=== PATIENT | male | born 1950 | race Caucasian/White ===

== ENCOUNTER 2018-11-12 14:55 | Inpatient (IN) | payer OTHER, MEDICARE ==
[~2018-11-12] VITALS: Ht 177.8 cm; Wt 135.2 kg
[~2018-11-12 14:55] MED LIST: APIX5TAB PO; ATOR40TA PO; CIPR500T94 PO
--- NOTE | 2018-11-12 16:47 | PHYS DOC ---
Past Medical History Past Medical History: CVA, Other Additional Past Medical Histor: Kidney stones Past Surgical History: Other Additional Past Surgical Histo: L)Carotidendarectomy,R)rotator cuff,Bilateral knee surgery,Hiatel hernia. Alcohol Use: Rarely Drug Use: Marijuana Social History Narrative: last use 2 weeks ago Adult General Chief Complaint Chief Complaint: TOE PROBLEM HPI HPI Patient is a 68 year old male who presents with right second toe wound with drainage that has gotten worse in the last 2 weeks. The second toe is now red and swollen and patient states isn't draining purulent fluid. Patient states that his girlfriend has been trying to fix his toes and has been taking at that toe to drain pus and remove ingrown toenails for quite a few weeks. Patient states does have venous stasis in that right leg. Patient states that he does not think the foot is any more swollen than it usually is. Patient states that toe is very painful to touch at a 10 out of 10. Patient states if he just sitting without the toe being touched it the pain is only a 2 out of 10. Patient has a history of 5 strokes, high cholesterol, venous stasis, coronary disease. Review of Systems Review of Systems Constitutional: Denies fever or chills [] Eyes: Denies change in visual acuity, redness, or eye pain [] HENT: Denies nasal congestion or sore throat [] Respiratory: Denies cough or shortness of breath [] Cardiovascular: No additional information not addressed in HPI [] GI: Denies abdominal pain, nausea, vomiting, bloody stools or diarrhea [] : Denies dysuria or hematuria [] Musculoskeletal: Denies back pain or joint pain [] Integument: wound to right 2nd toe. Denies rash or skin lesions [] Neurologic: Denies headache, focal weakness or sensory changes [] All other systems were reviewed and found to be within normal limits, except as documented in this note. Current Medications Current Medications Current Medications Medications (Trade) Dose Ordered Sig/Taylor Start Time Stop Time Status Last Admin Dose Admin Sodium Chloride 1,000 ml @ 1,000 mls/hr 1X ONCE 11/12/18 17:15 11/12/18 18:14 Allergies Allergies Allergies Coded Allergies Type Severity Reaction Last Updated Verified hydroxyzine Allergy Intermediate Blisters on fingers and feet. 04/24/18 Yes Physical Exam Physical Exam Constitutional: Well developed, well nourished, no acute distress, non-toxic appearance. [] HENT: Normocephalic, atraumatic, bilateral external ears normal, oropharynx moist, no oral exudates, nose normal. [] Eyes: PERRLA, EOMI, conjunctiva normal, no discharge. [] Neck: Normal range of motion, no tenderness, supple, no stridor. [] Cardiovascular:Heart rate regular rhythm, no murmur [] Lungs & Thorax: Bilateral breath sounds clear to auscultation [] Abdomen: Bowel sounds normal, soft, no tenderness, no masses, no pulsatile masses. [] Skin: Warm, dry, Right 2nd toe erythema, redness, Right foot and 2-3+ swelling, tenderness, tip of toe wound, no rash. [] Back: No tenderness, no CVA tenderness. [] Extremities: No tenderness, no cyanosis, no clubbing, ROM intact, no edema. [] Neurologic: Alert and oriented X 3, normal motor function, normal sensory function, no focal deficits noted. [] Psychologic: Affect normal, judgement normal, mood normal. [] Current Patient Data Vital Signs Vital Signs Date Time Temp Pulse Resp B/P (MAP) Pulse Ox O2 Delivery O2 Flow Rate FiO2 11/12/18 15:51 97.8 138 18 135/71 (92) 97 Room Air 97.8 Lab Values Laboratory Tests Test 11/12/18 17:04 White Blood Count 8.0 x10^3/uL (4.0-11.0) Red Blood Count 4.34 x10^6/uL (4.30-5.70) Hemoglobin 13.1 g/dL (13.0-17.5) Hematocrit 39.4 % (39.0-53.0) Mean Corpuscular Volume 91 fL (79-100) Mean Corpuscular Hemoglobin 30 pg (25-35) Mean Corpuscular Hemoglobin Concent 33 g/dL (31-37) Red Cell Distribution Width 14.7 % (11.5-14.5) H Platelet Count 266 x10^3/uL (140-400) Neutrophils (%) (Auto) 69 % (31-73) Lymphocytes (%) (Auto) 19 % (24-48) L Monocytes (%) (Auto) 9 % (0-9) Eosinophils (%) (Auto) 3 % (0-3) Basophils (%) (Auto) 1 % (0-3) Neutrophils # (Auto) 5.5 x10^3uL (1.8-7.7) Lymphocytes # (Auto) 1.5 x10^3/uL (1.0-4.8) Monocytes # (Auto) 0.7 x10^3/uL (0.0-1.1) Eosinophils # (Auto) 0.3 x10^3/uL (0.0-0.7) Basophils # (Auto) 0.1 x10^3/uL (0.0-0.2) Laboratory Tests 11/12/18 17:04 EKG EKG [] Radiology/Procedures Radiology/Procedures [] Impressions: [facility] [address] [place] [address] IMAGING REPORT Signed PATIENT: ELE MCCRACKEN ACCOUNT: [id number] : 1950 LOCATION: ER AGE: 68 SEX: M EXAM STATUS: REG ER ORD. PHYSICIAN: MONI PULIDO APRN REASON: right 2nd toe wound PROCEDURE: FOOT RIGHT 3V Three-view right foot study Clinical indications: Second toe wound. FINDINGS: No acute fracture or dislocation is evident. Alignment is normal. No periosteal reaction is evident. There is erosion of the distal tuft of the second distal phalanx consistent with osteomyelitis. No soft tissue air is seen. Plantar and posterior spurs of the calcaneus are seen IMPRESSION: Osteomyelitis of the second distal phalanx. Electronically signed by: Brandie Awan MD (11/12/2018 4:49 PM) [facility] DICTATED and SIGNED BY: BRANDIE AWAN MD DATE: 11/12/18 5224 Course & Med Decision Making Course & Med Decision Making Patient is a 68 year old male who presents with right second toe wound with drainage that has gotten worse in the last 2 weeks. The second toe is now red and swollen and patient states isn't draining purulent fluid. Patient states that his girlfriend has been trying to fix his toes and has been taking at that toe to drain pus and remove ingrown toenails for quite a few weeks. Patient states does have venous stasis in that right leg. Patient states that he does not think the foot is any more swollen than it usually is. Patient states that toe is very painful to touch at a 10 out of 10. Patient states if he just sitting without the toe being touched it the pain is only a 2 out of 10. Patient has a history of 5 strokes, high cholesterol, venous stasis, coronary disease. Upon examination patient's right second toe is 2+ swollen and red and hot to touch. Very painful for me to touch the toe. Patient has a positive pedal pulse in the affected right foot when using a Doppler. The foot itself is 3+ edema compared to the left foot which has 1+ edema. Patient states that he does not think it any more swollen than usual. Patient states he does have neuropathy in the foot on the sole foot. Patient's vital signs are normal and states he has not been running a fever, although his heart rate is 138 of which she states that he's been drinking energy drinks today. When looking back at previous visits the patient has been here his heart rates of been in the 80s and 90s. Bilateral feet and lower legs are reddened the patient again states that that is normal and has been like that for years. She denies any chest pain, dizziness, shortness of air, fevers, chills, nausea, vomiting. Alert and oriented. Ambulatory with a steady gait. Speaks in full clear sentences. Patient can wiggle toes on both feet. Toe nails on bilateral feet are thick and yellow and therefore it is difficult to check Refill. He shouldn't has no calf tenderness or foot tenderness bilaterally. Patient only has tenderness in the affected right second toe. There is a wound to the tip of the right second toe that looks to have a scab on it and is not currently draining at this time. Patient states he did get a lot of purulent fluid out of it yesterday. Patient states that the toe has been like this off and on for the last 8 years. Differential diagnosis are venous stasis ulcer, osteomyelitis, cellulitis. I have ordered an x-ray of the foot and blood work. Xray shows osteomyelitis in right second toe. I have spoken with Dr Schulz and patient is being admitted for osteomyelitis. I have started the patient on vancomycin and blood cultures have been ordered. Dragon Disclaimer Dragon Disclaimer This electronic medical record was generated, in whole or in part, using a voice recognition dictation system. Departure Departure Impression: Primary Impression: Osteomyelitis Disposition: 09 ADMITTED INPATIENT Admitting Physician: HENRY Condition: STABLE Referrals: MARY ROGERS (PCP) Problem Qualifiers Primary Impression: Osteomyelitis Osteomyelitis type: unspecified type Osteomyelitis location: foot Laterality: right Qualified Codes: M86.9 - Osteomyelitis, unspecified MONI PULIDO PRACTICAL NURSE Nov 12, 2018 16:47
--- NOTE | 2018-11-12 16:52 | RAD ---
Three-view right foot study Clinical indications: Second toe wound. FINDINGS: No acute fracture or dislocation is evident. Alignment is normal. No periosteal reaction is evident. There is erosion of the distal tuft of the second distal phalanx consistent with osteomyelitis. No soft tissue air is seen. Plantar and posterior spurs of the calcaneus are seen IMPRESSION: Osteomyelitis of the second distal phalanx. Electronically signed by: Serge Awan MD (11/12/2018 4:49 PM) [place] [id number]
[2018-11-12 17:13] LABS: BASO # 0.1 x10^3/uL (0.0-0.2); BASO % 1 % (0-3); EOS # 0.3 x10^3/uL (0.0-0.7); EOS % 3 % (0-3); HEMATOCRIT 39.4 % (39.0-53.0); HEMOGLOBIN 13.1 g/dL (13.0-17.5); LYMPH # 1.5 x10^3/uL (1.0-4.8); LYMPH % 19 % (24-48); MEAN CORPUSCULAR HEMOGLOBIN 30 pg (25-35); MEAN CORPUSCULAR HGB CONC 33 g/dL (31-37); MEAN CORPUSCULAR VOLUME 91 fL (79-100); MONO # 0.7 x10^3/uL (0.0-1.1); MONO % 9 % (0-9); NEUT # 5.5 x10^3uL (1.8-7.7); NEUT % 69 % (31-73); PLATELET COUNT 266 x10^3/uL (140-400); RED BLOOD COUNT 4.34 x10^6/uL (4.30-5.70); RED CELL DISTRIBUTION WIDTH 14.7 % (11.5-14.5)
[2018-11-12] MEDS ORDERED: IV NORMAL SALINE 1000ML BAG 1,000 ML IV ONE (17:15)
[2018-11-12 17:26] LABS: BILIRUBIN,URINE NEGATIVE (NEG); CLARITY,URINE CLEAR; COLOR,URINE YELLOW; NITRITE,URINE NEGATIVE (NEG); PH,URINE 5.5; PROTEIN,URINE NEGATIVE (NEG-TRACE)
[2018-11-12] MEDS ORDERED: ONDANSETRON PF 4 MG/2 ML VIAL. IV PRN (17:30)
[2018-11-12] MEDS ORDERED: VANCOMYCIN 2 GM in IV NORMAL SALINE 500ML BAG 500 ML IV ONE (17:30)
[2018-11-12] MEDS ORDERED: ACETAMINOPHEN 325 MG TABLET. PO PRN (17:30)
[2018-11-12] MEDS ORDERED: VANCOMYCIN PER PHARMACY MC PRN (17:30)
[2018-11-12 17:33] LABS: CALCIUM 8.8 mg/dL (8.5-10.1); CREATININE 1.6 mg/dL (0.7-1.3); GFR 43.1; POTASSIUM 4.2 mmol/L (3.5-5.1)
[2018-11-12 17:46] LABS: ALBUMIN 3.1 g/dL (3.4-5.0); ALBUMIN/GLOBULIN RATIO 0.9 (1.0-1.7); C-REACTIVE PROTEIN 12.6 mg/L (0-3.3); TOTAL BILIRUBIN 1.4 mg/dL (0.2-1.0); TOTAL PROTEIN 6.6 g/dL (6.4-8.2)
[2018-11-12] MEDS: fentaNYL PF VIAL 100 MCG/2 ML VIAL IV PRN ×2 (17:51→18:52)
[2018-11-12 18:13] LABS: BACTERIA,URINE FEW /HPF (0-FEW); RBC,URINE OCC /HPF (0-2); SQUAMOUS EPITHELIAL CELL,UR FEW /LPF
[2018-11-12 18:14] LABS: GRANULAR CASTS,URINE FEW /HPF; HYALINE CASTS, URINE OCCASIONAL /HPF
--- NOTE | 2018-11-12 19:17 | NUR ---
Pharmacy Vancomycin Dosing Note S:Consulted to monitor and dose vancomycin started 11/12/18. O:ELE MCCRACKEN is a 68 year old M with osteomyelitis. Height: 5 feet, 10 inches Weight: 127 Other Antibiotics: N/A LABS: Last BUN: 27 Last Creatinine: 1.6 Creatinine Clearance: 58 mL/min Last WBC: 8 Tmax (past 24 hours): 97.8 Microbiology: BLOOD AND URINE CX PENDING A: Patient requires vancomycin for osteomyelitis, goal trough 15-20 mcg/ml. Patient's SCr is 1.6 with an eCrCl of 58 ml/min. Will dose carefully due to SCr elevation, as this likely has inflated his eCrCl. Repeat labs ordered for tomorrow. Initiate the following: P: 1. Initiate Vancomycin 2000 mg IV q24hrs 2. Follow up Trough level on 11/14/18 at 1730 3. Pharmacy will continue to monitor, follow and adjust therapy as needed. TERA RAZO [facility], 11/12/18 [id number]
[2018-11-12 19:30] VITALS: BP 177/86
--- NOTE | 2018-11-12 19:30 | NUR ---
The patient, ELE MCCRACKEN, 68 y/o, M admitted by BALA BAIG MD, was given written information regarding hospital policies, unit procedures and contact persons. Pt. arrived on unit at 1930 by wheelchair. Pain level 3/10. BP elevated but otherwise VSS. Nora at bedside. Admission assessment and questions were done at this time. Valuables were left with pt. Bed low and locked. Call light within reach. Will continue to monitor.
[2018-11-12] MEDS ORDERED: cloNIDine HCL 0.2 MG TABLET PO ONE (21:00)
--- NOTE | 2018-11-12 21:01 | PDOC1 ---
History and Physical Date of Admission Date of Admission DATE: 11/12/18 TIME: 21:01 Identification/Chief Complaint Chief Complaint SEEN IN ER , Presents with right second toe wound with drainage that has gotten worse in the last 2 weeks. The second toe is now red and swollen and patient states isn't draining purulent fluid. Patient states that his girlfriend has been trying to fix his toes and has been taking at that toe to drain pus and remove ingrown toenails for quite a few weeks. Patient states does have venous stasis in that right leg. Patient states that he does not think the foot is any more swollen than it usually is. Patient states that toe is very painful to touch at a 10 out of 10. Patient states if he just sitting without the toe being touched it the pain is only a 2 out of 10. XRAY C/W OSTEO MYELITIS, ACUTE Past Medical History Past Medical History Past Medical History Past Medical History Past Medical History: CVA, Other Additional Past Medical Histor: Kidney stones Past Surgical History: Other Additional Past Surgical Histo: L)Carotidendarectomy,R)rotator cuff,Bilateral knee surgery,Hiatel hernia. Alcohol Use: Rarely Drug Use: Marijuana Social History Narrative: last use 2 weeks ago FAMILY HX OBESITY Cardiovascular: No pertinent hx, Hyperlipidemia Pulmonary: No pertinent hx GI: No pertinent hx Heme/Onc: Other Hepatobiliary: No pertinent hx Psych: No pertinent hx Rheumatologic: No pertinent hx Infectious disease: No pertinent hx Renal/: Other Endocrine: No pertinent hx Past Surgical History Past Surgical History: No pertinent history Family History Family History: High Cholestrol Social History Smoke: <1 pack per day ALCOHOL: social Drugs: None, Marijuana Current Problem List Problem List Problems Medical Problems: (1) Osteomyelitis Status: Acute Current Medications Current Medications Current Medications Sodium Chloride 1,000 ml @ 1,000 mls/hr 1X ONCE IV Last administered on 11/12/18at 17:50; Start 11/12/18 at 17:15; Stop 11/12/18 at 18:14; Status DC Vancomycin HCl (Vanco Per Pharmacy) 1 each PRN DAILY PRN MC SEE COMMENTS Last administered on 11/12/18at 19:16; Start 11/12/18 at 17:30 Vancomycin HCl 2 gm/Sodium Chloride 500 ml @ 250 mls/hr 1X ONCE IV Last administered on 11/12/18at 18:22; Start 11/12/18 at 17:30; Stop 11/12/18 at 19:29; Status DC Ondansetron HCl (Zofran) 4 mg PRN Q8HRS PRN IV NAUSEA/VOMITING; Start 11/12/18 at 17:30; Stop 11/13/18 at 17:29 Fentanyl Citrate (Fentanyl 2ml Vial) 50 mcg PRN Q1HR PRN IV PAIN Last administered on 11/12/18at 18:52; Start 11/12/18 at 17:30; Stop 11/13/18 at 17:29 Acetaminophen (Tylenol) 650 mg PRN Q4HRS PRN PO FEVER; Start 11/12/18 at 17:30; Stop 11/13/18 at 17:29 Vancomycin HCl 2 gm/Sodium Chloride 500 ml @ 250 mls/hr Q24H IV ; Start 11/13/18 at 18:00 Vancomycin HCl (Vancomycin Trough Level) 1 each 1X ONCE MC ; Start 11/14/18 at 17:30; Stop 11/14/18 at 17:31 Clonidine HCl (Catapres) 0.2 mg 1X ONCE PO ; Start 11/12/18 at 21:00; Stop 11/12/18 at 21:01 Active Scripts Active Cipro (Ciprofloxacin Hcl) 500 Mg Tablet 1 Tab PO BID Reported Lipitor (Atorvastatin Calcium) 40 Mg Tablet 1 Tab PO QHS Eliquis (Apixaban) 5 Mg Tablet 5 Mg PO BID Allergies Allergies: Coded Allergies: hydroxyzine (Verified Allergy, Intermediate, Blisters on fingers and feet. , 04/24/18) ROS Review of System Review of Systems Review of Systems Constitutional: Denies fever or chills [] Eyes: Denies change in visual acuity, redness, or eye pain [] HENT: Denies nasal congestion or sore throat [] Respiratory: Denies cough or shortness of breath [] Cardiovascular: No additional information not addressed in HPI [] GI: Denies abdominal pain, nausea, vomiting, bloody stools or diarrhea [] : Denies dysuria or hematuria [] Musculoskeletal: Denies back pain or joint pain [] Integument: wound to right 2nd toe. Denies rash or skin lesions [] Neurologic: Denies headache, focal weakness or sensory changes [] 14 PT systems were reviewed and found to be within normal limits, except as documenteD ALLERGY AND IMMUNOLOGY: No: Hives, Insect Bite Sensitivity, Itchy/Watery Eyes, Nasal Congestion, Post Nasal Drip, Seasonal Allergies, Other Physical Exam Physical Exam Physical Exam Physical Exam Constitutional: Well developed, well nourished, MILD acute distress, non-toxic appearance. [] HENT: Normocephalic, atraumatic, bilateral external ears normal, oropharynx moist, no oral exudates, nose normal. [] Eyes: PERRLA, EOMI, conjunctiva normal, no discharge. [] Neck: Normal range of motion, no tenderness, supple, no stridor. [] Cardiovascular:Heart rate regular rhythm, no murmur [] Lungs & Thorax: Bilateral breath sounds clear to auscultation [] Abdomen: Bowel sounds normal, soft, no tenderness, no masses, no pulsatile masses. [] Skin: Warm, dry, Right 2nd toe erythema, redness, Right foot and 2-3+ swelling, tenderness, tip of toe wound, no rash. [] Back: No tenderness, no CVA tenderness. [] Extremities: No tenderness, no cyanosis, no clubbing, ROM intact, no edema. [] Neurologic: Alert and oriented X 3, normal motor function, normal sensory function, no focal deficits noted. [] Psychologic: Affect normal, judgement normal, mood normal. [] General: Oriented X3, Cooperative, mild distress HEENT: Atraumatic, PERRLA, EOMI, Mucous membr. moist/pink Lungs: Clear to auscultation Abdomen: Normal bowel sounds, Soft Rectal Exam: not examined PELVIC: Examination not indicated Extremities: No cyanosis Neuro: Normal speech, Strength at 5/5 X4 ext, Cranial nerves 3-12 NL Psych/Mental Status: Mental status NL, Mood NL Vitals Vitals Vital Signs Date Time Temp Pulse Resp B/P (MAP) Pulse Ox O2 Delivery O2 Flow Rate FiO2 11/12/18 19:30 97.6 76 20 177/86 (116) 97 Room Air 97.6 Labs Labs Laboratory Tests Test 11/12/18 17:04 11/12/18 17:10 White Blood Count 8.0 x10^3/uL (4.0-11.0) Red Blood Count 4.34 x10^6/uL (4.30-5.70) Hemoglobin 13.1 g/dL (13.0-17.5) Hematocrit 39.4 % (39.0-53.0) Mean Corpuscular Volume 91 fL (79-100) Mean Corpuscular Hemoglobin 30 pg (25-35) Mean Corpuscular Hemoglobin Concent 33 g/dL (31-37) Red Cell Distribution Width 14.7 % (11.5-14.5) Platelet Count 266 x10^3/uL (140-400) Neutrophils (%) (Auto) 69 % (31-73) Lymphocytes (%) (Auto) 19 % (24-48) Monocytes (%) (Auto) 9 % (0-9) Eosinophils (%) (Auto) 3 % (0-3) Basophils (%) (Auto) 1 % (0-3) Neutrophils # (Auto) 5.5 x10^3uL (1.8-7.7) Lymphocytes # (Auto) 1.5 x10^3/uL (1.0-4.8) Monocytes # (Auto) 0.7 x10^3/uL (0.0-1.1) Eosinophils # (Auto) 0.3 x10^3/uL (0.0-0.7) Basophils # (Auto) 0.1 x10^3/uL (0.0-0.2) Sodium Level 143 mmol/L (136-145) Potassium Level 4.2 mmol/L (3.5-5.1) Chloride Level 107 mmol/L (98-107) Carbon Dioxide Level 27 mmol/L (21-32) Anion Gap 9 (6-14) Blood Urea Nitrogen 27 mg/dL (8-26) Creatinine 1.6 mg/dL (0.7-1.3) Estimated GFR (Cockcroft-Gault) 43.1 BUN/Creatinine Ratio 17 (6-20) Glucose Level 165 mg/dL (70-99) Lactic Acid Level 1.6 mmol/L (0.4-2.0) Calcium Level 8.8 mg/dL (8.5-10.1) Total Bilirubin 1.4 mg/dL (0.2-1.0) Aspartate Amino Transf (AST/SGOT) 19 U/L (15-37) Alanine Aminotransferase (ALT/SGPT) 23 U/L (16-63) Alkaline Phosphatase 72 U/L (46-116) C-Reactive Protein, Quantitative 12.6 mg/L (0-3.3) Total Protein 6.6 g/dL (6.4-8.2) Albumin 3.1 g/dL (3.4-5.0) Albumin/Globulin Ratio 0.9 (1.0-1.7) Urine Collection Type Unknown Urine Color Yellow Urine Clarity Clear Urine pH 5.5 Urine Specific [place] 1.020 Urine Protein Negative mg/dL (NEG-TRACE) Urine Glucose (UA) Negative mg/dL (NEG) Urine Ketones (Stick) Negative mg/dL (NEG) Urine Blood Negative (NEG) Urine Nitrite Negative (NEG) Urine Bilirubin Negative (NEG) Urine Urobilinogen Dipstick 1.0 mg/dL (0.2 mg/dL) Urine Leukocyte Esterase Trace (NEG) Urine RBC Occ /HPF (0-2) Urine WBC 5-10 /HPF (0-4) Urine Squamous Epithelial Cells Few /LPF Urine Bacteria Few /HPF (0-FEW) Urine Hyaline Casts Occasional /HPF Urine Granular Casts Few /HPF Urine Mucus Slight /LPF Laboratory Tests Test 11/12/18 17:04 11/12/18 17:10 White Blood Count 8.0 x10^3/uL (4.0-11.0) Red Blood Count 4.34 x10^6/uL (4.30-5.70) Hemoglobin 13.1 g/dL (13.0-17.5) Hematocrit 39.4 % (39.0-53.0) Mean Corpuscular Volume 91 fL (79-100) Mean Corpuscular Hemoglobin 30 pg (25-35) Mean Corpuscular Hemoglobin Concent 33 g/dL (31-37) Red Cell Distribution Width 14.7 % (11.5-14.5) Platelet Count 266 x10^3/uL (140-400) Neutrophils (%) (Auto) 69 % (31-73) Lymphocytes (%) (Auto) 19 % (24-48) Monocytes (%) (Auto) 9 % (0-9) Eosinophils (%) (Auto) 3 % (0-3) Basophils (%) (Auto) 1 % (0-3) Neutrophils # (Auto) 5.5 x10^3uL (1.8-7.7) Lymphocytes # (Auto) 1.5 x10^3/uL (1.0-4.8) Monocytes # (Auto) 0.7 x10^3/uL (0.0-1.1) Eosinophils # (Auto) 0.3 x10^3/uL (0.0-0.7) Basophils # (Auto) 0.1 x10^3/uL (0.0-0.2) Sodium Level 143 mmol/L (136-145) Potassium Level 4.2 mmol/L (3.5-5.1) Chloride Level 107 mmol/L (98-107) Carbon Dioxide Level 27 mmol/L (21-32) Anion Gap 9 (6-14) Blood Urea Nitrogen 27 mg/dL (8-26) Creatinine 1.6 mg/dL (0.7-1.3) Estimated GFR (Cockcroft-Gault) 43.1 BUN/Creatinine Ratio 17 (6-20) Glucose Level 165 mg/dL (70-99) Lactic Acid Level 1.6 mmol/L (0.4-2.0) Calcium Level 8.8 mg/dL (8.5-10.1) Total Bilirubin 1.4 mg/dL (0.2-1.0) Aspartate Amino Transf (AST/SGOT) 19 U/L (15-37) Alanine Aminotransferase (ALT/SGPT) 23 U/L (16-63) Alkaline Phosphatase 72 U/L (46-116) C-Reactive Protein, Quantitative 12.6 mg/L (0-3.3) Total Protein 6.6 g/dL (6.4-8.2) Albumin 3.1 g/dL (3.4-5.0) Albumin/Globulin Ratio 0.9 (1.0-1.7) Urine Collection Type Unknown Urine Color Yellow Urine Clarity Clear Urine pH 5.5 Urine Specific [place] 1.020 Urine Protein Negative mg/dL (NEG-TRACE) Urine Glucose (UA) Negative mg/dL (NEG) Urine Ketones (Stick) Negative mg/dL (NEG) Urine Blood Negative (NEG) Urine Nitrite Negative (NEG) Urine Bilirubin Negative (NEG) Urine Urobilinogen Dipstick 1.0 mg/dL (0.2 mg/dL) Urine Leukocyte Esterase Trace (NEG) Urine RBC Occ /HPF (0-2) Urine WBC 5-10 /HPF (0-4) Urine Squamous Epithelial Cells Few /LPF Urine Bacteria Few /HPF (0-FEW) Urine Hyaline Casts Occasional /HPF Urine Granular Casts Few /HPF Urine Mucus Slight /LPF Images Images Three-view right foot study Clinical indications: Second toe wound. FINDINGS: No acute fracture or dislocation is evident. Alignment is normal. No periosteal reaction is evident. There is erosion of the distal tuft of the second distal phalanx consistent with osteomyelitis. No soft tissue air is seen. Plantar and posterior spurs of the calcaneus are seen IMPRESSION: Osteomyelitis of the second distal phalanx. Electronically signed by: Serge Awan MD (11/12/2018 4:49 PM) [facility] Prophylaxis Ordered VTE Prophylaxis Devices: No VTE Pharmacological Prophylaxi: Yes Assessment/Plan Assessment/Plan Impression: Osteomyelitis IE , Osteomyelitis of the second distal phalanx. ACUTE MORBID OBESITY ONYCHOMYCOSIS OF FOOT NAILS cysto, R: URS/LL/Stent 2018 KIDNEY STONES REMOTE CVA HX HYPERLIPIDEMIA ADMITTED ID CONSULT VASCULAR SURGERY CONSULT HOME MEDS ARTERIAL DOPPLER BOTH LEGS IV VANC EMPERIC BALA BAIG MD Nov 12, 2018 21:01
[2018-11-12] MEDS: ATORVASTATIN CALCIUM 40 MG TABLET. PO SCH (22:25)
[2018-11-12] MEDS: APIXABAN 5 MG TABLET. PO SCH (22:25)
[2018-11-12 23:41] VITALS: BP 99/66
--- NOTE | 2018-11-13 00:11 | NUR ---
Pt.'s Nora called this evening. She wanted to let this nurse know that pt. is not compliant with his medical care. He has not been to the doctor in over 10 years. Before then, he needed a CPAP but never followed up with his doctor. She also stated he has been using a blade for 3 years to open the wound up on his toe and drain it. Pt.'s will be here around [id number] tomorrow morning.
[2018-11-13 03:43] VITALS: BP 131/78
[2018-11-13 07:00] VITALS: BP 128/84
--- NOTE | 2018-11-13 08:16 | RAD ---
Bilateral lower extremity arterial ultrasound, 11/12/2018: HISTORY: Peripheral vascular disease Duplex evaluation of the major arteries in both lower extremities was performed including grayscale, color-flow and spectral Doppler analysis. There are mild scattered atherosclerotic plaques. The right common femoral and superficial femoral arteries demonstrate biphasic Doppler waveforms. No significant focal velocity acceleration is seen in those vessels to suggest high-grade stenosis. In the right lower leg the anterior tibial artery is patent with a biphasic Doppler waveform. The posterior tibial and peroneal arteries are patent with predominantly monophasic Doppler waveforms. The right dorsalis pedis artery demonstrates a dampened monophasic Doppler waveform. On the left, the common femoral and superficial femoral Doppler waveforms are triphasic and biphasic. No significant focal velocity elevation is seen to suggest high-grade femoral-popliteal stenosis. The left posterior tibial, peroneal and anterior tibial arteries in the left lower leg demonstrate predominantly biphasic Doppler waveforms. The left dorsalis pedis artery demonstrates a biphasic Doppler waveform. IMPRESSION: 1. Mild scattered atherosclerotic plaquing without evidence of high-grade femoral-popliteal stenosis. 2. Three-vessel arterial runoff in both lower legs with mild degradation of the distal Doppler waveforms. Electronically signed by: Malachi Armenta MD (11/13/2018 8:14 AM) [facility] [place]
[2018-11-13 08:19] LABS: CREATININE 1.4 mg/dL (0.7-1.3); GFR 50.2
[2018-11-13 08:24] LABS: BASO % 1 % (0-3); EOS # 0.2 x10^3/uL (0.0-0.7); EOS % 3 % (0-3); HEMATOCRIT 42.2 % (39.0-53.0); HEMOGLOBIN 13.4 g/dL (13.0-17.5); LYMPH # 1.4 x10^3/uL (1.0-4.8); LYMPH % 23 % (24-48); MEAN CORPUSCULAR HEMOGLOBIN 29 pg (25-35); MEAN CORPUSCULAR HGB CONC 32 g/dL (31-37); MEAN CORPUSCULAR VOLUME 92 fL (79-100); MONO # 0.6 x10^3/uL (0.0-1.1); MONO % 10 % (0-9); NEUT % 63 % (31-73); PLATELET COUNT 288 x10^3/uL (140-400); RED BLOOD COUNT 4.58 x10^6/uL (4.30-5.70); RED CELL DISTRIBUTION WIDTH 14.8 % (11.5-14.5); WHITE BLOOD COUNT 6.2 x10^3/uL (4.0-11.0)
--- NOTE | 2018-11-13 09:11 | PDOC ---
Provider Note Provider Note ID consult dictated Pt seen and examined [id number] JENARO XIONG MD Nov 13, 2018 09:11
[2018-11-13] MEDS: APIXABAN 5 MG TABLET. PO SCH ×2 (09:19→21:00)
--- NOTE | 2018-11-13 09:37 | NUR ---
SW following for discharge planning. Discussed with RN, pt is from home with clarissa. Currently on IV zosyn and dapto. SW will continue to follow.
[2018-11-13] MEDS: NORMAL SALINE IV SCH (10:44)
[2018-11-13] MEDS: DAPTOMYCIN IV SCH (10:44)
[2018-11-13 11:00] VITALS: BP 102/74
[2018-11-13] MEDS: PIPERACILLIN/TAZOBACTAM 3.375 GM in IV NORMAL SALINE 50ML 50 ML IV SCH ×3 (11:40→23:34)
--- NOTE | 2018-11-13 12:01 | CONS ---
DATE OF CONSULTATION: 11/13/2018 REFERRING PHYSICIAN: Benton Schulz MD. REASON FOR CONSULTATION: Right second toe osteomyelitis. HISTORY OF PRESENT ILLNESS: A 68-year-old male who presents with right second toe wound, which has been present off and on for a couple of months with worsening drainage, which started more than 2 weeks ago. Second toe is red and swollen. Drainage has stopped. The patient's girlfriend had tried to work on the toe multiple times and has been able to drain pus off and on for quite some time now. The patient has a history of recurrent cellulitis of both lower extremities. He also has underlying venous stasis. He has onychomycosis. The patient has an insect bites on both the upper extremities and on the back. No fevers, chills, nausea, vomiting, diarrhea or abdominal pain. The patient underwent x-ray of the right foot, which shows osteomyelitis of the second distal phalanx. The patient also had been on Cipro prior to admission without improvement in his symptoms. PAST MEDICAL HISTORY: CVA, venous stasis, recurrent cellulitis of both lower extremities, right greater than the left; hyperlipidemia, coronary artery disease, obesity. Denies any history of diabetes. Kidney stones, carotid endarterectomy, rotator cuff surgery, knee surgery, and hiatal hernia surgery. REVIEW OF SYSTEMS: Negative except for above in HPI. CURRENT MEDICATIONS: Include IV vancomycin 2 grams q. 24. SOCIAL HISTORY: Denies smoking, alcohol rarely; drug use, marijuana. Lives with his girlfriend. ALLERGIES: CODEINE. PHYSICAL EXAMINATION: VITAL SIGNS: Temperature 97.8, pulse 128, respiratory rate 18, blood pressure 128/84, oxygen saturation 95% on room air. GENERAL: Alert, oriented x 3 male, obese, lying in bed comfortably, in no acute distress, cooperative, nontoxic appearing. HEENT: Normocephalic, atraumatic. Anicteric. No thrush. NECK: Supple. No JVD. LUNGS: Clear bilaterally. HEART: S1, S2. ABDOMEN: Soft, obese, bowel sounds present, nontender. EXTREMITIES: Right toe swelling, erythema, wound over the plantar aspect, mild right foot swelling, varicose veins, venous stasis and onychomycosis. BACK: Reveals normal curvature. No CVA tenderness. NEUROLOGIC: Alert and oriented x 3, grossly nonfocal. PSYCHIATRIC: Cooperative, appropriate mood and affect. LABORATORY DATA: WBC 6.2, hemoglobin 13.4, hematocrit 42.2, platelets 288. Sodium 143, potassium 4.0, chloride 107, bicarbonate 27, BUN 27, creatinine 1.6 and now is 1.4. Total bilirubin 1.4. C-reactive protein 12.6, lactate 1.6. UA negative except for 5-10 wbc's, leukocyte esterase, mild. MICROBIOLOGY: Blood culture and urine culture pending. IMAGING: Right foot x-ray as above. Duplex lower extremity arterial study as above. IMPRESSION: 1. Chronic nonhealing right second toe wound with purulent drainage with osteomyelitis of the second distal phalanx. 2. Chronic venous stasis. 3. Onychomycosis. 4. History of kidney stone. 5. Acute kidney injury. 6. History of remote cerebrovascular accident. 7. Hyperlipidemia. 8. History of recurrent cellulitis. RECOMMENDATIONS: 1. Discontinue IV vancomycin due to HYUN. 2. Start daptomycin, may need renal dosing. 3. Start Zosyn. 4. Start micafungin. 5. Consult Vascular Surgery. 6. Follow up labs and cultures. 7. Continue supportive care. 8. Continue with local wound care. Thank you, Dr. Schulz for consulting Infectious Disease to participate in this patient's care. We will follow along with you. JENARO XIONG MD DR: DL/jn JOB#: [id number] / [id number] BARNEY
--- NOTE | 2018-11-13 12:25 | PDOC2 ---
CONSULT Date of Consult Date of Consult DATE: 11/13/18 TIME: 12:17 Reason for Consult Reason for Consult: Right second toe wound with osteomyelitis Referring Physician Referring Physician: Dr Garcia Identification/Chief Complaint Chief Complaint Right second toe wound, purulent drainage, pain Source Source: Chart review, Patient History of Present Illness Reason for Visit: A 68-year-old male who presents with right second toe wound, which has been present off and on for a couple of months with worsening drainage, which started more than 2 weeks ago. Second toe is red and swollen. Drainage has stopped. The patient's girlfriend had tried to work on the toe multiple times and has been able to drain pus off and on for quite some time now. The patient has a history of recurrent cellulitis of both lower extremities. He also has underlying venous stasis. He has onychomycosis. The patient has an insect bites on both the upper extremities and on the back. No fevers, chills, nausea, vomiting, diarrhea or abdominal pain. The patient underwent x-ray of the right foot, which shows osteomyelitis of the second distal phalanx. The patient also had been on Cipro prior to admission without improvement in his symptoms. He was admitted due to above for intravenous antibiotics. He had arterial duplex performed and we've been asked to see him for relation. He describes a history of venous stasis issues in the right leg, denies any history of claudication or rest pain. He is not diabetic. He is not a smoker and has not smoked in the past. Past Medical History Past Medical History Denies history of diabetes mellitus, denies any history of tobacco abuse, has [place] 5 strokes in the past had a left carotid endarterectomy. This was done at [facility] in the past Cardiovascular: No pertinent hx, Hyperlipidemia Pulmonary: No pertinent hx GI: No pertinent hx Heme/Onc: Other Hepatobiliary: No pertinent hx Psych: No pertinent hx Rheumatologic: No pertinent hx Infectious disease: No pertinent hx Renal/: Other Endocrine: No pertinent hx Past Surgical History Past Surgical History Left carotid endarterectomy Unspecified varicose vein treatment right leg Past Surgical History: No pertinent history Family History Family History: High Cholestrol Social History <1 pack per day ALCOHOL: social Drugs: None, Marijuana Current Problem List Problem List Problems Medical Problems: (1) Osteomyelitis Status: Acute Current Medications Current Medications Current Medications Sodium Chloride 1,000 ml @ 1,000 mls/hr 1X ONCE IV Last administered on 11/12/18at 17:50; Start 11/12/18 at 17:15; Stop 11/12/18 at 18:14; Status DC Vancomycin HCl (Vanco Per Pharmacy) 1 each PRN DAILY PRN MC SEE COMMENTS Last administered on 11/12/18at 19:16; Start 11/12/18 at 17:30; Stop 11/13/18 at 09:04; Status DC Vancomycin HCl 2 gm/Sodium Chloride 500 ml @ 250 mls/hr 1X ONCE IV Last administered on 11/12/18at 18:22; Start 11/12/18 at 17:30; Stop 11/12/18 at 19:29; Status DC Ondansetron HCl (Zofran) 4 mg PRN Q8HRS PRN IV NAUSEA/VOMITING; Start 11/12/18 at 17:30; Stop 11/13/18 at 17:29 Fentanyl Citrate (Fentanyl 2ml Vial) 50 mcg PRN Q1HR PRN IV PAIN Last administered on 11/12/18at 18:52; Start 11/12/18 at 17:30; Stop 11/13/18 at 17:29 Acetaminophen (Tylenol) 650 mg PRN Q4HRS PRN PO FEVER; Start 11/12/18 at 17:30; Stop 11/13/18 at 17:29 Vancomycin HCl 2 gm/Sodium Chloride 500 ml @ 250 mls/hr Q24H IV ; Start 11/13/18 at 18:00; Stop 11/13/18 at 18:00; Status DC Vancomycin HCl (Vancomycin Trough Level) 1 each 1X ONCE MC ; Start 11/14/18 at 17:30; Stop 11/14/18 at 17:31; Status Cancel Clonidine HCl (Catapres) 0.2 mg 1X ONCE PO Last administered on 11/12/18at 22:23; Start 11/12/18 at 21:00; Stop 11/12/18 at 21:01; Status DC Apixaban (Eliquis) 5 mg BID PO Last administered on 11/13/18at 09:19; Start 11/12/18 at 21:30 Atorvastatin Calcium (Lipitor) 40 mg QHS PO Last administered on 11/12/18at 22:25; Start 11/12/18 at 21:30 Daptomycin 810 mg/ Sodium Chloride 50 ml @ 100 mls/hr Q24H IV Last administered on 11/13/18at 10:44; Start 11/13/18 at 10:00 Piperacillin Sod/ Tazobactam Sod 3.375 gm/Sodium Chloride 50 ml @ 100 mls/hr Q6HRS IV Last administered on 11/13/18at 11:40; Start 11/13/18 at 12:00 Lactobacillus Rhamnosus (Culturelle) 1 cap BID PO ; Start 11/13/18 at 21:00 Active Scripts Active Cipro (Ciprofloxacin Hcl) 500 Mg Tablet 1 Tab PO BID Reported Lipitor (Atorvastatin Calcium) 40 Mg Tablet 1 Tab PO QHS Eliquis (Apixaban) 5 Mg Tablet 5 Mg PO BID Allergies Allergies: Coded Allergies: hydroxyzine (Verified Allergy, Intermediate, Blisters on fingers and feet. , 04/24/18) Physical Exam Physical Exam Abdomen is obese. Difficult exam Social remedies have evidence of varicose veins and spider veins with some changes in the skin of the lower extremities consistent with hemosiderin staining chronic ischemic stasis changes. Right lower extremity distal tip of the second toe has an open wound with some small amount of purulent drainage. He has a palpable posterior tibial pulse at the right ankle. The dorsalis pedis pulses absent but a signal was present Has normal motor and sensation both lower extremities General: Alert, Oriented X3, Cooperative, No acute distress HEENT: Atraumatic, PERRLA Lungs: Clear to auscultation Heart: Regular rate, No murmurs Abdomen: Normal bowel sounds, Soft Extremities: No clubbing, Other Vitals VITALS Vital Signs Date Time Temp Pulse Resp B/P (MAP) Pulse Ox O2 Delivery O2 Flow Rate FiO2 11/13/18 11:00 97.9 77 18 102/74 (83) 98 Nasal Cannula 2.0 97.9 Labs Labs Laboratory Tests Test 11/12/18 17:04 11/12/18 17:10 11/13/18 07:24 White Blood Count 8.0 x10^3/uL (4.0-11.0) 6.2 x10^3/uL (4.0-11.0) Red Blood Count 4.34 x10^6/uL (4.30-5.70) 4.58 x10^6/uL (4.30-5.70) Hemoglobin 13.1 g/dL (13.0-17.5) 13.4 g/dL (13.0-17.5) Hematocrit 39.4 % (39.0-53.0) 42.2 % (39.0-53.0) Mean Corpuscular Volume 91 fL (79-100) 92 fL (79-100) Mean Corpuscular Hemoglobin 30 pg (25-35) 29 pg (25-35) Mean Corpuscular Hemoglobin Concent 33 g/dL (31-37) 32 g/dL (31-37) Red Cell Distribution Width 14.7 % (11.5-14.5) 14.8 % (11.5-14.5) Platelet Count 266 x10^3/uL (140-400) 288 x10^3/uL (140-400) Neutrophils (%) (Auto) 69 % (31-73) 63 % (31-73) Lymphocytes (%) (Auto) 19 % (24-48) 23 % (24-48) Monocytes (%) (Auto) 9 % (0-9) 10 % (0-9) Eosinophils (%) (Auto) 3 % (0-3) 3 % (0-3) Basophils (%) (Auto) 1 % (0-3) 1 % (0-3) Neutrophils # (Auto) 5.5 x10^3uL (1.8-7.7) 4.0 x10^3uL (1.8-7.7) Lymphocytes # (Auto) 1.5 x10^3/uL (1.0-4.8) 1.4 x10^3/uL (1.0-4.8) Monocytes # (Auto) 0.7 x10^3/uL (0.0-1.1) 0.6 x10^3/uL (0.0-1.1) Eosinophils # (Auto) 0.3 x10^3/uL (0.0-0.7) 0.2 x10^3/uL (0.0-0.7) Basophils # (Auto) 0.1 x10^3/uL (0.0-0.2) 0.0 x10^3/uL (0.0-0.2) Sodium Level 143 mmol/L (136-145) Potassium Level 4.2 mmol/L (3.5-5.1) Chloride Level 107 mmol/L (98-107) Carbon Dioxide Level 27 mmol/L (21-32) Anion Gap 9 (6-14) Blood Urea Nitrogen 27 mg/dL (8-26) Creatinine 1.6 mg/dL (0.7-1.3) 1.4 mg/dL (0.7-1.3) Estimated GFR (Cockcroft-Gault) 43.1 50.2 BUN/Creatinine Ratio 17 (6-20) Glucose Level 165 mg/dL (70-99) Lactic Acid Level 1.6 mmol/L (0.4-2.0) Calcium Level 8.8 mg/dL (8.5-10.1) Total Bilirubin 1.4 mg/dL (0.2-1.0) Aspartate Amino Transf (AST/SGOT) 19 U/L (15-37) Alanine Aminotransferase (ALT/SGPT) 23 U/L (16-63) Alkaline Phosphatase 72 U/L (46-116) C-Reactive Protein, Quantitative 12.6 mg/L (0-3.3) Total Protein 6.6 g/dL (6.4-8.2) Albumin 3.1 g/dL (3.4-5.0) Albumin/Globulin Ratio 0.9 (1.0-1.7) Urine Collection Type Unknown Urine Color Yellow Urine Clarity Clear Urine pH 5.5 Urine Specific [place] 1.020 Urine Protein Negative mg/dL (NEG-TRACE) Urine Glucose (UA) Negative mg/dL (NEG) Urine Ketones (Stick) Negative mg/dL (NEG) Urine Blood Negative (NEG) Urine Nitrite Negative (NEG) Urine Bilirubin Negative (NEG) Urine Urobilinogen Dipstick 1.0 mg/dL (0.2 mg/dL) Urine Leukocyte Esterase Trace (NEG) Urine RBC Occ /HPF (0-2) Urine WBC 5-10 /HPF (0-4) Urine Squamous Epithelial Cells Few /LPF Urine Bacteria Few /HPF (0-FEW) Urine Hyaline Casts Occasional /HPF Urine Granular Casts Few /HPF Urine Mucus Slight /LPF Laboratory Tests Test 11/12/18 17:04 11/12/18 17:10 11/13/18 07:24 White Blood Count 8.0 x10^3/uL (4.0-11.0) 6.2 x10^3/uL (4.0-11.0) Red Blood Count 4.34 x10^6/uL (4.30-5.70) 4.58 x10^6/uL (4.30-5.70) Hemoglobin 13.1 g/dL (13.0-17.5) 13.4 g/dL (13.0-17.5) Hematocrit 39.4 % (39.0-53.0) 42.2 % (39.0-53.0) Mean Corpuscular Volume 91 fL (79-100) 92 fL (79-100) Mean Corpuscular Hemoglobin 30 pg (25-35) 29 pg (25-35) Mean Corpuscular Hemoglobin Concent 33 g/dL (31-37) 32 g/dL (31-37) Red Cell Distribution Width 14.7 % (11.5-14.5) 14.8 % (11.5-14.5) Platelet Count 266 x10^3/uL (140-400) 288 x10^3/uL (140-400) Neutrophils (%) (Auto) 69 % (31-73) 63 % (31-73) Lymphocytes (%) (Auto) 19 % (24-48) 23 % (24-48) Monocytes (%) (Auto) 9 % (0-9) 10 % (0-9) Eosinophils (%) (Auto) 3 % (0-3) 3 % (0-3) Basophils (%) (Auto) 1 % (0-3) 1 % (0-3) Neutrophils # (Auto) 5.5 x10^3uL (1.8-7.7) 4.0 x10^3uL (1.8-7.7) Lymphocytes # (Auto) 1.5 x10^3/uL (1.0-4.8) 1.4 x10^3/uL (1.0-4.8) Monocytes # (Auto) 0.7 x10^3/uL (0.0-1.1) 0.6 x10^3/uL (0.0-1.1) Eosinophils # (Auto) 0.3 x10^3/uL (0.0-0.7) 0.2 x10^3/uL (0.0-0.7) Basophils # (Auto) 0.1 x10^3/uL (0.0-0.2) 0.0 x10^3/uL (0.0-0.2) Sodium Level 143 mmol/L (136-145) Potassium Level 4.2 mmol/L (3.5-5.1) Chloride Level 107 mmol/L (98-107) Carbon Dioxide Level 27 mmol/L (21-32) Anion Gap 9 (6-14) Blood Urea Nitrogen 27 mg/dL (8-26) Creatinine 1.6 mg/dL (0.7-1.3) 1.4 mg/dL (0.7-1.3) Estimated GFR (Cockcroft-Gault) 43.1 50.2 BUN/Creatinine Ratio 17 (6-20) Glucose Level 165 mg/dL (70-99) Lactic Acid Level 1.6 mmol/L (0.4-2.0) Calcium Level 8.8 mg/dL (8.5-10.1) Total Bilirubin 1.4 mg/dL (0.2-1.0) Aspartate Amino Transf (AST/SGOT) 19 U/L (15-37) Alanine Aminotransferase (ALT/SGPT) 23 U/L (16-63) Alkaline Phosphatase 72 U/L (46-116) C-Reactive Protein, Quantitative 12.6 mg/L (0-3.3) Total Protein 6.6 g/dL (6.4-8.2) Albumin 3.1 g/dL (3.4-5.0) Albumin/Globulin Ratio 0.9 (1.0-1.7) Urine Collection Type Unknown Urine Color Yellow Urine Clarity Clear Urine pH 5.5 Urine Specific [place] 1.020 Urine Protein Negative mg/dL (NEG-TRACE) Urine Glucose (UA) Negative mg/dL (NEG) Urine Ketones (Stick) Negative mg/dL (NEG) Urine Blood Negative (NEG) Urine Nitrite Negative (NEG) Urine Bilirubin Negative (NEG) Urine Urobilinogen Dipstick 1.0 mg/dL (0.2 mg/dL) Urine Leukocyte Esterase Trace (NEG) Urine RBC Occ /HPF (0-2) Urine WBC 5-10 /HPF (0-4) Urine Squamous Epithelial Cells Few /LPF Urine Bacteria Few /HPF (0-FEW) Urine Hyaline Casts Occasional /HPF Urine Granular Casts Few /HPF Urine Mucus Slight /LPF Images Images I independently reviewed today his lower extremity arterial duplex as well as his plain films of his foot Assessment/Plan Assessment/Plan 68-year-old man with history of left carotid endarterectomy��known vascular disease status�female presents with osteomyelitis of the right second toe. On physical exam he has a palpable posterior tibial pulse at the ipsilateral ankle (right ankle) and this would imply in-line flow to the foot via at least a single vessel. His foot has good color and there are no other wounds. She had a injury to the distal tip of the right second toe and has developed recurrent infection with osteomyelitis here. I don't think given his palpable pulse that he needs an angiogram. We discussed at length long-term antibiotics versus amputation of the toe to eradicate the infection in the bone. After discussing options he was to proceed with amputation of the right second toe. Plan this in the near future. I spent over 55 minutes today and review of images and the chart, examining history, counseling, coordination of care exclusive of any procedures TINO RIVERS MD Nov 13, 2018 12:25
--- NOTE | 2018-11-13 12:49 | PDOC ---
[employer] PROGRESS NOTE Chief Complaint Chief Complaint Osteomyelitis IE , Osteomyelitis of the second distal phalanx. ACUTE MORBID OBESITY ONYCHOMYCOSIS OF FOOT NAILS cysto, R: URS/LL/Stent 2018 KIDNEY STONES REMOTE CVA HX HYPERLIPIDEMIA History of Present Illness History of Present Illness Patient seen and examined Chart reviewed Discussed with RN Vitals Vitals Vital Signs Date Time Temp Pulse Resp B/P (MAP) Pulse Ox O2 Delivery O2 Flow Rate FiO2 11/13/18 11:00 97.9 77 18 102/74 (83) 98 Nasal Cannula 2.0 97.9 Physical Exam General: No acute distress, Other (resting with no apparent distress) Heart: Regular rate, Normal S1, No murmurs Lungs: Clear Abdomen: Normal bowel sounds, Soft Extremities: No clubbing, Other Skin: No rashes, No breakdown Labs Labs: Laboratory Tests Test 11/12/18 17:04 11/12/18 17:10 11/13/18 07:24 White Blood Count 8.0 x10^3/uL (4.0-11.0) 6.2 x10^3/uL (4.0-11.0) Red Blood Count 4.34 x10^6/uL (4.30-5.70) 4.58 x10^6/uL (4.30-5.70) Hemoglobin 13.1 g/dL (13.0-17.5) 13.4 g/dL (13.0-17.5) Hematocrit 39.4 % (39.0-53.0) 42.2 % (39.0-53.0) Mean Corpuscular Volume 91 fL (79-100) 92 fL (79-100) Mean Corpuscular Hemoglobin 30 pg (25-35) 29 pg (25-35) Mean Corpuscular Hemoglobin Concent 33 g/dL (31-37) 32 g/dL (31-37) Red Cell Distribution Width 14.7 % (11.5-14.5) 14.8 % (11.5-14.5) Platelet Count 266 x10^3/uL (140-400) 288 x10^3/uL (140-400) Neutrophils (%) (Auto) 69 % (31-73) 63 % (31-73) Lymphocytes (%) (Auto) 19 % (24-48) 23 % (24-48) Monocytes (%) (Auto) 9 % (0-9) 10 % (0-9) Eosinophils (%) (Auto) 3 % (0-3) 3 % (0-3) Basophils (%) (Auto) 1 % (0-3) 1 % (0-3) Neutrophils # (Auto) 5.5 x10^3uL (1.8-7.7) 4.0 x10^3uL (1.8-7.7) Lymphocytes # (Auto) 1.5 x10^3/uL (1.0-4.8) 1.4 x10^3/uL (1.0-4.8) Monocytes # (Auto) 0.7 x10^3/uL (0.0-1.1) 0.6 x10^3/uL (0.0-1.1) Eosinophils # (Auto) 0.3 x10^3/uL (0.0-0.7) 0.2 x10^3/uL (0.0-0.7) Basophils # (Auto) 0.1 x10^3/uL (0.0-0.2) 0.0 x10^3/uL (0.0-0.2) Sodium Level 143 mmol/L (136-145) Potassium Level 4.2 mmol/L (3.5-5.1) Chloride Level 107 mmol/L (98-107) Carbon Dioxide Level 27 mmol/L (21-32) Anion Gap 9 (6-14) Blood Urea Nitrogen 27 mg/dL (8-26) Creatinine 1.6 mg/dL (0.7-1.3) 1.4 mg/dL (0.7-1.3) Estimated GFR (Cockcroft-Gault) 43.1 50.2 BUN/Creatinine Ratio 17 (6-20) Glucose Level 165 mg/dL (70-99) Lactic Acid Level 1.6 mmol/L (0.4-2.0) Calcium Level 8.8 mg/dL (8.5-10.1) Total Bilirubin 1.4 mg/dL (0.2-1.0) Aspartate Amino Transf (AST/SGOT) 19 U/L (15-37) Alanine Aminotransferase (ALT/SGPT) 23 U/L (16-63) Alkaline Phosphatase 72 U/L (46-116) C-Reactive Protein, Quantitative 12.6 mg/L (0-3.3) Total Protein 6.6 g/dL (6.4-8.2) Albumin 3.1 g/dL (3.4-5.0) Albumin/Globulin Ratio 0.9 (1.0-1.7) Urine Collection Type Unknown Urine Color Yellow Urine Clarity Clear Urine pH 5.5 Urine Specific Pierson 1.020 Urine Protein Negative mg/dL (NEG-TRACE) Urine Glucose (UA) Negative mg/dL (NEG) Urine Ketones (Stick) Negative mg/dL (NEG) Urine Blood Negative (NEG) Urine Nitrite Negative (NEG) Urine Bilirubin Negative (NEG) Urine Urobilinogen Dipstick 1.0 mg/dL (0.2 mg/dL) Urine Leukocyte Esterase Trace (NEG) Urine RBC Occ /HPF (0-2) Urine WBC 5-10 /HPF (0-4) Urine Squamous Epithelial Cells Few /LPF Urine Bacteria Few /HPF (0-FEW) Urine Hyaline Casts Occasional /HPF Urine Granular Casts Few /HPF Urine Mucus Slight /LPF Assessment and Plan Assessmemt and Plan Problems Medical Problems: (1) Osteomyelitis Status: Acute Osteomyelitis IE , Osteomyelitis of the second distal phalanx. ACUTE MORBID OBESITY ONYCHOMYCOSIS OF FOOT NAILS cysto, R: URS/LL/Stent 2018 KIDNEY STONES REMOTE CVA HX HYPERLIPIDEMIA Plan ID CONSULT VASCULAR SURGERY CONSULT HOME MEDS ARTERIAL DOPPLER BOTH LEGS IV VANC EMPERIC DVT prophylaxis Full code Comment Review of Relevant I have reviewed the following items ashlyn (where applicable) has been applied. Labs Laboratory Tests Test 11/12/18 17:04 11/12/18 17:10 11/13/18 07:24 White Blood Count 8.0 x10^3/uL (4.0-11.0) 6.2 x10^3/uL (4.0-11.0) Red Blood Count 4.34 x10^6/uL (4.30-5.70) 4.58 x10^6/uL (4.30-5.70) Hemoglobin 13.1 g/dL (13.0-17.5) 13.4 g/dL (13.0-17.5) Hematocrit 39.4 % (39.0-53.0) 42.2 % (39.0-53.0) Mean Corpuscular Volume 91 fL (79-100) 92 fL (79-100) Mean Corpuscular Hemoglobin 30 pg (25-35) 29 pg (25-35) Mean Corpuscular Hemoglobin Concent 33 g/dL (31-37) 32 g/dL (31-37) Red Cell Distribution Width 14.7 % (11.5-14.5) 14.8 % (11.5-14.5) Platelet Count 266 x10^3/uL (140-400) 288 x10^3/uL (140-400) Neutrophils (%) (Auto) 69 % (31-73) 63 % (31-73) Lymphocytes (%) (Auto) 19 % (24-48) 23 % (24-48) Monocytes (%) (Auto) 9 % (0-9) 10 % (0-9) Eosinophils (%) (Auto) 3 % (0-3) 3 % (0-3) Basophils (%) (Auto) 1 % (0-3) 1 % (0-3) Neutrophils # (Auto) 5.5 x10^3uL (1.8-7.7) 4.0 x10^3uL (1.8-7.7) Lymphocytes # (Auto) 1.5 x10^3/uL (1.0-4.8) 1.4 x10^3/uL (1.0-4.8) Monocytes # (Auto) 0.7 x10^3/uL (0.0-1.1) 0.6 x10^3/uL (0.0-1.1) Eosinophils # (Auto) 0.3 x10^3/uL (0.0-0.7) 0.2 x10^3/uL (0.0-0.7) Basophils # (Auto) 0.1 x10^3/uL (0.0-0.2) 0.0 x10^3/uL (0.0-0.2) Sodium Level 143 mmol/L (136-145) Potassium Level 4.2 mmol/L (3.5-5.1) Chloride Level 107 mmol/L (98-107) Carbon Dioxide Level 27 mmol/L (21-32) Anion Gap 9 (6-14) Blood Urea Nitrogen 27 mg/dL (8-26) Creatinine 1.6 mg/dL (0.7-1.3) 1.4 mg/dL (0.7-1.3) Estimated GFR (Cockcroft-Gault) 43.1 50.2 BUN/Creatinine Ratio 17 (6-20) Glucose Level 165 mg/dL (70-99) Lactic Acid Level 1.6 mmol/L (0.4-2.0) Calcium Level 8.8 mg/dL (8.5-10.1) Total Bilirubin 1.4 mg/dL (0.2-1.0) Aspartate Amino Transf (AST/SGOT) 19 U/L (15-37) Alanine Aminotransferase (ALT/SGPT) 23 U/L (16-63) Alkaline Phosphatase 72 U/L (46-116) C-Reactive Protein, Quantitative 12.6 mg/L (0-3.3) Total Protein 6.6 g/dL (6.4-8.2) Albumin 3.1 g/dL (3.4-5.0) Albumin/Globulin Ratio 0.9 (1.0-1.7) Urine Collection Type Unknown Urine Color Yellow Urine Clarity Clear Urine pH 5.5 Urine Specific Pierson 1.020 Urine Protein Negative mg/dL (NEG-TRACE) Urine Glucose (UA) Negative mg/dL (NEG) Urine Ketones (Stick) Negative mg/dL (NEG) Urine Blood Negative (NEG) Urine Nitrite Negative (NEG) Urine Bilirubin Negative (NEG) Urine Urobilinogen Dipstick 1.0 mg/dL (0.2 mg/dL) Urine Leukocyte Esterase Trace (NEG) Urine RBC Occ /HPF (0-2) Urine WBC 5-10 /HPF (0-4) Urine Squamous Epithelial Cells Few /LPF Urine Bacteria Few /HPF (0-FEW) Urine Hyaline Casts Occasional /HPF Urine Granular Casts Few /HPF Urine Mucus Slight /LPF Laboratory Tests Test 11/12/18 17:04 11/12/18 17:10 11/13/18 07:24 White Blood Count 8.0 x10^3/uL (4.0-11.0) 6.2 x10^3/uL (4.0-11.0) Red Blood Count 4.34 x10^6/uL (4.30-5.70) 4.58 x10^6/uL (4.30-5.70) Hemoglobin 13.1 g/dL (13.0-17.5) 13.4 g/dL (13.0-17.5) Hematocrit 39.4 % (39.0-53.0) 42.2 % (39.0-53.0) Mean Corpuscular Volume 91 fL (79-100) 92 fL (79-100) Mean Corpuscular Hemoglobin 30 pg (25-35) 29 pg (25-35) Mean Corpuscular Hemoglobin Concent 33 g/dL (31-37) 32 g/dL (31-37) Red Cell Distribution Width 14.7 % (11.5-14.5) 14.8 % (11.5-14.5) Platelet Count 266 x10^3/uL (140-400) 288 x10^3/uL (140-400) Neutrophils (%) (Auto) 69 % (31-73) 63 % (31-73) Lymphocytes (%) (Auto) 19 % (24-48) 23 % (24-48) Monocytes (%) (Auto) 9 % (0-9) 10 % (0-9) Eosinophils (%) (Auto) 3 % (0-3) 3 % (0-3) Basophils (%) (Auto) 1 % (0-3) 1 % (0-3) Neutrophils # (Auto) 5.5 x10^3uL (1.8-7.7) 4.0 x10^3uL (1.8-7.7) Lymphocytes # (Auto) 1.5 x10^3/uL (1.0-4.8) 1.4 x10^3/uL (1.0-4.8) Monocytes # (Auto) 0.7 x10^3/uL (0.0-1.1) 0.6 x10^3/uL (0.0-1.1) Eosinophils # (Auto) 0.3 x10^3/uL (0.0-0.7) 0.2 x10^3/uL (0.0-0.7) Basophils # (Auto) 0.1 x10^3/uL (0.0-0.2) 0.0 x10^3/uL (0.0-0.2) Sodium Level 143 mmol/L (136-145) Potassium Level 4.2 mmol/L (3.5-5.1) Chloride Level 107 mmol/L (98-107) Carbon Dioxide Level 27 mmol/L (21-32) Anion Gap 9 (6-14) Blood Urea Nitrogen 27 mg/dL (8-26) Creatinine 1.6 mg/dL (0.7-1.3) 1.4 mg/dL (0.7-1.3) Estimated GFR (Cockcroft-Gault) 43.1 50.2 BUN/Creatinine Ratio 17 (6-20) Glucose Level 165 mg/dL (70-99) Lactic Acid Level 1.6 mmol/L (0.4-2.0) Calcium Level 8.8 mg/dL (8.5-10.1) Total Bilirubin 1.4 mg/dL (0.2-1.0) Aspartate Amino Transf (AST/SGOT) 19 U/L (15-37) Alanine Aminotransferase (ALT/SGPT) 23 U/L (16-63) Alkaline Phosphatase 72 U/L (46-116) C-Reactive Protein, Quantitative 12.6 mg/L (0-3.3) Total Protein 6.6 g/dL (6.4-8.2) Albumin 3.1 g/dL (3.4-5.0) Albumin/Globulin Ratio 0.9 (1.0-1.7) Urine Collection Type Unknown Urine Color Yellow Urine Clarity Clear Urine pH 5.5 Urine Specific Pierson 1.020 Urine Protein Negative mg/dL (NEG-TRACE) Urine Glucose (UA) Negative mg/dL (NEG) Urine Ketones (Stick) Negative mg/dL (NEG) Urine Blood Negative (NEG) Urine Nitrite Negative (NEG) Urine Bilirubin Negative (NEG) Urine Urobilinogen Dipstick 1.0 mg/dL (0.2 mg/dL) Urine Leukocyte Esterase Trace (NEG) Urine RBC Occ /HPF (0-2) Urine WBC 5-10 /HPF (0-4) Urine Squamous Epithelial Cells Few /LPF Urine Bacteria Few /HPF (0-FEW) Urine Hyaline Casts Occasional /HPF Urine Granular Casts Few /HPF Urine Mucus Slight /LPF Medications Current Medications Sodium Chloride 1,000 ml @ 1,000 mls/hr 1X ONCE IV Last administered on 11/12/18at 17:50; Start 11/12/18 at 17:15; Stop 11/12/18 at 18:14; Status DC Vancomycin HCl (Vanco Per Pharmacy) 1 each PRN DAILY PRN MC SEE COMMENTS Last administered on 11/12/18at 19:16; Start 11/12/18 at 17:30; Stop 11/13/18 at 09:04; Status DC Vancomycin HCl 2 gm/Sodium Chloride 500 ml @ 250 mls/hr 1X ONCE IV Last administered on 11/12/18at 18:22; Start 11/12/18 at 17:30; Stop 11/12/18 at 19:29; Status DC Ondansetron HCl (Zofran) 4 mg PRN Q8HRS PRN IV NAUSEA/VOMITING; Start 11/12/18 at 17:30; Stop 11/13/18 at 17:29 Fentanyl Citrate (Fentanyl 2ml Vial) 50 mcg PRN Q1HR PRN IV PAIN Last administered on 11/12/18at 18:52; Start 11/12/18 at 17:30; Stop 11/13/18 at 17:29 Acetaminophen (Tylenol) 650 mg PRN Q4HRS PRN PO FEVER; Start 11/12/18 at 17:30; Stop 11/13/18 at 17:29 Vancomycin HCl 2 gm/Sodium Chloride 500 ml @ 250 mls/hr Q24H IV ; Start 11/13/18 at 18:00; Stop 11/13/18 at 18:00; Status DC Vancomycin HCl (Vancomycin Trough Level) 1 each 1X ONCE MC ; Start 11/14/18 at 17:30; Stop 11/14/18 at 17:31; Status Cancel Clonidine HCl (Catapres) 0.2 mg 1X ONCE PO Last administered on 11/12/18at 22:23; Start 11/12/18 at 21:00; Stop 11/12/18 at 21:01; Status DC Apixaban (Eliquis) 5 mg BID PO Last administered on 11/13/18at 09:19; Start 11/12/18 at 21:30 Atorvastatin Calcium (Lipitor) 40 mg QHS PO Last administered on 11/12/18at 22:25; Start 11/12/18 at 21:30 Daptomycin 810 mg/ Sodium Chloride 50 ml @ 100 mls/hr Q24H IV Last administered on 11/13/18at 10:44; Start 11/13/18 at 10:00 Piperacillin Sod/ Tazobactam Sod 3.375 gm/Sodium Chloride 50 ml @ 100 mls/hr Q6HRS IV Last administered on 11/13/18at 11:40; Start 11/13/18 at 12:00 Lactobacillus Rhamnosus (Culturelle) 1 cap BID PO ; Start 11/13/18 at 21:00 Active Scripts Active Cipro (Ciprofloxacin Hcl) 500 Mg Tablet 1 Tab PO BID Reported Lipitor (Atorvastatin Calcium) 40 Mg Tablet 1 Tab PO QHS Eliquis (Apixaban) 5 Mg Tablet 5 Mg PO BID Vitals/I & O Vital Sign - Last 24 Hours 11/12/18 11/12/18 11/12/18 11/12/18 15:51 19:30 20:00 22:23 Temp 97.8 97.6 97.8 97.6 Pulse 138 76 Resp 18 20 B/P (MAP) 135/71 (92) 177/86 (116) 177/86 Pulse Ox 97 97 O2 Delivery Room Air Room Air Room Air 11/12/18 11/13/18 11/13/18 11/13/18 23:41 03:43 07:00 08:00 Temp 97.3 97.7 97.8 97.3 97.7 97.8 Pulse 65 129 128 Resp 18 18 18 B/P (MAP) 99/66 (77) 131/78 (95) 128/84 (99) Pulse Ox 98 97 95 O2 Delivery Nasal Cannula Nasal Cannula Room Air Room Air O2 Flow Rate 2.0 2.0 11/13/18 11:00 Temp 97.9 97.9 Pulse 77 Resp 18 B/P (MAP) 102/74 (83) Pulse Ox 98 O2 Delivery Nasal Cannula O2 Flow Rate 2.0 Intake and Output 11/12/18 11/12/18 11/13/18 15:00 23:00 07:00 Intake Total 480 ml Output Total 400 ml Balance 80 ml ALMA MISTRY III DO Nov 13, 2018 12:49
--- NOTE | 2018-11-13 14:01 | NUR ---
Wound Care Pt seen for wound care consult re: R 2nd toe ulcer. Ulcer is dusky red with a necrotic distal plantar tip, no drainage or open area noted, toe left LAYOUT MAN. Pt is scheduled for amputation of toe with Vascular soon, will s/o at this time.
[2018-11-13 15:00] VITALS: BP 115/73
[2018-11-13] MEDS ORDERED: VANCOMYCIN 2 GM in IV NORMAL SALINE 500ML BAG 500 ML IV SCH (18:00)
[2018-11-13 19:00] VITALS: BP 119/62
--- NOTE | 2018-11-13 21:00 | NUR ---
2100 Dose of eliquis held for possible surgery 11/14
[2018-11-13] MEDS: LACTOBACILLUS RHAMNOSUS GG 1 CAPSULE. PO SCH (21:53)
[2018-11-13] MEDS: ATORVASTATIN CALCIUM 40 MG TABLET. PO SCH (21:53)
[2018-11-13 23:00] VITALS: BP 153/86
[2018-11-14 03:00] VITALS: BP 128/74
[2018-11-14] MEDS: PIPERACILLIN/TAZOBACTAM 3.375 GM in IV NORMAL SALINE 50ML 50 ML IV SCH ×3 (05:42→18:07)
[2018-11-14 07:00] VITALS: BP 107/70
--- NOTE | 2018-11-14 07:10 | PDOC ---
Infectious Disease Note Subjective: Subjective pt without complaints,going for surgery today ROS: ROS Negative except for above. Vital Signs: Vital Signs Vital Signs Date Time Temp Pulse Resp B/P (MAP) Pulse Ox O2 Delivery O2 Flow Rate FiO2 11/14/18 03:00 97.9 112 16 128/74 (92) 99 Room Air 97.9 11/13/18 11:00 2.0 Physical Exam: PHYSICAL EXAM GENERAL: Alert, oriented x 3 male, obese, lying in bed comfortably, in no acute distress, cooperative, nontoxic appearing. HEENT: Normocephalic, atraumatic. Anicteric. No thrush.candace keratosis NECK: Supple. No JVD. LUNGS: Clear bilaterally. HEART: S1, S2. ABDOMEN: Soft, obese, bowel sounds present, nontender. EXTREMITIES: Right toe swelling, erythema, wound over the plantar aspect, mild right foot swelling, varicose veins, venous stasis and onychomycosis. BACK: Reveals normal curvature. No CVA tenderness. NEUROLOGIC: Alert and oriented x 3, grossly nonfocal. PSYCHIATRIC: Cooperative, appropriate mood and affect. Medications: Inpatient Meds: Current Medications Medications (Trade) Dose Ordered Sig/Taylor Start Time Stop Time Status Last Admin Dose Admin Acetaminophen (Tylenol) 650 mg PRN Q4HRS PRN 11/12/18 17:30 11/13/18 17:29 DC Apixaban (Eliquis) 5 mg BID 11/12/18 21:30 11/13/18 09:19 5 MG Atorvastatin Calcium (Lipitor) 40 mg QHS 11/12/18 21:30 11/13/18 21:53 40 MG Clonidine HCl (Catapres) 0.2 mg 1X ONCE 11/12/18 21:00 11/12/18 21:01 DC 11/12/18 22:23 0.2 MG Daptomycin 810 mg/ Sodium Chloride 50 ml @ 100 mls/hr Q24H 11/13/18 10:00 11/13/18 10:44 100 MLS/HR Fentanyl Citrate (Fentanyl 2ml Vial) 50 mcg PRN Q1HR PRN 11/12/18 17:30 11/13/18 17:29 DC 11/12/18 18:52 50 MCG Lactobacillus Rhamnosus (Culturelle) 1 cap BID 11/13/18 21:00 11/13/18 21:53 1 CAP Ondansetron HCl (Zofran) 4 mg PRN Q8HRS PRN 11/12/18 17:30 11/13/18 17:29 DC Piperacillin Sod/ Tazobactam Sod 3.375 gm/Sodium Chloride 50 ml @ 100 mls/hr Q6HRS 11/13/18 12:00 11/14/18 05:42 100 MLS/HR Sodium Chloride 1,000 ml @ 1,000 mls/hr 1X ONCE 11/12/18 17:15 11/12/18 18:14 DC 11/12/18 17:50 1,000 MLS/HR Vancomycin HCl (Vanco Per Pharmacy) 1 each PRN DAILY PRN 11/12/18 17:30 11/13/18 09:04 DC 11/12/18 19:16 1 EACH Vancomycin HCl (Vancomycin Trough Level) 1 each 1X ONCE 11/14/18 17:30 11/14/18 17:31 Cancel Vancomycin HCl 2 gm/Sodium Chloride 500 ml @ 250 mls/hr Q24H 11/13/18 18:00 11/13/18 18:00 DC Labs: Lab Laboratory Tests Test 11/13/18 07:24 White Blood Count 6.2 x10^3/uL (4.0-11.0) Red Blood Count 4.58 x10^6/uL (4.30-5.70) Hemoglobin 13.4 g/dL (13.0-17.5) Hematocrit 42.2 % (39.0-53.0) Mean Corpuscular Volume 92 fL (79-100) Mean Corpuscular Hemoglobin 29 pg (25-35) Mean Corpuscular Hemoglobin Concent 32 g/dL (31-37) Red Cell Distribution Width 14.8 % (11.5-14.5) Platelet Count 288 x10^3/uL (140-400) Neutrophils (%) (Auto) 63 % (31-73) Lymphocytes (%) (Auto) 23 % (24-48) Monocytes (%) (Auto) 10 % (0-9) Eosinophils (%) (Auto) 3 % (0-3) Basophils (%) (Auto) 1 % (0-3) Neutrophils # (Auto) 4.0 x10^3uL (1.8-7.7) Lymphocytes # (Auto) 1.4 x10^3/uL (1.0-4.8) Monocytes # (Auto) 0.6 x10^3/uL (0.0-1.1) Eosinophils # (Auto) 0.2 x10^3/uL (0.0-0.7) Basophils # (Auto) 0.0 x10^3/uL (0.0-0.2) Creatinine 1.4 mg/dL (0.7-1.3) Estimated GFR (Cockcroft-Gault) 50.2 Objective: Assessment: 1. Chronic nonhealing right second toe wound with purulent drainage with osteomyelitis of the second distal phalanx. 2. Chronic venous stasis. 3. Onychomycosis. 4. History of kidney stone. 5. Acute kidney injury. 6. History of remote cerebrovascular accident. 7. Hyperlipidemia. 8. History of recurrent cellulitis. Plan: Plan of Care cont daptomycin, may need renal dosing. Zosyn and micafungin. Vascular Surgery planning for amputation of rt 2nd toe. Follow up labs and cultures. Continue supportive care. Continue with local wound care. JENARO XIONG MD Nov 14, 2018 07:10
[2018-11-14 07:34] LABS: CREATININE 1.4 mg/dL (0.7-1.3); GFR 50.2
[2018-11-14 11:00] VITALS: BP 128/89
--- NOTE | 2018-11-14 11:24 | NUR ---
SW following. Discussed with RN, pt is from home with clarissa. Surgery today, IV abx. SW will continue to follow for any discharge planning needs.
--- NOTE | 2018-11-14 11:33 | PDOC ---
[employer] [facility] PROGRESS NOTE Chief Complaint Chief Complaint Osteomyelitis IE , Osteomyelitis of the second distal phalanx. ACUTE MORBID OBESITY ONYCHOMYCOSIS OF FOOT NAILS cysto, R: URS/LL/Stent 2018 KIDNEY STONES REMOTE CVA HX HYPERLIPIDEMIA History of Present Illness History of Present Illness 6�20�9 Patient seen and examined Discussed with case management He is apparently going for surgery today for toe amputation Reviewed vascular surgery's notes Patient seen and examined Chart reviewed Discussed with RN Vitals Vitals Vital Signs Date Time Temp Pulse Resp B/P (MAP) Pulse Ox O2 Delivery O2 Flow Rate FiO2 11/14/18 07:00 97.8 104 18 107/70 (82) 97 Nasal Cannula 2.0 97.8 Physical Exam Physical Exam GENERAL: Alert, oriented x 3 male, obese, lying in bed comfortably, in no acute distress, cooperative, nontoxic appearing. HEENT: Normocephalic, atraumatic. Anicteric. No thrush.candace keratosis NECK: Supple. No JVD. LUNGS: Clear bilaterally. HEART: S1, S2. ABDOMEN: Soft, obese, bowel sounds present, nontender. EXTREMITIES: Right toe swelling, erythema, wound over the plantar aspect, mild right foot swelling, varicose veins, venous stasis and onychomycosis. BACK: Reveals normal curvature. No CVA tenderness. NEUROLOGIC: Alert and oriented x 3, grossly nonfocal. PSYCHIATRIC: Cooperative, appropriate mood and affect. General: Other (resting with no apparent distress) Heart: Regular rate, Normal S1, No murmurs Lungs: Clear Abdomen: Normal bowel sounds, Soft Extremities: No clubbing, Other Skin: No rashes, No breakdown Labs Labs: Laboratory Tests Test 11/14/18 06:50 Creatinine 1.4 mg/dL (0.7-1.3) Estimated GFR (Cockcroft-Gault) 50.2 Assessment and Plan Assessmemt and Plan Problems Medical Problems: (1) Osteomyelitis Status: Acute Osteomyelitis IE , Osteomyelitis of the second distal phalanx. ACUTE MORBID OBESITY ONYCHOMYCOSIS OF FOOT NAILS cysto, R: URS/LL/Stent 2018 KIDNEY STONES REMOTE CVA HX HYPERLIPIDEMIA Plan ID following VASCULAR SURGERY following and he is going to surgery today HOME MEDS DVT prophylaxis Home meds He is full code After surgery he will need wound care and possibly more antibiotics Might need [facility] after a day or 2 Comment Review of Relevant I have reviewed the following items ashlyn (where applicable) has been applied. Labs Laboratory Tests Test 11/12/18 17:04 11/12/18 17:10 11/13/18 07:24 11/14/18 06:50 White Blood Count 8.0 x10^3/uL (4.0-11.0) 6.2 x10^3/uL (4.0-11.0) Red Blood Count 4.34 x10^6/uL (4.30-5.70) 4.58 x10^6/uL (4.30-5.70) Hemoglobin 13.1 g/dL (13.0-17.5) 13.4 g/dL (13.0-17.5) Hematocrit 39.4 % (39.0-53.0) 42.2 % (39.0-53.0) Mean Corpuscular Volume 91 fL (79-100) 92 fL (79-100) Mean Corpuscular Hemoglobin 30 pg (25-35) 29 pg (25-35) Mean Corpuscular Hemoglobin Concent 33 g/dL (31-37) 32 g/dL (31-37) Red Cell Distribution Width 14.7 % (11.5-14.5) 14.8 % (11.5-14.5) Platelet Count 266 x10^3/uL (140-400) 288 x10^3/uL (140-400) Neutrophils (%) (Auto) 69 % (31-73) 63 % (31-73) Lymphocytes (%) (Auto) 19 % (24-48) 23 % (24-48) Monocytes (%) (Auto) 9 % (0-9) 10 % (0-9) Eosinophils (%) (Auto) 3 % (0-3) 3 % (0-3) Basophils (%) (Auto) 1 % (0-3) 1 % (0-3) Neutrophils # (Auto) 5.5 x10^3uL (1.8-7.7) 4.0 x10^3uL (1.8-7.7) Lymphocytes # (Auto) 1.5 x10^3/uL (1.0-4.8) 1.4 x10^3/uL (1.0-4.8) Monocytes # (Auto) 0.7 x10^3/uL (0.0-1.1) 0.6 x10^3/uL (0.0-1.1) Eosinophils # (Auto) 0.3 x10^3/uL (0.0-0.7) 0.2 x10^3/uL (0.0-0.7) Basophils # (Auto) 0.1 x10^3/uL (0.0-0.2) 0.0 x10^3/uL (0.0-0.2) Sodium Level 143 mmol/L (136-145) Potassium Level 4.2 mmol/L (3.5-5.1) Chloride Level 107 mmol/L (98-107) Carbon Dioxide Level 27 mmol/L (21-32) Anion Gap 9 (6-14) Blood Urea Nitrogen 27 mg/dL (8-26) Creatinine 1.6 mg/dL (0.7-1.3) 1.4 mg/dL (0.7-1.3) 1.4 mg/dL (0.7-1.3) Estimated GFR (Cockcroft-Gault) 43.1 50.2 50.2 BUN/Creatinine Ratio 17 (6-20) Glucose Level 165 mg/dL (70-99) Lactic Acid Level 1.6 mmol/L (0.4-2.0) Calcium Level 8.8 mg/dL (8.5-10.1) Total Bilirubin 1.4 mg/dL (0.2-1.0) Aspartate Amino Transf (AST/SGOT) 19 U/L (15-37) Alanine Aminotransferase (ALT/SGPT) 23 U/L (16-63) Alkaline Phosphatase 72 U/L (46-116) C-Reactive Protein, Quantitative 12.6 mg/L (0-3.3) Total Protein 6.6 g/dL (6.4-8.2) Albumin 3.1 g/dL (3.4-5.0) Albumin/Globulin Ratio 0.9 (1.0-1.7) Urine Collection Type Unknown Urine Color Yellow Urine Clarity Clear Urine pH 5.5 Urine Specific [place] 1.020 Urine Protein Negative mg/dL (NEG-TRACE) Urine Glucose (UA) Negative mg/dL (NEG) Urine Ketones (Stick) Negative mg/dL (NEG) Urine Blood Negative (NEG) Urine Nitrite Negative (NEG) Urine Bilirubin Negative (NEG) Urine Urobilinogen Dipstick 1.0 mg/dL (0.2 mg/dL) Urine Leukocyte Esterase Trace (NEG) Urine RBC Occ /HPF (0-2) Urine WBC 5-10 /HPF (0-4) Urine Squamous Epithelial Cells Few /LPF Urine Bacteria Few /HPF (0-FEW) Urine Hyaline Casts Occasional /HPF Urine Granular Casts Few /HPF Urine Mucus Slight /LPF Laboratory Tests Test 11/14/18 06:50 Creatinine 1.4 mg/dL (0.7-1.3) Estimated GFR (Cockcroft-Gault) 50.2 Microbiology 11/12/18 Blood Culture - Preliminary, Resulted NO GROWTH AFTER 1 DAY Medications Current Medications Sodium Chloride 1,000 ml @ 1,000 mls/hr 1X ONCE IV Last administered on 11/12/18at 17:50; Start 11/12/18 at 17:15; Stop 11/12/18 at 18:14; Status DC Vancomycin HCl (Vanco Per Pharmacy) 1 each PRN DAILY PRN MC SEE COMMENTS Last administered on 11/12/18at 19:16; Start 11/12/18 at 17:30; Stop 11/13/18 at 09:04; Status DC Vancomycin HCl 2 gm/Sodium Chloride 500 ml @ 250 mls/hr 1X ONCE IV Last administered on 11/12/18at 18:22; Start 11/12/18 at 17:30; Stop 11/12/18 at 19:29; Status DC Ondansetron HCl (Zofran) 4 mg PRN Q8HRS PRN IV NAUSEA/VOMITING; Start 11/12/18 at 17:30; Stop 11/13/18 at 17:29; Status DC Fentanyl Citrate (Fentanyl 2ml Vial) 50 mcg PRN Q1HR PRN IV PAIN Last administered on 11/12/18at 18:52; Start 11/12/18 at 17:30; Stop 11/13/18 at 17:29; Status DC Acetaminophen (Tylenol) 650 mg PRN Q4HRS PRN PO FEVER; Start 11/12/18 at 17:30; Stop 11/13/18 at 17:29; Status DC Vancomycin HCl 2 gm/Sodium Chloride 500 ml @ 250 mls/hr Q24H IV ; Start 11/13/18 at 18:00; Stop 11/13/18 at 18:00; Status DC Vancomycin HCl (Vancomycin Trough Level) 1 each 1X ONCE MC ; Start 11/14/18 at 17:30; Stop 11/14/18 at 17:31; Status Cancel Clonidine HCl (Catapres) 0.2 mg 1X ONCE PO Last administered on 11/12/18at 22:23; Start 11/12/18 at 21:00; Stop 11/12/18 at 21:01; Status DC Apixaban (Eliquis) 5 mg BID PO Last administered on 11/13/18at 09:19; Start 11/12/18 at 21:30 Atorvastatin Calcium (Lipitor) 40 mg QHS PO Last administered on 11/13/18at 21:53; Start 11/12/18 at 21:30 Daptomycin 810 mg/ Sodium Chloride 50 ml @ 100 mls/hr Q24H IV Last administered on 11/13/18at 10:44; Start 11/13/18 at 10:00 Piperacillin Sod/ Tazobactam Sod 3.375 gm/Sodium Chloride 50 ml @ 100 mls/hr Q6HRS IV Last administered on 11/14/18at 05:42; Start 11/13/18 at 12:00 Lactobacillus Rhamnosus (Culturelle) 1 cap BID PO Last administered on 11/13/18at 21:53; Start 11/13/18 at 21:00 Active Scripts Active Cipro (Ciprofloxacin Hcl) 500 Mg Tablet 1 Tab PO BID Reported Lipitor (Atorvastatin Calcium) 40 Mg Tablet 1 Tab PO QHS Eliquis (Apixaban) 5 Mg Tablet 5 Mg PO BID Vitals/I & O Vital Sign - Last 24 Hours 11/13/18 11/13/18 11/13/18 11/13/18 15:00 19:00 20:00 23:00 Temp 98.0 98.0 98.1 98.0 98.0 98.1 Pulse 128 126 125 Resp 18 16 18 B/P (MAP) 115/73 (87) 119/62 (81) 153/86 (108) Pulse Ox 94 94 98 O2 Delivery Room Air Room Air Room Air Room Air 11/14/18 11/14/18 03:00 07:00 Temp 97.9 97.8 97.9 97.8 Pulse 112 104 Resp 16 18 B/P (MAP) 128/74 (92) 107/70 (82) Pulse Ox 99 97 O2 Delivery Room Air Nasal Cannula O2 Flow Rate 2.0 Intake and Output 11/13/18 11/13/18 11/14/18 15:00 23:00 07:00 Intake Total 520 ml 400 ml 0 ml Output Total 325 ml Balance 520 ml 75 ml 0 ml ALMA MISTRY III DO Nov 14, 2018 11:32
[2018-11-14] MEDS: ANTI-COAG MONITOR BY PHARMACY. MC PRN (11:35)
[2018-11-14] MEDS: APIXABAN 5 MG TABLET. PO SCH ×2 (12:08→21:48)
[2018-11-14] MEDS: LACTOBACILLUS RHAMNOSUS GG 1 CAPSULE. PO SCH ×2 (12:08→21:47)
[2018-11-14] MEDS: DAPTOMYCIN IV SCH (12:08)
[2018-11-14] MEDS: NORMAL SALINE IV SCH (12:08)
--- NOTE | 2018-11-14 14:05 | PDOC ---
Provider Note Provider Note S: Pt evaluted by Dr. Zhang yesterday regarding right second toe osteomyelitis. and pt report this wound has been present for 12-14 years. routinely cleans and debrides at home for past year. Showed me pictures of 3 days ago when large amount of pus was extracted. Pt only has pain when it's touched. He denies hx of diabetes or peripheral neuropathy. He has onychomycosis. The patient underwent x-ray of the right foot, which shows osteomyelitis of the second distal phalanx. He's been started on IV abx by ID. Denies smoking history. O: afebrile, tachycardic alert, oriented, no apparent distress Ambulating in room without difficulty Left foot with palpable PT pulse, DP faint but palpable. Foot without erythema except for 2nd toe with wound at distal phalanx. Wound with dried drainage, no active drainage or pus, tender. Labs: reviewed, no leukocytosis Diagnostics: Arterial duplex- IMPRESSION: 1. Mild scattered atherosclerotic plaquing without evidence of high-grade femoral-popliteal stenosis. 2. Three-vessel arterial runoff in both lower legs with mild degradation of the distal Doppler waveforms. A/P: Osteomyelitis of right 2nd toe - palpable pulses, circulation should be sufficient for healing, will plan for amputation on Sunday (11/18/18). Pt will need to hold Eliquis for 48 hours prior to surgery. I discussed plan with him and , including, procedure risks/benefits and post op care, they exhibited understanding and agreed to proceed. All their questions were answered to satisfaction. Cont abx per ID. SHERLEY DILL Nov 14, 2018 14:05
[2018-11-14 15:00] VITALS: BP 131/67
[2018-11-14 19:00] VITALS: BP 135/66
[2018-11-14] MEDS: ATORVASTATIN CALCIUM 40 MG TABLET. PO SCH (21:48)
[2018-11-14 23:00] VITALS: BP 131/86
[2018-11-15] MEDS: PIPERACILLIN/TAZOBACTAM 3.375 GM in IV NORMAL SALINE 50ML 50 ML IV SCH ×4 (00:12→18:25)
[2018-11-15 03:00] VITALS: BP 161/99
[2018-11-15 04:44] LABS: CREATININE 1.5 mg/dL (0.7-1.3); GFR 46.4
[2018-11-15 07:00] VITALS: BP 155/84
--- NOTE | 2018-11-15 08:21 | PDOC ---
Infectious Disease Note Subjective: Subjective pt without complaints, awaiting surgery on mon ROS: ROS Negative except for above. Vital Signs: Vital Signs Vital Signs Date Time Temp Pulse Resp B/P (MAP) Pulse Ox O2 Delivery O2 Flow Rate FiO2 11/15/18 07:00 98.4 61 19 155/84 (107) 96 Room Air 98.4 11/14/18 07:00 2.0 Physical Exam: PHYSICAL EXAM GENERAL: Alert, oriented x 3 male, obese, lying in bed comfortably, in no acute distress, cooperative, nontoxic appearing. HEENT: Normocephalic, atraumatic. Anicteric. No thrush.candace keratosis NECK: Supple. No JVD. LUNGS: Clear bilaterally. HEART: S1, S2. ABDOMEN: Soft, obese, bowel sounds present, nontender. EXTREMITIES: Right toe swelling, erythema, wound over the plantar aspect, mild right foot swelling, varicose veins, venous stasis and onychomycosis. BACK: Reveals normal curvature. No CVA tenderness. NEUROLOGIC: Alert and oriented x 3, grossly nonfocal. PSYCHIATRIC: Cooperative, appropriate mood and affect. Medications: Inpatient Meds: Current Medications Medications (Trade) Dose Ordered Sig/Taylor Start Time Stop Time Status Last Admin Dose Admin Acetaminophen (Tylenol) 650 mg PRN Q4HRS PRN 11/12/18 17:30 11/13/18 17:29 DC Apixaban (Eliquis) 5 mg BID 11/12/18 21:30 11/14/18 21:48 Atorvastatin Calcium (Lipitor) 40 mg QHS 11/12/18 21:30 11/14/18 21:48 Clonidine HCl (Catapres) 0.2 mg 1X ONCE 11/12/18 21:00 11/12/18 21:01 DC 11/12/18 22:23 Daptomycin 810 mg/ Sodium Chloride 50 ml @ 100 mls/hr Q24H 11/13/18 10:00 11/14/18 12:08 Fentanyl Citrate (Fentanyl 2ml Vial) 50 mcg PRN Q1HR PRN 11/12/18 17:30 11/13/18 17:29 DC 11/12/18 18:52 Info (Anti-Coagulation Monitoring By Pharmacy) 1 each PRN DAILY PRN 11/14/18 11:45 11/14/18 11:35 Lactobacillus Rhamnosus (Culturelle) 1 cap BID 11/13/18 21:00 11/14/18 21:47 Ondansetron HCl (Zofran) 4 mg PRN Q8HRS PRN 11/12/18 17:30 11/13/18 17:29 DC Piperacillin Sod/ Tazobactam Sod 3.375 gm/Sodium Chloride 50 ml @ 100 mls/hr Q6HRS 11/13/18 12:00 11/15/18 06:10 Sodium Chloride 1,000 ml @ 1,000 mls/hr 1X ONCE 11/12/18 17:15 11/12/18 18:14 DC 11/12/18 17:50 Vancomycin HCl (Vanco Per Pharmacy) 1 each PRN DAILY PRN 11/12/18 17:30 11/13/18 09:04 DC 11/12/18 19:16 Vancomycin HCl (Vancomycin Trough Level) 1 each 1X ONCE 11/14/18 17:30 11/14/18 17:31 Cancel Vancomycin HCl 2 gm/Sodium Chloride 500 ml @ 250 mls/hr Q24H 11/13/18 18:00 11/13/18 18:00 DC Labs: Lab Laboratory Tests Test 11/15/18 04:00 Creatinine 1.5 mg/dL (0.7-1.3) Estimated GFR (Cockcroft-Gault) 46.4 Objective: Assessment: 1. Chronic nonhealing right second toe wound with purulent drainage with osteomyelitis of the second distal phalanx. 2. Chronic venous stasis. 3. Onychomycosis. 4. History of kidney stone. 5. Acute kidney injury. 6. History of remote cerebrovascular accident. 7. Hyperlipidemia. 8. History of recurrent cellulitis. Plan: Plan of Care cont daptomycin, may need renal dosing. Zosyn and micafungin. Vascular Surgery planning for amputation of rt 2nd toe. Follow up labs and cultures. Continue supportive care. Continue with local wound care. D/W GF at bedside JENARO XIONG MD Nov 15, 2018 08:21
[2018-11-15] MEDS: NORMAL SALINE IV SCH (09:28)
[2018-11-15] MEDS: DAPTOMYCIN IV SCH (09:28)
[2018-11-15] MEDS: LACTOBACILLUS RHAMNOSUS GG 1 CAPSULE. PO SCH ×2 (09:28→20:48)
[2018-11-15] MEDS: APIXABAN 5 MG TABLET. PO SCH ×2 (09:28→20:49)
[2018-11-15] MEDS: ANTI-COAG MONITOR BY PHARMACY. MC PRN (10:41)
[2018-11-15 11:00] VITALS: BP 134/77
--- NOTE | 2018-11-15 12:24 | NUR ---
SW following for discharge planning. Discussed with RN, pt scheduled for amputation on 11/18/18. SW will continue to follow.
--- NOTE | 2018-11-15 12:58 | PDOC ---
[employer] [facility] PROGRESS NOTE Chief Complaint Chief Complaint Osteomyelitis IE , Osteomyelitis of the second distal phalanx. ACUT MORBID OBESITY ONYCHOMYCOSIS OF FOOT NAILS cysto, R: URS/LL/Stent 2018 KIDNEY STONES REMOTE CVA HX HYPERLIPIDEMIA History of Present Illness History of Present Illness 6�21�2019 Patient seen and examined him today His is present Surgery is on hold for this morning Discussed with case management and RN 6�20�2019 Patient seen and examined Discussed with case management He is apparently going for surgery today for toe amputation Reviewed vascular surgery's notes Patient seen and examined Chart reviewed Discussed with RN Vitals Vitals Vital Signs Date Time Temp Pulse Resp B/P (MAP) Pulse Ox O2 Delivery O2 Flow Rate FiO2 11/15/18 11:00 98.2 67 18 134/77 (96) 98 Room Air 98.2 11/14/18 07:00 2.0 Physical Exam Physical Exam GENERAL: Alert, oriented x 3 male, obese, lying in bed comfortably, in no acute distress, cooperative, nontoxic appearing. HEENT: Normocephalic, atraumatic. Anicteric. No thrush.candace keratosis NECK: Supple. No JVD. LUNGS: Clear bilaterally. HEART: S1, S2. ABDOMEN: Soft, obese, bowel sounds present, nontender. EXTREMITIES: Right toe swelling, erythema, wound over the plantar aspect, mild right foot swelling, varicose veins, venous stasis and onychomycosis. BACK: Reveals normal curvature. No CVA tenderness. NEUROLOGIC: Alert and oriented x 3, grossly nonfocal. PSYCHIATRIC: Cooperative, appropriate mood and affect. General: Other (resting with no apparent distress) Heart: Regular rate, Normal S1, No murmurs Lungs: Clear Abdomen: Normal bowel sounds, Soft Extremities: No clubbing, Other Skin: No rashes, No breakdown Labs Labs: Laboratory Tests Test 11/15/18 04:00 Creatinine 1.5 mg/dL (0.7-1.3) Estimated GFR (Cockcroft-Gault) 46.4 Assessment and Plan Assessmemt and Plan Problems Medical Problems: (1) Osteomyelitis Status: Acute Osteomyelitis IE , Osteomyelitis of the second distal phalanx. ACUTE MORBID OBESITY ONYCHOMYCOSIS OF FOOT NAILS cysto, R: URS/LL/Stent 2018 KIDNEY STONES REMOTE CVA HX HYPERLIPIDEMIA Plan ID following VASCULAR SURGERY following and he is going to surgery eventually HOME MEDS DVT prophylaxis Home meds He is full code After surgery he will need wound care and possibly more antibiotics Might need halfway after a day or 2 Comment Review of Relevant I have reviewed the following items ashlyn (where applicable) has been applied. Labs Laboratory Tests Test 11/14/18 06:50 11/15/18 04:00 Creatinine 1.4 mg/dL (0.7-1.3) 1.5 mg/dL (0.7-1.3) Estimated GFR (Cockcroft-Gault) 50.2 46.4 Laboratory Tests Test 11/15/18 04:00 Creatinine 1.5 mg/dL (0.7-1.3) Estimated GFR (Cockcroft-Gault) 46.4 Microbiology 11/12/18 Blood Culture - Preliminary, Resulted NO GROWTH AFTER 2 DAYS 11/12/18 Urine Culture - Final, Complete 11/12/18 Urine Culture Result 1 (SEUN) - Final, Complete Medications Current Medications Sodium Chloride 1,000 ml @ 1,000 mls/hr 1X ONCE IV Last administered on 11/12/18at 17:50; Start 11/12/18 at 17:15; Stop 11/12/18 at 18:14; Status DC Vancomycin HCl (Vanco Per Pharmacy) 1 each PRN DAILY PRN MC SEE COMMENTS Last administered on 11/12/18at 19:16; Start 11/12/18 at 17:30; Stop 11/13/18 at 09:04; Status DC Vancomycin HCl 2 gm/Sodium Chloride 500 ml @ 250 mls/hr 1X ONCE IV Last administered on 11/12/18at 18:22; Start 11/12/18 at 17:30; Stop 11/12/18 at 19:29; Status DC Ondansetron HCl (Zofran) 4 mg PRN Q8HRS PRN IV NAUSEA/VOMITING; Start 11/12/18 at 17:30; Stop 11/13/18 at 17:29; Status DC Fentanyl Citrate (Fentanyl 2ml Vial) 50 mcg PRN Q1HR PRN IV PAIN Last administered on 11/12/18at 18:52; Start 11/12/18 at 17:30; Stop 11/13/18 at 17:29; Status DC Acetaminophen (Tylenol) 650 mg PRN Q4HRS PRN PO FEVER; Start 11/12/18 at 17:30; Stop 11/13/18 at 17:29; Status DC Vancomycin HCl 2 gm/Sodium Chloride 500 ml @ 250 mls/hr Q24H IV ; Start 11/13/18 at 18:00; Stop 11/13/18 at 18:00; Status DC Vancomycin HCl (Vancomycin Trough Level) 1 each 1X ONCE MC ; Start 11/14/18 at 17:30; Stop 11/14/18 at 17:31; Status Cancel Clonidine HCl (Catapres) 0.2 mg 1X ONCE PO Last administered on 11/12/18at 22:23; Start 11/12/18 at 21:00; Stop 11/12/18 at 21:01; Status DC Apixaban (Eliquis) 5 mg BID PO Last administered on 11/15/18at 09:28; Start 11/12/18 at 21:30 Atorvastatin Calcium (Lipitor) 40 mg QHS PO Last administered on 11/14/18at 21:48; Start 11/12/18 at 21:30 Daptomycin 810 mg/ Sodium Chloride 50 ml @ 100 mls/hr Q24H IV Last administered on 11/15/18at 09:28; Start 11/13/18 at 10:00 Piperacillin Sod/ Tazobactam Sod 3.375 gm/Sodium Chloride 50 ml @ 100 mls/hr Q6HRS IV Last administered on 11/15/18at 12:05; Start 11/13/18 at 12:00 Lactobacillus Rhamnosus (Culturelle) 1 cap BID PO Last administered on 11/15/18 09:28; Start 11/13/18 at 21:00 Info (Anti-Coagulation Monitoring By Pharmacy) 1 each PRN DAILY PRN MC SEE COMMENTS Last administered on 11/15/18at 10:41; Start 11/14/18 at 11:45 Active Scripts Active Cipro (Ciprofloxacin Hcl) 500 Mg Tablet 1 Tab PO BID Reported Lipitor (Atorvastatin Calcium) 40 Mg Tablet 1 Tab PO QHS Eliquis (Apixaban) 5 Mg Tablet 5 Mg PO BID Vitals/I & O Vital Sign - Last 24 Hours 11/14/18 11/14/18 11/14/18 11/14/18 15:00 19:00 20:05 23:00 Temp 97.6 98.1 97.4 97.6 98.1 97.4 Pulse 104 70 62 Resp 18 18 18 B/P (MAP) 131/67 (88) 135/66 (89) 131/86 (101) Pulse Ox 100 94 93 O2 Delivery Room Air Room Air Room Air Room Air 11/15/18 11/15/18 11/15/18 11/15/18 03:00 07:00 08:00 11:00 Temp 98.0 98.4 98.2 98.0 98.4 98.2 Pulse 63 61 67 Resp 18 18 B/P (MAP) 161/99 (119) 155/84 (107) 134/77 (96) Pulse Ox 97 96 98 O2 Delivery Room Air Room Air Room Air Room Air Intake and Output 11/14/18 11/14/18 11/15/18 15:00 23:00 07:00 Intake Total 320 ml 250 ml Output Total 1 ml 1350 ml Balance 320 ml 249 ml -1350 ml ALMA MISTRY III DO Nov 15, 2018 12:58
[2018-11-15 15:00] VITALS: BP 128/52
[2018-11-15] MEDS: HYDROcodone/APAP 5/325MG 1 TAB TABLET PO PRN (16:11)
[2018-11-15 19:00] VITALS: BP 111/68
[2018-11-15] MEDS: ATORVASTATIN CALCIUM 40 MG TABLET. PO SCH (20:48)
[2018-11-15 23:00] VITALS: BP 133/82
[2018-11-16] MEDS: PIPERACILLIN/TAZOBACTAM 3.375 GM in IV NORMAL SALINE 50ML 50 ML IV SCH ×5 (01:10→23:07)
[2018-11-16 03:00] VITALS: BP 128/89
[2018-11-16] MEDS: HYDROcodone/APAP 5/325MG 1 TAB TABLET PO PRN ×2 (04:38→09:30)
[2018-11-16 07:00] VITALS: BP 99/55
[2018-11-16] MEDS: APIXABAN 5 MG TABLET. PO SCH ×2 (07:21→20:30)
[2018-11-16] MEDS: LACTOBACILLUS RHAMNOSUS GG 1 CAPSULE. PO SCH ×2 (08:22→20:30)
[2018-11-16] MEDS: NORMAL SALINE IV SCH (09:26)
[2018-11-16] MEDS: DAPTOMYCIN IV SCH (09:26)
--- NOTE | 2018-11-16 10:40 | PDOC ---
PROGRESS NOTES Chief Complaint Chief Complaint impression Osteomyelitis IE , Osteomyelitis of the second distal phalanx. ACUTE MORBID OBESITY ONYCHOMYCOSIS OF FOOT NAILS cysto, R: URS/LL/Stent 2018 KIDNEY STONES REMOTE CVA HX HYPERLIPIDEMIA cont daptomycin, Zosyn add micafungin. Vascular Surgery for amputation of right 2nd toe, Saturday 11/18 37 min pt exam, chart review, > 50% of time spent with exam, chart review, pt care coordination. disease process education History of Present Illness History of Present Illness 6�21�2019 Patient seen and examined him today His is present Surgery is on hold for this morning Discussed with case management and RN 6�20�2019 Patient seen and examined Discussed with case management He is apparently going for surgery today for toe amputation Reviewed vascular surgery's notes Patient seen and examined Chart reviewed Discussed with RN Vitals Vitals Vital Signs Date Time Temp Pulse Resp B/P (MAP) Pulse Ox O2 Delivery O2 Flow Rate FiO2 11/16/18 10:35 16 Room Air 11/16/18 07:00 97.9 114 99/55 (70) 96 2.0 97.9 Physical Exam Physical Exam GENERAL: Alert, oriented x 3 male, obese, lying in bed comfortably, in no acute distress, cooperative, nontoxic appearing. HEENT: Normocephalic, atraumatic. Anicteric. No thrush.candace keratosis NECK: Supple. No JVD. LUNGS: Clear bilaterally. HEART: S1, S2. ABDOMEN: Soft, obese, bowel sounds present, nontender. EXTREMITIES: Right toe swelling, erythema, wound over the plantar aspect, mild right foot swelling, varicose veins, venous stasis and onychomycosis. BACK: Reveals normal curvature. No CVA tenderness. NEUROLOGIC: Alert and oriented x 3, grossly nonfocal. PSYCHIATRIC: Cooperative, appropriate mood and affect. General: Other (resting with no apparent distress) Heart: Regular rate, Normal S1, No murmurs Lungs: Clear Abdomen: Normal bowel sounds, Soft Extremities: No clubbing, Other Skin: No rashes, No breakdown Labs LABS Three-view right foot study Clinical indications: Second toe wound. FINDINGS: No acute fracture or dislocation is evident. Alignment is normal. No periosteal reaction is evident. There is erosion of the distal tuft of the second distal phalanx consistent with osteomyelitis. No soft tissue air is seen. Plantar and posterior spurs of the calcaneus are seen IMPRESSION: Osteomyelitis of the second distal phalanx. Electronically signed by: Serge Awan MD (11/12/2018 4:49 PM) [place] [id number] Bilateral lower extremity arterial ultrasound, 11/12/2018: HISTORY: Peripheral vascular disease Duplex evaluation of the major arteries in both lower extremities was performed including grayscale, color-flow and spectral Doppler analysis. There are mild scattered atherosclerotic plaques. The right common femoral and superficial femoral arteries demonstrate biphasic Doppler waveforms. No significant focal velocity acceleration is seen in those vessels to suggest high-grade stenosis. In the right lower leg the anterior tibial artery is patent with a biphasic Doppler waveform. The posterior tibial and peroneal arteries are patent with predominantly monophasic Doppler waveforms. The right dorsalis pedis artery demonstrates a dampened monophasic Doppler waveform. On the left, the common femoral and superficial femoral Doppler waveforms are triphasic and biphasic. No significant focal velocity elevation is seen to suggest high-grade femoral-popliteal stenosis. The left posterior tibial, peroneal and anterior tibial arteries in the left lower leg demonstrate predominantly biphasic Doppler waveforms. The left dorsalis pedis artery demonstrates a biphasic Doppler waveform. IMPRESSION: 1. Mild scattered atherosclerotic plaquing without evidence of high-grade femoral-popliteal stenosis. 2. Three-vessel arterial runoff in both lower legs with mild degradation of the distal Doppler waveforms. Electronically signed by: Malachi Armenta MD (11/13/2018 8:14 AM) [facility] Assessment and Plan Assessmemt and Plan Problems Medical Problems: (1) Osteomyelitis Status: Acute Comment Review of Relevant I have reviewed the following items ashlyn (where applicable) has been applied. Labs Laboratory Tests Test 11/15/18 04:00 Creatinine 1.5 mg/dL (0.7-1.3) Estimated GFR (Cockcroft-Gault) 46.4 Microbiology 11/12/18 Blood Culture - Preliminary, Resulted NO GROWTH AFTER 3 DAYS 11/12/18 Urine Culture - Final, Complete 11/12/18 Urine Culture Result 1 (SEUN) - Final, Complete Medications Current Medications Sodium Chloride 1,000 ml @ 1,000 mls/hr 1X ONCE IV Last administered on 11/12/18at 17:50; Start 11/12/18 at 17:15; Stop 11/12/18 at 18:14; Status DC Vancomycin HCl (Vanco Per Pharmacy) 1 each PRN DAILY PRN MC SEE COMMENTS Last administered on 11/12/18at 19:16; Start 11/12/18 at 17:30; Stop 11/13/18 at 09:04; Status DC Vancomycin HCl 2 gm/Sodium Chloride 500 ml @ 250 mls/hr 1X ONCE IV Last administered on 11/12/18at 18:22; Start 11/12/18 at 17:30; Stop 11/12/18 at 19:29; Status DC Ondansetron HCl (Zofran) 4 mg PRN Q8HRS PRN IV NAUSEA/VOMITING; Start 11/12/18 at 17:30; Stop 11/13/18 at 17:29; Status DC Fentanyl Citrate (Fentanyl 2ml Vial) 50 mcg PRN Q1HR PRN IV PAIN Last administered on 11/12/18at 18:52; Start 11/12/18 at 17:30; Stop 11/13/18 at 17:29; Status DC Acetaminophen (Tylenol) 650 mg PRN Q4HRS PRN PO FEVER; Start 11/12/18 at 17:30; Stop 11/13/18 at 17:29; Status DC Vancomycin HCl 2 gm/Sodium Chloride 500 ml @ 250 mls/hr Q24H IV ; Start 11/13/18 at 18:00; Stop 11/13/18 at 18:00; Status DC Vancomycin HCl (Vancomycin Trough Level) 1 each 1X ONCE MC ; Start 11/14/18 at 17:30; Stop 11/14/18 at 17:31; Status Cancel Clonidine HCl (Catapres) 0.2 mg 1X ONCE PO Last administered on 11/12/18at 22:23; Start 11/12/18 at 21:00; Stop 11/12/18 at 21:01; Status DC Apixaban (Eliquis) 5 mg BID PO Last administered on 11/15/18at 20:49; Start 11/12/18 at 21:30 Atorvastatin Calcium (Lipitor) 40 mg QHS PO Last administered on 11/15/18at 20:48; Start 11/12/18 at 21:30 Daptomycin 810 mg/ Sodium Chloride 50 ml @ 100 mls/hr Q24H IV Last administered on 11/16/18at 09:26; Start 11/13/18 at 10:00 Piperacillin Sod/ Tazobactam Sod 3.375 gm/Sodium Chloride 50 ml @ 100 mls/hr Q6HRS IV Last administered on 11/16/18at 06:30; Start 11/13/18 at 12:00 Lactobacillus Rhamnosus (Culturelle) 1 cap BID PO Last administered on 11/16/18at 08:22; Start 11/13/18 at 21:00 Info (Anti-Coagulation Monitoring By Pharmacy) 1 each PRN DAILY PRN MC SEE COMMENTS Last administered on 11/15/18at 10:41; Start 11/14/18 at 11:45 Fentanyl Citrate (Fentanyl 2ml Vial) 25 mcg PRN Q5MIN PRN IV MILD PAIN 1-3; Start 11/18/18 at 07:00; Stop 11/19/18 at 06:59 Fentanyl Citrate (Fentanyl 2ml Vial) 50 mcg PRN Q5MIN PRN IV MODERATE TO SEVERE PAIN; Start 11/18/18 at 07:00; Stop 11/19/18 at 06:59 Morphine Sulfate (Morphine Sulfate) 1 mg PRN Q10MIN PRN IV SEVERE PAIN 7-10; Start 11/18/18 at 07:00; Stop 11/19/18 at 06:59 Ringer's Solution 1,000 ml @ 30 mls/hr Q24H IV ; Start 11/18/18 at 07:00; Stop 11/18/18 at 18:59 Lidocaine HCl (Xylocaine-Mpf 1% 2ml Vial) 2 ml PRN 1X PRN ID PRIOR TO IV START; Start 11/18/18 at 07:00; Stop 11/19/18 at 06:59 Hydromorphone HCl (Dilaudid) 0.5 mg PRN Q10MIN PRN IV SEV PAIN, Second choice; Start 11/18/18 at 07:00; Stop 11/19/18 at 06:59 Prochlorperazine Edisylate (Compazine) 5 mg PACU PRN PRN IV NAUSEA, MRX1; Start 11/18/18 at 07:00; Stop 11/19/18 at 06:59 Acetaminophen/ Hydrocodone Bitart (Lortab 5/325) 1 tab PRN Q4HRS PRN PO PAIN Last administered on 11/16/18at 09:30; Start 11/15/18 at 16:15 Active Scripts Active Cipro (Ciprofloxacin Hcl) 500 Mg Tablet 1 Tab PO BID Reported Lipitor (Atorvastatin Calcium) 40 Mg Tablet 1 Tab PO QHS Eliquis (Apixaban) 5 Mg Tablet 5 Mg PO BID Vitals/I & O Vital Sign - Last 24 Hours 11/15/18 11/15/18 11/15/18 11/15/18 11:00 15:00 16:11 19:00 Temp 98.2 98.2 97.7 98.2 98.2 97.7 Pulse 67 56 74 Resp 18 18 16 18 B/P (MAP) 134/77 (96) 128/52 (77) 111/68 (82) Pulse Ox 98 94 90 O2 Delivery Room Air Room Air Room Air Room Air 11/15/18 11/15/18 11/16/18 11/16/18 20:30 23:00 03:00 04:38 Temp 98.9 98.8 98.9 98.8 Pulse 125 121 Resp 18 18 18 B/P (MAP) 133/82 (99) 128/89 (102) Pulse Ox 95 95 95 O2 Delivery Room Air Room Air Room Air Room Air O2 Flow Rate 2.0 11/16/18 11/16/18 11/16/18 11/16/18 07:00 08:00 09:30 10:35 Temp 97.9 97.9 Pulse 114 Resp 18 16 16 B/P (MAP) 99/55 (70) Pulse Ox 96 O2 Delivery Nasal Cannula Room Air Room Air Room Air O2 Flow Rate 2.0 Intake and Output 11/15/18 11/15/18 11/16/18 14:59 22:59 06:59 Output Total 400 ml Balance -400 ml BALA BAIG MD Nov 16, 2018 10:40
[2018-11-16 11:00] VITALS: BP 118/72
[2018-11-16] MEDS: ANTI-COAG MONITOR BY PHARMACY. MC PRN (11:00)
--- NOTE | 2018-11-16 11:53 | PDOC ---
Infectious Disease Note Subjective Subjective Some right foot pain Denies F/C/S/N/V/D/SOA ROS ROS per HPI Vital Sign Vital Signs Vital Signs Date Time Temp Pulse Resp B/P (MAP) Pulse Ox O2 Delivery O2 Flow Rate FiO2 11/16/18 10:35 16 Room Air 11/16/18 07:00 97.9 114 99/55 (70) 96 2.0 97.9 Physical Exam PHYSICAL EXAM GENERAL: Sitting in the chair, alert, smiling HEENT: Pupils equal, oral cavity clear s NECK: Supple. LUNGS: Clear bilaterally. HEART: S1, S2. ABDOMEN: Soft, obese, bowel sounds present, nontender. EXTREMITIES: Right toe swelling, tender, erythematous; small wound over the plantar aspect, mild right foot swelling, varicose veins, venous stasis and onychomycosis. NEUROLOGIC: Alert and oriented x 3, grossly nonfocal. SKIN: No rash PIV ok Labs Micro Microbiology 11/12/18 Blood Culture - Preliminary, Resulted NO GROWTH AFTER 3 DAYS Objective Assessment Chronic nonhealing right second toe wound with purulent drainage and osteomyelitis of the second distal phalanx. Chronic venous stasis. Onychomycosis. History of kidney stone. Acute kidney injury. History of remote cerebrovascular accident. Hyperlipidemia. History of recurrent cellulitis. Plan Plan of Care cont daptomycin, Zosyn add micafungin. Vascular Surgery planning for amputation of right 2nd toe, Saturday 11/18 Monitor labs BC neg so far Local wound care. Patient seen and examined. Chart reviewed in detail. Case discussed with SALES ANALYTICS MANAGER. Agree with above Plan. MARISOL ALLISON APRN Nov 16, 2018 11:53 MARTINE MAC MD Nov 16, 2018 19:57
[2018-11-16] MEDS: MICAFUNGIN 100 MG in IV DEXTROSE 5% 100ML 100 ML IV SCH (12:34)
[2018-11-16 15:30] VITALS: BP 138/68
[2018-11-16] MEDS ORDERED: HYDROcodone/APAP 7.5/325MG 1 TAB TABLET PO PRN (18:15)
[2018-11-16] MEDS: HYDROcodone/APAP 7.5/325MG 1 TAB TABLET PO PRN (18:26)
[2018-11-16 19:00] VITALS: BP 112/52
[2018-11-16] MEDS: ATORVASTATIN CALCIUM 40 MG TABLET. PO SCH (20:30)
[2018-11-16 23:00] VITALS: BP 86/45
--- NOTE | 2018-11-16 23:54 | EKG ---
[facility] [address] [place] [address] Test Date: 2018-11-16 Test Time: 23:46:13 Pat Name: ELE MCCRACKEN Department: Room: 418 Gender: M [employer] Observer: CHELSEA : 1950 Requested By: BALA BAIG Order Number: [id number] Reading MD: Measurements Intervals [place] Rate: 130 P: [place]: QRS: -138 QRSD: 134 T: 31 QT: 318 QTc: 475 Interpretive Statements ACCELERATED JUNCTIONAL RHYTHM ABNORMAL RIGHT SUPERIOR AXIS DEVIATION RIGHT BUNDLE BRANCH BLOCK RVH WITH REPOLARIZATION ABNORMALITY ABNORMAL ECG RI6.01 No previous ECG available for comparison
[2018-11-17] VITALS (29 sets, daily range): BP systolic 91–165; BP diastolic 42–80
[2018-11-17] MEDS ORDERED: IV NORMAL SALINE 1000ML BAG 1,000 ML IV ONE ×2
--- NOTE | 2018-11-17 01:13 | EKG ---
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
[2018-11-17] MEDS ORDERED: DIGOXIN IV 500 MCG/2 ML AMPUL. IV ONE ×2 (02:15→08:00)
[2018-11-17] MEDS: HYDROcodone/APAP 7.5/325MG 1 TAB TABLET PO PRN ×3 (02:31→21:28)
--- NOTE | 2018-11-17 02:34 | NUR ---
At approximate 2300 pt HR still high 130 via apical, bp was low 82/48, notified Dr. Schulz and received order to give NS bolus to run for 2 hours and EKG stat and cardizem drip per protocol if Hr is not going down and transferred pt to , called potato chip processing supervisor regarding Dr. Schulz's order. EkG came back with abnormal results, paged multiple times Dr. Schulz for the EKG result and to clarify orders regarding cardizem drip per protocol but he was not able to answer the call, potato chip processing supervisor came up and check the pt, independent driver consult order placed and called and spoke to Dr. Arzate, told him regarding pt's EKG and V/S and trop, Dr. Arzate ordered 0.5 mg digoxin iv x1 now and said he will check pt in the morning. Pt transferred to [address] [place] [address] unit for more heart monitoring.
--- NOTE | 2018-11-17 03:00 | NUR ---
Pt transferred from [address] [place] [address] to room 669 at approx 0215 for tachycardia and hypotension. BP when arrived to floor was 120/54 after receiving a fluid bolus on the 4th floor. HR continuing in the 130's. Digoxin given per orders received from Dr. Calvin from nurse on [address] [place] [address]. At 0300 patient heart rate continues to remain in the 130's with PVC's. At this time the charge nurse decided to call a rapid response to have the patient reevaluated. No interventions were completed at this time. Patient is asymptomatic and at bedside. Will continue to monitor patient.
[2018-11-17 03:26] LABS: ALBUMIN 2.7 g/dL (3.4-5.0); ALBUMIN/GLOBULIN RATIO 0.6 (1.0-1.7); CALCIUM 8.7 mg/dL (8.5-10.1); CREATININE 1.5 mg/dL (0.7-1.3); GFR 46.4; POTASSIUM 4.3 mmol/L (3.5-5.1); TOTAL BILIRUBIN 1.2 mg/dL (0.2-1.0); TOTAL PROTEIN 6.9 g/dL (6.4-8.2)
[2018-11-17] MEDS: PIPERACILLIN/TAZOBACTAM 3.375 GM in IV NORMAL SALINE 50ML 50 ML IV SCH ×3 (06:05→17:39)
--- NOTE | 2018-11-17 08:11 | PDOC ---
Infectious Disease Note Subjective Subjective Comfortable, pain controlled Slept alright Denies F/C/S/N/V/D/SOA ROS ROS per HPI Vital Sign Vital Signs Vital Signs Date Time Temp Pulse Resp B/P (MAP) Pulse Ox O2 Delivery O2 Flow Rate FiO2 11/17/18 07:30 98.0 19 138/62 (87) 98 Room Air 98.0 11/17/18 02:29 130 11/16/18 07:00 2.0 Physical Exam PHYSICAL EXAM GENERAL: Propped up in bed, alert, NAD HEENT: Pupils equal, oral cavity clear NECK: Supple. LUNGS: Clear bilaterally. HEART: S1, S2. ABDOMEN: Soft, obese, bowel sounds present, nontender. EXTREMITIES: Right toe swelling, tender, erythematous; small wound over the plantar aspect, mild right foot swelling, varicose veins, venous stasis and onychomycosis. NEUROLOGIC: Alert and oriented x 3, grossly nonfocal. SKIN: No rash PIV ok Labs Lab Laboratory Tests Test 11/17/18 00:03 White Blood Count 9.2 x10^3/uL (4.0-11.0) Red Blood Count 4.27 x10^6/uL (4.30-5.70) Hemoglobin 13.0 g/dL (13.0-17.5) Hematocrit 39.4 % (39.0-53.0) Mean Corpuscular Volume 92 fL (79-100) Mean Corpuscular Hemoglobin 30 pg (25-35) Mean Corpuscular Hemoglobin Concent 33 g/dL (31-37) Red Cell Distribution Width 15.0 % (11.5-14.5) Platelet Count 261 x10^3/uL (140-400) Neutrophils (%) (Auto) 65 % (31-73) Lymphocytes (%) (Auto) 17 % (24-48) Monocytes (%) (Auto) 14 % (0-9) Eosinophils (%) (Auto) 3 % (0-3) Basophils (%) (Auto) 1 % (0-3) Neutrophils # (Auto) 6.0 x10^3uL (1.8-7.7) Lymphocytes # (Auto) 1.6 x10^3/uL (1.0-4.8) Monocytes # (Auto) 1.3 x10^3/uL (0.0-1.1) Eosinophils # (Auto) 0.3 x10^3/uL (0.0-0.7) Basophils # (Auto) 0.1 x10^3/uL (0.0-0.2) Sodium Level 140 mmol/L (136-145) Potassium Level 4.3 mmol/L (3.5-5.1) Chloride Level 105 mmol/L (98-107) Carbon Dioxide Level 30 mmol/L (21-32) Anion Gap 5 (6-14) Blood Urea Nitrogen 19 mg/dL (8-26) Creatinine 1.5 mg/dL (0.7-1.3) Estimated GFR (Cockcroft-Gault) 46.4 BUN/Creatinine Ratio 13 (6-20) Glucose Level 122 mg/dL (70-99) Lactic Acid Level 0.9 mmol/L (0.4-2.0) Calcium Level 8.7 mg/dL (8.5-10.1) Total Bilirubin 1.2 mg/dL (0.2-1.0) Aspartate Amino Transf (AST/SGOT) 14 U/L (15-37) Alanine Aminotransferase (ALT/SGPT) 18 U/L (16-63) Alkaline Phosphatase 58 U/L (46-116) Troponin I Quantitative 0.054 ng/mL (0.000-0.055) Total Protein 6.9 g/dL (6.4-8.2) Albumin 2.7 g/dL (3.4-5.0) Albumin/Globulin Ratio 0.6 (1.0-1.7) Micro Microbiology 11/12/18 Blood Culture - Preliminary, Resulted NO GROWTH AFTER 3 DAYS Objective Assessment Chronic nonhealing right second toe wound with purulent drainage and osteomyelit is of the second distal phalanx. Chronic venous stasis. Onychomycosis. History of kidney stone. Acute kidney injury. History of remote cerebrovascular accident. Hyperlipidemia. History of recurrent cellulitis. Plan Plan of Care cont daptomycin, Zosyn, micafungin Vascular Surgery planning for amputation of right 2nd toe, Saturday 11/18 Monitor labs BC neg so far Local wound care. CK in am D/w nursing Patient seen and examine. Chart reviewed in detail. Case discussed with MEDICAL PLANNER. Agree with above plan. MARISOL ALLISON APRN Nov 17, 2018 08:11 MARTINE MAC MD Nov 17, 2018 21:00
[2018-11-17] MEDS: LACTOBACILLUS RHAMNOSUS GG 1 CAPSULE. PO SCH ×2 (08:27→21:27)
[2018-11-17] MEDS: APIXABAN 5 MG TABLET. PO SCH ×3 (08:29→21:27)
[2018-11-17 09:15] LABS: BASO % 0 % (0-3); EOS # 0.2 x10^3/uL (0.0-0.7); EOS % 3 % (0-3); HEMATOCRIT 38.7 % (39.0-53.0); HEMOGLOBIN 12.4 g/dL (13.0-17.5); LYMPH # 1.2 x10^3/uL (1.0-4.8); LYMPH % 17 % (24-48); MEAN CORPUSCULAR HEMOGLOBIN 30 pg (25-35); MEAN CORPUSCULAR HGB CONC 32 g/dL (31-37); MEAN CORPUSCULAR VOLUME 92 fL (79-100); MONO # 0.5 x10^3/uL (0.0-1.1); MONO % 7 % (0-9); NEUT # 5.3 x10^3uL (1.8-7.7); NEUT % 73 % (31-73); PLATELET COUNT 256 x10^3/uL (140-400); RED BLOOD COUNT 4.21 x10^6/uL (4.30-5.70); RED CELL DISTRIBUTION WIDTH 14.8 % (11.5-14.5); WHITE BLOOD COUNT 7.3 x10^3/uL (4.0-11.0)
[2018-11-17] MEDS: NORMAL SALINE IV SCH (10:22)
[2018-11-17] MEDS: DAPTOMYCIN IV SCH (10:22)
[2018-11-17] MEDS: ANTI-COAG MONITOR BY PHARMACY. MC PRN (11:01)
[2018-11-17] MEDS: dilTIAZem INJ 125 MG in IV DEXTROSE 5% 100ML 100 ML IV PRN (11:44)
[2018-11-17] MEDS: MICAFUNGIN 100 MG in IV DEXTROSE 5% 100ML 100 ML IV SCH (12:23)
--- NOTE | 2018-11-17 13:20 | PDOC2 ---
CONSULT Date of Consult Date of Consult DATE: 11/17/18 TIME: 13:20 Reason for Consult Reason for Consult: Atrial fibrillation Referring Physician Referring Physician: Dr. Leal Identification/Chief Complaint Chief Complaint Right second toe wound Source Source: Chart review, Patient History of Present Illness Reason for Visit: 68-year-old male with history of atrial fibrillation s/p cardioversion 2 years ago at [facility] presented with right second toe wound and has been diagnosed with osteomyelitis. He is scheduled for 2 amp patient by vascular surgery tomorrow. He was found to be in atrial fibrillation with rapid ventricular response yesterday and transferred to [facility] for further management. Patient denied any palpitations as such. He also denied any chest pain, orthopnea/PND or syncope. Past Medical History Cardiovascular: No pertinent hx, Hyperlipidemia Pulmonary: No pertinent hx GI: No pertinent hx Heme/Onc: Other Hepatobiliary: No pertinent hx Psych: No pertinent hx Rheumatologic: No pertinent hx Infectious disease: No pertinent hx Renal/: Other Endocrine: No pertinent hx Past Surgical History Past Surgical History: No pertinent history Family History Family History: High Cholestrol Social History <1 pack per day ALCOHOL: social Drugs: None, Marijuana Current Problem List Problem List Problems Medical Problems: (1) Osteomyelitis Status: Acute Current Medications Current Medications Current Medications Sodium Chloride 1,000 ml @ 1,000 mls/hr 1X ONCE IV Last administered on 11/12/18at 17:50; Start 11/12/18 at 17:15; Stop 11/12/18 at 18:14; Status DC Vancomycin HCl (Vanco Per Pharmacy) 1 each PRN DAILY PRN MC SEE COMMENTS Last administered on 11/12/18at 19:16; Start 11/12/18 at 17:30; Stop 11/13/18 at 09:04; Status DC Vancomycin HCl 2 gm/Sodium Chloride 500 ml @ 250 mls/hr 1X ONCE IV Last a dministered on 11/12/18at 18:22; Start 11/12/18 at 17:30; Stop 11/12/18 at 19:29; Status DC Ondansetron HCl (Zofran) 4 mg PRN Q8HRS PRN IV NAUSEA/VOMITING; Start 11/12/18 at 17:30; Stop 11/13/18 at 17:29; Status DC Fentanyl Citrate (Fentanyl 2ml Vial) 50 mcg PRN Q1HR PRN IV PAIN Last administered on 11/12/18at 18:52; Start 11/12/18 at 17:30; Stop 11/13/18 at 17:29; Status DC Acetaminophen (Tylenol) 650 mg PRN Q4HRS PRN PO FEVER; Start 11/12/18 at 17:30; Stop 11/13/18 at 17:29; Status DC Vancomycin HCl 2 gm/Sodium Chloride 500 ml @ 250 mls/hr Q24H IV ; Start 11/13/18 at 18:00; Stop 11/13/18 at 18:00; Status DC Vancomycin HCl (Vancomycin Trough Level) 1 each 1X ONCE MC ; Start 11/14/18 at 17:30; Stop 11/14/18 at 17:31; Status Cancel Clonidine HCl (Catapres) 0.2 mg 1X ONCE PO Last administered on 11/12/18 22:23; Start 11/12/18 at 21:00; Stop 11/12/18 at 21:01; Status DC Apixaban (Eliquis) 5 mg BID PO Last administered on 11/15/18at 20:49; Start 11/12/18 at 21:30 Atorvastatin Calcium (Lipitor) 40 mg QHS PO Last administered on 11/16/18at 20:30; Start 11/12/18 at 21:30 Daptomycin 810 mg/ Sodium Chloride 50 ml @ 100 mls/hr Q24H IV Last administered on 11/17/18at 10:22; Start 11/13/18 at 10:00 Piperacillin Sod/ Tazobactam Sod 3.375 gm/Sodium Chloride 50 ml @ 100 mls/hr Q6HRS IV Last administered on 11/17/18at 11:37; Start 11/13/18 at 12:00 Lactobacillus Rhamnosus (Culturelle) 1 cap BID PO Last administered on 11/17/18 08:27; Start 11/13/18 at 21:00 Info (Anti-Coagulation Monitoring By Pharmacy) 1 each PRN DAILY PRN MC SEE COMMENTS Last administered on 11/17/18at 11:01; Start 11/14/18 at 11:45 Fentanyl Citrate (Fentanyl 2ml Vial) 25 mcg PRN Q5MIN PRN IV MILD PAIN 1-3; Start 11/18/18 at 07:00; Stop 11/19/18 at 06:59 Fentanyl Citrate (Fentanyl 2ml Vial) 50 mcg PRN Q5MIN PRN IV MODERATE TO SEVERE PAIN; Start 11/18/18 at 07:00; Stop 11/19/18 at 06:59 Morphine Sulfate (Morphine Sulfate) 1 mg PRN Q10MIN PRN IV SEVERE PAIN 7-10; Start 11/18/18 at 07:00; Stop 11/19/18 at 06:59 Ringer's Solution 1,000 ml @ 30 mls/hr Q24H IV ; Start 11/18/18 at 07:00; Stop 11/18/18 at 18:59 Lidocaine HCl (Xylocaine-Mpf 1% 2ml Vial) 2 ml PRN 1X PRN ID PRIOR TO IV START; Start 11/18/18 at 07:00; Stop 11/19/18 at 06:59 Hydromorphone HCl (Dilaudid) 0.5 mg PRN Q10MIN PRN IV SEV PAIN, Second choice; Start 11/18/18 at 07:00; Stop 11/19/18 at 06:59 Prochlorperazine Edisylate (Compazine) 5 mg PACU PRN PRN IV NAUSEA, MRX1; Start 11/18/18 at 07:00; Stop 11/19/18 at 06:59 Acetaminophen/ Hydrocodone Bitart (Lortab 5/325) 1 tab PRN Q4HRS PRN PO PAIN Last administered on 11/16/18at 09:30; Start 11/15/18 at 16:15; Stop 11/16/18 at 18:22; Status DC Micafungin Sodium 100 mg/Dextrose 100 ml @ 100 mls/hr Q24H IV Last administered on 11/17/18at 12:23; Start 11/16/18 at 12:00 Acetaminophen/ Hydrocodone Bitart (Lortab 7.5/325) 1 tab PRN Q6HRS PRN PO MODERATE PAIN; Start 11/16/18 at 18:15 Acetaminophen/ Hydrocodone Bitart (Lortab 7.5/325) 2 tab PRN Q6HRS PRN PO SEVERE PAIN Last administered on 11/17/18at 08:45; Start 11/16/18 at 18:30 Sodium Chloride 1,000 ml @ 1,000 mls/hr 1X ONCE IV Last administered on 11/17/18at 00:00; Start 11/17/18 at 00:00; Stop 11/17/18 at 00:59; Status DC Sodium Chloride 1,000 ml @ 1,000 mls/hr 1X ONCE IV Last administered on 11/17/18at 00:00; Start 11/17/18 at 00:00; Stop 11/17/18 at 00:59; Status DC Digoxin (Lanoxin) 500 mcg 1X ONCE IV Last administered on 11/17/18at 02:29; Start 11/17/18 at 02:15; Stop 11/17/18 at 02:16; Status DC Bacitracin 60857 unit/Sodium Chloride 500 ml @ 500 mls/hr 1X ONCE IRR ; Start 11/18/18 at 06:00; Stop 11/18/18 at 06:59 Digoxin (Lanoxin) 250 mcg 1X ONCE IV Last administered on 11/17/18at 08:28; Start 11/17/18 at 08:00; Stop 11/17/18 at 08:06; Status DC Diltiazem HCl 125 mg/Dextrose 125 ml @ 5 mls/hr CONT PRN IV SEE I/O RECORD Last administered on 11/17/18at 11:44; Start 11/17/18 at 11:30 Active Scripts Active Cipro (Ciprofloxacin Hcl) 500 Mg Tablet 1 Tab PO BID Reported Lipitor (Atorvastatin Calcium) 40 Mg Tablet 1 Tab PO QHS Eliquis (Apixaban) 5 Mg Tablet 5 Mg PO BID Allergies Allergies: Coded Allergies: hydroxyzine (Verified Allergy, Intermediate, Blisters on fingers and feet. , 04/24/18) ROS PSYCHOLOGICAL ROS: No: Hallucinations Eyes: No Loss of vision HEENT: No: Epistaxis Respiratory: No: Hemoptysis, Shortness of breath Cardiovascular: No Chest Pain, No Palpitations Gastrointestinal: No Vomiting, No Diarrhea Genitourinary: No Hematuria Neurological: No Seizures Skin: Yes Other (nonhealing wound right second toe); No Rash Physical Exam General: Alert, Oriented X3 HEENT: Atraumatic Lungs: Clear to auscultation Heart: Other (heart rate is irregular) Abdomen: Soft, No tenderness Extremities: No edema Psych/Mental Status: Mood NL Vitals VITALS Vital Signs Date Time Temp Pulse Resp B/P (MAP) Pulse Ox O2 Delivery O2 Flow Rate FiO2 11/17/18 11:00 98.5 127 18 131/76 (94) 94 Room Air 98.5 11/16/18 07:00 2.0 Labs Labs Laboratory Tests Test 11/17/18 00:03 11/17/18 08:55 Sodium Level 140 mmol/L (136-145) Potassium Level 4.3 mmol/L (3.5-5.1) Chloride Level 105 mmol/L (98-107) Carbon Dioxide Level 30 mmol/L (21-32) Anion Gap 5 (6-14) Blood Urea Nitrogen 19 mg/dL (8-26) Creatinine 1.5 mg/dL (0.7-1.3) Estimated GFR (Cockcroft-Gault) 46.4 BUN/Creatinine Ratio 13 (6-20) Glucose Level 122 mg/dL (70-99) Lactic Acid Level 0.9 mmol/L (0.4-2.0) Calcium Level 8.7 mg/dL (8.5-10.1) Total Bilirubin 1.2 mg/dL (0.2-1.0) Aspartate Amino Transf (AST/SGOT) 14 U/L (15-37) Alanine Aminotransferase (ALT/SGPT) 18 U/L (16-63) Alkaline Phosphatase 58 U/L (46-116) Troponin I Quantitative 0.054 ng/mL (0.000-0.055) Total Protein 6.9 g/dL (6.4-8.2) Albumin 2.7 g/dL (3.4-5.0) Albumin/Globulin Ratio 0.6 (1.0-1.7) White Blood Count 7.3 x10^3/uL (4.0-11.0) Red Blood Count 4.21 x10^6/uL (4.30-5.70) Hemoglobin 12.4 g/dL (13.0-17.5) Hematocrit 38.7 % (39.0-53.0) Mean Corpuscular Volume 92 fL (79-100) Mean Corpuscular Hemoglobin 30 pg (25-35) Mean Corpuscular Hemoglobin Concent 32 g/dL (31-37) Red Cell Distribution Width 14.8 % (11.5-14.5) Platelet Count 256 x10^3/uL (140-400) Neutrophils (%) (Auto) 73 % (31-73) Lymphocytes (%) (Auto) 17 % (24-48) Monocytes (%) (Auto) 7 % (0-9) Eosinophils (%) (Auto) 3 % (0-3) Basophils (%) (Auto) 0 % (0-3) Neutrophils # (Auto) 5.3 x10^3uL (1.8-7.7) Lymphocytes # (Auto) 1.2 x10^3/uL (1.0-4.8) Monocytes # (Auto) 0.5 x10^3/uL (0.0-1.1) Eosinophils # (Auto) 0.2 x10^3/uL (0.0-0.7) Basophils # (Auto) 0.0 x10^3/uL (0.0-0.2) Laboratory Tests Test 11/17/18 00:03 11/17/18 08:55 Sodium Level 140 mmol/L (136-145) Potassium Level 4.3 mmol/L (3.5-5.1) Chloride Level 105 mmol/L (98-107) Carbon Dioxide Level 30 mmol/L (21-32) Anion Gap 5 (6-14) Blood Urea Nitrogen 19 mg/dL (8-26) Creatinine 1.5 mg/dL (0.7-1.3) Estimated GFR (Cockcroft-Gault) 46.4 BUN/Creatinine Ratio 13 (6-20) Glucose Level 122 mg/dL (70-99) Lactic Acid Level 0.9 mmol/L (0.4-2.0) Calcium Level 8.7 mg/dL (8.5-10.1) Total Bilirubin 1.2 mg/dL (0.2-1.0) Aspartate Amino Transf (AST/SGOT) 14 U/L (15-37) Alanine Aminotransferase (ALT/SGPT) 18 U/L (16-63) Alkaline Phosphatase 58 U/L (46-116) Troponin I Quantitative 0.054 ng/mL (0.000-0.055) Total Protein 6.9 g/dL (6.4-8.2) Albumin 2.7 g/dL (3.4-5.0) Albumin/Globulin Ratio 0.6 (1.0-1.7) White Blood Count 7.3 x10^3/uL (4.0-11.0) Red Blood Count 4.21 x10^6/uL (4.30-5.70) Hemoglobin 12.4 g/dL (13.0-17.5) Hematocrit 38.7 % (39.0-53.0) Mean Corpuscular Volume 92 fL (79-100) Mean Corpuscular Hemoglobin 30 pg (25-35) Mean Corpuscular Hemoglobin Concent 32 g/dL (31-37) Red Cell Distribution Width 14.8 % (11.5-14.5) Platelet Count 256 x10^3/uL (140-400) Neutrophils (%) (Auto) 73 % (31-73) Lymphocytes (%) (Auto) 17 % (24-48) Monocytes (%) (Auto) 7 % (0-9) Eosinophils (%) (Auto) 3 % (0-3) Basophils (%) (Auto) 0 % (0-3) Neutrophils # (Auto) 5.3 x10^3uL (1.8-7.7) Lymphocytes # (Auto) 1.2 x10^3/uL (1.0-4.8) Monocytes # (Auto) 0.5 x10^3/uL (0.0-1.1) Eosinophils # (Auto) 0.2 x10^3/uL (0.0-0.7) Basophils # (Auto) 0.0 x10^3/uL (0.0-0.2) Assessment/Plan Assessment/Plan 1. Atrial fibrillation with rapid ventricular response, recurrent. Patient apparently had cardioversion 2 years ago. Continue to titrate Cardizem drip for rate control. Continue eliquis for stroke prophylaxis. Since atrial fibrillation is recurrent, we will start amiodarone for rhythm maintenance and plan for outpatient cardioversion in 4 weeks. Check 2-D echo to assess LV systolic function. We will consider ischemic evaluation with stress test and sleep study as an outpatient. 2. Hyperlipidemia: Continue statin therapy 3. Osteomyelitis of right second toe, planned plantation tomorrow by vascular surgery team. Arterial duplex scan did not show any significant PAD. Thank you for your consultation. ALLI ROMERO MD Nov 17, 2018 13:20
--- NOTE | 2018-11-17 16:29 | PDOC ---
PROGRESS NOTES Chief Complaint Chief Complaint acute diastolic CHF from Afib with RVR, new today Osteomyelitis IE , Osteomyelitis of the second distal phalanx. ACUTE morbid obesity, BMI 43 cysto, R: URS/LL/Stent 2018 renal stones REMOTE CVA HX HYPERLIPIDEMIA History of Present Illness History of Present Illness transfer to CV unit for afib RVR, cont daptomycin, Zosyn add micafungin. Vascular Surgery for amputation of right 2nd toe, Saturday 11/18 Patient seen and examined him today His is present Surgery is on hold for this morning Discussed with case management and RN Vitals Vitals Vital Signs Date Time Temp Pulse Resp B/P (MAP) Pulse Ox O2 Delivery O2 Flow Rate FiO2 11/17/18 15:00 99.1 80 18 112/52 (72) 96 Room Air 99.1 11/16/18 07:00 2.0 Physical Exam Physical Exam GENERAL: Propped up in bed, alert, NAD HEENT: Pupils equal, oral cavity clear NECK: Supple. LUNGS: Clear bilaterally. HEART: S1, S2. ABDOMEN: Soft, obese, bowel sounds present, nontender. EXTREMITIES: Right toe swelling, tender, erythematous; small wound over the plantar aspect, mild right foot swelling, varicose veins, venous stasis and onychomycosis. NEUROLOGIC: Alert and oriented x 3, grossly nonfocal. SKIN: No rash PIV ok General: Alert, Cooperative, Other (resting with no apparent distress) Heart: Regular rate, Normal S1, No murmurs Lungs: Clear Abdomen: Normal bowel sounds, Soft Extremities: No clubbing, Other Skin: No rashes, No breakdown Labs LABS Laboratory Tests Test 11/17/18 00:03 11/17/18 08:55 Sodium Level 140 mmol/L (136-145) Potassium Level 4.3 mmol/L (3.5-5.1) Chloride Level 105 mmol/L (98-107) Carbon Dioxide Level 30 mmol/L (21-32) Anion Gap 5 (6-14) Blood Urea Nitrogen 19 mg/dL (8-26) Creatinine 1.5 mg/dL (0.7-1.3) Estimated GFR (Cockcroft-Gault) 46.4 BUN/Creatinine Ratio 13 (6-20) Glucose Level 122 mg/dL (70-99) Lactic Acid Level 0.9 mmol/L (0.4-2.0) Calcium Level 8.7 mg/dL (8.5-10.1) Total Bilirubin 1.2 mg/dL (0.2-1.0) Aspartate Amino Transf (AST/SGOT) 14 U/L (15-37) Alanine Aminotransferase (ALT/SGPT) 18 U/L (16-63) Alkaline Phosphatase 58 U/L (46-116) Troponin I Quantitative 0.054 ng/mL (0.000-0.055) Total Protein 6.9 g/dL (6.4-8.2) Albumin 2.7 g/dL (3.4-5.0) Albumin/Globulin Ratio 0.6 (1.0-1.7) White Blood Count 7.3 x10^3/uL (4.0-11.0) Red Blood Count 4.21 x10^6/uL (4.30-5.70) Hemoglobin 12.4 g/dL (13.0-17.5) Hematocrit 38.7 % (39.0-53.0) Mean Corpuscular Volume 92 fL (79-100) Mean Corpuscular Hemoglobin 30 pg (25-35) Mean Corpuscular Hemoglobin Concent 32 g/dL (31-37) Red Cell Distribution Width 14.8 % (11.5-14.5) Platelet Count 256 x10^3/uL (140-400) Neutrophils (%) (Auto) 73 % (31-73) Lymphocytes (%) (Auto) 17 % (24-48) Monocytes (%) (Auto) 7 % (0-9) Eosinophils (%) (Auto) 3 % (0-3) Basophils (%) (Auto) 0 % (0-3) Neutrophils # (Auto) 5.3 x10^3uL (1.8-7.7) Lymphocytes # (Auto) 1.2 x10^3/uL (1.0-4.8) Monocytes # (Auto) 0.5 x10^3/uL (0.0-1.1) Eosinophils # (Auto) 0.2 x10^3/uL (0.0-0.7) Basophils # (Auto) 0.0 x10^3/uL (0.0-0.2) Review of Systems Review of Systems no n.v.d Assessment and Plan Assessmemt and Plan Problems Medical Problems: (1) Osteomyelitis Status: Acute Comment Review of Relevant I have reviewed the following items ashlyn (where applicable) has been applied. Labs Laboratory Tests Test 11/17/18 00:03 11/17/18 08:55 Sodium Level 140 mmol/L (136-145) Potassium Level 4.3 mmol/L (3.5-5.1) Chloride Level 105 mmol/L (98-107) Carbon Dioxide Level 30 mmol/L (21-32) Anion Gap 5 (6-14) Blood Urea Nitrogen 19 mg/dL (8-26) Creatinine 1.5 mg/dL (0.7-1.3) Estimated GFR (Cockcroft-Gault) 46.4 BUN/Creatinine Ratio 13 (6-20) Glucose Level 122 mg/dL (70-99) Lactic Acid Level 0.9 mmol/L (0.4-2.0) Calcium Level 8.7 mg/dL (8.5-10.1) Total Bilirubin 1.2 mg/dL (0.2-1.0) Aspartate Amino Transf (AST/SGOT) 14 U/L (15-37) Alanine Aminotransferase (ALT/SGPT) 18 U/L (16-63) Alkaline Phosphatase 58 U/L (46-116) Troponin I Quantitative 0.054 ng/mL (0.000-0.055) Total Protein 6.9 g/dL (6.4-8.2) Albumin 2.7 g/dL (3.4-5.0) Albumin/Globulin Ratio 0.6 (1.0-1.7) White Blood Count 7.3 x10^3/uL (4.0-11.0) Red Blood Count 4.21 x10^6/uL (4.30-5.70) Hemoglobin 12.4 g/dL (13.0-17.5) Hematocrit 38.7 % (39.0-53.0) Mean Corpuscular Volume 92 fL (79-100) Mean Corpuscular Hemoglobin 30 pg (25-35) Mean Corpuscular Hemoglobin Concent 32 g/dL (31-37) Red Cell Distribution Width 14.8 % (11.5-14.5) Platelet Count 256 x10^3/uL (140-400) Neutrophils (%) (Auto) 73 % (31-73) Lymphocytes (%) (Auto) 17 % (24-48) Monocytes (%) (Auto) 7 % (0-9) Eosinophils (%) (Auto) 3 % (0-3) Basophils (%) (Auto) 0 % (0-3) Neutrophils # (Auto) 5.3 x10^3uL (1.8-7.7) Lymphocytes # (Auto) 1.2 x10^3/uL (1.0-4.8) Monocytes # (Auto) 0.5 x10^3/uL (0.0-1.1) Eosinophils # (Auto) 0.2 x10^3/uL (0.0-0.7) Basophils # (Auto) 0.0 x10^3/uL (0.0-0.2) Laboratory Tests Test 11/17/18 00:03 11/17/18 08:55 Sodium Level 140 mmol/L (136-145) Potassium Level 4.3 mmol/L (3.5-5.1) Chloride Level 105 mmol/L (98-107) Carbon Dioxide Level 30 mmol/L (21-32) Anion Gap 5 (6-14) Blood Urea Nitrogen 19 mg/dL (8-26) Creatinine 1.5 mg/dL (0.7-1.3) Estimated GFR (Cockcroft-Gault) 46.4 BUN/Creatinine Ratio 13 (6-20) Glucose Level 122 mg/dL (70-99) Lactic Acid Level 0.9 mmol/L (0.4-2.0) Calcium Level 8.7 mg/dL (8.5-10.1) Total Bilirubin 1.2 mg/dL (0.2-1.0) Aspartate Amino Transf (AST/SGOT) 14 U/L (15-37) Alanine Aminotransferase (ALT/SGPT) 18 U/L (16-63) Alkaline Phosphatase 58 U/L (46-116) Troponin I Quantitative 0.054 ng/mL (0.000-0.055) Total Protein 6.9 g/dL (6.4-8.2) Albumin 2.7 g/dL (3.4-5.0) Albumin/Globulin Ratio 0.6 (1.0-1.7) White Blood Count 7.3 x10^3/uL (4.0-11.0) Red Blood Count 4.21 x10^6/uL (4.30-5.70) Hemoglobin 12.4 g/dL (13.0-17.5) Hematocrit 38.7 % (39.0-53.0) Mean Corpuscular Volume 92 fL (79-100) Mean Corpuscular Hemoglobin 30 pg (25-35) Mean Corpuscular Hemoglobin Concent 32 g/dL (31-37) Red Cell Distribution Width 14.8 % (11.5-14.5) Platelet Count 256 x10^3/uL (140-400) Neutrophils (%) (Auto) 73 % (31-73) Lymphocytes (%) (Auto) 17 % (24-48) Monocytes (%) (Auto) 7 % (0-9) Eosinophils (%) (Auto) 3 % (0-3) Basophils (%) (Auto) 0 % (0-3) Neutrophils # (Auto) 5.3 x10^3uL (1.8-7.7) Lymphocytes # (Auto) 1.2 x10^3/uL (1.0-4.8) Monocytes # (Auto) 0.5 x10^3/uL (0.0-1.1) Eosinophils # (Auto) 0.2 x10^3/uL (0.0-0.7) Basophils # (Auto) 0.0 x10^3/uL (0.0-0.2) Microbiology 11/12/18 Blood Culture - Preliminary, Resulted NO GROWTH AFTER 4 DAYS 11/12/18 Urine Culture - Final, Complete 11/12/18 Urine Culture Result 1 (SEUN) - Final, Complete Medications Current Medications Sodium Chloride 1,000 ml @ 1,000 mls/hr 1X ONCE IV Last administered on 11/12/18at 17:50; Start 11/12/18 at 17:15; Stop 11/12/18 at 18:14; Status DC Vancomycin HCl (Vanco Per Pharmacy) 1 each PRN DAILY PRN MC SEE COMMENTS Last administered on 11/12/18at 19:16; Start 11/12/18 at 17:30; Stop 11/13/18 at 09:04; Status DC Vancomycin HCl 2 gm/Sodium Chloride 500 ml @ 250 mls/hr 1X ONCE IV Last administered on 11/12/18at 18:22; Start 11/12/18 at 17:30; Stop 11/12/18 at 19:29; Status DC Ondansetron HCl (Zofran) 4 mg PRN Q8HRS PRN IV NAUSEA/VOMITING; Start 11/12/18 at 17:30; Stop 11/13/18 at 17:29; Status DC Fentanyl Citrate (Fentanyl 2ml Vial) 50 mcg PRN Q1HR PRN IV PAIN Last administered on 11/12/18at 18:52; Start 11/12/18 at 17:30; Stop 11/13/18 at 17:29; Status DC Acetaminophen (Tylenol) 650 mg PRN Q4HRS PRN PO FEVER; Start 11/12/18 at 17:30; Stop 11/13/18 at 17:29; Status DC Vancomycin HCl 2 gm/Sodium Chloride 500 ml @ 250 mls/hr Q24H IV ; Start 11/13/18 at 18:00; Stop 11/13/18 at 18:00; Status DC Vancomycin HCl (Vancomycin Trough Level) 1 each 1X ONCE MC ; Start 11/14/18 at 17:30; Stop 11/14/18 at 17:31; Status Cancel Clonidine HCl (Catapres) 0.2 mg 1X ONCE PO Last administered on 11/12/18 22:23; Start 11/12/18 at 21:00; Stop 11/12/18 at 21:01; Status DC Apixaban (Eliquis) 5 mg BID PO Last administered on 11/15/18at 20:49; Start 11/12/18 at 21:30 Atorvastatin Calcium (Lipitor) 40 mg QHS PO Last administered on 11/16/18at 20:30; Start 11/12/18 at 21:30 Daptomycin 810 mg/ Sodium Chloride 50 ml @ 100 mls/hr Q24H IV Last administered on 11/17/18at 10:22; Start 11/13/18 at 10:00 Piperacillin Sod/ Tazobactam Sod 3.375 gm/Sodium Chloride 50 ml @ 100 mls/hr Q6HRS IV Last administered on 11/17/18at 11:37; Start 11/13/18 at 12:00 Lactobacillus Rhamnosus (Culturelle) 1 cap BID PO Last administered on 11/17/18at 08:27; Start 11/13/18 at 21:00 Info (Anti-Coagulation Monitoring By Pharmacy) 1 each PRN DAILY PRN MC SEE COMMENTS Last administered on 11/17/18at 11:01; Start 11/14/18 at 11:45 Fentanyl Citrate (Fentanyl 2ml Vial) 25 mcg PRN Q5MIN PRN IV MILD PAIN 1-3; Start 11/18/18 at 07:00; Stop 11/19/18 at 06:59 Fentanyl Citrate (Fentanyl 2ml Vial) 50 mcg PRN Q5MIN PRN IV MODERATE TO SEVERE PAIN; Start 11/18/18 at 07:00; Stop 11/19/18 at 06:59 Morphine Sulfate (Morphine Sulfate) 1 mg PRN Q10MIN PRN IV SEVERE PAIN 7-10; Start 11/18/18 at 07:00; Stop 11/19/18 at 06:59 Ringer's Solution 1,000 ml @ 30 mls/hr Q24H IV ; Start 11/18/18 at 07:00; Stop 11/18/18 at 18:59 Lidocaine HCl (Xylocaine-Mpf 1% 2ml Vial) 2 ml PRN 1X PRN ID PRIOR TO IV START; Start 11/18/18 at 07:00; Stop 11/19/18 at 06:59 Hydromorphone HCl (Dilaudid) 0.5 mg PRN Q10MIN PRN IV SEV PAIN, Second choice; Start 11/18/18 at 07:00; Stop 11/19/18 at 06:59 Prochlorperazine Edisylate (Compazine) 5 mg PACU PRN PRN IV NAUSEA, MRX1; Start 11/18/18 at 07:00; Stop 11/19/18 at 06:59 Acetaminophen/ Hydrocodone Bitart (Lortab 5/325) 1 tab PRN Q4HRS PRN PO PAIN Last administered on 11/16/18at 09:30; Start 11/15/18 at 16:15; Stop 11/16/18 at 18:22; Status DC Micafungin Sodium 100 mg/Dextrose 100 ml @ 100 mls/hr Q24H IV Last administered on 11/17/18at 12:23; Start 11/16/18 at 12:00 Acetaminophen/ Hydrocodone Bitart (Lortab 7.5/325) 1 tab PRN Q6HRS PRN PO MODERATE PAIN; Start 11/16/18 at 18:15 Acetaminophen/ Hydrocodone Bitart (Lortab 7.5/325) 2 tab PRN Q6HRS PRN PO SEVERE PAIN Last administered on 11/17/18at 08:45; Start 11/16/18 at 18:30 Sodium Chloride 1,000 ml @ 1,000 mls/hr 1X ONCE IV Last administered on 11/17/18at 00:00; Start 11/17/18 at 00:00; Stop 11/17/18 at 00:59; Status DC Sodium Chloride 1,000 ml @ 1,000 mls/hr 1X ONCE IV Last administered on 11/17/18at 00:00; Start 11/17/18 at 00:00; Stop 11/17/18 at 00:59; Status DC Digoxin (Lanoxin) 500 mcg 1X ONCE IV Last administered on 11/17/18at 02:29; Start 11/17/18 at 02:15; Stop 11/17/18 at 02:16; Status DC Bacitracin 86792 unit/Sodium Chloride 500 ml @ 500 mls/hr 1X ONCE IRR ; Start 11/18/18 at 06:00; Stop 11/18/18 at 06:59 Digoxin (Lanoxin) 250 mcg 1X ONCE IV Last administered on 11/17/18at 08:28; Start 11/17/18 at 08:00; Stop 11/17/18 at 08:06; Status DC Diltiazem HCl 125 mg/Dextrose 125 ml @ 5 mls/hr CONT PRN IV SEE I/O RECORD Last administered on 11/17/18at 11:44; Start 11/17/18 at 11:30 Active Scripts Active Cipro (Ciprofloxacin Hcl) 500 Mg Tablet 1 Tab PO BID Reported Lipitor (Atorvastatin Calcium) 40 Mg Tablet 1 Tab PO QHS Eliquis (Apixaban) 5 Mg Tablet 5 Mg PO BID Vitals/I & O Vital Sign - Last 24 Hours 11/16/18 11/16/18 11/16/18 11/16/18 18:26 19:00 19:30 20:00 Temp 98.7 98.7 Pulse 135 Resp 18 B/P (MAP) 112/52 (72) Pulse Ox 92 91 92 O2 Delivery Room Air Room Air Room Air 11/16/18 11/17/18 11/17/18 11/17/18 23:00 02:15 02:29 03:31 Temp 98.2 98.2 98.2 98.2 Pulse 129 125 130 Resp 16 20 16 B/P (MAP) 86/45 (59) 120/54 (76) 120/54 135/70 (91) Pulse Ox 90 95 O2 Delivery Room Air Room Air 11/17/18 11/17/18 11/17/18 11/17/18 07:30 08:00 08:28 08:45 Temp 98.0 98.0 Pulse 130 Resp 19 B/P (MAP) 138/62 (87) 138/62 Pulse Ox 98 O2 Delivery Room Air Room Air Room Air 11/17/18 11/17/18 11/17/18 11/17/18 09:47 10:45 11:00 11:45 Temp 98.4 98.5 98.4 98.5 Pulse 76 127 128 Resp 18 18 B/P (MAP) 114/67 (83) 131/76 (94) 114/67 (83) Pulse Ox 100 94 96 O2 Delivery Room Air Room Air Room Air Room Air 11/17/18 11/17/18 11/17/18 11/17/18 12:00 12:15 12:30 12:45 Pulse 126 100 126 126 B/P (MAP) 114/69 (84) 91/58 (69) 133/80 (97) Pulse Ox 92 94 94 95 O2 Delivery Room Air Room Air Room Air Room Air 11/17/18 11/17/18 11/17/18 11/17/18 13:00 13:15 13:30 13:45 Pulse 128 118 108 112 B/P (MAP) 92/64 (73) 135/63 (87) 102/56 (71) 115/58 (77) Pulse Ox 96 95 96 95 O2 Delivery Room Air Room Air Room Air Room Air 11/17/18 15:00 Temp 99.1 99.1 Pulse 80 Resp 18 B/P (MAP) 112/52 (72) Pulse Ox 96 O2 Delivery Room Air Intake and Output 11/16/18 11/16/18 11/17/18 15:00 23:00 07:00 Intake Total 300 ml Output Total 400 ml Balance -100 ml GIGI RAMIREZ MD Nov 17, 2018 16:29
[2018-11-17] MEDS ORDERED: AMIODARONE 900 MG in IV DEXTROSE 5% 500 ML IV PRN (19:45)
[2018-11-17] MEDS ORDERED: AMIODARONE 150 MG in IV DEXTROSE 5% 100ML 100 ML IV ONE (19:45)
[2018-11-17] MEDS: ATORVASTATIN CALCIUM 40 MG TABLET. PO SCH (21:27)
--- NOTE | 2018-11-17 23:33 | NUR ---
notified that eliquis was administered at hs as it was on the JUL and he is on several cardiac gtts for afib. Later when reading orders and notes this RN noticed that it was ordered to be on hold for procedure tomorrow and this was missed in report somehow. Physician states ok, make sure am dose is held, no further orders at this time.
[2018-11-18] VITALS (16 sets, daily range): BP systolic 99–140; BP diastolic 40–77
[2018-11-18] MEDS: PIPERACILLIN/TAZOBACTAM 3.375 GM in IV NORMAL SALINE 50ML 50 ML IV SCH ×5 (00:06→23:35)
[2018-11-18] MEDS: dilTIAZem INJ 125 MG in IV DEXTROSE 5% 100ML 100 ML IV PRN ×2 (05:50→10:22)
[2018-11-18] MEDS ORDERED: BACITRACIN 50,000 UNIT in IV NORMAL SALINE 500ML BAG 500 ML IRR ONE (06:00)
[2018-11-18] MEDS ORDERED: HYDROmorphone 2 MG/ML VIAL IV PRN (07:00)
[2018-11-18] MEDS ORDERED: MORPHINE SULFATE 2 MG/ML VIAL. IV PRN (07:00)
[2018-11-18] MEDS ORDERED: IV RINGERS,LACTATED 1000ML 1,000 ML IV SCH (07:00)
[2018-11-18] MEDS ORDERED: LIDOCAINE 1% PF 2 ML VIAL. ID PRN (07:00)
[2018-11-18] MEDS ORDERED: fentaNYL PF VIAL 100 MCG/2 ML VIAL IV PRN ×2 (07:00)
[2018-11-18] MEDS ORDERED: PROCHLORPERAZINE 10 MG/2 ML VIAL. IV PRN (07:00)
[2018-11-18] MEDS: HYDROcodone/APAP 7.5/325MG 1 TAB TABLET PO PRN ×2 (08:44→22:06)
[2018-11-18] MEDS: NORMAL SALINE IV SCH (09:15)
[2018-11-18] MEDS: DAPTOMYCIN IV SCH (09:15)
--- NOTE | 2018-11-18 09:33 | PDOC ---
Infectious Disease Note Subjective Subjective Comfortable, pain controlled Has bilateral ankle pain Awaiting surgery Slept alright Denies F/C/S/N/V/D/SOA ROS ROS o/w neg Vital Sign Vital Signs Vital Signs Date Time Temp Pulse Resp B/P (MAP) Pulse Ox O2 Delivery O2 Flow Rate FiO2 11/18/18 08:44 18 93 Room Air 2.0 11/18/18 06:59 98.9 53 127/56 (79) 98.9 Physical Exam PHYSICAL EXAM GENERAL: Propped up in bed, alert, NAD HEENT: Pupils equal, oral cavity clear NECK: Supple. LUNGS: Clear bilaterally. HEART: S1, S2. ABDOMEN: Soft, obese, bowel sounds present, nontender. EXTREMITIES: Right toe swelling, tender, erythematous; small wound over the plantar aspect, mild right foot swelling, varicose veins, venous stasis and onychomycosis. B ankles with some warmth tender. No muscle aches NEUROLOGIC: Alert and oriented x 3, grossly nonfocal. SKIN: No rash PIV ok Labs Lab Laboratory Tests Test 11/18/18 07:10 Creatine Kinase 80 U/L (39-308) Micro Microbiology 11/12/18 Blood Culture - Final, Complete NO GROWTH AFTER 5 DAYS 11/12/18 Urine Culture - Final, Complete 11/12/18 Urine Culture Result 1 (SEUN) - Final, Complete Objective Assessment Chronic nonhealing right second toe wound with purulent drainage and osteom yelitis of the second distal phalanx. Ankle pain Chronic venous stasis. Onychomycosis. History of kidney stone. Acute kidney injury. History of remote cerebrovascular accident. Hyperlipidemia. History of recurrent cellulitis. Plan Plan of Care Add Uric acid given ankle pain - Possible gout cont daptomycin, Zosyn, micafungin Vascular Surgery planning for amputation of right 2nd toe, Saturday 11/18 Monitor labs in am BC neg so far Local wound care. AVELINA GR MD Nov 18, 2018 09:33
[2018-11-18] MEDS: ANTI-COAG MONITOR BY PHARMACY. MC PRN (11:24)
[2018-11-18] MEDS: LACTOBACILLUS RHAMNOSUS GG 1 CAPSULE. PO SCH ×2 (11:28→20:46)
[2018-11-18] MEDS: AMIODARONE HCL 200 MG TABLET. PO SCH (11:29)
--- NOTE | 2018-11-18 11:37 | NUR ---
RECEIVE REPORT FROM [facility]. CONTACT OR AND SURGERY SCHEDULED FOR October JAYLAN GAVE OK TO GIVE PO AMIODARONE. WILL CONTINUE TO ASSESS.
--- NOTE | 2018-11-18 13:00 | PDOC ---
PROGRESS NOTES Chief Complaint Chief Complaint acute diastolic CHF from Afib with RVR, new today Osteomyelitis IE , Osteomyelitis of the second distal phalanx. ACUTE morbid obesity, BMI 43 cysto, R: URS/LL/Stent 2018 renal stones REMOTE CVA HX HYPERLIPIDEMIA History of Present Illness History of Present Illness transferred to CV unit for afib RVR, cont daptomycin, Zosyn added micafungin. Vascular Surgery for amputation of right 2nd toe, Today 11/18 C/o right ankle pain today Patient seen and examined him today His is present Comfortable, pain controlled Awaiting surgery Slept alright Denies F/C/S/N/V/D/SOA Vitals Vitals Vital Signs Date Time Temp Pulse Resp B/P (MAP) Pulse Ox O2 Delivery O2 Flow Rate FiO2 11/18/18 11:33 Room Air 11/18/18 11:29 69 149/62 11/18/18 10:44 18 93 2.0 11/18/18 10:43 98.8 98.8 Physical Exam Physical Exam GENERAL: Propped up in bed, alert, NAD HEENT: Pupils equal, oral cavity clear NECK: Supple. LUNGS: Clear bilaterally. HEART: S1, S2. ABDOMEN: Soft, obese, bowel sounds present, nontender. EXTREMITIES: Right toe swelling, tender, erythematous; small wound over the plantar aspect, mild right foot swelling, varicose veins, venous stasis and onychomycosis. B ankles with some warmth tender. No muscle aches NEUROLOGIC: Alert and oriented x 3, grossly nonfocal. SKIN: No rash PIV ok General: Alert, Oriented X3 Heart: Other (heart rate is irregular) Lungs: Clear Abdomen: Soft, No tenderness Extremities: No edema Skin: No rashes, No breakdown Labs LABS Laboratory Tests Test 11/18/18 07:10 Uric Acid 4.5 mg/dL (3.5-7.2) Creatine Kinase 80 U/L (39-308) Assessment and Plan Assessmemt and Plan Problems Medical Problems: (1) Osteomyelitis Status: Acute Comment Review of Relevant I have reviewed the following items ashlyn (where applicable) has been applied. Labs Laboratory Tests Test 11/17/18 00:03 11/17/18 08:55 11/18/18 07:10 Sodium Level 140 mmol/L (136-145) Potassium Level 4.3 mmol/L (3.5-5.1) Chloride Level 105 mmol/L (98-107) Carbon Dioxide Level 30 mmol/L (21-32) Anion Gap 5 (6-14) Blood Urea Nitrogen 19 mg/dL (8-26) Creatinine 1.5 mg/dL (0.7-1.3) Estimated GFR (Cockcroft-Gault) 46.4 BUN/Creatinine Ratio 13 (6-20) Glucose Level 122 mg/dL (70-99) Lactic Acid Level 0.9 mmol/L (0.4-2.0) Calcium Level 8.7 mg/dL (8.5-10.1) Total Bilirubin 1.2 mg/dL (0.2-1.0) Aspartate Amino Transf (AST/SGOT) 14 U/L (15-37) Alanine Aminotransferase (ALT/SGPT) 18 U/L (16-63) Alkaline Phosphatase 58 U/L (46-116) Troponin I Quantitative 0.054 ng/mL (0.000-0.055) Total Protein 6.9 g/dL (6.4-8.2) Albumin 2.7 g/dL (3.4-5.0) Albumin/Globulin Ratio 0.6 (1.0-1.7) White Blood Count 7.3 x10^3/uL (4.0-11.0) Red Blood Count 4.21 x10^6/uL (4.30-5.70) Hemoglobin 12.4 g/dL (13.0-17.5) Hematocrit 38.7 % (39.0-53.0) Mean Corpuscular Volume 92 fL (79-100) Mean Corpuscular Hemoglobin 30 pg (25-35) Mean Corpuscular Hemoglobin Concent 32 g/dL (31-37) Red Cell Distribution Width 14.8 % (11.5-14.5) Platelet Count 256 x10^3/uL (140-400) Neutrophils (%) (Auto) 73 % (31-73) Lymphocytes (%) (Auto) 17 % (24-48) Monocytes (%) (Auto) 7 % (0-9) Eosinophils (%) (Auto) 3 % (0-3) Basophils (%) (Auto) 0 % (0-3) Neutrophils # (Auto) 5.3 x10^3uL (1.8-7.7) Lymphocytes # (Auto) 1.2 x10^3/uL (1.0-4.8) Monocytes # (Auto) 0.5 x10^3/uL (0.0-1.1) Eosinophils # (Auto) 0.2 x10^3/uL (0.0-0.7) Basophils # (Auto) 0.0 x10^3/uL (0.0-0.2) Uric Acid 4.5 mg/dL (3.5-7.2) Creatine Kinase 80 U/L (39-308) Laboratory Tests Test 11/18/18 07:10 Uric Acid 4.5 mg/dL (3.5-7.2) Creatine Kinase 80 U/L (39-308) Microbiology 11/12/18 Blood Culture - Final, Complete NO GROWTH AFTER 5 DAYS 11/12/18 Urine Culture - Final, Complete 11/12/18 Urine Culture Result 1 (SEUN) - Final, Complete Medications Current Medications Sodium Chloride 1,000 ml @ 1,000 mls/hr 1X ONCE IV Last administered on 11/12/18at 17:50; Start 11/12/18 at 17:15; Stop 11/12/18 at 18:14; Status DC Vancomycin HCl (Vanco Per Pharmacy) 1 each PRN DAILY PRN MC SEE COMMENTS Last administered on 11/12/18at 19:16; Start 11/12/18 at 17:30; Stop 11/13/18 at 09:04; Status DC Vancomycin HCl 2 gm/Sodium Chloride 500 ml @ 250 mls/hr 1X ONCE IV Last administered on 11/12/18at 18:22; Start 11/12/18 at 17:30; Stop 11/12/18 at 19:29; Status DC Ondansetron HCl (Zofran) 4 mg PRN Q8HRS PRN IV NAUSEA/VOMITING; Start 11/12/18 at 17:30; Stop 11/13/18 at 17:29; Status DC Fentanyl Citrate (Fentanyl 2ml Vial) 50 mcg PRN Q1HR PRN IV PAIN Last administered on 11/12/18at 18:52; Start 11/12/18 at 17:30; Stop 11/13/18 at 17:29; Status DC Acetaminophen (Tylenol) 650 mg PRN Q4HRS PRN PO FEVER; Start 11/12/18 at 17:30; Stop 11/13/18 at 17:29; Status DC Vancomycin HCl 2 gm/Sodium Chloride 500 ml @ 250 mls/hr Q24H IV ; Start 11/13/18 at 18:00; Stop 11/13/18 at 18:00; Status DC Vancomycin HCl (Vancomycin Trough Level) 1 each 1X ONCE MC ; Start 11/14/18 at 17:30; Stop 11/14/18 at 17:31; Status Cancel Clonidine HCl (Catapres) 0.2 mg 1X ONCE PO Last administered on 11/12/18at 22:23; Start 11/12/18 at 21:00; Stop 11/12/18 at 21:01; Status DC Apixaban (Eliquis) 5 mg BID PO Last administered on 11/17/18at 21:27; Start 11/12/18 at 21:30 Atorvastatin Calcium (Lipitor) 40 mg QHS PO Last administered on 11/17/18at 21:27; Start 11/12/18 at 21:30 Daptomycin 810 mg/ Sodium Chloride 50 ml @ 100 mls/hr Q24H IV Last administered on 11/18/18at 09:15; Start 11/13/18 at 10:00 Piperacillin Sod/ Tazobactam Sod 3.375 gm/Sodium Chloride 50 ml @ 100 mls/hr Q6HRS IV Last administered on 11/18/18at 05:50; Start 11/13/18 at 12:00 Lactobacillus Rhamnosus (Culturelle) 1 cap BID PO Last administered on 11/18/18 11:28; Start 11/13/18 at 21:00 Info (Anti-Coagulation Monitoring By Pharmacy) 1 each PRN DAILY PRN MC SEE COMMENTS Last administered on 11/18/18at 11:24; Start 11/14/18 at 11:45 Fentanyl Citrate (Fentanyl 2ml Vial) 25 mcg PRN Q5MIN PRN IV MILD PAIN 1-3; Start 11/18/18 at 07:00; Stop 11/19/18 at 06:59 Fentanyl Citrate (Fentanyl 2ml Vial) 50 mcg PRN Q5MIN PRN IV MODERATE TO SEVERE PAIN; Start 11/18/18 at 07:00; Stop 11/19/18 at 06:59 Morphine Sulfate (Morphine Sulfate) 1 mg PRN Q10MIN PRN IV SEVERE PAIN 7-10; Start 11/18/18 at 07:00; Stop 11/19/18 at 06:59 Ringer's Solution 1,000 ml @ 30 mls/hr Q24H IV ; Start 11/18/18 at 07:00; Stop 11/18/18 at 18:59 Lidocaine HCl (Xylocaine-Mpf 1% 2ml Vial) 2 ml PRN 1X PRN ID PRIOR TO IV START; Start 11/18/18 at 07:00; Stop 11/19/18 at 06:59 Hydromorphone HCl (Dilaudid) 0.5 mg PRN Q10MIN PRN IV SEV PAIN, Second choice; Start 11/18/18 at 07:00; Stop 11/19/18 at 06:59 Prochlorperazine Edisylate (Compazine) 5 mg PACU PRN PRN IV NAUSEA, MRX1; Start 11/18/18 at 07:00; Stop 11/19/18 at 06:59 Acetaminophen/ Hydrocodone Bitart (Lortab 5/325) 1 tab PRN Q4HRS PRN PO PAIN Last administered on 11/16/18at 09:30; Start 11/15/18 at 16:15; Stop 11/16/18 at 18:22; Status DC Micafungin Sodium 100 mg/Dextrose 100 ml @ 100 mls/hr Q24H IV Last administered on 11/17/18at 12:23; Start 11/16/18 at 12:00 Acetaminophen/ Hydrocodone Bitart (Lortab 7.5/325) 1 tab PRN Q6HRS PRN PO MODERATE PAIN; Start 11/16/18 at 18:15 Acetaminophen/ Hydrocodone Bitart (Lortab 7.5/325) 2 tab PRN Q6HRS PRN PO SEVERE PAIN Last administered on 11/18/18at 08:44; Start 11/16/18 at 18:30 Sodium Chloride 1,000 ml @ 1,000 mls/hr 1X ONCE IV Last administered on 11/17/18at 00:00; Start 11/17/18 at 00:00; Stop 11/17/18 at 00:59; Status DC Sodium Chloride 1,000 ml @ 1,000 mls/hr 1X ONCE IV Last administered on 11/17/18at 00:00; Start 11/17/18 at 00:00; Stop 11/17/18 at 00:59; Status DC Digoxin (Lanoxin) 500 mcg 1X ONCE IV Last administered on 11/17/18at 02:29; Start 11/17/18 at 02:15; Stop 11/17/18 at 02:16; Status DC Bacitracin 77750 unit/Sodium Chloride 500 ml @ 500 mls/hr 1X ONCE IRR ; Start 11/18/18 at 06:00; Stop 11/18/18 at 06:59; Status DC Digoxin (Lanoxin) 250 mcg 1X ONCE IV Last administered on 11/17/18at 08:28; Start 11/17/18 at 08:00; Stop 11/17/18 at 08:06; Status DC Diltiazem HCl 125 mg/Dextrose 125 ml @ 5 mls/hr CONT PRN IV SEE I/O RECORD Last administered on 11/18/18at 10:22; Start 11/17/18 at 11:30 Amiodarone HCl 150 mg/Dextrose 103 ml @ 618 mls/hr 1X ONCE IV Last administered on 11/17/18at 21:04; Start 11/17/18 at 19:45; Stop 11/17/18 at 19:54; Status DC Amiodarone HCl 900 mg/Dextrose 518 ml @ 0 mls/hr CONT PRN IV SEE I/O RECORD Last administered on 11/17/18at 21:05; Start 11/17/18 at 19:45; Stop 11/17/18 at 21:05; Status DC Amiodarone HCl (Cordarone) 200 mg DAILY PO Last administered on 11/18/18at 11:29; Start 11/18/18 at 09:00 Active Scripts Active Cipro (Ciprofloxacin Hcl) 500 Mg Tablet 1 Tab PO BID Reported Lipitor (Atorvastatin Calcium) 40 Mg Tablet 1 Tab PO QHS Eliquis (Apixaban) 5 Mg Tablet 5 Mg PO BID Vitals/I & O Vital Sign - Last 24 Hours 11/17/18 11/17/18 11/17/18 11/17/18 13:00 13:15 13:30 13:45 Pulse 128 118 108 112 B/P (MAP) 92/64 (73) 135/63 (87) 102/56 (71) 115/58 (77) Pulse Ox 96 95 96 95 O2 Delivery Room Air Room Air Room Air Room Air 11/17/18 11/17/18 11/17/18 11/17/18 14:00 14:15 14:30 14:45 Pulse 126 128 118 116 B/P (MAP) 138/65 (89) 137/55 (82) 123/71 (88) 133/75 (94) O2 Delivery Room Air Room Air Room Air Room Air 11/17/18 11/17/18 11/17/18 11/17/18 15:00 15:15 15:30 15:45 Temp 99.1 99.1 Pulse 80 84 84 84 Resp 18 B/P (MAP) 112/52 (72) 134/48 (76) 140/53 (82) 150/48 (82) Pulse Ox 96 O2 Delivery Room Air Room Air Room Air Room Air 11/17/18 11/17/18 11/17/18 11/17/18 16:00 16:30 17:00 17:30 Pulse 80 86 60 80 B/P (MAP) 165/53 (90) 163/63 (96) 147/60 (89) 156/57 (90) O2 Delivery Room Air Room Air Room Air Room Air 11/17/18 11/17/18 11/17/18 11/17/18 18:00 19:00 19:50 20:00 Temp 99.1 99.1 Pulse 82 89 66 Resp 18 B/P (MAP) 132/44 (73) 159/71 (100) 135/57 (83) Pulse Ox 93 O2 Delivery Room Air Room Air Room Air 11/17/18 11/17/18 11/17/18 11/17/18 21:00 21:04 21:28 22:00 Pulse 74 74 70 Resp 20 B/P (MAP) 157/55 (89) 157/55 128/47 (74) O2 Delivery Room Air 11/17/18 11/18/18 11/18/18 11/18/18 23:00 00:01 01:00 02:00 Temp 99.2 99.2 Pulse 70 70 58 64 Resp 18 B/P (MAP) 103/42 (62) 115/40 (65) 114/55 (74) 140/52 (81) Pulse Ox 93 O2 Delivery Room Air 11/18/18 11/18/18 11/18/18 11/18/18 02:46 04:00 05:00 06:00 Temp 99.5 99.5 Pulse 61 64 64 70 Resp 18 B/P (MAP) 124/43 (70) 111/45 (67) 131/46 (74) 102/51 (68) Pulse Ox 93 O2 Delivery Room Air 11/18/18 11/18/18 11/18/18 11/18/18 06:59 08:44 10:43 10:44 Temp 98.9 98.8 98.9 98.8 Pulse 53 69 Resp 18 18 18 18 B/P (MAP) 127/56 (79) 134/67 (89) Pulse Ox 93 93 93 93 O2 Delivery Room Air Room Air Room Air Room Air O2 Flow Rate 2.0 2.0 11/18/18 11/18/18 11:29 11:33 Pulse 69 B/P (MAP) 149/62 O2 Delivery Room Air Intake and Output 11/17/18 11/17/18 11/18/18 15:00 23:00 07:00 Intake Total 500 ml 311.86 ml 240 ml Output Total 400 ml 500 ml Balance 500 ml -88.14 ml -260 ml JONY BERGER MD Nov 18, 2018 13:00
--- NOTE | 2018-11-18 13:06 | NUR ---
SS following for discharge planning. SS reviewed pt chart. Pt is from home and is currently on room air. No discharge needs noted at this time. SS will continue to follow for discharge planning.
[2018-11-18] MEDS ORDERED: FAMOTIDINE 20 MG/2 ML VIAL ONE (13:51)
[2018-11-18] MEDS ORDERED: LIDOCAINE 2% PF 5 ML VIAL. ONE (13:51)
[2018-11-18] MEDS ORDERED: DEXAMETHASONE SOD PHOS 4 MG/ML VIAL ONE (13:51)
[2018-11-18] MEDS ORDERED: ONDANSETRON PF 4 MG/2 ML VIAL. ONE (13:51)
[2018-11-18] MEDS ORDERED: PROPOFOL 20 ML IV ONE (13:51)
[2018-11-18] MEDS ORDERED: fentaNYL PF VIAL 100 MCG/2 ML VIAL ONE (13:52)
--- NOTE | 2018-11-18 14:22 | NUR ---
PT OFF UNIT TO OR AT 1330.
[2018-11-18] MEDS ORDERED: SEVOFLURANE 31 TO 60 MINUTES. IH ONE (16:08)
--- NOTE | 2018-11-18 16:25 | OP ---
DATE OF SURGERY: 11/18/2018 ATTENDING SURGEON: Xochitl Graves DO PREOPERATIVE DIAGNOSIS: Right second toe distal tip osteomyelitis. POSTOPERATIVE DIAGNOSIS: Right second toe distal tip osteomyelitis. PROCEDURE: Right second toe partial amputation through the middle interphalangeal joint. ANESTHESIA: General. SPECIMENS: Right distal second toe. ESTIMATED BLOOD LOSS: 2 mL. COMPLICATIONS: None. PREOPERATIVE INDICATIONS: The patient is a pleasant 68-year-old male who I was asked to perform a right second toe amputation. I met the patient on the day of the procedure and he was consented for the procedure and understood all risks, benefits, and alternatives of the procedure prior to proceeding. DESCRIPTION OF PROCEDURE: The patient was brought to the operating suite, placed in supine position. After establishing adequate anesthesia, the patient's right lower extremity was prepped and draped in a sterile fashion. Next, a timeout procedure was performed. It was confirmed that the patient did receive appropriate perioperative antibiotics and the correct operative site was marked and draped. Following this, a right distal toe amputation incision was made and carried through skin and subcutaneous tissue. The toe was disarticulated from the distal interphalangeal joint and then the tissue was raised around the distal interphalangeal joint and then the distal phalanx was removed using a rongeur forceps up to the middle interphalangeal joint. The middle interphalangeal joint looked healthy and was not involved in any infection. The tissue bled nicely with no concern for ischemia. Surrounding tendinous tissue was appropriately trimmed and debrided. Next, the wound was copiously irrigated with antibiotic-impregnated solution and then the skin was closed using interrupted 3-0 nylon suture. Sterile dressing was subsequently placed. The patient tolerated the procedure well and was transferred to the postanesthesia care unit in stable condition. XOCHITL GRAVES DO DR: Damir JOB#: [id number] / [id number]
--- NOTE | 2018-11-18 16:56 | PDOC ---
BRIEF OPERATIVE NOTE Date: Nov 18, 2018 Pre-Op Diagnosis Osteomyelitis of the right second toe Post-Op Diagnosis Same Procedure Performed Right partial second toe amputation Surgeon Xochitl Graves DO, FACS, RPVI Anesthesia Type: General Blood Loss 2ml Specimens Obtained Right partial second toe Complications None XOCHITL GRAVES DO Nov 18, 2018 16:56
--- NOTE | 2018-11-18 17:14 | NUR ---
PT RETURN FROM PACU WITH DRESSING TO RIGHT FOOT. PT DENIES PAIN OR SOA AT THIS TIME. WILL CONTINUE TO ASSESS.
[2018-11-18] MEDS: MICAFUNGIN 100 MG in IV DEXTROSE 5% 100ML 100 ML IV SCH ×2 (17:22→17:37)
[2018-11-18] MEDS: ATORVASTATIN CALCIUM 40 MG TABLET. PO SCH (20:46)
[2018-11-18] MEDS: APIXABAN 5 MG TABLET. PO SCH (20:46)
[2018-11-19] VITALS (10 sets, daily range): BP systolic 110–148; BP diastolic 49–62
[2018-11-19] MEDS: dilTIAZem INJ 125 MG in IV DEXTROSE 5% 100ML 100 ML IV PRN (00:43)
[2018-11-19] MEDS: PIPERACILLIN/TAZOBACTAM 3.375 GM in IV NORMAL SALINE 50ML 50 ML IV SCH ×3 (05:00→17:24)
[2018-11-19 06:17] LABS: BASO % 0 % (0-3); EOS % 0 % (0-3); HEMATOCRIT 39.2 % (39.0-53.0); HEMOGLOBIN 12.7 g/dL (13.0-17.5); LYMPH # 0.5 x10^3/uL (1.0-4.8); LYMPH % 5 % (24-48); MEAN CORPUSCULAR HEMOGLOBIN 30 pg (25-35); MEAN CORPUSCULAR HGB CONC 32 g/dL (31-37); MEAN CORPUSCULAR VOLUME 93 fL (79-100); MONO # 0.6 x10^3/uL (0.0-1.1); MONO % 6 % (0-9); NEUT # 8.7 x10^3uL (1.8-7.7); NEUT % 89 % (31-73); PLATELET COUNT 249 x10^3/uL (140-400); RED BLOOD COUNT 4.24 x10^6/uL (4.30-5.70); RED CELL DISTRIBUTION WIDTH 14.9 % (11.5-14.5); WHITE BLOOD COUNT 9.9 x10^3/uL (4.0-11.0)
[2018-11-19 06:30] LABS: CALCIUM 8.9 mg/dL (8.5-10.1); CREATININE 1.6 mg/dL (0.7-1.3); GFR 43.1
[2018-11-19 06:35] LABS: POTASSIUM 5.4 mmol/L (3.5-5.1)
--- NOTE | 2018-11-19 08:26 | PDOC ---
PROGRESS NOTES Chief Complaint Chief Complaint acute diastolic CHF from Afib with RVR, new today Osteomyelitis IE , Osteomyelitis of the second distal phalanx. ACUTE morbid obesity, BMI 43 cysto, R: URS/LL/Stent 2018 renal stones REMOTE CVA HX HYPERLIPIDEMIA History of Present Illness History of Present Illness Transferred to CV unit for afib RVR, cont daptomycin, Zosyn with micafungin. per ID, can transition to oral 11/20 Vascular Surgery s/p amputation of right 2nd toe 11/18/18 His is present Comfortable, pain controlled Has bilateral ankle pain -better + Flatus Denies F/C/S/N/V/D/SOA Asking about an outpatient sleep study. Vitals Vitals Vital Signs Date Time Temp Pulse Resp B/P (MAP) Pulse Ox O2 Delivery O2 Flow Rate FiO2 11/19/18 05:21 49 136/58 (84) 11/19/18 03:08 98.1 98 Nasal Cannula 4.0 98.1 11/18/18 23:06 18 Physical Exam Physical Exam GENERAL: Propped up in bed, alert, NAD HEENT: Pupils equal, oral cavity clear NECK: Supple. LUNGS: Clear bilaterally. HEART: S1, S2. ABDOMEN: Soft, obese, bowel sounds present, nontender. EXTREMITIES: Right toe swelling, tender, erythematous; small wound over the plantar aspect, mild right foot swelling, varicose veins, venous stasis and onychomycosis. B ankles with some warmth tender. No muscle aches NEUROLOGIC: Alert and oriented x 3, grossly nonfocal. SKIN: No rash PIV ok General: Alert, Oriented X3 Heart: Other (heart rate is irregular) Lungs: Clear Abdomen: Soft, No tenderness Extremities: No edema Skin: No rashes, No breakdown Labs LABS Laboratory Tests Test 11/19/18 06:00 White Blood Count 9.9 x10^3/uL (4.0-11.0) Red Blood Count 4.24 x10^6/uL (4.30-5.70) Hemoglobin 12.7 g/dL (13.0-17.5) Hematocrit 39.2 % (39.0-53.0) Mean Corpuscular Volume 93 fL (79-100) Mean Corpuscular Hemoglobin 30 pg (25-35) Mean Corpuscular Hemoglobin Concent 32 g/dL (31-37) Red Cell Distribution Width 14.9 % (11.5-14.5) Platelet Count 249 x10^3/uL (140-400) Neutrophils (%) (Auto) 89 % (31-73) Lymphocytes (%) (Auto) 5 % (24-48) Monocytes (%) (Auto) 6 % (0-9) Eosinophils (%) (Auto) 0 % (0-3) Basophils (%) (Auto) 0 % (0-3) Neutrophils # (Auto) 8.7 x10^3uL (1.8-7.7) Lymphocytes # (Auto) 0.5 x10^3/uL (1.0-4.8) Monocytes # (Auto) 0.6 x10^3/uL (0.0-1.1) Eosinophils # (Auto) 0.0 x10^3/uL (0.0-0.7) Basophils # (Auto) 0.0 x10^3/uL (0.0-0.2) Sodium Level 139 mmol/L (136-145) Potassium Level 5.4 mmol/L (3.5-5.1) Chloride Level 105 mmol/L (98-107) Carbon Dioxide Level 29 mmol/L (21-32) Anion Gap 5 (6-14) Blood Urea Nitrogen 27 mg/dL (8-26) Creatinine 1.6 mg/dL (0.7-1.3) Estimated GFR (Cockcroft-Gault) 43.1 Glucose Level 208 mg/dL (70-99) Calcium Level 8.9 mg/dL (8.5-10.1) Assessment and Plan Assessmemt and Plan Problems Medical Problems: (1) Osteomyelitis Status: Acute Comment Review of Relevant I have reviewed the following items ashlyn (where applicable) has been applied. Labs Laboratory Tests Test 11/17/18 08:55 11/18/18 07:10 11/19/18 06:00 White Blood Count 7.3 x10^3/uL (4.0-11.0) 9.9 x10^3/uL (4.0-11.0) Red Blood Count 4.21 x10^6/uL (4.30-5.70) 4.24 x10^6/uL (4.30-5.70) Hemoglobin 12.4 g/dL (13.0-17.5) 12.7 g/dL (13.0-17.5) Hematocrit 38.7 % (39.0-53.0) 39.2 % (39.0-53.0) Mean Corpuscular Volume 92 fL (79-100) 93 fL (79-100) Mean Corpuscular Hemoglobin 30 pg (25-35) 30 pg (25-35) Mean Corpuscular Hemoglobin Concent 32 g/dL (31-37) 32 g/dL (31-37) Red Cell Distribution Width 14.8 % (11.5-14.5) 14.9 % (11.5-14.5) Platelet Count 256 x10^3/uL (140-400) 249 x10^3/uL (140-400) Neutrophils (%) (Auto) 73 % (31-73) 89 % (31-73) Lymphocytes (%) (Auto) 17 % (24-48) 5 % (24-48) Monocytes (%) (Auto) 7 % (0-9) 6 % (0-9) Eosinophils (%) (Auto) 3 % (0-3) 0 % (0-3) Basophils (%) (Auto) 0 % (0-3) 0 % (0-3) Neutrophils # (Auto) 5.3 x10^3uL (1.8-7.7) 8.7 x10^3uL (1.8-7.7) Lymphocytes # (Auto) 1.2 x10^3/uL (1.0-4.8) 0.5 x10^3/uL (1.0-4.8) Monocytes # (Auto) 0.5 x10^3/uL (0.0-1.1) 0.6 x10^3/uL (0.0-1.1) Eosinophils # (Auto) 0.2 x10^3/uL (0.0-0.7) 0.0 x10^3/uL (0.0-0.7) Basophils # (Auto) 0.0 x10^3/uL (0.0-0.2) 0.0 x10^3/uL (0.0-0.2) Uric Acid 4.5 mg/dL (3.5-7.2) Creatine Kinase 80 U/L (39-308) Sodium Level 139 mmol/L (136-145) Potassium Level 5.4 mmol/L (3.5-5.1) Chloride Level 105 mmol/L (98-107) Carbon Dioxide Level 29 mmol/L (21-32) Anion Gap 5 (6-14) Blood Urea Nitrogen 27 mg/dL (8-26) Creatinine 1.6 mg/dL (0.7-1.3) Estimated GFR (Cockcroft-Gault) 43.1 Glucose Level 208 mg/dL (70-99) Calcium Level 8.9 mg/dL (8.5-10.1) Laboratory Tests Test 11/19/18 06:00 White Blood Count 9.9 x10^3/uL (4.0-11.0) Red Blood Count 4.24 x10^6/uL (4.30-5.70) Hemoglobin 12.7 g/dL (13.0-17.5) Hematocrit 39.2 % (39.0-53.0) Mean Corpuscular Volume 93 fL (79-100) Mean Corpuscular Hemoglobin 30 pg (25-35) Mean Corpuscular Hemoglobin Concent 32 g/dL (31-37) Red Cell Distribution Width 14.9 % (11.5-14.5) Platelet Count 249 x10^3/uL (140-400) Neutrophils (%) (Auto) 89 % (31-73) Lymphocytes (%) (Auto) 5 % (24-48) Monocytes (%) (Auto) 6 % (0-9) Eosinophils (%) (Auto) 0 % (0-3) Basophils (%) (Auto) 0 % (0-3) Neutrophils # (Auto) 8.7 x10^3uL (1.8-7.7) Lymphocytes # (Auto) 0.5 x10^3/uL (1.0-4.8) Monocytes # (Auto) 0.6 x10^3/uL (0.0-1.1) Eosinophils # (Auto) 0.0 x10^3/uL (0.0-0.7) Basophils # (Auto) 0.0 x10^3/uL (0.0-0.2) Sodium Level 139 mmol/L (136-145) Potassium Level 5.4 mmol/L (3.5-5.1) Chloride Level 105 mmol/L (98-107) Carbon Dioxide Level 29 mmol/L (21-32) Anion Gap 5 (6-14) Blood Urea Nitrogen 27 mg/dL (8-26) Creatinine 1.6 mg/dL (0.7-1.3) Estimated GFR (Cockcroft-Gault) 43.1 Glucose Level 208 mg/dL (70-99) Calcium Level 8.9 mg/dL (8.5-10.1) Microbiology 11/12/18 Blood Culture - Final, Complete NO GROWTH AFTER 5 DAYS 11/12/18 Urine Culture - Final, Complete 11/12/18 Urine Culture Result 1 (SEUN) - Final, Complete Medications Current Medications Sodium Chloride 1,000 ml @ 1,000 mls/hr 1X ONCE IV Last administered on 11/12/18at 17:50; Start 11/12/18 at 17:15; Stop 11/12/18 at 18:14; Status DC Vancomycin HCl (Vanco Per Pharmacy) 1 each PRN DAILY PRN MC SEE COMMENTS Last administered on 11/12/18at 19:16; Start 11/12/18 at 17:30; Stop 11/13/18 at 09:04; Status DC Vancomycin HCl 2 gm/Sodium Chloride 500 ml @ 250 mls/hr 1X ONCE IV Last administered on 11/12/18at 18:22; Start 11/12/18 at 17:30; Stop 11/12/18 at 19:29; Status DC Ondansetron HCl (Zofran) 4 mg PRN Q8HRS PRN IV NAUSEA/VOMITING; Start 11/12/18 at 17:30; Stop 11/13/18 at 17:29; Status DC Fentanyl Citrate (Fentanyl 2ml Vial) 50 mcg PRN Q1HR PRN IV PAIN Last administered on 11/12/18at 18:52; Start 11/12/18 at 17:30; Stop 11/13/18 at 17:29; Status DC Acetaminophen (Tylenol) 650 mg PRN Q4HRS PRN PO FEVER; Start 11/12/18 at 17:30; Stop 11/13/18 at 17:29; Status DC Vancomycin HCl 2 gm/Sodium Chloride 500 ml @ 250 mls/hr Q24H IV ; Start 11/13/18 at 18:00; Stop 11/13/18 at 18:00; Status DC Vancomycin HCl (Vancomycin Trough Level) 1 each 1X ONCE MC ; Start 11/14/18 at 17:30; Stop 11/14/18 at 17:31; Status Cancel Clonidine HCl (Catapres) 0.2 mg 1X ONCE PO Last administered on 11/12/18at 22:23; Start 11/12/18 at 21:00; Stop 11/12/18 at 21:01; Status DC Apixaban (Eliquis) 5 mg BID PO Last administered on 11/18/18 20:46; Start 11/12/18 at 21:30 Atorvastatin Calcium (Lipitor) 40 mg QHS PO Last administered on 11/18/18 20:46; Start 11/12/18 at 21:30 Daptomycin 810 mg/ Sodium Chloride 50 ml @ 100 mls/hr Q24H IV Last administered on 11/18/18 09:15; Start 11/13/18 at 10:00 Piperacillin Sod/ Tazobactam Sod 3.375 gm/Sodium Chloride 50 ml @ 100 mls/hr Q6HRS IV Last administered on 11/19/18at 05:00; Start 11/13/18 at 12:00 Lactobacillus Rhamnosus (Culturelle) 1 cap BID PO Last administered on 11/18/18 20:46; Start 11/13/18 at 21:00 Info (Anti-Coagulation Monitoring By Pharmacy) 1 each PRN DAILY PRN MC SEE COMMENTS Last administered on 11/18/18at 11:24; Start 11/14/18 at 11:45 Fentanyl Citrate (Fentanyl 2ml Vial) 25 mcg PRN Q5MIN PRN IV MILD PAIN 1-3; Start 11/18/18 at 07:00; Stop 11/19/18 at 06:59; Status DC Fentanyl Citrate (Fentanyl 2ml Vial) 50 mcg PRN Q5MIN PRN IV MODERATE TO SEVERE PAIN; Start 11/18/18 at 07:00; Stop 11/19/18 at 06:59; Status DC Morphine Sulfate (Morphine Sulfate) 1 mg PRN Q10MIN PRN IV SEVERE PAIN 7-10; Start 11/18/18 at 07:00; Stop 11/19/18 at 06:59; Status DC Ringer's Solution 1,000 ml @ 30 mls/hr Q24H IV Last administered on 11/18/18at 15:35; Start 11/18/18 at 07:00; Stop 11/18/18 at 18:59; Status DC Lidocaine HCl (Xylocaine-Mpf 1% 2ml Vial) 2 ml PRN 1X PRN ID PRIOR TO IV START; Start 11/18/18 at 07:00; Stop 11/19/18 at 06:59; Status DC Hydromorphone HCl (Dilaudid) 0.5 mg PRN Q10MIN PRN IV SEV PAIN, Second choice; Start 11/18/18 at 07:00; Stop 11/19/18 at 06:59; Status DC Prochlorperazine Edisylate (Compazine) 5 mg PACU PRN PRN IV NAUSEA, MRX1; Start 11/18/18 at 07:00; Stop 11/19/18 at 06:59; Status DC Acetaminophen/ Hydrocodone Bitart (Lortab 5/325) 1 tab PRN Q4HRS PRN PO PAIN Last administered on 11/16/18at 09:30; Start 11/15/18 at 16:15; Stop 11/16/18 at 18:22; Status DC Micafungin Sodium 100 mg/Dextrose 100 ml @ 100 mls/hr Q24H IV Last administer ed on 11/18/18at 17:37; Start 11/16/18 at 12:00 Acetaminophen/ Hydrocodone Bitart (Lortab 7.5/325) 1 tab PRN Q6HRS PRN PO MODERATE PAIN; Start 11/16/18 at 18:15 Acetaminophen/ Hydrocodone Bitart (Lortab 7.5/325) 2 tab PRN Q6HRS PRN PO SEVERE PAIN Last administered on 11/18/18at 22:06; Start 11/16/18 at 18:30 Sodium Chloride 1,000 ml @ 1,000 mls/hr 1X ONCE IV Last administered on 11/17/18at 00:00; Start 11/17/18 at 00:00; Stop 11/17/18 at 00:59; Status DC Sodium Chloride 1,000 ml @ 1,000 mls/hr 1X ONCE IV Last administered on 11/17/18at 00:00; Start 11/17/18 at 00:00; Stop 11/17/18 at 00:59; Status DC Digoxin (Lanoxin) 500 mcg 1X ONCE IV Last administered on 11/17/18at 02:29; Start 11/17/18 at 02:15; Stop 11/17/18 at 02:16; Status DC Bacitracin 21143 unit/Sodium Chloride 500 ml @ 500 mls/hr 1X ONCE IRR Last administered on 11/18/18at 16:01; Start 11/18/18 at 06:00; Stop 11/18/18 at 06:59; Status DC Digoxin (Lanoxin) 250 mcg 1X ONCE IV Last administered on 11/17/18at 08:28; Start 11/17/18 at 08:00; Stop 11/17/18 at 08:06; Status DC Diltiazem HCl 125 mg/Dextrose 125 ml @ 5 mls/hr CONT PRN IV SEE I/O RECORD Last administered on 11/19/18at 00:43; Start 11/17/18 at 11:30 Amiodarone HCl 150 mg/Dextrose 103 ml @ 618 mls/hr 1X ONCE IV Last administered on 11/17/18at 21:04; Start 11/17/18 at 19:45; Stop 11/17/18 at 19:54; Status DC Amiodarone HCl 900 mg/Dextrose 518 ml @ 0 mls/hr CONT PRN IV SEE I/O RECORD Last administered on 11/17/18at 21:05; Start 11/17/18 at 19:45; Stop 11/17/18 at 21:05; Status DC Amiodarone HCl (Cordarone) 200 mg DAILY PO Last administered on 11/18/18at 11:29; Start 11/18/18 at 09:00 Propofol 20 ml @ As Directed STK-MED ONCE IV ; Start 11/18/18 at 13:51; Stop 11/18/18 at 13:52; Status DC Famotidine (Pepcid Vial) 20 mg STK-MED ONCE .ROUTE ; Start 11/18/18 at 13:51; Stop 11/18/18 at 13:52; Status DC Lidocaine HCl (Lidocaine Pf 2% Vial) 5 ml STK-MED ONCE .ROUTE ; Start 11/18/18 at 13:51; Stop 11/18/18 at 13:52; Status DC Ondansetron HCl (Zofran) 4 mg STK-MED ONCE .ROUTE ; Start 11/18/18 at 13:51; Stop 11/18/18 at 13:52; Status DC Dexamethasone Sodium Phosphate (Decadron) 4 mg STK-MED ONCE .ROUTE ; Start 10/27 09/13 at 13:51; Stop 11/18/18 at 13:52; Status DC Fentanyl Citrate (Fentanyl 2ml Vial) 100 mcg STK-MED ONCE .ROUTE ; Start 11/18 at 13:52; Stop 11/18/18 at 13:53; Status DC Sevoflurane (Ultane) 30 ml STK-MED ONCE IH ; Start 11/18/18 at 16:08; Stop 10/27 09/13 at 16:09; Status DC Active Scripts Active Cipro (Ciprofloxacin Hcl) 500 Mg Tablet 1 Tab PO BID Reported Lipitor (Atorvastatin Calcium) 40 Mg Tablet 1 Tab PO QHS Eliquis (Apixaban) 5 Mg Tablet 5 Mg PO BID Vitals/I & O Vital Sign - Last 24 Hours 11/18/18 11/18/18 11/18/18 11/18/18 08:44 10:43 11:29 11:33 Temp 98.8 98.8 Pulse 69 69 Resp 18 18 B/P (MAP) 134/67 (89) 149/62 Pulse Ox 93 93 O2 Delivery Room Air Room Air Room Air O2 Flow Rate 2.0 11/18/18 11/18/18 11/18/18 11/18/18 13:42 16:15 16:15 16:30 Temp 98.8 96.8 98.8 96.8 Pulse 70 56 81 Resp 15 20 20 B/P (MAP) 149/62 106/44 97/49 Pulse Ox 94 93 O2 Delivery Room Air Mask Simple Mask Simple Mask O2 Flow Rate 2.0 10 10 10 11/18/18 11/18/18 11/18/18 11/18/18 16:45 17:00 17:15 17:15 Temp 97.1 97.1 Pulse 82 81 81 96 Resp 20 20 18 B/P (MAP) 101/43 152/82 124/70 (88) 124/70 (88) Pulse Ox 98 93 93 O2 Delivery Nasal Cannula Nasal Cannula Simple Mask O2 Flow Rate 2 2 2.0 11/18/18 11/18/18 11/18/18 11/18/18 17:30 17:45 18:00 18:01 Temp 97.1 97.1 97.1 97.1 Pulse 81 93 94 81 Resp 18 B/P (MAP) 124/50 (74) 99/77 (84) 118/64 (82) 118/64 (82) Pulse Ox 95 95 O2 Delivery Simple Mask Nasal Cannula O2 Flow Rate 2.0 2.0 11/18/18 11/18/18 11/18/18 11/18/18 20:00 22:06 22:29 23:06 Pulse 66 Resp 18 18 B/P (MAP) 127/54 (78) Pulse Ox 95 95 O2 Delivery Nasal Cannula Nasal Cannula Nasal Cannula O2 Flow Rate 2.0 2.0 2.0 11/18/18 11/19/18 11/19/18 11/19/18 23:34 00:12 01:25 03:08 Temp 98.1 98.1 Pulse 65 66 65 65 B/P (MAP) 135/61 (85) 148/51 (83) 119/59 (79) 139/58 (85) Pulse Ox 94 98 98 98 O2 Delivery Nasal Cannula Nasal Cannula Nasal Cannula Nasal Cannula O2 Flow Rate 4.0 4.0 4.0 4.0 11/19/18 11/19/18 04:19 05:21 Pulse 60 49 B/P (MAP) 119/51 (73) 136/58 (84) Intake and Output 11/18/18 11/18/18 11/19/18 15:00 23:00 07:00 Intake Total 50 ml 770 ml 295 ml Output Total 500 ml 302 ml 200 ml Balance -450 ml 468 ml 95 ml JONY BERGER MD Nov 19, 2018 08:26
--- NOTE | 2018-11-19 08:43 | PDOC ---
Infectious Disease Note Subjective Subjective Comfortable, pain controlled Has bilateral ankle pain -better + Flatus Slept alright Denies F/C/S/N/V/D/SOA ROS ROS o/w neg Vital Sign Vital Signs Vital Signs Date Time Temp Pulse Resp B/P (MAP) Pulse Ox O2 Delivery O2 Flow Rate FiO2 11/19/18 05:21 49 136/58 (84) 11/19/18 03:08 98.1 98 Nasal Cannula 4.0 98.1 11/18/18 23:06 18 Physical Exam PHYSICAL EXAM GENERAL: Propped up in bed, alert, NAD HEENT: Pupils equal, oral cavity clear NECK: Supple. LUNGS: Clear bilaterally. HEART: S1, S2. ABDOMEN: Soft, obese, bowel sounds present, nontender. EXTREMITIES: Right foot dressed. varicose veins, venous stasis and onychomycosis. B ankles with some no warmth or tender. No muscle aches NEUROLOGIC: Alert and oriented x 3, grossly nonfocal. SKIN: No rash PIV ok Labs Lab Laboratory Tests Test 11/19/18 06:00 White Blood Count 9.9 x10^3/uL (4.0-11.0) Red Blood Count 4.24 x10^6/uL (4.30-5.70) Hemoglobin 12.7 g/dL (13.0-17.5) Hematocrit 39.2 % (39.0-53.0) Mean Corpuscular Volume 93 fL (79-100) Mean Corpuscular Hemoglobin 30 pg (25-35) Mean Corpuscular Hemoglobin Concent 32 g/dL (31-37) Red Cell Distribution Width 14.9 % (11.5-14.5) Platelet Count 249 x10^3/uL (140-400) Neutrophils (%) (Auto) 89 % (31-73) Lymphocytes (%) (Auto) 5 % (24-48) Monocytes (%) (Auto) 6 % (0-9) Eosinophils (%) (Auto) 0 % (0-3) Basophils (%) (Auto) 0 % (0-3) Neutrophils # (Auto) 8.7 x10^3uL (1.8-7.7) Lymphocytes # (Auto) 0.5 x10^3/uL (1.0-4.8) Monocytes # (Auto) 0.6 x10^3/uL (0.0-1.1) Eosinophils # (Auto) 0.0 x10^3/uL (0.0-0.7) Basophils # (Auto) 0.0 x10^3/uL (0.0-0.2) Sodium Level 139 mmol/L (136-145) Potassium Level 5.4 mmol/L (3.5-5.1) Chloride Level 105 mmol/L (98-107) Carbon Dioxide Level 29 mmol/L (21-32) Anion Gap 5 (6-14) Blood Urea Nitrogen 27 mg/dL (8-26) Creatinine 1.6 mg/dL (0.7-1.3) Estimated GFR (Cockcroft-Gault) 43.1 Glucose Level 208 mg/dL (70-99) Calcium Level 8.9 mg/dL (8.5-10.1) Micro Microbiology 11/12/18 Blood Culture - Final, Complete NO GROWTH AFTER 5 DAYS 11/12/18 Urine Culture - Final, Complete 11/12/18 Urine Culture Result 1 (SEUN) - Final, Complete Objective Assessment Chronic nonhealing right second toe wound with purulent drainage and osteomyelitis of the second distal phalanx. S/p Right 2 nd toe closed toe amp Ankle pain Chronic venous stasis. Onychomycosis. History of kidney stone. Acute kidney injury. History of remote cerebrovascular accident. Hyperlipidemia. History of recurrent cellulitis. Plan Plan of Care cont daptomycin, Zosyn, micafungin for today Anticipate po abx 11/20 - d/w Dr. Chino Monitor labs in [facility] neg so far Local wound care. AVELINA GR MD Nov 19, 2018 08:43
--- NOTE | 2018-11-19 08:49 | PDOC ---
Provider Note Provider Note AF VSS awake and alert right 2nd toe partial amputation closed with sutures, incision intact with small amount of bloody drainage, no erythema, no swelling A/P POD#1 right 2nd toe closed amputation - recommend minimal ambulation today with heel touch because of small amount of bleeding from incision, full ambulation with surgical shoe tomorrow - should be ok for discharge on oral antibiotics tomorrow from a vascular standpoint - ok to resume eliquis anticoagulation FIDELIA ROMERO MD Nov 19, 2018 08:49
[2018-11-19] MEDS: HYDROcodone/APAP 7.5/325MG 1 TAB TABLET PO PRN ×2 (09:27→21:47)
[2018-11-19] MEDS: AMIODARONE HCL 200 MG TABLET. PO SCH (09:27)
[2018-11-19] MEDS: APIXABAN 5 MG TABLET. PO SCH ×2 (09:28→20:47)
[2018-11-19] MEDS: LACTOBACILLUS RHAMNOSUS GG 1 CAPSULE. PO SCH ×2 (09:28→20:47)
[2018-11-19] MEDS: NORMAL SALINE IV SCH (09:29)
[2018-11-19] MEDS: DAPTOMYCIN IV SCH (09:29)
--- NOTE | 2018-11-19 10:34 | CARD ---
MR#: [id number] Date of Study: 11/19/2018 Ordering Physician: ALLI ROMERO, Referring Physician: BALA BAIG Tech: Landy Reynoso RDCS APPROVED REPORT EXAM: Two-dimensional and M-mode echocardiogram with Doppler and color Doppler. Other Information Quality : Fair INDICATION Chest Pain RISK FACTORS Obesity 2D DIMENSIONS RVDd4.3 (2.9-3.5cm)Left Atrium(2D)4.7 (1.6-4.0cm) IVSd2.0 (0.7-1.1cm)Aortic Root(2D)3.1 (2.0-3.7cm) LVDd4.8 (3.9-5.9cm)LVOT Diameter2.2 (1.8-2.4cm) PWd1.7 (0.7-1.1cm)LVDs3.4 (2.5-4.0cm) FS (%) 29.7 %SV61.7 ml LVEF(%)56.7 (>50%) Aortic Valve AoV Peak Israel.175.9cm/sAoV VTI31.0cm AO Peak GR.12.4mmHgLVOT VTI 12.79cm AO Mean GR.8mmHg Mitral Valve MV E Ygfmbaru627.3cm/sMV DECEL [id number] MV A Jzyhvuel88.1cm/sE/A Ratio2.0 TDI Lateral E' P. V11.71cm/sMedial E' P. V10.17cm/s E/Lateral E'11.0E/Medial E'12.7 Tricuspid Valve TR P. [id number]/sRAP [id number] TR Peak Gr.[id number] LEFT VENTRICLE The left ventricle is normal size. There is moderate to severe concentric left ventricular hypertroph y. The left ventricular systolic function is normal. The Ejection Fraction is 55-60%. Septal motion c onsistent with conduction abnormality. RIGHT VENTRICLE The right ventricle is mildly dilated. The right ventricular systolic function is normal. ATRIA The left atrium is mildly dilated. The right atrium is moderately dilated. The interatrial septum is intact with no evidence for an atrial septal defect or patent foramen ovale as noted on 2-D or Dopple r imaging. AORTIC VALVE The aortic valve is not well visualized but appears to be calcified. Doppler and Color Flow revealed no significant aortic regurgitation. There is no significant aortic valvular stenosis. MITRAL VALVE The mitral valve is calcified but opens well. Mitral annular calcification is mild. There is no evide nce of mitral valve prolapse. There is no mitral valve stenosis. Doppler and Color Flow revealed no m itral valve regurgitation noted. TRICUSPID VALVE The tricuspid valve is normal in structure and function. Doppler and Color Flow revealed trace tricus pid regurgitation. There is moderate pulmonary hypertension. The PA pressure was estimated at 48 mmHg . There is no tricuspid valve stenosis. PULMONIC VALVE The pulmonic valve is not well visualized. Doppler and Color Flow revealed no pulmonic valvular regur gitation. There is no pulmonic valvular stenosis. GREAT VESSELS The aortic root is normal in size. The ascending aorta is not well seen. The IVC is dilated and colla pses >50% with inspiration. PERICARDIAL EFFUSION There is no evidence of significant pericardial effusion. Critical Notification Critical Value: No <Conclusion> The left ventricular systolic function is normal. The Ejection Fraction is 55-60%. Trace tricuspid regurgitation. The PA pressure was estimated at 48 mmHg. There is no evidence of significant pericardial effusion. Signed by : Alli Romero, Electronically Approved : 11/19/2018 10:34:02
[2018-11-19 11:57] LABS: % LYMPHS 4 % (24-48); % MONOS 3 % (0-10); % SEGS 93 % (35-66)
[2018-11-19 11:58] LABS: PLT ESTIMATE ADEQUATE (ADEQUATE)
[2018-11-19 11:59] LABS: PLATELET CLUMP PRESENT
[2018-11-19] MEDS: ANTI-COAG MONITOR BY PHARMACY. MC PRN (13:13)
[2018-11-19] MEDS: MICAFUNGIN 100 MG in IV DEXTROSE 5% 100ML 100 ML IV SCH (13:29)
--- NOTE | 2018-11-19 14:03 | NUR ---
Pt transferred to room 428. Report called to YAJAIRA Sawyer.
--- NOTE | 2018-11-19 15:28 | PDOC ---
PROGRESS NOTES Subjective Subjective s/p toe amputation yesterday. Denied any chest pain or palpitations Objective Objective Vital Signs Date Time Temp Pulse Resp B/P (MAP) Pulse Ox O2 Delivery O2 Flow Rate FiO2 11/19/18 11:15 97.7 80 20 110/56 (74) 94 Room Air 97.7 11/19/18 07:30 4.0 Intake and Output 11/19/18 07:00 Intake Total 1115 ml Output Total 1002 ml Balance 113 ml Intake Oral 240 ml IV Total 875 ml Output Urine Total 1000 ml Estimated Blood Loss 2 ml Physical Exam Abdomen: Soft, No tenderness Heart: Other (heart rate is irregular) Extremities: No edema General: Alert, Oriented X3 HEENT: Atraumatic Lungs: Clear to auscultation Neuro: Normal speech Psych/Mental Status: Mood NL Assessment Assessment 1. Atrial fibrillation with rapid ventricular response, recurrent. Patient apparently had cardioversion 2 years ago. Heart rate much better controlled. Change Cardizem to by mouth. Continue eliquis for stroke prophylaxis. 2-D echo showed normal LV systolic function. Continue amiodarone and plan for outpatient cardioversion in 4 weeks. We will consider ischemic evaluation with stress test and sleep study as an outpatient. 2. Hyperlipidemia: Continue statin therapy 3. Osteomyelitis of right second toe, s/p toe amputation. Continue postop care per vascular surgery team. Arterial duplex scan did not show any significant PAD. Plan Plan of Care Problems Medical Problems: (1) Osteomyelitis Status: Acute Comment Review of Relevant I have reviewed the following items ashlyn (where applicable) has been applied. Labs Laboratory Tests Test 11/19/18 06:00 White Blood Count 9.9 x10^3/uL (4.0-11.0) Red Blood Count 4.24 x10^6/uL (4.30-5.70) Hemoglobin 12.7 g/dL (13.0-17.5) Hematocrit 39.2 % (39.0-53.0) Mean Corpuscular Volume 93 fL (79-100) Mean Corpuscular Hemoglobin 30 pg (25-35) Mean Corpuscular Hemoglobin Concent 32 g/dL (31-37) Red Cell Distribution Width 14.9 % (11.5-14.5) Platelet Count 249 x10^3/uL (140-400) Neutrophils (%) (Auto) 89 % (31-73) Lymphocytes (%) (Auto) 5 % (24-48) Monocytes (%) (Auto) 6 % (0-9) Eosinophils (%) (Auto) 0 % (0-3) Basophils (%) (Auto) 0 % (0-3) Neutrophils # (Auto) 8.7 x10^3uL (1.8-7.7) Lymphocytes # (Auto) 0.5 x10^3/uL (1.0-4.8) Monocytes # (Auto) 0.6 x10^3/uL (0.0-1.1) Eosinophils # (Auto) 0.0 x10^3/uL (0.0-0.7) Basophils # (Auto) 0.0 x10^3/uL (0.0-0.2) Segmented Neutrophils % 93 % (35-66) Lymphocytes % 4 % (24-48) Monocytes % 3 % (0-10) Platelet Estimate Adequate (ADEQUATE) Platelet Clumps, EDTA Present Sodium Level 139 mmol/L (136-145) Potassium Level 5.4 mmol/L (3.5-5.1) Chloride Level 105 mmol/L (98-107) Carbon Dioxide Level 29 mmol/L (21-32) Anion Gap 5 (6-14) Blood Urea Nitrogen 27 mg/dL (8-26) Creatinine 1.6 mg/dL (0.7-1.3) Estimated GFR (Cockcroft-Gault) 43.1 Glucose Level 208 mg/dL (70-99) Calcium Level 8.9 mg/dL (8.5-10.1) Troponin I Quantitative 0.020 ng/mL (0.000-0.055) Microbiology 11/12/18 Blood Culture - Final, Complete NO GROWTH AFTER 5 DAYS 11/12/18 Urine Culture - Final, Complete 11/12/18 Urine Culture Result 1 (SEUN) - Final, Complete Medications Current Medications Sevoflurane (Ultane) 30 ml STK-MED ONCE IH ; Start 11/18/18 at 16:08; Stop 11/18/18 at 16:09; Status DC Vitals/I & O Vital Sign - Last 24 Hours 11/18/18 11/18/18 11/18/18 11/18/18 16:15 16:15 16:30 16:45 Temp 96.8 96.8 Pulse 56 81 82 Resp 20 20 20 B/P (MAP) 106/44 97/49 101/43 Pulse Ox 93 98 O2 Delivery Mask Simple Mask Simple Mask Nasal Cannula O2 Flow Rate 10 10 10 2 11/18/18 11/18/18 11/18/18 11/18/18 17:00 17:15 17:15 17:30 Temp 97.1 97.1 97.1 97.1 Pulse 81 81 96 81 Resp 20 18 18 B/P (MAP) 152/82 124/70 (88) 124/70 (88) 124/50 (74) Pulse Ox 93 93 95 O2 Delivery Nasal Cannula Simple Mask Simple Mask O2 Flow Rate 2 2.0 2.0 11/18/18 11/18/18 11/18/18 11/18/18 17:45 18:00 18:01 20:00 Temp 97.1 97.1 Pulse 93 94 81 B/P (MAP) 99/77 (84) 118/64 (82) 118/64 (82) Pulse Ox 95 O2 Delivery Nasal Cannula Nasal Cannula O2 Flow Rate 2.0 2.0 11/18/18 11/18/18 11/18/18 11/18/18 22:06 22:29 23:06 23:34 Pulse 66 65 Resp 18 B/P (MAP) 127/54 (78) 135/61 (85) Pulse Ox 95 95 94 O2 Delivery Nasal Cannula Nasal Cannula Nasal Cannula O2 Flow Rate 2.0 2.0 4.0 11/19/18 11/19/18 11/19/18 11/19/18 00:12 01:25 03:08 04:19 Temp 98.1 98.1 Pulse 66 65 65 60 B/P (MAP) 148/51 (83) 119/59 (79) 139/58 (85) 119/51 (73) Pulse Ox 98 98 98 O2 Delivery Nasal Cannula Nasal Cannula Nasal Cannula O2 Flow Rate 4.0 4.0 4.0 11/19/18 11/19/18 11/19/18 11/19/18 05:21 07:30 09:27 09:27 Temp 97.9 97.9 Pulse 49 66 66 Resp 18 20 B/P (MAP) 136/58 (84) 119/54 (75) 119/54 Pulse Ox 96 O2 Delivery Nasal Cannula Room Air O2 Flow Rate 4.0 11/19/18 11/19/18 10:27 11:15 Temp 97.7 97.7 Pulse 80 Resp 18 20 B/P (MAP) 110/56 (74) Pulse Ox 94 O2 Delivery Room Air Intake and Output 11/18/18 11/18/18 11/19/18 15:00 23:00 07:00 Intake Total 50 ml 770 ml 295 ml Output Total 500 ml 302 ml 200 ml Balance -450 ml 468 ml 95 ml ALLI ROMERO MD Nov 19, 2018 15:27
[2018-11-19] MEDS: ATORVASTATIN CALCIUM 40 MG TABLET. PO SCH (20:47)
[2018-11-20] MEDS: PIPERACILLIN/TAZOBACTAM 3.375 GM in IV NORMAL SALINE 50ML 50 ML IV SCH ×2 (00:12→05:58)
[2018-11-20 03:05] VITALS: BP 114/56
[2018-11-20 07:00] VITALS: BP 132/57
--- NOTE | 2018-11-20 07:30 | NUR ---
Old saline locks discontinued due to drainage to left hand cath and non-patency of RFA. New 22g started RFA on 2nd attempt. "Thick" skin w/ some generalized edema in arms. Surgical dressing D/I.
[2018-11-20] MEDS: APIXABAN 5 MG TABLET. PO SCH ×2 (08:38→20:39)
[2018-11-20] MEDS: LACTOBACILLUS RHAMNOSUS GG 1 CAPSULE. PO SCH ×2 (08:38→20:39)
[2018-11-20] MEDS: AMIODARONE HCL 200 MG TABLET. PO SCH (08:40)
[2018-11-20] MEDS: DAPTOMYCIN IV SCH (10:24)
[2018-11-20] MEDS: NORMAL SALINE IV SCH (10:24)
--- NOTE | 2018-11-20 10:46 | PDOC ---
Provider Note Provider Note AF VSS awake and alert right 2nd toe partial amputation closed with sutures, incision intact with no bleeding, no erythema, no swelling A/P POD#2 right 2nd toe closed amputation which looks good - may ambulate with full weight bearing to the right foot - should be ok for discharge today from a vascular standpoint - on eliquis anticoagulation FIDELIA ROMERO MD Nov 20, 2018 10:46
--- NOTE | 2018-11-20 10:47 | PDOC ---
PROGRESS NOTES Chief Complaint Chief Complaint acute diastolic CHF from Afib with RVR, new today Osteomyelitis IE , Osteomyelitis of the second distal phalanx. ACUTE morbid obesity, BMI 43 cysto, R: URS/LL/Stent 2018 renal stones REMOTE CVA HX HYPERLIPIDEMIA D/c daptomycin, cont augmentin d/c with home health 11/21 needs to do stairs with PT History of Present Illness History of Present Illness Transferred to CV unit for afib RVR, , Zosyn with micafungin. per ID, can transition to oral 11/20 ight 2nd toe partial amputation closed with sutures, incision intact with no bleeding, no erythema, no swelling A/P POD#2 right 2nd toe closed amputation which looks good - may ambulate with full weight bearing to the right foot Vascular Surgery s/p amputation of right 2nd toe 11/18/18 His is present Comfortable, pain controlled Has bilateral ankle pain -better + Flatus Denies F/C/S/N/V/D/SOA Asking about an outpatient sleep study. Vitals Vitals Vital Signs Date Time Temp Pulse Resp B/P (MAP) Pulse Ox O2 Delivery O2 Flow Rate FiO2 11/20/18 08:40 52 132/57 11/20/18 07:50 Room Air 11/20/18 07:00 97.8 18 98 97.8 11/19/18 07:30 4.0 Physical Exam Physical Exam GENERAL: Propped up in bed, alert, NAD HEENT: Pupils equal, oral cavity clear NECK: Supple. LUNGS: Clear bilaterally. HEART: S1, S2. ABDOMEN: Soft, obese, bowel sounds present, nontender. EXTREMITIES: Right foot dressed. varicose veins, venous stasis and onychomycosis. B ankles with some no warmth or tender. No muscle aches NEUROLOGIC: Alert and oriented x 3, grossly nonfocal. SKIN: No rash PIV ok General: Alert, Oriented X3, Cooperative, No acute distress Heart: Other (heart rate is irregular) Lungs: Clear Abdomen: Normal bowel sounds, Soft, No tenderness Extremities: No cyanosis, No edema Assessment and Plan Assessmemt and Plan Problems Medical Problems: (1) HYUN (acute kidney injury) Status: Acute (2) Atrial fibrillation with RVR Status: Acute (3) Bilateral ankle pain Status: Acute (4) Kidney stone Status: Acute (5) Morbid obesity Status: Chronic (6) Onychomycosis of toenail Status: Acute (7) Osteomyelitis of second toe of right foot Status: Acute Comment Review of Relevant I have reviewed the following items ashlyn (where applicable) has been applied. Labs Laboratory Tests Test 11/19/18 06:00 White Blood Count 9.9 x10^3/uL (4.0-11.0) Red Blood Count 4.24 x10^6/uL (4.30-5.70) Hemoglobin 12.7 g/dL (13.0-17.5) Hematocrit 39.2 % (39.0-53.0) Mean Corpuscular Volume 93 fL (79-100) Mean Corpuscular Hemoglobin 30 pg (25-35) Mean Corpuscular Hemoglobin Concent 32 g/dL (31-37) Red Cell Distribution Width 14.9 % (11.5-14.5) Platelet Count 249 x10^3/uL (140-400) Neutrophils (%) (Auto) 89 % (31-73) Lymphocytes (%) (Auto) 5 % (24-48) Monocytes (%) (Auto) 6 % (0-9) Eosinophils (%) (Auto) 0 % (0-3) Basophils (%) (Auto) 0 % (0-3) Neutrophils # (Auto) 8.7 x10^3uL (1.8-7.7) Lymphocytes # (Auto) 0.5 x10^3/uL (1.0-4.8) Monocytes # (Auto) 0.6 x10^3/uL (0.0-1.1) Eosinophils # (Auto) 0.0 x10^3/uL (0.0-0.7) Basophils # (Auto) 0.0 x10^3/uL (0.0-0.2) Segmented Neutrophils % 93 % (35-66) Lymphocytes % 4 % (24-48) Monocytes % 3 % (0-10) Platelet Estimate Adequate (ADEQUATE) Platelet Clumps, EDTA Present Sodium Level 139 mmol/L (136-145) Potassium Level 5.4 mmol/L (3.5-5.1) Chloride Level 105 mmol/L (98-107) Carbon Dioxide Level 29 mmol/L (21-32) Anion Gap 5 (6-14) Blood Urea Nitrogen 27 mg/dL (8-26) Creatinine 1.6 mg/dL (0.7-1.3) Estimated GFR (Cockcroft-Gault) 43.1 Glucose Level 208 mg/dL (70-99) Calcium Level 8.9 mg/dL (8.5-10.1) Troponin I Quantitative 0.020 ng/mL (0.000-0.055) Microbiology 11/12/18 Blood Culture - Final, Complete NO GROWTH AFTER 5 DAYS 11/12/18 Urine Culture - Final, Complete 11/12/18 Urine Culture Result 1 (SEUN) - Final, Complete Medications Current Medications Sodium Chloride 1,000 ml @ 1,000 mls/hr 1X ONCE IV Last administered on 11/12/18at 17:50; Start 11/12/18 at 17:15; Stop 11/12/18 at 18:14; Status DC Vancomycin HCl (Vanco Per Pharmacy) 1 each PRN DAILY PRN MC SEE COMMENTS Last administered on 11/12/18at 19:16; Start 11/12/18 at 17:30; Stop 11/13/18 at 09:04; Status DC Vancomycin HCl 2 gm/Sodium Chloride 500 ml @ 250 mls/hr 1X ONCE IV Last administered on 11/12/18at 18:22; Start 11/12/18 at 17:30; Stop 11/12/18 at 19:29; Status DC Ondansetron HCl (Zofran) 4 mg PRN Q8HRS PRN IV NAUSEA/VOMITING; Start 11/12/18 at 17:30; Stop 11/13/18 at 17:29; Status DC Fentanyl Citrate (Fentanyl 2ml Vial) 50 mcg PRN Q1HR PRN IV PAIN Last administered on 11/12/18at 18:52; Start 11/12/18 at 17:30; Stop 11/13/18 at 17:29; Status DC Acetaminophen (Tylenol) 650 mg PRN Q4HRS PRN PO FEVER; Start 11/12/18 at 17:30; Stop 11/13/18 at 17:29; Status DC Vancomycin HCl 2 gm/Sodium Chloride 500 ml @ 250 mls/hr Q24H IV ; Start 11/13/18 at 18:00; Stop 11/13/18 at 18:00; Status DC Vancomycin HCl (Vancomycin Trough Level) 1 each 1X ONCE MC ; Start 11/14/18 at 17:30; Stop 11/14/18 at 17:31; Status Cancel Clonidine HCl (Catapres) 0.2 mg 1X ONCE PO Last administered on 11/12/18 22:23; Start 11/12/18 at 21:00; Stop 11/12/18 at 21:01; Status DC Apixaban (Eliquis) 5 mg BID PO Last administered on 11/20/18 08:38; Start 11/12/18 at 21:30 Atorvastatin Calcium (Lipitor) 40 mg QHS PO Last administered on 11/19/18 20:47; Start 11/12/18 at 21:30 Daptomycin 810 mg/ Sodium Chloride 50 ml @ 100 mls/hr Q24H IV Last administered on 11/20/18 10:24; Start 11/13/18 at 10:00 Piperacillin Sod/ Tazobactam Sod 3.375 gm/Sodium Chloride 50 ml @ 100 mls/hr Q6HRS IV Last administered on 11/20/18 05:58; Start 11/13/18 at 12:00 Lactobacillus Rhamnosus (Culturelle) 1 cap BID PO Last administered on 11/20/18 08:38; Start 11/13/18 at 21:00 Info (Anti-Coagulation Monitoring By Pharmacy) 1 each PRN DAILY PRN MC SEE COMMENTS Last administered on 11/19/18at 13:13; Start 11/14/18 at 11:45 Fentanyl Citrate (Fentanyl 2ml Vial) 25 mcg PRN Q5MIN PRN IV MILD PAIN 1-3; Start 11/18/18 at 07:00; Stop 11/19/18 at 06:59; Status DC Fentanyl Citrate (Fentanyl 2ml Vial) 50 mcg PRN Q5MIN PRN IV MODERATE TO SEVERE PAIN; Start 11/18/18 at 07:00; Stop 11/19/18 at 06:59; Status DC Morphine Sulfate (Morphine Sulfate) 1 mg PRN Q10MIN PRN IV SEVERE PAIN 7-10; Start 11/18/18 at 07:00; Stop 11/19/18 at 06:59; Status DC Ringer's Solution 1,000 ml @ 30 mls/hr Q24H IV Last administered on 11/18/18 15:35; Start 11/18/18 at 07:00; Stop 11/18/18 at 18:59; Status DC Lidocaine HCl (Xylocaine-Mpf 1% 2ml Vial) 2 ml PRN 1X PRN ID PRIOR TO IV START; Start 11/18/18 at 07:00; Stop 11/19/18 at 06:59; Status DC Hydromorphone HCl (Dilaudid) 0.5 mg PRN Q10MIN PRN IV SEV PAIN, Second choice; Start 11/18/18 at 07:00; Stop 11/19/18 at 06:59; Status DC Prochlorperazine Edisylate (Compazine) 5 mg PACU PRN PRN IV NAUSEA, MRX1; Start 11/18/18 at 07:00; Stop 11/19/18 at 06:59; Status DC Acetaminophen/ Hydrocodone Bitart (Lortab 5/325) 1 tab PRN Q4HRS PRN PO PAIN Last administered on 11/16/18at 09:30; Start 11/15/18 at 16:15; Stop 11/16/18 at 18:22; Status DC Micafungin Sodium 100 mg/Dextrose 100 ml @ 100 mls/hr Q24H IV Last administered on 11/19/18at 13:29; Start 11/16/18 at 12:00 Acetaminophen/ Hydrocodone Bitart (Lortab 7.5/325) 1 tab PRN Q6HRS PRN PO MODERATE PAIN; Start 11/16/18 at 18:15 Acetaminophen/ Hydrocodone Bitart (Lortab 7.5/325) 2 tab PRN Q6HRS PRN PO SEVERE PAIN Last administered on 11/19/18at 21:47; Start 11/16/18 at 18:30 Sodium Chloride 1,000 ml @ 1,000 mls/hr 1X ONCE IV Last administered on 11/17/18at 00:00; Start 11/17/18 at 00:00; Stop 11/17/18 at 00:59; Status DC Sodium Chloride 1,000 ml @ 1,000 mls/hr 1X ONCE IV Last administered on 11/17/18at 00:00; Start 11/17/18 at 00:00; Stop 11/17/18 at 00:59; Status DC Digoxin (Lanoxin) 500 mcg 1X ONCE IV Last administered on 11/17/18at 02:29; Start 11/17/18 at 02:15; Stop 11/17/18 at 02:16; Status DC Bacitracin 80193 unit/Sodium Chloride 500 ml @ 500 mls/hr 1X ONCE IRR Last administered on 11/18/18at 16:01; Start 11/18/18 at 06:00; Stop 11/18/18 at 06:59; Status DC Digoxin (Lanoxin) 250 mcg 1X ONCE IV Last administered on 11/17/18at 08:28; Start 11/17/18 at 08:00; Stop 11/17/18 at 08:06; Status DC Diltiazem HCl 125 mg/Dextrose 125 ml @ 5 mls/hr CONT PRN IV SEE I/O RECORD Last administered on 11/19/18at 00:43; Start 11/17/18 at 11:30; Stop 11/19/18 at 15:29; Status DC Amiodarone HCl 150 mg/Dextrose 103 ml @ 618 mls/hr 1X ONCE IV Last administered on 11/17/18at 21:04; Start 11/17/18 at 19:45; Stop 11/17/18 at 19:54; Status DC Amiodarone HCl 900 mg/Dextrose 518 ml @ 0 mls/hr CONT PRN IV SEE I/O RECORD Last administered on 11/17/18at 21:05; Start 11/17/18 at 19:45; Stop 11/17/18 at 21:05; Status DC Amiodarone HCl (Cordarone) 200 mg DAILY PO Last administered on 11/20/18at 08:40; Start 11/18/18 at 09:00 Propofol 20 ml @ As Directed STK-MED ONCE IV ; Start 11/18/18 at 13:51; Stop 11/18/18 at 13:52; Status DC Famotidine (Pepcid Vial) 20 mg STK-MED ONCE .ROUTE ; Start 11/18/18 at 13:51; Stop 11/18/18 at 13:52; Status DC Lidocaine HCl (Lidocaine Pf 2% Vial) 5 ml STK-MED ONCE .ROUTE ; Start 11/18/18 at 13:51; Stop 11/18/18 at 13:52; Status DC Ondansetron HCl (Zofran) 4 mg STK-MED ONCE .ROUTE ; Start 11/18/18 at 13:51; Stop 11/18/18 at 13:52; Status DC Dexamethasone Sodium Phosphate (Decadron) 4 mg STK-MED ONCE .ROUTE ; Start 11/18/18 at 13:51; Stop 11/18/18 at 13:52; Status DC Fentanyl Citrate (Fentanyl 2ml Vial) 100 mcg STK-MED ONCE .ROUTE ; Start 11/18/18 at 13:52; Stop 11/18/18 at 13:53; Status DC Sevoflurane (Ultane) 30 ml STK-MED ONCE IH ; Start 11/18/18 at 16:08; Stop 11/18/18 at 16:09; Status DC Diltiazem HCl (Cardizem 24hr Cd) 120 mg DAILY PO Last administered on 11/20/18at 08:39; Start 11/19/18 at 16:00 Active Scripts Active Cipro (Ciprofloxacin Hcl) 500 Mg Tablet 1 Tab PO BID Reported Lipitor (Atorvastatin Calcium) 40 Mg Tablet 1 Tab PO QHS Eliquis (Apixaban) 5 Mg Tablet 5 Mg PO BID Vitals/I & O Vital Sign - Last 24 Hours 11/19/18 11/19/18 11/19/18 11/19/18 11:15 15:00 17:25 19:15 Temp 97.7 98.0 97.8 97.7 98.0 97.8 Pulse 80 100 100 75 Resp 20 18 20 B/P (MAP) 110/56 (74) 121/62 (81) 121/62 114/49 (70) Pulse Ox 94 95 92 O2 Delivery Room Air Room Air Room Air 11/19/18 11/19/18 11/19/18 11/20/18 21:47 22:50 23:06 03:05 Temp 97.5 97.5 97.5 97.5 Pulse 104 44 Resp 20 20 20 18 B/P (MAP) 119/53 (75) 114/56 (75) Pulse Ox 92 93 O2 Delivery Room Air Room Air Room Air 11/20/18 11/20/18 11/20/18 11/20/18 07:00 07:50 08:39 08:40 Temp 97.8 97.8 Pulse 52 52 52 Resp 18 B/P (MAP) 132/57 (82) 132/57 132/57 Pulse Ox 98 O2 Delivery Room Air Room Air Intake and Output 11/19/18 11/19/18 11/20/18 14:59 22:59 06:59 Intake Total 780 ml 180 ml 840 ml Output Total 475 ml 600 ml Balance 305 ml 180 ml 240 ml BALA BAIG MD Nov 20, 2018 10:47
[2018-11-20 11:00] VITALS: BP 125/51
--- NOTE | 2018-11-20 11:05 | PDOC ---
Infectious Disease Note Subjective Subjective Comfortable, pain controlled Has bilateral ankle pain -better + Flatus Slept alright Denies F/C/S/N/V/D/SOA ROS ROS o/w neg Vital Sign Vital Signs Vital Signs Date Time Temp Pulse Resp B/P (MAP) Pulse Ox O2 Delivery O2 Flow Rate FiO2 11/20/18 08:40 52 132/57 11/20/18 07:50 Room Air 11/20/18 07:00 97.8 18 98 97.8 11/19/18 07:30 4.0 Physical Exam PHYSICAL EXAM GENERAL: Propped up in bed, alert, NAD HEENT: Pupils equal, oral cavity clear NECK: Supple. LUNGS: Clear bilaterally. HEART: S1, S2. ABDOMEN: Soft, obese, bowel sounds present, nontender. EXTREMITIES: Right foot dressed. varicose veins, venous stasis and onychomycosis. B ankles with some no warmth or tender. No muscle aches NEUROLOGIC: Alert and oriented x 3, grossly nonfocal. SKIN: No rash. PIV ok Labs Micro Microbiology 11/12/18 Blood Culture - Final, Complete NO GROWTH AFTER 5 DAYS 11/12/18 Urine Culture - Final, Complete 11/12/18 Urine Culture Result 1 (SEUN) - Final, Complete Objective Assessment Chronic nonhealing right second toe wound with purulent drainage and osteomyelitis of the second distal phalanx. S/p Right 2 nd toe closed toe amp Ankle pain Chronic venous stasis. Onychomycosis. History of kidney stone. Acute kidney injury. History of remote cerebrovascular accident. Hyperlipidemia. History of recurrent cellulitis. Plan Plan of Care S/p Dexamethasone 11/18 Disccont daptomycin, Zosyn, micafungin for today Home on Augmentin ok from ID standpoint for a couple days d/w AVELINA Munoz MD Nov 20, 2018 11:05
[2018-11-20] MEDS: AMOXICILLIN/K CLAV 875/125MG TABLET. PO SCH ×2 (11:24→20:39)
--- NOTE | 2018-11-20 12:11 | NUR ---
SW following for discharge planning. Discussed with RN, IV abx have been dc'd, pt is clear from ID standpoint to leave. PT/OT ordered, SW awaiting recommendations. SW will continue to follow.
[2018-11-20] MEDS: MULTIVITAMIN with MINERAL TABLET. PO SCH (13:15)
[2018-11-20 15:16] VITALS: BP 113/54
[2018-11-20 19:00] VITALS: BP 131/60
[2018-11-20] MEDS: ATORVASTATIN CALCIUM 40 MG TABLET. PO SCH (20:39)
[2018-11-20 23:00] VITALS: BP 152/84
[2018-11-21 03:00] VITALS: BP 118/54
[2018-11-21 07:00] VITALS: BP 96/54
[2018-11-21] MEDS: AMOXICILLIN/K CLAV 875/125MG TABLET. PO SCH (07:47)
[2018-11-21] MEDS: APIXABAN 5 MG TABLET. PO SCH (07:47)
[2018-11-21] MEDS: LACTOBACILLUS RHAMNOSUS GG 1 CAPSULE. PO SCH (07:47)
[2018-11-21] MEDS: MULTIVITAMIN with MINERAL TABLET. PO SCH (07:47)
[2018-11-21] MEDS: AMIODARONE HCL 200 MG TABLET. PO SCH (07:48)
--- NOTE | 2018-11-21 08:54 | NUR ---
SW following. Discussed with RN, pt needing a walker for discharge. SW faxed script to [facility] ([phone], fax: [phone]), they take pt's insurance. [facility] advised they can deliver the walker to [facility] this afternoon. No further SW needs.
--- NOTE | 2018-11-21 09:42 | PDOC ---
PROGRESS NOTES Chief Complaint Chief Complaint acute diastolic CHF from Afib with RVR, new Osteomyelitis IE , Osteomyelitis of the second distal phalanx. ACUTE morbid obesity, BMI 43 cysto, R: URS/LL/Stent 2018 renal stones REMOTE CVA HX HYPERLIPIDEMIA D/c daptomycin, cont augmentin d/c with home health 11/21 needs to do stairs w ith PT Home on Augmentin ok from ID standpoint D/C PLANNING TIME 35 MIN History of Present Illness History of Present Illness Transferred to CV unit for afib RVR, , Zosyn with micafungin. per ID, can transition to oral 11/20 ight 2nd toe partial amputation closed with sutures, incision intact with no bleeding, no erythema, no swelling A/P POD#2 right 2nd toe closed amputation which looks good - may ambulate with full weight bearing to the right foot Vascular Surgery s/p amputation of right 2nd toe 11/18/18 His is present Comfortable, pain controlled Has bilateral ankle pain -better + Flatus Denies F/C/S/N/V/D/SOA Asking about an outpatient sleep study. Vitals Vitals Vital Signs Date Time Temp Pulse Resp B/P (MAP) Pulse Ox O2 Delivery O2 Flow Rate FiO2 11/21/18 07:48 87 96/54 11/21/18 07:29 Room Air 11/21/18 07:00 98.1 18 91 98.1 Physical Exam Physical Exam GENERAL: Propped up in bed, alert, NAD HEENT: Pupils equal, oral cavity clear NECK: Supple. LUNGS: Clear bilaterally. HEART: S1, S2. ABDOMEN: Soft, obese, bowel sounds present, nontender. EXTREMITIES: Right foot dressed. varicose veins, venous stasis and onychomycosis. B ankles with some no warmth or tender. No muscle aches NEUROLOGIC: Alert and oriented x 3, grossly nonfocal. SKIN: No rash. PIV ok General: Alert, Oriented X3, Cooperative, No acute distress Heart: Regular rate, Normal S1, No murmurs, Other (heart rate is irregular) Lungs: Clear Abdomen: Normal bowel sounds, Soft, No tenderness Extremities: No cyanosis, No edema Assessment and Plan Assessmemt and Plan Problems Medical Problems: (1) HYUN (acute kidney injury) Status: Acute (2) Atrial fibrillation with RVR Status: Acute (3) Bilateral ankle pain Status: Acute (4) Kidney stone Status: Acute (5) Morbid obesity Status: Chronic (6) Onychomycosis of toenail Status: Acute (7) Osteomyelitis of second toe of right foot Status: Acute Comment Review of Relevant I have reviewed the following items ashlyn (where applicable) has been applied. Labs Microbiology 11/12/18 Blood Culture - Final, Complete NO GROWTH AFTER 5 DAYS 11/12/18 Urine Culture - Final, Complete 11/12/18 Urine Culture Result 1 (SEUN) - Final, Complete Medications Current Medications Sodium Chloride 1,000 ml @ 1,000 mls/hr 1X ONCE IV Last administered on 10/26 01/13at 17:50; Start 11/12/18 at 17:15; Stop 11/12/18 at 18:14; Status DC Vancomycin HCl (Vanco Per Pharmacy) 1 each PRN DAILY PRN MC SEE COMMENTS Last administered on 11/12/18at 19:16; Start 11/12/18 at 17:30; Stop 11/13/18 at 09:04; Status DC Vancomycin HCl 2 gm/Sodium Chloride 500 ml @ 250 mls/hr 1X ONCE IV Last administered on 11/12/18at 18:22; Start 11/12/18 at 17:30; Stop 11/12/18 at 19:29; Status DC Ondansetron HCl (Zofran) 4 mg PRN Q8HRS PRN IV NAUSEA/VOMITING; Start 11/12/18 at 17:30; Stop 11/13/18 at 17:29; Status DC Fentanyl Citrate (Fentanyl 2ml Vial) 50 mcg PRN Q1HR PRN IV PAIN Last administered on 11/12/18at 18:52; Start 11/12/18 at 17:30; Stop 11/13/18 at 17:29; Status DC Acetaminophen (Tylenol) 650 mg PRN Q4HRS PRN PO FEVER; Start 11/12/18 at 17:30; Stop 11/13/18 at 17:29; Status DC Vancomycin HCl 2 gm/Sodium Chloride 500 ml @ 250 mls/hr Q24H IV ; Start 10/26 02/13 at 18:00; Stop 11/13/18 at 18:00; Status DC Vancomycin HCl (Vancomycin Trough Level) 1 each 1X ONCE MC ; Start 11/14/18 at 17:30; Stop 11/14/18 at 17:31; Status Cancel Clonidine HCl (Catapres) 0.2 mg 1X ONCE PO Last administered on 11/12/18at 22:2 3; Start 11/12/18 at 21:00; Stop 11/12/18 at 21:01; Status DC Apixaban (Eliquis) 5 mg BID PO Last administered on 11/21/18 07:47; Start 11/12/18 at 21:30 Atorvastatin Calcium (Lipitor) 40 mg QHS PO Last administered on 11/20/18at 20:39; Start 11/12/18 at 21:30 Daptomycin 810 mg/ Sodium Chloride 50 ml @ 100 mls/hr Q24H IV Last administered on 11/20/18 10:24; Start 11/13/18 at 10:00; Stop 11/20/18 at 11:16; Status DC Piperacillin Sod/ Tazobactam Sod 3.375 gm/Sodium Chloride 50 ml @ 100 mls/hr Q6HRS IV Last administered on 11/20/18at 05:58; Start 11/13/18 at 12:00; Stop 11/20/18 at 11:16; Status DC Lactobacillus Rhamnosus (Culturelle) 1 cap BID PO Last administered on 11/21/18at 07:47; Start 11/13/18 at 21:00 Info (Anti-Coagulation Monitoring By Pharmacy) 1 each PRN DAILY PRN MC SEE COMMENTS Last administered on 11/19/18at 13:13; Start 11/14/18 at 11:45 Fentanyl Citrate (Fentanyl 2ml Vial) 25 mcg PRN Q5MIN PRN IV MILD PAIN 1-3; Start 11/18/18 at 07:00; Stop 11/19/18 at 06:59; Status DC Fentanyl Citrate (Fentanyl 2ml Vial) 50 mcg PRN Q5MIN PRN IV MODERATE TO SEVERE PAIN; Start 11/18/18 at 07:00; Stop 11/19/18 at 06:59; Status DC Morphine Sulfate (Morphine Sulfate) 1 mg PRN Q10MIN PRN IV SEVERE PAIN 7-10; Start 11/18/18 at 07:00; Stop 11/19/18 at 06:59; Status DC Ringer's Solution 1,000 ml @ 30 mls/hr Q24H IV Last administered on 11/18/18at 15:35; Start 11/18/18 at 07:00; Stop 11/18/18 at 18:59; Status DC Lidocaine HCl (Xylocaine-Mpf 1% 2ml Vial) 2 ml PRN 1X PRN ID PRIOR TO IV START; Start 11/18/18 at 07:00; Stop 11/19/18 at 06:59; Status DC Hydromorphone HCl (Dilaudid) 0.5 mg PRN Q10MIN PRN IV SEV PAIN, Second choice; Start 11/18/18 at 07:00; Stop 11/19/18 at 06:59; Status DC Prochlorperazine Edisylate (Compazine) 5 mg PACU PRN PRN IV NAUSEA, MRX1; Start 11/18/18 at 07:00; Stop 11/19/18 at 06:59; Status DC Acetaminophen/ Hydrocodone Bitart (Lortab 5/325) 1 tab PRN Q4HRS PRN PO PAIN Last administered on 11/16/18at 09:30; Start 11/15/18 at 16:15; Stop 11/16/18 at 18:22; Status DC Micafungin Sodium 100 mg/Dextrose 100 ml @ 100 mls/hr Q24H IV Last administered on 11/19/18at 13:29; Start 11/16/18 at 12:00; Stop 11/20/18 at 11:16; Status DC Acetaminophen/ Hydrocodone Bitart (Lortab 7.5/325) 1 tab PRN Q6HRS PRN PO MODERATE PAIN Last administered on 11/20/18at 20:39; Start 11/16/18 at 18:15 Acetaminophen/ Hydrocodone Bitart (Lortab 7.5/325) 2 tab PRN Q6HRS PRN PO SEVERE PAIN Last administered on 11/19/18at 21:47; Start 11/16/18 at 18:30 Sodium Chloride 1,000 ml @ 1,000 mls/hr 1X ONCE IV Last administered on 11/17/18at 00:00; Start 11/17/18 at 00:00; Stop 11/17/18 at 00:59; Status DC Sodium Chloride 1,000 ml @ 1,000 mls/hr 1X ONCE IV Last administered on 11/17/18at 00:00; Start 11/17/18 at 00:00; Stop 11/17/18 at 00:59; Status DC Digoxin (Lanoxin) 500 mcg 1X ONCE IV Last administered on 11/17/18at 02:29; Start 11/17/18 at 02:15; Stop 11/17/18 at 02:16; Status DC Bacitracin 60150 unit/Sodium Chloride 500 ml @ 500 mls/hr 1X ONCE IRR Last administered on 11/18/18at 16:01; Start 11/18/18 at 06:00; Stop 11/18/18 at 06:59; Status DC Digoxin (Lanoxin) 250 mcg 1X ONCE IV Last administered on 11/17/18at 08:28; Start 11/17/18 at 08:00; Stop 11/17/18 at 08:06; Status DC Diltiazem HCl 125 mg/Dextrose 125 ml @ 5 mls/hr CONT PRN IV SEE I/O RECORD Last administered on 11/19/18at 00:43; Start 11/17/18 at 11:30; Stop 11/19/18 at 15:29; Status DC Amiodarone HCl 150 mg/Dextrose 103 ml @ 618 mls/hr 1X ONCE IV Last administered on 11/17/18at 21:04; Start 11/17/18 at 19:45; Stop 11/17/18 at 19:54; Status DC Amiodarone HCl 900 mg/Dextrose 518 ml @ 0 mls/hr CONT PRN IV SEE I/O RECORD Last administered on 11/17/18at 21:05; Start 11/17/18 at 19:45; Stop 11/17/18 at 21:05; Status DC Amiodarone HCl (Cordarone) 200 mg DAILY PO Last administered on 11/20/18at 08:40; Start 11/18/18 at 09:00 Propofol 20 ml @ As Directed STK-MED ONCE IV ; Start 11/18/18 at 13:51; Stop 11/18/18 at 13:52; Status DC Famotidine (Pepcid Vial) 20 mg STK-MED ONCE .ROUTE ; Start 11/18/18 at 13:51; Stop 11/18/18 at 13:52; Status DC Lidocaine HCl (Lidocaine Pf 2% Vial) 5 ml STK-MED ONCE .ROUTE ; Start 11/18/18 at 13:51; Stop 11/18/18 at 13:52; Status DC Ondansetron HCl (Zofran) 4 mg STK-MED ONCE .ROUTE ; Start 11/18/18 at 13:51; Stop 11/18/18 at 13:52; Status DC Dexamethasone Sodium Phosphate (Decadron) 4 mg STK-MED ONCE .ROUTE ; Start 11/18/18 at 13:51; Stop 11/18/18 at 13:52; Status DC Fentanyl Citrate (Fentanyl 2ml Vial) 100 mcg STK-MED ONCE .ROUTE ; Start 11/18/18 at 13:52; Stop 11/18/18 at 13:53; Status DC Sevoflurane (Ultane) 30 ml STK-MED ONCE IH ; Start 11/18/18 at 16:08; Stop 11/18/18 at 16:09; Status DC Diltiazem HCl (Cardizem 24hr Cd) 120 mg DAILY PO Last administered on 11/20/18at 08:39; Start 11/19/18 at 16:00 Amoxicillin/ Clavulanate Potassium (Augmentin 875/ 125mg) 1 tab BID PO Last administered on 11/21/18at 07:47; Start 11/20/18 at 11:15; Stop 11/23/18 at 21:00 Multivitamins (Thera M Plus) 1 tab DAILY PO Last administered on 11/21/18at 07:47; Start 11/20/18 at 14:00 Active Scripts Active Cipro (Ciprofloxacin Hcl) 500 Mg Tablet 1 Tab PO BID Reported Lipitor (Atorvastatin Calcium) 40 Mg Tablet 1 Tab PO QHS Eliquis (Apixaban) 5 Mg Tablet 5 Mg PO BID Vitals/I & O Vital Sign - Last 24 Hours 11/20/18 11/20/18 11/20/18 11/20/18 11:00 15:16 19:00 20:00 Temp 97.4 97.8 98.6 97.4 97.8 98.6 Pulse 105 57 72 Resp 18 18 18 B/P (MAP) 125/51 (75) 113/54 (73) 131/60 (83) Pulse Ox 93 98 94 O2 Delivery Room Air Room Air Room Air Room Air 11/20/18 11/20/18 11/20/18 11/21/18 20:39 21:40 23:00 03:00 Temp 98.3 98.2 98.3 98.2 Pulse 115 114 Resp 18 18 B/P (MAP) 152/84 (106) 118/54 (75) Pulse Ox 90 90 O2 Delivery Room Air Room Air Room Air Room Air 11/21/18 11/21/18 11/21/18 11/21/18 07:00 07:29 07:47 07:48 Temp 98.1 98.1 Pulse 87 87 87 Resp 18 B/P (MAP) 96/54 (68) 96/54 96/54 Pulse Ox 91 O2 Delivery Room Air Room Air Intake and Output 11/20/18 11/20/18 11/21/18 15:00 23:00 07:00 Intake Total 830 ml Output Total 350 ml 50 ml 950 ml Balance 480 ml -50 ml -950 ml BALA BAIG MD Nov 21, 2018 09:42
[2018-11-21 11:00] VITALS: BP 136/70
--- NOTE | 2018-11-21 13:14 | PDOC3 ---
Discharge Summary Date of Admission: Nov 12, 2018 Date of Discharge: Nov 21, 2018 Follow-Up: 3-5 days Admitting Diagnosis comment: Chief Complaint Chief Complaint acute diastolic CHF from Afib with RVR, new DISCHARGE DIAGNOSIS Osteomyelitis IE , Osteomyelitis of the second distal phalanx. ACUTE morbid obesity, BMI 43 cysto, R: URS/LL/Stent 2017 renal stones REMOTE CVA HX HYPERLIPIDEMIA D/c daptomycin, cont augmentin d/c with home health 11/21 needs to do stairs with PT Home on Augmentin ok from ID standpoint D/C PLANNING TIME 35 MIN History of Present Illness History of Present Illness Transferred to CV unit for afib RVR, , Zosyn with micafungin. per ID, can transition to oral 11/20 ight 2nd toe partial amputation closed with sutures, incision intact with no bleeding, no erythema, no swelling A/P POD#2 right 2nd toe closed amputation which looks good - may ambulate with full weight bearing to the right foot Vascular Surgery s/p amputation of right 2nd toe 11/18/18 His is present Comfortable, pain controlled Has bilateral ankle pain -better + Flatus Denies F/C/S/N/V/D/SOA Asking about an outpatient sleep study. Vitals Vitals Vital Signs Date Time Temp Pulse Resp B/P (MAP) Pulse Ox O2 Delivery O2 Flow Rate FiO2 11/21/18 07:48 87 96/54 11/21/18 07:29 Room Air 11/21/18 07:00 98.1 18 91 98.1 Physical Exam Physical Exam GENERAL: Propped up in bed, alert, NAD HEENT: Pupils equal, oral cavity clear NECK: Supple. LUNGS: Clear bilaterally. HEART: S1, S2. ABDOMEN: Soft, obese, bowel sounds present, nontender. EXTREMITIES: Right foot dressed. varicose veins, venous stasis and onychomycosis. B ankles with some no warmth or tender. No muscle aches NEUROLOGIC: Alert and oriented x 3, grossly nonfocal. SKIN: No rash. PIV ok General: Alert, Oriented X3, Cooperative, No acute distress Heart: Regular rate, Normal S1, No murmurs, Other (heart rate is irregular) Lungs: Clear Abdomen: Normal bowel sounds, Soft, No tenderness Extremities: No cyanosis, No edema Assessment and Plan Assessmemt and Plan Problems Medical Problems: (1) HYUN (acute kidney injury) Status: Acute (2) Atrial fibrillation with RVR Status: Acute (3) Bilateral ankle pain Status: Acute FINAL DIAGNOSIS Problems Medical Problems: (1) HYUN (acute kidney injury) Status: Acute (2) Atrial fibrillation with RVR Status: Acute (3) Bilateral ankle pain Status: Acute (4) Kidney stone Status: Acute (5) Morbid obesity Status: Chronic (6) Onychomycosis of toenail Status: Acute (7) Osteomyelitis of second toe of right foot Status: Acute Brief Hospital Course Mr. Manuel is a 68 old [sex] who presented with [OSTEOMYELITIS OF TOE ] CONDITION AT DISCHARGE: Improved Discharge Medications Current Medications Sodium Chloride 1,000 ml @ 1,000 mls/hr 1X ONCE IV Last administered on 11/12/18at 17:50; Start 11/12/18 at 17:15; Stop 11/12/18 at 18:14; Status DC Vancomycin HCl (Vanco Per Pharmacy) 1 each PRN DAILY PRN MC SEE COMMENTS Last administered on 11/12/18at 19:16; Start 11/12/18 at 17:30; Stop 11/13/18 at 09:04; Status DC Vancomycin HCl 2 gm/Sodium Chloride 500 ml @ 250 mls/hr 1X ONCE IV Last administered on 11/12/18at 18:22; Start 11/12/18 at 17:30; Stop 11/12/18 at 19:29; Status DC Ondansetron HCl (Zofran) 4 mg PRN Q8HRS PRN IV NAUSEA/VOMITING; Start 11/12/18 at 17:30; Stop 11/13/18 at 17:29; Status DC Fentanyl Citrate (Fentanyl 2ml Vial) 50 mcg PRN Q1HR PRN IV PAIN Last administered on 11/12/18at 18:52; Start 11/12/18 at 17:30; Stop 11/13/18 at 17:29; Status DC Acetaminophen (Tylenol) 650 mg PRN Q4HRS PRN PO FEVER; Start 11/12/18 at 17:30; Stop 11/13/18 at 17:29; Status DC Vancomycin HCl 2 gm/Sodium Chloride 500 ml @ 250 mls/hr Q24H IV ; Start 11/13/18 at 18:00; Stop 11/13/18 at 18:00; Status DC Vancomycin HCl (Vancomycin Trough Level) 1 each 1X ONCE MC ; Start 11/14/18 at 17:30; Stop 11/14/18 at 17:31; Status Cancel Clonidine HCl (Catapres) 0.2 mg 1X ONCE PO Last administered on 11/12/18at 22:23; Start 11/12/18 at 21:00; Stop 11/12/18 at 21:01; Status DC Apixaban (Eliquis) 5 mg BID PO Last administered on 11/21/18at 07:47; Start 11/12/18 at 21:30 Atorvastatin Calcium (Lipitor) 40 mg QHS PO Last administered on 11/20/18at 20:39; Start 11/12/18 at 21:30 Daptomycin 810 mg/ Sodium Chloride 50 ml @ 100 mls/hr Q24H IV Last administered on 11/20/18at 10:24; Start 11/13/18 at 10:00; Stop 11/20/18 at 11:16; Status DC Piperacillin Sod/ Tazobactam Sod 3.375 gm/Sodium Chloride 50 ml @ 100 mls/hr Q6HRS IV Last administered on 11/20/18at 05:58; Start 11/13/18 at 12:00; Stop 11/20/18 at 11:16; Status DC Lactobacillus Rhamnosus (Culturelle) 1 cap BID PO Last administered on 11/21/18at 07:47; Start 11/13/18 at 21:00 Info (Anti-Coagulation Monitoring By Pharmacy) 1 each PRN DAILY PRN MC SEE COMMENTS Last administered on 11/19/18at 13:13; Start 11/14/18 at 11:45 Fentanyl Citrate (Fentanyl 2ml Vial) 25 mcg PRN Q5MIN PRN IV MILD PAIN 1-3; Start 11/18/18 at 07:00; Stop 11/19/18 at 06:59; Status DC Fentanyl Citrate (Fentanyl 2ml Vial) 50 mcg PRN Q5MIN PRN IV MODERATE TO SEVERE PAIN; Start 11/18/18 at 07:00; Stop 11/19/18 at 06:59; Status DC Morphine Sulfate (Morphine Sulfate) 1 mg PRN Q10MIN PRN IV SEVERE PAIN 7-10; Start 11/18/18 at 07:00; Stop 11/19/18 at 06:59; Status DC Ringer's Solution 1,000 ml @ 30 mls/hr Q24H IV Last administered on 11/18/18at 15:35; Start 11/18/18 at 07:00; Stop 11/18/18 at 18:59; Status DC Lidocaine HCl (Xylocaine-Mpf 1% 2ml Vial) 2 ml PRN 1X PRN ID PRIOR TO IV START; Start 11/18/18 at 07:00; Stop 11/19/18 at 06:59; Status DC Hydromorphone HCl (Dilaudid) 0.5 mg PRN Q10MIN PRN IV SEV PAIN, Second choice; Start 11/18/18 at 07:00; Stop 11/19/18 at 06:59; Status DC Prochlorperazine Edisylate (Compazine) 5 mg PACU PRN PRN IV NAUSEA, MRX1; Start 11/18/18 at 07:00; Stop 11/19/18 at 06:59; Status DC Acetaminophen/ Hydrocodone Bitart (Lortab 5/325) 1 tab PRN Q4HRS PRN PO PAIN Last administered on 11/16/18at 09:30; Start 11/15/18 at 16:15; Stop 11/16/18 at 18:22; Status DC Micafungin Sodium 100 mg/Dextrose 100 ml @ 100 mls/hr Q24H IV Last administered on 11/19/18at 13:29; Start 11/16/18 at 12:00; Stop 11/20/18 at 11:16; Status DC Acetaminophen/ Hydrocodone Bitart (Lortab 7.5/325) 1 tab PRN Q6HRS PRN PO MOD ERATE PAIN Last administered on 11/20/18at 20:39; Start 11/16/18 at 18:15 Acetaminophen/ Hydrocodone Bitart (Lortab 7.5/325) 2 tab PRN Q6HRS PRN PO SEVERE PAIN Last administered on 11/19/18at 21:47; Start 11/16/18 at 18:30 Sodium Chloride 1,000 ml @ 1,000 mls/hr 1X ONCE IV Last administered on 11/17/18at 00:00; Start 11/17/18 at 00:00; Stop 11/17/18 at 00:59; Status DC Sodium Chloride 1,000 ml @ 1,000 mls/hr 1X ONCE IV Last administered on 11/17/18at 00:00; Start 11/17/18 at 00:00; Stop 11/17/18 at 00:59; Status DC Digoxin (Lanoxin) 500 mcg 1X ONCE IV Last administered on 11/17/18at 02:29; Start 11/17/18 at 02:15; Stop 11/17/18 at 02:16; Status DC Bacitracin 64130 unit/Sodium Chloride 500 ml @ 500 mls/hr 1X ONCE IRR Last administered on 11/18/18at 16:01; Start 11/18/18 at 06:00; Stop 11/18/18 at 06:59; Status DC Digoxin (Lanoxin) 250 mcg 1X ONCE IV Last administered on 11/17/18at 08:28; Start 11/17/18 at 08:00; Stop 11/17/18 at 08:06; Status DC Diltiazem HCl 125 mg/Dextrose 125 ml @ 5 mls/hr CONT PRN IV SEE I/O RECORD Last administered on 11/19/18at 00:43; Start 11/17/18 at 11:30; Stop 11/19/18 at 15:29; Status DC Amiodarone HCl 150 mg/Dextrose 103 ml @ 618 mls/hr 1X ONCE IV Last administered on 11/17/18at 21:04; Start 11/17/18 at 19:45; Stop 11/17/18 at 19:54; Status DC Amiodarone HCl 900 mg/Dextrose 518 ml @ 0 mls/hr CONT PRN IV SEE I/O RECORD Last administered on 11/17/18at 21:05; Start 11/17/18 at 19:45; Stop 11/17/18 at 21:05; Status DC Amiodarone HCl (Cordarone) 200 mg DAILY PO Last administered on 11/20/18at 08:40; Start 11/18/18 at 09:00 Propofol 20 ml @ As Directed STK-MED ONCE IV ; Start 11/18/18 at 13:51; Stop 11/18/18 at 13:52; Status DC Famotidine (Pepcid Vial) 20 mg STK-MED ONCE .ROUTE ; Start 11/18/18 at 13:51; Stop 11/18/18 at 13:52; Status DC Lidocaine HCl (Lidocaine Pf 2% Vial) 5 ml STK-MED ONCE .ROUTE ; Start 11/18/18 at 13:51; Stop 11/18/18 at 13:52; Status DC Ondansetron HCl (Zofran) 4 mg STK-MED ONCE .ROUTE ; Start 11/18/18 at 13:51; Stop 11/18/18 at 13:52; Status DC Dexamethasone Sodium Phosphate (Decadron) 4 mg STK-MED ONCE .ROUTE ; Start 11/18/18 at 13:51; Stop 11/18/18 at 13:52; Status DC Fentanyl Citrate (Fentanyl 2ml Vial) 100 mcg STK-MED ONCE .ROUTE ; Start 11/18/18 at 13:52; Stop 11/18/18 at 13:53; Status DC Sevoflurane (Ultane) 30 ml STK-MED ONCE IH ; Start 11/18/18 at 16:08; Stop 11/18/18 at 16:09; Status DC Diltiazem HCl (Cardizem 24hr Cd) 120 mg DAILY PO Last administered on 11/20/18at 08:39; Start 11/19/18 at 16:00 Amoxicillin/ Clavulanate Potassium (Augmentin 875/ 125mg) 1 tab BID PO Last administered on 11/21/18at 07:47; Start 11/20/18 at 11:15; Stop 11/23/18 at 21:00 Multivitamins (Thera M Plus) 1 tab DAILY PO Last administered on 11/21/18at 07:47; Start 11/20/18 at 14:00 Active Scripts Active Cipro (Ciprofloxacin Hcl) 500 Mg Tablet 1 Tab PO BID Reported Lipitor (Atorvastatin Calcium) 40 Mg Tablet 1 Tab PO QHS Eliquis (Apixaban) 5 Mg Tablet 5 Mg PO BID Vital Signs Vital Signs Date Time Temp Pulse Resp B/P (MAP) Pulse Ox O2 Delivery O2 Flow Rate FiO2 11/21/18 11:00 97.7 102 18 136/70 (92) 90 Room Air 97.7 Allergies Allergies Coded Allergies Type Severity Reaction Last Updated Verified hydroxyzine Allergy Intermediate Blisters on fingers and feet. 04/24/18 Yes Disposition/Orders: D/C to Home Patient Instructions D/C PLANNING 35 MIN BALA BAIG MD Nov 21, 2018 13:14
[2018-11-21] MEDS ORDERED: HYDR-2765 PO (13:17)
[2018-11-21] MEDS ORDERED: AMIO200T4 PO (13:17)
[2018-11-21] MEDS ORDERED: MULT1TAB90 PO (13:17)
[2018-11-21] MEDS ORDERED: DILT120C85 PO (13:17)
[2018-11-21] MEDS ORDERED: LACT1CAP19 PO (13:17)
[2018-11-21] MEDS ORDERED: AMOX1TAB11 PO (13:17)
--- NOTE | 2018-11-21 13:22 | DISCH ---
DISCHARGE INSTRUCTIONS Condition on Discharge Condition on Discharge: Stable Activity After Discharge Activity Instructions for Disc: Activity as tolerated Bathing Instructions: Shower-keep dressing dry, No Tub Bath until see Lifting Instructions after Dis: No heavy lifting, No pulling or pushing Driving Instructions after Dis: Do not drive, Do not drive today Diet after Discharge Diet after Discharge: Cardiac, Regular Checks after Discharge Checks after discharge: Check blood press - daily Contacting the DR. after DC Call your doctor for: If your condition worsens Treatment/Equipment after DC Adaptive Equipment Issued: None, Front wheeled walker BALA BAIG MD Nov 21, 2018 13:21
--- NOTE | 2018-11-21 16:10 | NUR ---
Discharge Note: ELE MCCRACKEN Discharge instructions and discharge home medications reviewed with Patient and a copy given. All questions have been answered and understanding verbalized. The following instructions and handouts were given: information about amputation, follow up appointments, wound dressing,etc. Discontinued lines and drains: IV line in right forearm removed, catheter tip intact. Patient discharged to home with self care with , wheelchair used for mobility to discharge vehicle.
--- NOTE | 2018-11-25 15:06 | PATHOLOGY ---
[facility] Accession Number: [id number] . 01 Material submitted: . toe - DISTAL SECOND TOE RIGHT FOOT. Modifiers: distal, second, right . 01 Clinical history: . Osteomyelitis . 02 Diagnosis: Distal toe and separate segment of bone, distal right second toe amputation: - Chronic wound of distal toe showing focal dermal fibrinous exudate, granulation tissue, chronic inflammation, and scarring, with overlying pseudoepitheliomatous hyperplasia and scale crust. - Focal bony destruction, fibrosis, and chronic inflammation of distal phalangeal bone. - Separate segment of bone negative for osteomyelitis. (JPM:angela; 11/22/2018) MBR/11/25/2018 . 02 Electronically signed: . Jose Hackett MD, Pathologist NPI- [id number] . 01 Gross description: . The specimen is received in formalin, labeled "Phil Manuel, distal second toe right foot" and consists of a segment of toe disarticulated at the DIJ measuring 1.8 x 2.4 x 2.1 cm. The nail is present which is thickened, urbina-brown, and irregular. The skin displays an ulceration inferior the nail(distal tip) measuring 1.7 x 1.0 cm which extends to within less than 0.1 cm of the proximal skin soft tissue margin (inked black). The proximal bone margin is a smooth concave articular surface. Sectioning reveals yellow-urbina bone cut surfaces. Also received is a segment of bone measuring 1.1 x 0.9 x 0.6 cm. One aspect shows a smooth articular surface while the other is roughened consistent with a transection. [employer] sections are submitted as follows: . A1: Skin soft tissue margin perpendicular sections to show lesion A2: Full-thickness longitudinal section of toe A3: Additionally received bone A2 and A3 will be submitted following decalcification. (SDY; 11/20/2018) . After initial microscopic examination the remainder of the toe is submitted as follows: . A4-A5: Remainder of toe with A4 showing lesion at the distal tip inferior the nail following decalcification (SDY; 11/21/2018) SYU/SYU . 02 Pathologist provided ICD-10: M89.8X7, L08.9, L85.8 . 02 CPT . 296946, [id number] Specimen Comment: A courtesy copy of this report has been sent to Specimen Comment: [phone], , , . Specimen Comment: Report sent to ,DR BAIG / DR ROGERS Specimen Comment: DR PULIDO [facility]formed at: [facility] [address] [facility] [address] [facility] [address], [place] [id number] MD Gavin Mobley MD Phone: [phone] [facility]formed at: [facility] [address] [place], [place] [id number] MD Jose Hackett MD Phone: [phone]
== END 2018-11-21 16:10 | disposition home or self-care (01) | DRG 503 ==
LOC: ER 14:55 → 4 NORTH 18:24 → 6 SOUTH 11-17 02:31 → CVICU 11-17 11:12 → 4 NORTH 11-19 14:05
PROVIDERS: ADMIT Family Medicine; ATTEND Family Medicine
PROC: 0Y6R0Z2 Detachment at Right 2nd Toe, Mid, Open Approach (ICD-10-PCS; principal; 2018-11-18 14:30)
DX: M86.171 Other acute osteomyelitis, right ankle and foot (principal); N17.0 Acute kidney failure with tubular necrosis; I50.31 Acute diastolic (congestive) heart failure; Z68.41 Body mass index [BMI] 40.0-44.9, adult; B35.1 Tinea unguium; E66.01 Morbid (severe) obesity due to excess calories; N20.0 Calculus of kidney; E78.5 Hyperlipidemia, unspecified; I48.91 Unspecified atrial fibrillation; E78.00 Pure hypercholesterolemia, unspecified; G89.29 Other chronic pain; I25.10 Atherosclerotic heart disease of native coronary artery without angina pectoris; I87.8 Other specified disorders of veins; F17.210 Nicotine dependence, cigarettes, uncomplicated; Z86.73 Personal history of transient ischemic attack (TIA), and cerebral infarction without residual deficits; Z87.442 Personal history of urinary calculi; Z89.421 Acquired absence of other right toe(s); Z88.8 Allergy status to other drugs, medicaments and biological substances
CPT/HCPCS: 36415; 73630; 80048; 80053; 81001; 82550; 82565; 83605; 84484; 84550; 85007; 85025; 86140; 87040; 87086; 93005; 93306; 93925; 94660; A7015; J0282; J0878; J1100; J1160; J2001; J2248; J2405; J2543; J2704; J3010; J3370; J3490; J7030; J7040; J7120; 97116; 97530; 99285-25; A4461

== ENCOUNTER 2019-02-18 08:03 | Inpatient (IN) | payer MEDICARE, OTHER ==
[~2019-02-18] VITALS: Ht 177.8 cm; Wt 131.3 kg
[~2019-02-18 08:03] MED LIST changes: +AMIO200T4 PO; +AMOX1TAB11 PO; +DILT120C85 PO; +HYDR-2765 PO; +LACT1CAP19 PO; +MULT1TAB90 PO
[2019-02-18] MEDS ORDERED: VANCOMYCIN PER PHARMACY MC ONE (09:15)
[2019-02-18] MEDS ORDERED: MORPHINE SULFATE 4 MG/ML VIAL. IV/SQ PRN (09:15)
[2019-02-18] MEDS ORDERED: PIPERACILLIN/TAZOBACTAM 4.5 GM in IV NORMAL SALINE 100ML 100 ML IV ONE (09:15)
--- NOTE | 2019-02-18 09:24 | PHYS DOC ---
Past Medical History Past Medical History: A-Fib, CVA, High Cholesterol, Other Additional Past Medical Histor: Kidney stones Past Surgical History: Other Additional Past Surgical Histo: L)Carotidendarectomy,R)rotator cuff,Bilateral knee surgery,Hiatel hernia. Alcohol Use: Rarely Drug Use: Marijuana Adult General Chief Complaint Chief Complaint: SKIN RASH/ABSCESS HPI HPI Patient is a 68 year old morbidly obese male patient with history of A. fib on Eliquis, high cholesterol, who presents to the ED today complaining of bilateral lower extremity swelling, redness, symptoms began a week ago. He states he had noted cracked skin on the bottom of his bilateral feet a week ago and over the 7 days there has been increased swelling, redness as well as more skin peeling and cracking throughout his feet. Denies any fever, denies any chest pain or shortness of breath. He states he was admitted around October 2018 and had the tip of his right second toe was amputated. Review of Systems Review of Systems Constitutional: Denies fever or chills [] Eyes: Denies change in visual acuity, redness, or eye pain [] HENT: Denies nasal congestion or sore throat [] Respiratory: Denies cough or shortness of breath [] Cardiovascular: No additional information not addressed in HPI [] GI: Denies abdominal pain, nausea, vomiting, bloody stools or diarrhea [] : Denies dysuria or hematuria [] Musculoskeletal: Denies back pain or joint pain [] Integument: Cellulitis to bilateral lower extremity Neurologic: Denies headache, focal weakness or sensory changes [] All other systems were reviewed and found to be within normal limits, except as documented in this note. Current Medications Current Medications Current Medications Medications (Trade) Dose Ordered Sig/Taylor Start Time Stop Time Status Last Admin Dose Admin Morphine Sulfate (Morphine Sulfate) 4 mg PRN Q15MIN PRN 02/18/19 09:15 02/19/19 09:14 Piperacillin Sod/ Tazobactam Sod 4.5 gm/Sodium Chloride 100 ml @ 200 mls/hr 1X ONCE 02/18/19 09:15 02/18/19 09:44 DC 02/18/19 10:01 200 MLS/HR Vancomycin HCl (Vanco Per Pharmacy) 1 each 1X ONCE 02/18/19 09:15 02/18/19 09:17 DC Allergies Allergies Allergies Coded Allergies Type Severity Reaction Last Updated Verified hydroxyzine Allergy Intermediate Blisters on fingers and feet. 04/24/18 Yes Physical Exam Physical Exam Constitutional: Well developed, well nourished, no acute distress, non-toxic appearance. [] HENT: Normocephalic, atraumatic, bilateral external ears normal, oropharynx moist, no oral exudates, nose normal. [] Eyes: PERRLA, EOMI, conjunctiva normal, no discharge. [] Neck: Normal range of motion, no tenderness, supple, no stridor. [] Cardiovascular:Heart rate regular rhythm, no murmur [] Lungs & Thorax: Bilateral breath sounds clear to auscultation [] Abdomen: Bowel sounds normal, soft, no tenderness, no masses, no pulsatile masses. [] Skin: Missing the tip of the right second toe. Bilateral lower extremities with +2 edema, there is redness noted on the feet both ventral and dorsal aspects with peeling skin, these multiple cracked area on the bottom of his feet. +1 bilateral pedal pulses. Slight warmth over the feet. Full range of motion bilateral lower extremities. Cap refill less than 2 seconds bilateral lower extremities. Back: No tenderness, no CVA tenderness. [] Extremities: No tenderness, no cyanosis, no clubbing, ROM intact, no edema. [] Neurologic: Alert and oriented X 3, normal motor function, normal sensory function, no focal deficits noted. [] Psychologic: Affect normal, judgement normal, mood normal. [] Current Patient Data Vital Signs Vital Signs Date Time Temp Pulse Resp B/P (MAP) Pulse Ox O2 Delivery O2 Flow Rate FiO2 02/18/19 09:00 97.9 108 18 175/88 (117) 95 Room Air 97.9 Lab Values Laboratory Tests Test 02/18/19 09:40 White Blood Count 5.8 x10^3/uL (4.0-11.0) Red Blood Count 4.42 x10^6/uL (4.30-5.70) Hemoglobin 13.4 g/dL (13.0-17.5) Hematocrit 41.0 % (39.0-53.0) Mean Corpuscular Volume 93 fL (79-100) Mean Corpuscular Hemoglobin 30 pg (25-35) Mean Corpuscular Hemoglobin Concent 33 g/dL (31-37) Red Cell Distribution Width 16.6 % (11.5-14.5) H Platelet Count 323 x10^3/uL (140-400) Neutrophils (%) (Auto) 64 % (31-73) Lymphocytes (%) (Auto) 20 % (24-48) L Monocytes (%) (Auto) 10 % (0-9) H Eosinophils (%) (Auto) 6 % (0-3) H Basophils (%) (Auto) 1 % (0-3) Neutrophils # (Auto) 3.7 x10^3/uL (1.8-7.7) Lymphocytes # (Auto) 1.1 x10^3/uL (1.0-4.8) Monocytes # (Auto) 0.6 x10^3/uL (0.0-1.1) Eosinophils # (Auto) 0.3 x10^3/uL (0.0-0.7) Basophils # (Auto) 0.0 x10^3/uL (0.0-0.2) Sodium Level 144 mmol/L (136-145) Potassium Level 4.0 mmol/L (3.5-5.1) Chloride Level 109 mmol/L (98-107) H Carbon Dioxide Level 27 mmol/L (21-32) Anion Gap 8 (6-14) Blood Urea Nitrogen 33 mg/dL (8-26) H Creatinine 1.5 mg/dL (0.7-1.3) H Estimated GFR (Cockcroft-Gault) 46.4 BUN/Creatinine Ratio 22 (6-20) H Glucose Level 157 mg/dL (70-99) H Lactic Acid Level 1.9 mmol/L (0.4-2.0) Calcium Level 8.9 mg/dL (8.5-10.1) Total Bilirubin 0.4 mg/dL (0.2-1.0) Aspartate Amino Transferase (AST) 20 U/L (15-37) Alanine Aminotransferase (ALT) 22 U/L (16-63) Alkaline Phosphatase 75 U/L (46-116) Total Protein 7.4 g/dL (6.4-8.2) Albumin 3.1 g/dL (3.4-5.0) L Albumin/Globulin Ratio 0.7 (1.0-1.7) L Procalcitonin < 0.10 ng/mL (0.00-0.10) Laboratory Tests 02/18/19 09:40 Laboratory Tests 02/18/19 09:40 EKG EKG [] Radiology/Procedures Radiology/Procedures [] Course & Med Decision Making Course & Med Decision Making Pertinent Labs and Imaging studies reviewed. (See chart for details) This is a 68-year-old male patient presenting to the ED today with cellulitis of bilateral lower extremities. Symptoms began a week ago with cracking on the bottom of his feet. CBC with a normal WBC, CMP with creatinine of 1.5, BUN of 33, this is around patient's baseline. Lactic is normal. Patient was given Zosyn and vancomycin in the ED. Tetanus is up-to-date Spoke with Dr. Richardson who accepted patient for admission Dragon Disclaimer Dragon Disclaimer This electronic medical record was generated, in whole or in part, using a voice recognition dictation system. Departure Departure Impression: Primary Impression: HYUN (acute kidney injury) Additional Impression: Cellulitis of both lower extremities Disposition: ADMITTED INPATIENT Condition: STABLE Referrals: MARY ROGERS (PCP) Problem Qualifiers CRESENCIO MAJANO APRN Feb 18, 2019 09:24
[2019-02-18 09:52] LABS: BASO % 1 % (0-3); EOS # 0.3 x10^3/uL (0.0-0.7); EOS % 6 % (0-3); HEMOGLOBIN 13.4 g/dL (13.0-17.5); LYMPH # 1.1 x10^3/uL (1.0-4.8); LYMPH % 20 % (24-48); MEAN CORPUSCULAR HEMOGLOBIN 30 pg (25-35); MEAN CORPUSCULAR HGB CONC 33 g/dL (31-37); MEAN CORPUSCULAR VOLUME 93 fL (79-100); MONO # 0.6 x10^3/uL (0.0-1.1); MONO % 10 % (0-9); NEUT # 3.7 x10^3/uL (1.8-7.7); NEUT % 64 % (31-73); PLATELET COUNT 323 x10^3/uL (140-400); RED BLOOD COUNT 4.42 x10^6/uL (4.30-5.70); RED CELL DISTRIBUTION WIDTH 16.6 % (11.5-14.5); WHITE BLOOD COUNT 5.8 x10^3/uL (4.0-11.0)
[2019-02-18] MEDS ORDERED: VANCOMYCIN 2 GM in IV NORMAL SALINE 500ML BAG 500 ML IV ONE (10:00)
[2019-02-18 10:06] LABS: CALCIUM 8.9 mg/dL (8.5-10.1); CREATININE 1.5 mg/dL (0.7-1.3); GFR 46.4
[2019-02-18 10:09] LABS: ALBUMIN 3.1 g/dL (3.4-5.0); ALBUMIN/GLOBULIN RATIO 0.7 (1.0-1.7); TOTAL BILIRUBIN 0.4 mg/dL (0.2-1.0); TOTAL PROTEIN 7.4 g/dL (6.4-8.2)
--- NOTE | 2019-02-18 11:50 | HP ---
ADMIT DATE: 02/18/2019 CHIEF COMPLAINT: Bilateral skin rashes on his feet. HISTORY OF PRESENT ILLNESS: The patient is a pleasant 68-year-old male who presented with lower extremity cellulitis. States it has been itching and it is a burning. There is a little bit of drainage. Feet are somewhat swollen and red, it started about a week ago. He first got a crack on the bottom of his feet and then it just seemed to increase. I discussed the case with ER physician. We are going to admit the patient and give him IV antibiotics. PAST MEDICAL HISTORY: AFib, stroke, hyperlipidemia, hypertension, kidney stones, carotid endarterectomy on the right, rotator cuff surgery, bilateral knee surgeries, hernia repair, marijuana use. ALLERGIES: HYDROXYZINE. FAMILY HISTORY: Coronary artery disease. SOCIAL HISTORY: He works at the [employer] office. He smokes marijuana. He does not drink or take drugs. MEDICATIONS: Reviewed, please refer to the MRAD. REVIEW OF SYSTEMS: GENERAL: No history of weight change, weakness or fevers. SKIN: No bruising, hair changes or rashes. EYES: No blurred, double or loss of vision. NOSE AND THROAT: No history of nosebleeds, hoarseness or sore throat. HEART: No history of palpitations, chest pain or shortness of breath on exertion. LUNGS: Denies cough, hemoptysis, wheezing or shortness of breath. GASTROINTESTINAL: Denies changes in appetite, nausea, vomiting, diarrhea or constipation. GENITOURINARY: No history of frequency, urgency, hesitancy or nocturia. NEUROLOGIC: Denies history of numbness, tingling, tremor or weakness. PSYCHIATRIC: No history of panic, anxiety or depression. ENDOCRINE: No history of heat or cold intolerance, polyuria or polydipsia. EXTREMITIES: He complains of bilateral foot pain with erythema, some swelling and drainage. PHYSICAL EXAMINATION: GENERAL: No history of weight change, weakness or fevers. SKIN: No bruising, hair changes or rashes. EYES: No blurred, double or loss of vision. NOSE AND THROAT: No history of nosebleeds, hoarseness or sore throat. HEART: No history of palpitations, chest pain or shortness of breath on exertion. LUNGS: Denies cough, hemoptysis, wheezing or shortness of breath. GASTROINTESTINAL: Denies changes in appetite, nausea, vomiting, diarrhea or constipation. GENITOURINARY: No history of frequency, urgency, hesitancy or nocturia. NEUROLOGIC: Denies history of numbness, tingling, tremor or weakness. PSYCHIATRIC: No history of panic, anxiety or depression. ENDOCRINE: No history of heat or cold intolerance, polyuria or polydipsia. EXTREMITIES: Both lower extremities have moderately severe cellulitis with dry skin and hyperkeratosis, cracking and erythema. LABORATORY DATA: Hematology is normal. BUN and creatinine are high at 33 and 1.5. ASSESSMENT AND PLAN: Cellulitis with incidental finding of acute on chronic renal insufficiency. The patient has been admitted. We will start IV antibiotics. Consult Nephrology. PT, OT, wound care, home meds, DVT prophylaxis. Full code. ALMA MISTRY DO DR: [email or web address]/jn JOB#: [id number] / [id number]
[2019-02-18] MEDS ORDERED: MORPHINE SULFATE 2 MG/ML VIAL. IV PRN (13:15)
[2019-02-18 15:00] VITALS: BP 108/64
[2019-02-18 19:00] VITALS: BP 129/76
[2019-02-18 23:00] VITALS: BP 129/80
[2019-02-19 03:00] VITALS: BP 128/71
[2019-02-19] MEDS ORDERED: VANCOMYCIN PER PHARMACY MC PRN (05:45)
[2019-02-19] MEDS ORDERED: PIPERACILLIN/TAZOBACTAM 4.5 GM in IV NORMAL SALINE 100ML 100 ML IV ONE (06:15)
[2019-02-19 07:15] VITALS: BP 127/64
--- NOTE | 2019-02-19 07:44 | NUR ---
Pharmacy Vancomycin Dosing Note S:Consulted to monitor and dose vancomycin started 02/18/19. O:ELE MCCRACKEN is a 68 year old M with Cellulitis . Height: 5 feet, 10 inches Weight: 127.041997 kg [place] Body Weight: 73.00 Adjusted Body Weight: 94.60 Dosing Weight: Actual Other Antibiotics: Zosyn 4.5gm IVPB q6hrs. LABS: Last BUN: 33 Last Creatinine: 1.5 Creatinine Clearance: 64.3 mL/min Last WBC: 5.8 Last Procalcitonin: <0.10 Tmax (past 24 hours): 98.0 Microbiology: I/O: 1200/1300 Drug Levels: Last level: on at Last dose given 02/18/19 at 1209 Vancomycin Dosing: Loading Dose: 2000 mg x1 Dosing Weight: Actual Target Trough: 10-20 A: Based on weight and est. CrCl: P: 1. Bolus Vancomycin 2gm, followed by Vancomycin 1750 mg IV q18h. 2. Follow up Trough level on 02/20/19 at 1930. 3. Pharmacy will continue to monitor, follow and adjust therapy as needed. Avinash Solis [facility], 02/19/19 [id number]
[2019-02-19] MEDS ORDERED: VANCOMYCIN 1.75 GM in IV NORMAL SALINE 500ML BAG 500 ML IV SCH (08:00)
[2019-02-19] MEDS: MULTIVITAMIN with MINERAL TABLET. PO SCH (10:23)
[2019-02-19] MEDS: LACTOBACILLUS RHAMNOSUS GG 1 CAPSULE. PO SCH ×2 (10:23→20:48)
[2019-02-19] MEDS: IV NORMAL SALINE 1000ML BAG 1,000 ML IV SCH ×2 (10:24→18:17)
[2019-02-19] MEDS: AMIODARONE HCL 200 MG TABLET. PO SCH (10:24)
[2019-02-19] MEDS: APIXABAN 5 MG TABLET. PO SCH ×2 (10:24→20:48)
[2019-02-19 10:47] VITALS: BP 118/67
--- NOTE | 2019-02-19 10:48 | PDOC2 ---
CONSULT Date of Consult Date of Consult DATE: 02/19/19 TIME: 10:42 Reason for Consult Reason for Consult: RENAL FAILURE Referring Physician Referring Physician: FEDE Source Source: Chart review, Patient History of Present Illness Reason for Visit: THIS IS A 68 YR OLD WITH COMPLAINTS OF LE SWELLING AND REDNESS. CURRENTLY HAS DX OF CELLULITIS. CR OF 1.5. OLD RECORDS INDICATED SAME CR IN THE 1.5-1.6 RANGE AND C/W STAGE 3 CKD. HE IS NOT AWARE OF CKD. HE DENIED ANY NSAID ABUSE. NO HX EXPECT HIS STREAM IS A BIT SLOW PER PT. HAS NOT HAD ANY PROSTATE EVALUATIONS. HEMODYNAMICALLY HE IS STABLE. STATES REMOTE HX OF RENAL STONE. CANT REMEMBER DETAILS. DENIED HTN OR DM II HX. GLU LEVELS ARE UP Past Medical History Cardiovascular: No pertinent hx, Hyperlipidemia Pulmonary: No pertinent hx GI: No pertinent hx Heme/Onc: Other Hepatobiliary: No pertinent hx Psych: No pertinent hx Rheumatologic: No pertinent hx Infectious disease: No pertinent hx Renal/: Other Endocrine: No pertinent hx Past Surgical History Past Surgical History: No pertinent history Family History Family History: High Cholestrol Social History ALCOHOL: social Drugs: None, Marijuana Current Problem List Problem List Problems Medical Problems: (1) HYUN (acute kidney injury) Status: Acute (2) Cellulitis of both lower extremities Status: Acute (3) Chronic renal insufficiency Status: Chronic Current Medications Current Medications Current Medications Piperacillin Sod/ Tazobactam Sod 4.5 gm/Sodium Chloride 100 ml @ 200 mls/hr 1X ONCE IV Last administered on 02/18/19at 10:01; Start 02/18/19 at 09:15; Stop 02/18/19 at 09:44; Status DC Vancomycin HCl (Vanco Per Pharmacy) 1 each 1X ONCE MC ; Start 02/18/19 at 09:15; Stop 02/18/19 at 09:17; Status DC Morphine Sulfate (Morphine Sulfate) 4 mg PRN Q15MIN PRN IV/SQ PAIN GREATER THAN 3/10; Start 02/18/19 at 09:15; Stop 02/19/19 at 09:14; Status DC Vancomycin HCl 2 gm/Sodium Chloride 500 ml @ 250 mls/hr 1X ONCE IV Last administered on 02/18/19at 12:09; Start 02/18/19 at 10:00; Stop 02/18/19 at 11:59; Status DC Morphine Sulfate (Morphine Sulfate) 2 mg PRN Q3HRS PRN IV PAIN Last administered on 02/18/19at 21:19; Start 02/18/19 at 13:15 Piperacillin Sod/ Tazobactam Sod 4.5 gm/Sodium Chloride 100 ml @ 200 mls/hr Q6HRS IV ; Start 02/19/19 at 12:00 Vancomycin HCl (Vanco Per Pharmacy) 1 each PRN DAILY PRN MC SEE COMMENTS Last administered on 02/19/19at 07:43; Start 02/19/19 at 05:45 Piperacillin Sod/ Tazobactam Sod 4.5 gm/Sodium Chloride 100 ml @ 200 mls/hr 1X ONCE IV Last administered on 02/19/19at 06:22; Start 02/19/19 at 06:15; Stop 02/19/19 at 06:44; Status DC Vancomycin HCl 1.75 gm/Sodium Chloride 500 ml @ 250 mls/hr Q18H IV Last administered on 02/19/19at 08:32; Start 02/19/19 at 08:00; Stop 02/19/19 at 08:52; Status DC Vancomycin HCl (Vancomycin Trough Level) 1 each 1X ONCE MC ; Start 02/20/19 at 19:30; Stop 02/20/19 at 19:31 Oxycodone/ Acetaminophen (Percocet 5/325) 1 tab PRN Q4HRS PRN PO MODERATE TO SEVERE PAIN; Start 02/19/19 at 09:00 Sodium Chloride 1,000 ml @ 100 mls/hr Q10H IV Last administered on 02/19/19at 10:24; Start 02/19/19 at 09:00 Amiodarone HCl (Cordarone) 200 mg DAILY PO Last administered on 02/19/19at 1 0:24; Start 02/19/19 at 10:00 Apixaban (Eliquis) 5 mg BID PO Last administered on 02/19/19at 10:24; Start 02/19/19 at 10:00 Atorvastatin Calcium (Lipitor) 40 mg QHS PO ; Start 02/19/19 at 21:00 Acetaminophen/ Hydrocodone Bitart (Lortab 7.5/325) 2 tab PRN Q6HRS PRN PO SEVERE PAIN; Start 02/19/19 at 09:00 Lactobacillus Rhamnosus (Culturelle) 1 cap BID PO Last administered on 9at 10:24; Start 02/19/19 at 10:00 Multivitamins (Thera M Plus) 1 tab DAILY PO Last administered on 02/19/19at 10:24; Start 02/19/19 at 10:00 Diltiazem HCl (Cardizem 24hr Cd) 120 mg DAILY PO Last administered on 02/19/19at 10:24; Start 02/19/19 at 10:00 Active Scripts Active Thera-M Tablet (Multivits,Ca,Minerals/Iron/Fa) 1 Each Tablet 1 Tab PO DAILY 30 Days Culturelle (Lactobacillus Rhamnosus Gg) 1 Each Cap.sprink 1 Cap PO BID 14 Days Hydrocodone-Apap 7.5-325 (Hydrocodone Bit/Acetaminophen) 1 Tab Tablet 2 Tab PO PRN Q6HRS PRN 14 Days Diltiazem 24HR Cd (Diltiazem Hcl) 120 Mg Cap.er.24h 120 Mg PO DAILY 30 Days Amiodarone Hcl 200 Mg Tablet 200 Mg PO DAILY 30 Days Amox Tr-K Clv 875-125 Mg Tab (Amoxicillin/Potassium Clav) 1 Each Tablet 1 Tab PO BID 7 Days Reported Lipitor (Atorvastatin Calcium) 40 Mg Tablet 1 Tab PO QHS Eliquis (Apixaban) 5 Mg Tablet 5 Mg PO BID Allergies Allergies: Coded Allergies: hydroxyzine (Verified Allergy, Intermediate, Blisters on fingers and feet. , 04/24/18) ROS General: YES: Fatigue, Malaise PSYCHOLOGICAL ROS: YES: Anxiety, Depression Eyes: Yes Decreased vision [facility] ALLERGY AND IMMUNOLOGY: YES: Seasonal Allergies Respiratory: YES: Cough Genitourinary: YES Other (NOCTURIA) Musculoskeletal: Yes Muscular Weakness Neurological: Yes Weakness Skin: Yes Nail Changes, Yes Skin Lesion Changes Physical Exam General: Alert, Oriented X3, Cooperative, No acute distress HEENT: Atraumatic, PERRLA Lungs: Clear to auscultation Heart: Other (IRREGULAR) Abdomen: Normal bowel sounds, Soft Extremities: No cyanosis Skin: No breakdown, Other (LE ERYTHEMA AND DRY SKIN ) Neuro: Normal speech, Sensation intact MUSCULOSKELETAL: No joint tenderness, No deformity, Other (1-2+ INFLAMMATORY EDEMA) Vitals VITALS Vital Signs Date Time Temp Pulse Resp B/P (MAP) Pulse Ox O2 Delivery O2 Flow Rate FiO2 02/19/19 10:24 97 127/64 02/19/19 07:59 Room Air 02/19/19 07:15 97.6 95 97.6 02/19/19 00:44 20 Labs Labs Laboratory Tests Test 02/18/19 09:40 02/18/19 13:00 White Blood Count 5.8 x10^3/uL (4.0-11.0) Red Blood Count 4.42 x10^6/uL (4.30-5.70) Hemoglobin 13.4 g/dL (13.0-17.5) Hematocrit 41.0 % (39.0-53.0) Mean Corpuscular Volume 93 fL (79-100) Mean Corpuscular Hemoglobin 30 pg (25-35) Mean Corpuscular Hemoglobin Concent 33 g/dL (31-37) Red Cell Distribution Width 16.6 % (11.5-14.5) Platelet Count 323 x10^3/uL (140-400) Neutrophils (%) (Auto) 64 % (31-73) Lymphocytes (%) (Auto) 20 % (24-48) Monocytes (%) (Auto) 10 % (0-9) Eosinophils (%) (Auto) 6 % (0-3) Basophils (%) (Auto) 1 % (0-3) Neutrophils # (Auto) 3.7 x10^3/uL (1.8-7.7) Lymphocytes # (Auto) 1.1 x10^3/uL (1.0-4.8) Monocytes # (Auto) 0.6 x10^3/uL (0.0-1.1) Eosinophils # (Auto) 0.3 x10^3/uL (0.0-0.7) Basophils # (Auto) 0.0 x10^3/uL (0.0-0.2) Sodium Level 144 mmol/L (136-145) Potassium Level 4.0 mmol/L (3.5-5.1) Chloride Level 109 mmol/L (98-107) Carbon Dioxide Level 27 mmol/L (21-32) Anion Gap 8 (6-14) Blood Urea Nitrogen 33 mg/dL (8-26) Creatinine 1.5 mg/dL (0.7-1.3) Estimated GFR (Cockcroft-Gault) 46.4 BUN/Creatinine Ratio 22 (6-20) Glucose Level 157 mg/dL (70-99) Lactic Acid Level 1.9 mmol/L (0.4-2.0) 1.4 mmol/L (0.4-2.0) Calcium Level 8.9 mg/dL (8.5-10.1) Total Bilirubin 0.4 mg/dL (0.2-1.0) Aspartate Amino Transf (AST/SGOT) 20 U/L (15-37) Alanine Aminotransferase (ALT/SGPT) 22 U/L (16-63) Alkaline Phosphatase 75 U/L (46-116) Total Protein 7.4 g/dL (6.4-8.2) Albumin 3.1 g/dL (3.4-5.0) Albumin/Globulin Ratio 0.7 (1.0-1.7) Procalcitonin < 0.10 ng/mL (0.00-0.10) Laboratory Tests Test 02/18/19 13:00 Lactic Acid Level 1.4 mmol/L (0.4-2.0) Assessment/Plan Assessment/Plan IMP CKD STAGE 3 AFIB LE CELLULITIS GLU INTOLERANCE - SUSPECT HE HAS DM PLAN RENAL SONOGRAM UA WITH MICRO CHECK HGB A1C WILL FOLLOW BEATRICE PENA MD Feb 19, 2019 10:48
--- NOTE | 2019-02-19 11:58 | PDOC ---
PROGRESS NOTES Chief Complaint Chief Complaint rt leg cellulitis HX OM, s.p amputation - not needing IV abx in past Obesity BMI 41 Dry skin A fib on eliquis BPH sxs Urinary retention HTN -s table HYUN, hx CEA, hernia repair, bilateral knee ssx from OA hx kidneys tones History of Present Illness History of Present Illness legs are very dry, scaly, NON dm but maybe has some element of neuropathy? THough he claims sensation intact HE complains more of BPH sxs CReat 1,5 - colleague consulted renal PLAN: Check ESR, consult ID eucerin lotion Await wound care IVF NS - dc vanc bec of kidney fcn Renal was consulted re check BMP tmr NEeds to lose weight PT./OT Bladder scan protocol, straight cath > 300cc Check PSA Vitals Vitals Vital Signs Date Time Temp Pulse Resp B/P (MAP) Pulse Ox O2 Delivery O2 Flow Rate FiO2 02/19/19 10:47 98.0 112 18 118/67 (84) 98 Room Air 98.0 Physical Exam General: Alert, Oriented X3, Cooperative, No acute distress Heart: Other (IRREGULAR) Lungs: Clear Abdomen: Normal bowel sounds, Soft Extremities: No cyanosis Skin: No breakdown, Other (LE ERYTHEMA AND DRY SKIN ) Labs LABS Laboratory Tests Test 02/18/19 13:00 02/19/19 09:42 Lactic Acid Level 1.4 mmol/L (0.4-2.0) Erythrocyte Sedimentation Rate 20 (0-15) Review of Systems Review of Systems no pain, neg 14 pt reviewed with him, neg Assessment and Plan Assessmemt and Plan Problems Medical Problems: (1) HYUN (acute kidney injury) Status: Acute (2) Cellulitis of both lower extremities Status: Acute (3) Chronic renal insufficiency Status: Chronic Comment Review of Relevant I have reviewed the following items ashlyn (where applicable) has been applied. Labs Laboratory Tests Test 02/18/19 09:40 02/18/19 13:00 02/19/19 09:42 White Blood Count 5.8 x10^3/uL (4.0-11.0) Red Blood Count 4.42 x10^6/uL (4.30-5.70) Hemoglobin 13.4 g/dL (13.0-17.5) Hematocrit 41.0 % (39.0-53.0) Mean Corpuscular Volume 93 fL (79-100) Mean Corpuscular Hemoglobin 30 pg (25-35) Mean Corpuscular Hemoglobin Concent 33 g/dL (31-37) Red Cell Distribution Width 16.6 % (11.5-14.5) Platelet Count 323 x10^3/uL (140-400) Neutrophils (%) (Auto) 64 % (31-73) Lymphocytes (%) (Auto) 20 % (24-48) Monocytes (%) (Auto) 10 % (0-9) Eosinophils (%) (Auto) 6 % (0-3) Basophils (%) (Auto) 1 % (0-3) Neutrophils # (Auto) 3.7 x10^3/uL (1.8-7.7) Lymphocytes # (Auto) 1.1 x10^3/uL (1.0-4.8) Monocytes # (Auto) 0.6 x10^3/uL (0.0-1.1) Eosinophils # (Auto) 0.3 x10^3/uL (0.0-0.7) Basophils # (Auto) 0.0 x10^3/uL (0.0-0.2) Sodium Level 144 mmol/L (136-145) Potassium Level 4.0 mmol/L (3.5-5.1) Chloride Level 109 mmol/L (98-107) Carbon Dioxide Level 27 mmol/L (21-32) Anion Gap 8 (6-14) Blood Urea Nitrogen 33 mg/dL (8-26) Creatinine 1.5 mg/dL (0.7-1.3) Estimated GFR (Cockcroft-Gault) 46.4 BUN/Creatinine Ratio 22 (6-20) Glucose Level 157 mg/dL (70-99) Lactic Acid Level 1.9 mmol/L (0.4-2.0) 1.4 mmol/L (0.4-2.0) Calcium Level 8.9 mg/dL (8.5-10.1) Total Bilirubin 0.4 mg/dL (0.2-1.0) Aspartate Amino Transf (AST/SGOT) 20 U/L (15-37) Alanine Aminotransferase (ALT/SGPT) 22 U/L (16-63) Alkaline Phosphatase 75 U/L (46-116) Total Protein 7.4 g/dL (6.4-8.2) Albumin 3.1 g/dL (3.4-5.0) Albumin/Globulin Ratio 0.7 (1.0-1.7) Procalcitonin < 0.10 ng/mL (0.00-0.10) Erythrocyte Sedimentation Rate 20 (0-15) Laboratory Tests Test 02/18/19 13:00 02/19/19 09:42 Lactic Acid Level 1.4 mmol/L (0.4-2.0) Erythrocyte Sedimentation Rate 20 (0-15) Microbiology 02/18/19 Blood Culture - Preliminary, Resulted NO GROWTH AFTER 1 DAY Medications Current Medications Piperacillin Sod/ Tazobactam Sod 4.5 gm/Sodium Chloride 100 ml @ 200 mls/hr 1X ONCE IV Last administered on 02/18/19at 10:01; Start 02/18/19 at 09:15; Stop 02/18/19 at 09:44; Status DC Vancomycin HCl (Vanco Per Pharmacy) 1 each 1X ONCE MC ; Start 02/18/19 at 09:15; Stop 02/18/19 at 09:17; Status DC Morphine Sulfate (Morphine Sulfate) 4 mg PRN Q15MIN PRN IV/SQ PAIN GREATER THAN 3/10; Start 02/18/19 at 09:15; Stop 02/19/19 at 09:14; Status DC Vancomycin HCl 2 gm/Sodium Chloride 500 ml @ 250 mls/hr 1X ONCE IV Last administered on 02/18/19at 12:09; Start 02/18/19 at 10:00; Stop 02/18/19 at 11:59; Status DC Morphine Sulfate (Morphine Sulfate) 2 mg PRN Q3HRS PRN IV PAIN Last administered on 02/18/19at 21:19; Start 02/18/19 at 13:15 Piperacillin Sod/ Tazobactam Sod 4.5 gm/Sodium Chloride 100 ml @ 200 mls/hr Q6HRS IV ; Start 02/19/19 at 12:00 Vancomycin HCl (Vanco Per Pharmacy) 1 each PRN DAILY PRN MC SEE COMMENTS Last administered on 02/19/19at 07:43; Start 02/19/19 at 05:45 Piperacillin Sod/ Tazobactam Sod 4.5 gm/Sodium Chloride 100 ml @ 200 mls/hr 1X ONCE IV Last administered on 02/19/19at 06:22; Start 02/19/19 at 06:15; Stop 02/19/19 at 06:44; Status DC Vancomycin HCl 1.75 gm/Sodium Chloride 500 ml @ 250 mls/hr Q18H IV Last administered on 02/19/19at 08:32; Start 02/19/19 at 08:00; Stop 02/19/19 at 08:52; Status DC Vancomycin HCl (Vancomycin Trough Level) 1 each 1X ONCE MC ; Start 02/20/19 at 19:30; Stop 02/20/19 at 19:31 Oxycodone/ Acetaminophen (Percocet 5/325) 1 tab PRN Q4HRS PRN PO MODERATE TO SEVERE PAIN; Start 02/19/19 at 09:00 Sodium Chloride 1,000 ml @ 100 mls/hr Q10H IV Last administered on 02/19/19at 10:24; Start 02/19/19 at 09:00 Amiodarone HCl (Cordarone) 200 mg DAILY PO Last administered on 02/19/19at 10:24; Start 02/19/19 at 10:00 Apixaban (Eliquis) 5 mg BID PO Last administered on 02/19/19at 10:24; Start at 10:00 Atorvastatin Calcium (Lipitor) 40 mg QHS PO ; Start 02/19/19 at 21:00 Acetaminophen/ Hydrocodone Bitart (Lortab 7.5/325) 2 tab PRN Q6HRS PRN PO SEVERE PAIN; Start 02/19/19 at 09:00 Lactobacillus Rhamnosus (Culturelle) 1 cap BID PO Last administered on 02/19/19at 10:24; Start 02/19/19 at 10:00 Multivitamins (Thera M Plus) 1 tab DAILY PO Last administered on 02/19/19at 10:24; Start 02/19/19 at 10:00 Diltiazem HCl (Cardizem 24hr Cd) 120 mg DAILY PO Last administered on 02/19/19at 10:24; Start 02/19/19 at 10:00 Active Scripts Active Thera-M Tablet (Multivits,Ca,Minerals/Iron/Fa) 1 Each Tablet 1 Tab PO DAILY 30 Days Culturelle (Lactobacillus Rhamnosus Gg) 1 Each Cap.sprink 1 Cap PO BID 14 Days Hydrocodone-Apap 7.5-325 (Hydrocodone Bit/Acetaminophen) 1 Tab Tablet 2 Tab PO PRN Q6HRS PRN 14 Days Diltiazem 24HR Cd (Diltiazem Hcl) 120 Mg Cap.er.24h 120 Mg PO DAILY 30 Days Amiodarone Hcl 200 Mg Tablet 200 Mg PO DAILY 30 Days Amox Tr-K Clv 875-125 Mg Tab (Amoxicillin/Potassium Clav) 1 Each Tablet 1 Tab PO BID 7 Days Reported Lipitor (Atorvastatin Calcium) 40 Mg Tablet 1 Tab PO QHS Eliquis (Apixaban) 5 Mg Tablet 5 Mg PO BID Vitals/I & O Vital Sign - Last 24 Hours 02/18/19 02/18/19 02/18/19 02/18/19 15:00 19:00 20:00 21:19 Temp 97.8 97.6 97.8 97.6 Pulse 93 109 Resp 18 18 B/P (MAP) 108/64 (79) 129/76 (93) Pulse Ox 93 97 O2 Delivery Room Air Room Air Room Air Room Air 02/18/19 02/19/19 02/19/19 02/19/19 23:00 00:44 03:00 07:15 Temp 98.0 97.5 97.6 98.0 97.5 97.6 Pulse 103 108 97 Resp 20 B/P (MAP) 129/80 (96) 128/71 (90) 127/64 (85) Pulse Ox 96 93 95 O2 Delivery Room Air Room Air Room Air Room Air 02/19/19 02/19/19 02/19/19 02/19/19 07:59 10:24 10:24 10:47 Temp 98.0 98.0 Pulse 97 97 112 Resp 18 B/P (MAP) 127/64 127/64 118/67 (84) Pulse Ox 98 O2 Delivery Room Air Room Air Intake and Output 02/18/19 02/18/19 02/19/19 15:00 23:00 07:00 Intake Total 100 ml 900 ml 200 ml Output Total 500 ml 800 ml Balance 100 ml 400 ml -600 ml KODY EASON MD Feb 19, 2019 11:58
[2019-02-19] MEDS ORDERED: MINERAL OIL/PETROLATUM TOPICAL CREAM 113GM JAR. TP PRN ×2 (12:00→15:00)
--- NOTE | 2019-02-19 12:16 | NUR ---
SS following for discharge planning. SS reviewed pt chart. Pt is from home and is currently on room air. Pt declining need for PT/OT at this time. SS will continue to follow for discharge planning.
[2019-02-19] MEDS: PIPERACILLIN/TAZOBACTAM 4.5 GM in IV NORMAL SALINE 100ML 100 ML IV SCH ×3 (12:40→23:46)
[2019-02-19] MEDS: HYDROcodone/APAP 7.5/325MG 1 TAB TABLET PO PRN (12:42)
[2019-02-19 14:03] LABS: BILIRUBIN,URINE NEGATIVE (NEG); CLARITY,URINE CLEAR; COLOR,URINE YELLOW; NITRITE,URINE NEGATIVE (NEG); PROTEIN,URINE NEGATIVE (NEG-TRACE)
--- NOTE | 2019-02-19 14:05 | RAD ---
EXAM: Renal sonogram. HISTORY: Renal failure. TECHNIQUE: Sonographic imaging of the kidneys and bladder was performed. COMPARISON: None. FINDINGS: The right kidney measures 13.7 cm [id number]. The left kidney measures 13.5 cm [id number]. No solid or cystic renal lesion is seen. There is no hydronephrosis. The urinary bladder is unremarkable. IMPRESSION: Unremarkable renal sonogram. Electronically signed by: Tameka Chirinos MD (02/19/2019 2:02 PM) [place] [id number]
[2019-02-19 14:21] LABS: SQUAMOUS EPITHELIAL CELL,UR FEW /LPF
[2019-02-19 14:22] LABS: BACTERIA,URINE 0 /HPF (0-FEW)
--- NOTE | 2019-02-19 15:01 | NUR ---
Wound care: patient seen per wound care consult. There are no open wounds at this time. Patient has excessively dry skin to the bilateral lower extremities. Recommendations for Hydrocerin moisturizer to be applied BID. No other areas noted at this time. Spoke with RN regarding POC. Wound care will follow up with patient next week to reassess if still inpatient. Bed lowered and call light in reach.
[2019-02-19 15:02] VITALS: BP 120/58
[2019-02-19 19:00] VITALS: BP 122/59
[2019-02-19] MEDS: MINERAL OIL/PETROLATUM TOPICAL CREAM 113GM JAR. TP SCH (20:49)
[2019-02-19] MEDS: ATORVASTATIN CALCIUM 40 MG TABLET. PO SCH (20:49)
[2019-02-19] MEDS: oxyCODONE/APAP 5/325 1 TAB TABLET PO PRN (20:49)
[2019-02-19 23:00] VITALS: BP 127/79
[2019-02-20 03:00] VITALS: BP 135/67
[2019-02-20] MEDS: PIPERACILLIN/TAZOBACTAM 4.5 GM in IV NORMAL SALINE 100ML 100 ML IV SCH ×3 (05:49→18:16)
[2019-02-20] MEDS: IV NORMAL SALINE 1000ML BAG 1,000 ML IV SCH ×2 (05:49→15:07)
[2019-02-20] MEDS: oxyCODONE/APAP 5/325 1 TAB TABLET PO PRN (05:51)
[2019-02-20 07:15] VITALS: BP 130/70
[2019-02-20 07:16] LABS: CALCIUM 8.6 mg/dL (8.5-10.1); CREATININE 1.4 mg/dL (0.7-1.3); GFR 50.2; POTASSIUM 4.3 mmol/L (3.5-5.1)
[2019-02-20] MEDS: APIXABAN 5 MG TABLET. PO SCH ×2 (08:43→21:39)
[2019-02-20] MEDS: LACTOBACILLUS RHAMNOSUS GG 1 CAPSULE. PO SCH ×2 (08:43→21:39)
[2019-02-20] MEDS: MINERAL OIL/PETROLATUM TOPICAL CREAM 113GM JAR. TP SCH ×2 (08:43→21:40)
[2019-02-20] MEDS: AMIODARONE HCL 200 MG TABLET. PO SCH (08:43)
[2019-02-20] MEDS: MULTIVITAMIN with MINERAL TABLET. PO SCH (08:43)
[2019-02-20 11:14] VITALS: BP 106/73
--- NOTE | 2019-02-20 12:04 | PDOC ---
Renal-Progress Notes Subjective Notes Notes NO NEW COMPLAINTS History of Present Illness Hx of present illness STABLE Vitals Vitals Vital Signs Date Time Temp Pulse Resp B/P (MAP) Pulse Ox O2 Delivery O2 Flow Rate FiO2 02/20/19 11:14 98.6 105 20 106/73 (84) 98 Room Air 98.6 Weight Weight [ ] I.O. Intake and Output Intake and Output 02/20/19 07:00 Intake Total 1080 ml Output Total 1525 ml Balance -445 ml Intake Oral 1080 ml Output Urine Total 1525 ml Labs Labs Laboratory Tests Test 02/19/19 13:35 02/20/19 06:05 Urine Collection Type Unknown Urine Color Yellow Urine Clarity Clear Urine pH 5.0 Urine Specific [place] 1.015 Urine Protein Negative mg/dL (NEG-TRACE) Urine Glucose (UA) Negative mg/dL (NEG) Urine Ketones (Stick) Negative mg/dL (NEG) Urine Blood Negative (NEG) Urine Nitrite Negative (NEG) Urine Bilirubin Negative (NEG) Urine Urobilinogen Dipstick 1.0 mg/dL (0.2 mg/dL) Urine Leukocyte Esterase Negative (NEG) Urine RBC 3-5 /HPF (0-2) Urine WBC 1-4 /HPF (0-4) Urine Squamous Epithelial Cells Few /LPF Urine Bacteria 0 /HPF (0-FEW) Urine Mucus Slight /LPF Sodium Level 143 mmol/L (136-145) Potassium Level 4.3 mmol/L (3.5-5.1) Chloride Level 109 mmol/L (98-107) Carbon Dioxide Level 30 mmol/L (21-32) Anion Gap 4 (6-14) Blood Urea Nitrogen 20 mg/dL (8-26) Creatinine 1.4 mg/dL (0.7-1.3) Estimated GFR (Cockcroft-Gault) 50.2 Glucose Level 102 mg/dL (70-99) Calcium Level 8.6 mg/dL (8.5-10.1) Micro Micro Microbiology 02/18/19 Blood Culture - Preliminary, Resulted NO GROWTH AFTER 1 DAY Review of Systems Constitutional: yes: alert, oriented Ears/Nose/Throat: Yes: no symptom reported Eyes: Yes: no symptom reported Pulmonary: Yes no symptom reported Cardiovascular: Yes no symptom reported Gastrointestional: Yes: no symptom reported Genitourinary: Yes: no symptom reported Musculoskeletal: Yes: no symptom reported Skin: Yes no symptom reported Psychiatric/Neurological: Yes: no symptom reported Endocrine: Yes: no symptom reported Physical Exam General Appearance: no apparent distress Skin: warm Respiratory: bilateral CTA Heart: S1S2 Abdomen: soft, bowel sounds present Extremities: pulses present Neurology: alert Assessment Assessment IMP CKD STAGE 3-STABLE AFIB LE CELLULITIS GLU INTOLERANCE - SUSPECT HE HAS DM PLAN RENAL SONOGRAM NEG UA WITH MICRO WNL CHECK HGB [id number] WILL FOLLOW BEATRICE PENA MD Feb 20, 2019 12:04
--- NOTE | 2019-02-20 12:32 | PDOC ---
Infectious Disease Note Vital Sign Vital Signs Vital Signs Date Time Temp Pulse Resp B/P (MAP) Pulse Ox O2 Delivery O2 Flow Rate FiO2 02/20/19 11:14 98.6 105 20 106/73 (84) 98 Room Air 98.6 Labs Lab Laboratory Tests Test 02/19/19 13:35 02/20/19 06:05 Urine Collection Type Unknown Urine Color Yellow Urine Clarity Clear Urine pH 5.0 Urine Specific [place] 1.015 Urine Protein Negative mg/dL (NEG-TRACE) Urine Glucose (UA) Negative mg/dL (NEG) Urine Ketones (Stick) Negative mg/dL (NEG) Urine Blood Negative (NEG) Urine Nitrite Negative (NEG) Urine Bilirubin Negative (NEG) Urine Urobilinogen Dipstick 1.0 mg/dL (0.2 mg/dL) Urine Leukocyte Esterase Negative (NEG) Urine RBC 3-5 /HPF (0-2) Urine WBC 1-4 /HPF (0-4) Urine Squamous Epithelial Cells Few /LPF Urine Bacteria 0 /HPF (0-FEW) Urine Mucus Slight /LPF Sodium Level 143 mmol/L (136-145) Potassium Level 4.3 mmol/L (3.5-5.1) Chloride Level 109 mmol/L (98-107) Carbon Dioxide Level 30 mmol/L (21-32) Anion Gap 4 (6-14) Blood Urea Nitrogen 20 mg/dL (8-26) Creatinine 1.4 mg/dL (0.7-1.3) Estimated GFR (Cockcroft-Gault) 50.2 Glucose Level 102 mg/dL (70-99) Calcium Level 8.6 mg/dL (8.5-10.1) Micro Microbiology 02/18/19 Blood Culture - Preliminary, Resulted NO GROWTH AFTER 1 DAY Objective Assessment pt seen, consult dictated Plan Plan of Care / JOSE XIONG MD Feb 20, 2019 12:32
--- NOTE | 2019-02-20 12:37 | PDOC ---
PROGRESS NOTES Chief Complaint Chief Complaint bilateral LE cellulitis rt > left HX OM, s.p amputation - not needing IV abx in past Obesity BMI 41 Dry skin A fib on eliquis BPH sxs Urinary retention HTN -s table HYUN, hx CEA, hernia repair, bilateral knee ssx from OA hx kidneys tones History of Present Illness History of Present Illness NO change, ID has yet to see Wound care did see, legs more moistened today EARLIER ENTRY: legs are very dry, scaly, NON dm but maybe has some element of neuropathy? THough he claims sensation intact HE complains more of BPH sxs CReat 1,5 - colleague consulted renal - on NS 100cc.hr, creat 1,4 today PLAN: eucerin lotion wound care, ID IVF NS - dc vanc bec of kidney fcn Renal was consulted re check BMP tmr NEeds to lose weight PT./OT Bladder scan protocol, straight cath > 300cc ff up PSA Vitals Vitals Vital Signs Date Time Temp Pulse Resp B/P (MAP) Pulse Ox O2 Delivery O2 Flow Rate FiO2 02/20/19 11:14 98.6 105 20 106/73 (84) 98 Room Air 98.6 Physical Exam General: Alert, Oriented X3, Cooperative, No acute distress Heart: Other (IRREGULAR) Lungs: Clear Abdomen: Normal bowel sounds, Soft Extremities: No cyanosis Skin: No breakdown, Other (LE ERYTHEMA AND DRY SKIN ) Labs LABS Laboratory Tests Test 02/19/19 13:35 02/20/19 06:05 Urine Collection Type Unknown Urine Color Yellow Urine Clarity Clear Urine pH 5.0 Urine Specific [place] 1.015 Urine Protein Negative mg/dL (NEG-TRACE) Urine Glucose (UA) Negative mg/dL (NEG) Urine Ketones (Stick) Negative mg/dL (NEG) Urine Blood Negative (NEG) Urine Nitrite Negative (NEG) Urine Bilirubin Negative (NEG) Urine Urobilinogen Dipstick 1.0 mg/dL (0.2 mg/dL) Urine Leukocyte Esterase Negative (NEG) Urine RBC 3-5 /HPF (0-2) Urine WBC 1-4 /HPF (0-4) Urine Squamous Epithelial Cells Few /LPF Urine Bacteria 0 /HPF (0-FEW) Urine Mucus Slight /LPF Sodium Level 143 mmol/L (136-145) Potassium Level 4.3 mmol/L (3.5-5.1) Chloride Level 109 mmol/L (98-107) Carbon Dioxide Level 30 mmol/L (21-32) Anion Gap 4 (6-14) Blood Urea Nitrogen 20 mg/dL (8-26) Creatinine 1.4 mg/dL (0.7-1.3) Estimated GFR (Cockcroft-Gault) 50.2 Glucose Level 102 mg/dL (70-99) Calcium Level 8.6 mg/dL (8.5-10.1) Review of Systems Review of Systems A 14 point ROS was completed with the following noted as positive: Other systems reviewed and negative. \CONSTITUTIONAL: No fever or chills EYES: No recent changes SKIN: No rash or itching CARDIOVASCULAR: No chest pain, syncope, palpitations, or edema RESPIRATORY: No SOB or cough GASTROINTESTINAL: No nausea, vomiting or abdominal pain NEUROLOGICAL: No headaches or weakness ENDOCRINE: No cold or heat intolerance GENITOURINARY: No urgency or frequency of urination MUSCULOSKELETAL: No back pain or joint pain LYMPHATICS: No enlarged lymph nodes PSYCHIATRIC: No anxiety or depression Assessment and Plan Assessmemt and Plan Problems Medical Problems: (1) HYUN (acute kidney injury) Status: Acute (2) Cellulitis of both lower extremities Status: Acute (3) Chronic renal insufficiency Status: Chronic Comment Review of Relevant I have reviewed the following items ashlyn (where applicable) has been applied. Labs Laboratory Tests Test 02/18/19 13:00 02/19/19 09:42 02/19/19 13:35 02/20/19 06:05 Lactic Acid Level 1.4 mmol/L (0.4-2.0) Erythrocyte Sedimentation Rate 20 (0-15) Prostate Specific Antigen 1.88 ng/mL (0.00-4.00) Urine Collection Type Unknown Urine Color Yellow Urine Clarity Clear Urine pH 5.0 Urine Specific [place] 1.015 Urine Protein Negative mg/dL (NEG-TRACE) Urine Glucose (UA) Negative mg/dL (NEG) Urine Ketones (Stick) Negative mg/dL (NEG) Urine Blood Negative (NEG) Urine Nitrite Negative (NEG) Urine Bilirubin Negative (NEG) Urine Urobilinogen Dipstick 1.0 mg/dL (0.2 mg/dL) Urine Leukocyte Esterase Negative (NEG) Urine RBC 3-5 /HPF (0-2) Urine WBC 1-4 /HPF (0-4) Urine Squamous Epithelial Cells Few /LPF Urine Bacteria 0 /HPF (0-FEW) Urine Mucus Slight /LPF Sodium Level 143 mmol/L (136-145) Potassium Level 4.3 mmol/L (3.5-5.1) Chloride Level 109 mmol/L (98-107) Carbon Dioxide Level 30 mmol/L (21-32) Anion Gap 4 (6-14) Blood Urea Nitrogen 20 mg/dL (8-26) Creatinine 1.4 mg/dL (0.7-1.3) Estimated GFR (Cockcroft-Gault) 50.2 Glucose Level 102 mg/dL (70-99) Calcium Level 8.6 mg/dL (8.5-10.1) Laboratory Tests Test 02/19/19 13:35 02/20/19 06:05 Urine Collection Type Unknown Urine Color Yellow Urine Clarity Clear Urine pH 5.0 Urine Specific [place] 1.015 Urine Protein Negative mg/dL (NEG-TRACE) Urine Glucose (UA) Negative mg/dL (NEG) Urine Ketones (Stick) Negative mg/dL (NEG) Urine Blood Negative (NEG) Urine Nitrite Negative (NEG) Urine Bilirubin Negative (NEG) Urine Urobilinogen Dipstick 1.0 mg/dL (0.2 mg/dL) Urine Leukocyte Esterase Negative (NEG) Urine RBC 3-5 /HPF (0-2) Urine WBC 1-4 /HPF (0-4) Urine Squamous Epithelial Cells Few /LPF Urine Bacteria 0 /HPF (0-FEW) Urine Mucus Slight /LPF Sodium Level 143 mmol/L (136-145) Potassium Level 4.3 mmol/L (3.5-5.1) Chloride Level 109 mmol/L (98-107) Carbon Dioxide Level 30 mmol/L (21-32) Anion Gap 4 (6-14) Blood Urea Nitrogen 20 mg/dL (8-26) Creatinine 1.4 mg/dL (0.7-1.3) Estimated GFR (Cockcroft-Gault) 50.2 Glucose Level 102 mg/dL (70-99) Calcium Level 8.6 mg/dL (8.5-10.1) Microbiology 02/18/19 Blood Culture - Preliminary, Resulted NO GROWTH AFTER 1 DAY Medications Current Medications Piperacillin Sod/ Tazobactam Sod 4.5 gm/Sodium Chloride 100 ml @ 200 mls/hr 1X ONCE IV Last administered on 02/18/19at 10:01; Start 02/18/19 at 09:15; Stop 02/18/19 at 09:44; Status DC Vancomycin HCl (Vanco Per Pharmacy) 1 each 1X ONCE MC ; Start 02/18/19 at 09:15; Stop 02/18/19 at 09:17; Status DC Morphine Sulfate (Morphine Sulfate) 4 mg PRN Q15MIN PRN IV/SQ PAIN GREATER THAN 3/10; Start 02/18/19 at 09:15; Stop 02/19/19 at 09:14; Status DC Vancomycin HCl 2 gm/Sodium Chloride 500 ml @ 250 mls/hr 1X ONCE IV Last administered on 02/18/19at 12:09; Start 02/18/19 at 10:00; Stop 02/18/19 at 11:59; Status DC Morphine Sulfate (Morphine Sulfate) 2 mg PRN Q3HRS PRN IV PAIN Last administered on 02/18/19at 21:19; Start 02/18/19 at 13:15 Piperacillin Sod/ Tazobactam Sod 4.5 gm/Sodium Chloride 100 ml @ 200 mls/hr Q6HRS IV Last administered on 02/20/19at 11:54; Start 02/19/19 at 12:00 Vancomycin HCl (Vanco Per Pharmacy) 1 each PRN DAILY PRN MC SEE COMMENTS Last administered on 02/19/19at 07:43; Start 02/19/19 at 05:45; Stop 02/19/19 at 15:09; Status DC Piperacillin Sod/ Tazobactam Sod 4.5 gm/Sodium Chloride 100 ml @ 200 mls/hr 1X ONCE IV Last administered on 02/19/19at 06:22; Start 02/19/19 at 06:15; Stop 02/19/19 at 06:44; Status DC Vancomycin HCl 1.75 gm/Sodium Chloride 500 ml @ 250 mls/hr Q18H IV Last administered on 02/19/19at 08:32; Start 02/19/19 at 08:00; Stop 02/19/19 at 08:52; Status DC Vancomycin HCl (Vancomycin Trough Level) 1 each 1X ONCE MC ; Start 02/20/19 at 19:30; Stop 02/19/19 at 15:09; Status DC Oxycodone/ Acetaminophen (Percocet 5/325) 1 tab PRN Q4HRS PRN PO MODERATE TO SEVERE PAIN Last administered on 02/20/19 05:51; Start 02/19/19 at 09:00 Sodium Chloride 1,000 ml @ 100 mls/hr Q10H IV Last administered on 02/20/19 05:49; Start 02/19/19 at 09:00 Amiodarone HCl (Cordarone) 200 mg DAILY PO Last administered on 02/20/19 08:43; Start 02/19/19 at 10:00 Apixaban (Eliquis) 5 mg BID PO Last administered on 02/20/19 08:43; Start 02/19/19 at 10:00 Atorvastatin Calcium (Lipitor) 40 mg QHS PO Last administered on 02/19/19 20:49; Start 02/19/19 at 21:00 Acetaminophen/ Hydrocodone Bitart (Lortab 7.5/325) 2 tab PRN Q6HRS PRN PO SEVERE PAIN Last administered on 02/19/19 12:42; Start 02/19/19 at 09:00 Lactobacillus Rhamnosus (Culturelle) 1 cap BID PO Last administered on 02/20/19 08:43; Start 02/19/19 at 10:00 Multivitamins (Thera M Plus) 1 tab DAILY PO Last administered on 02/20/19 08:43; Start 02/19/19 at 10:00 Diltiazem HCl (Cardizem 24hr Cd) 120 mg DAILY PO Last administered on 02/20/19 08:43; Start 02/19/19 at 10:00 Multi-Ingred Cream/Lotion/Oil/ Oint (Hydrocerin Cream) 1 va PRN Q1HR PRN TP DRY SKIN / SCALING; Start 02/19/19 at 12:00; Stop 02/19/19 at 15:00; Status DC Multi-Ingred Cream/Lotion/Oil/ Oint (Hydrocerin Cream) 1 va PRN BID PRN TP DRY SKIN / SCALING; Start 02/19/19 at 15:00; Stop 02/19/19 at 19:18; Status DC Multi-Ingred Cream/Lotion/Oil/ Oint (Hydrocerin Cream) 1 va BID TP Last administered on 02/20/19 08:43; Start 02/19/19 at 21:00 Active Scripts Active Thera-M Tablet (Multivits,Ca,Minerals/Iron/Fa) 1 Each Tablet 1 Tab PO DAILY 30 Days Culturelle (Lactobacillus Rhamnosus Gg) 1 Each Cap.sprink 1 Cap PO BID 14 Days Hydrocodone-Apap 7.5-325 (Hydrocodone Bit/Acetaminophen) 1 Tab Tablet 2 Tab PO PRN Q6HRS PRN 14 Days Diltiazem 24HR Cd (Diltiazem Hcl) 120 Mg Cap.er.24h 120 Mg PO DAILY 30 Days Amiodarone Hcl 200 Mg Tablet 200 Mg PO DAILY 30 Days Amox Tr-K Clv 875-125 Mg Tab (Amoxicillin/Potassium Clav) 1 Each Tablet 1 Tab PO BID 7 Days Reported Lipitor (Atorvastatin Calcium) 40 Mg Tablet 1 Tab PO QHS Eliquis (Apixaban) 5 Mg Tablet 5 Mg PO BID Vitals/I & O Vital Sign - Last 24 Hours 02/19/19 02/19/19 02/19/19 02/19/19 12:42 13:42 15:02 19:00 Temp 98.2 98.2 98.2 98.2 Pulse 97 111 Resp 2 18 B/P (MAP) 120/58 (78) 122/59 (80) Pulse Ox 95 96 O2 Delivery Room Air Room Air Room Air Room Air 02/19/19 02/19/19 02/19/19 02/19/19 20:00 20:49 21:49 23:00 Temp 98.7 98.7 Pulse 107 Resp 18 20 18 B/P (MAP) 127/79 (95) Pulse Ox 95 O2 Delivery Room Air Room Air Room Air 02/20/19 02/20/19 02/20/19 02/20/19 03:00 05:51 06:51 07:15 Temp 98.2 98.5 98.2 98.5 Pulse 105 105 Resp 18 18 20 B/P (MAP) 135/67 (89) 130/70 (90) Pulse Ox 95 95 O2 Delivery Room Air Room Air Room Air Room Air 02/20/19 02/20/19 02/20/19 02/20/19 08:00 08:43 08:43 11:14 Temp 98.6 98.6 Pulse 105 105 105 Resp 20 B/P (MAP) 130/70 130/70 106/73 (84) Pulse Ox 98 O2 Delivery Room Air Room Air Intake and Output 9/02/19/19 02/20/19 15:00 23:00 07:00 Intake Total 600 ml 480 ml 0 ml Output Total 350 ml 775 ml 400 ml Balance 250 ml -295 ml -400 ml KODY EASON MD Feb 20, 2019 12:37
[2019-02-20] MEDS: FLUCONAZOLE 100 MG TABLET. PO SCH (15:05)
[2019-02-20] MEDS: HYDROcodone/APAP 7.5/325MG 1 TAB TABLET PO PRN ×2 (15:06→21:39)
[2019-02-20 15:11] VITALS: BP 132/80
[2019-02-20 19:00] VITALS: BP 133/62
--- NOTE | 2019-02-20 20:00 | CONS ---
DATE OF CONSULTATION: 02/20/2019 REQUESTING PHYSICIAN: Dr. Castañeda. REASON FOR CONSULTATION: Bilateral lower extremity cellulitis. HISTORY OF PRESENT ILLNESS: This is a 68-year-old gentleman who has multiple medical problems, who came in with lower extremity redness, swelling, and pain. The patient had a crack on the bottom of the right foot that happened few days before. The patient was also noted to have acute kidney injury. The patient was given vancomycin and Zosyn and consult has been requested. The patient denies any nausea, vomiting, diarrhea, chest pain, shortness of breath, abdominal pain, urinary symptoms or bowel symptoms. Denies any fever. PAST MEDICAL HISTORY: Positive for hypertension, atrial fibrillation, CVA, hyperlipidemia, bilateral knee surgeries, carotid surgery and rotator cuff surgery done. SOCIAL HISTORY: Negative for smoking cigarette or alcohol use. Does use marijuana off and on. ALLERGIES: LISTED ALLERGIC TO HYDROXYZINE. CURRENT MEDICATIONS: Reviewed. REVIEW OF SYSTEMS: As per HPI, all other systems reviewed are negative. PHYSICAL EXAMINATION: GENERAL: Alert, oriented gentleman, not in distress. VITAL SIGNS: Stable, afebrile. HEENT: NAD. NECK: Supple, no JVP, no lymphadenopathy. LUNGS: Clear. HEART: S1, S2 regular. ABDOMEN: Benign. EXTREMITIES: Bilateral lower extremity venous insufficiency changes present. Does have erythema and warmth to it. There is flaky dry skin with cracks in the legs present. There is some yeast infection between the toes. NEUROLOGIC: The patient is neurologically alert, awake and appropriate. No focal neurologic deficit. LABORATORY DATA: White count is 5.8 and platelets are normal. Sed rate is 20. BUN and creatinine are 20 and 1.4, which has improved from 1.5. Urinalysis unremarkable. The blood culture is negative. IMAGING: Ultrasound was negative. IMPRESSION: 1. Bilateral lower extremity cellulitis. 2. Tinea infection between the toes. 3. Acute kidney injury. 4. Hypertension. 5. Hyperlipidemia. 6. History of atrial fibrillation. RECOMMENDATIONS: Would discontinue vancomycin, continue Zosyn, add Diflucan, supportive care and we will continue to follow. Thank you very much, Dr. Castañeda, for giving me the opportunity to participate in this patient's care. JOSE XIONG MD DR: MICHELLE/jn JOB#: [id number] / [id number]
[2019-02-20] MEDS: ATORVASTATIN CALCIUM 40 MG TABLET. PO SCH (21:39)
[2019-02-20 23:00] VITALS: BP 114/76
[2019-02-21] MEDS: PIPERACILLIN/TAZOBACTAM 4.5 GM in IV NORMAL SALINE 100ML 100 ML IV SCH ×4 (00:01→18:22)
[2019-02-21] MEDS: IV NORMAL SALINE 1000ML BAG 1,000 ML IV SCH ×2 (00:02→12:13)
[2019-02-21 02:57] VITALS: BP 142/84
[2019-02-21] MEDS: HYDROcodone/APAP 7.5/325MG 1 TAB TABLET PO PRN ×2 (05:59→18:19)
[2019-02-21 07:00] VITALS: BP 92/71
[2019-02-21 08:38] LABS: CALCIUM 8.9 mg/dL (8.5-10.1); CREATININE 1.3 mg/dL (0.7-1.3); GFR 54.7; POTASSIUM 4.3 mmol/L (3.5-5.1)
--- NOTE | 2019-02-21 08:49 | PDOC ---
Infectious Disease Note Subjective Subjective pt is feeling better, less pain ROS ROS no n/v/d/sob Vital Sign Vital Signs Vital Signs Date Time Temp Pulse Resp B/P (MAP) Pulse Ox O2 Delivery O2 Flow Rate FiO2 02/21/19 08:08 Room Air 02/21/19 07:00 97.6 52 18 92/71 (78) 92 97.6 Physical Exam PHYSICAL EXAM GENERAL: Alert, oriented gentleman, not in distress. VITAL SIGNS: Stable, afebrile. HEENT: NAD. NECK: Supple, no JVP, no lymphadenopathy. LUNGS: Clear. HEART: S1, S2 regular. ABDOMEN: Benign. EXTREMITIES: Bilateral lower extremity venous insufficiency changes present. Does have erythema and warmth to it. There is flaky dry skin with cracks in the legs present. There is some yeast infection between the toes. NEUROLOGIC: The patient is neurologically alert, awake and appropriate. No focal neurologic deficit. Labs Lab Laboratory Tests Test 02/21/19 08:00 Sodium Level 142 mmol/L (136-145) Potassium Level 4.3 mmol/L (3.5-5.1) Chloride Level 106 mmol/L (98-107) Carbon Dioxide Level 30 mmol/L (21-32) Anion Gap 6 (6-14) Blood Urea Nitrogen 16 mg/dL (8-26) Creatinine 1.3 mg/dL (0.7-1.3) Estimated GFR (Cockcroft-Gault) 54.7 Glucose Level 102 mg/dL (70-99) Calcium Level 8.9 mg/dL (8.5-10.1) Micro Microbiology 02/18/19 Blood Culture - Preliminary, Resulted NO GROWTH AFTER 1 DAY Objective Assessment 1. Bilateral lower extremity cellulitis. 2. Tinea infection between the toes. 3. Acute kidney injury. 4. Hypertension. 5. Hyperlipidemia. 6. History of atrial fibrillation. Plan Plan of Care cont antibiotics cont leg elevation JOSE XIONG MD Feb 21, 2019 08:49
[2019-02-21] MEDS: MULTIVITAMIN with MINERAL TABLET. PO SCH (09:49)
[2019-02-21] MEDS: FLUCONAZOLE 100 MG TABLET. PO SCH (09:49)
[2019-02-21] MEDS: MINERAL OIL/PETROLATUM TOPICAL CREAM 113GM JAR. TP SCH ×2 (09:49→20:58)
[2019-02-21] MEDS: APIXABAN 5 MG TABLET. PO SCH ×2 (09:49→20:55)
[2019-02-21] MEDS: LACTOBACILLUS RHAMNOSUS GG 1 CAPSULE. PO SCH ×2 (09:49→20:56)
[2019-02-21] MEDS: ANTI-COAG MONITOR BY PHARMACY. MC PRN (10:58)
[2019-02-21 11:00] VITALS: BP 134/75
--- NOTE | 2019-02-21 11:35 | PDOC ---
Renal-Progress Notes Subjective Notes Notes NO NEW COMPLAINTS History of Present Illness Hx of present illness STABLE Vitals Vitals Vital Signs Date Time Temp Pulse Resp B/P (MAP) Pulse Ox O2 Delivery O2 Flow Rate FiO2 02/21/19 11:00 98.0 46 18 134/75 (94) 92 Room Air 98.0 Weight Weight [ ] I.O. Intake and Output Intake and Output 02/21/19 07:00 Intake Total 1900 ml Output Total 2550 ml Balance -650 ml Intake Oral 1900 ml Output Urine Total 2550 ml # Voids 1 Labs Labs Laboratory Tests Test 02/21/19 08:00 Sodium Level 142 mmol/L (136-145) Potassium Level 4.3 mmol/L (3.5-5.1) Chloride Level 106 mmol/L (98-107) Carbon Dioxide Level 30 mmol/L (21-32) Anion Gap 6 (6-14) Blood Urea Nitrogen 16 mg/dL (8-26) Creatinine 1.3 mg/dL (0.7-1.3) Estimated GFR (Cockcroft-Gault) 54.7 Glucose Level 102 mg/dL (70-99) Calcium Level 8.9 mg/dL (8.5-10.1) Micro Micro Microbiology 02/18/19 Blood Culture - Preliminary, Resulted NO GROWTH AFTER 2 DAYS Review of Systems Constitutional: yes: alert, oriented Ears/Nose/Throat: Yes: no symptom reported Eyes: Yes: no symptom reported Pulmonary: Yes no symptom reported Cardiovascular: Yes no symptom reported Gastrointestional: Yes: no symptom reported Genitourinary: Yes: no symptom reported Musculoskeletal: Yes: no symptom reported Skin: Yes no symptom reported Psychiatric/Neurological: Yes: no symptom reported Endocrine: Yes: no symptom reported Physical Exam General Appearance: no apparent distress Skin: warm Respiratory: bilateral CTA Heart: S1S2 Abdomen: soft, bowel sounds present Extremities: pulses present Neurology: alert Assessment Assessment IMP CKD STAGE 3-STABLE CR AT 1.3 AFIB LE CELLULITIS PLAN ON ANTIBIOTICS RENAL SONOGRAM NEG UA WITH MICRO WNL WILL SIGN OFF PLEASE CALL IF NEEDED BEATRICE PENA MD Feb 21, 2019 11:35
[2019-02-21] MEDS: AMIODARONE HCL 200 MG TABLET. PO SCH (12:16)
--- NOTE | 2019-02-21 12:45 | PDOC ---
PROGRESS NOTES Chief Complaint Chief Complaint bilateral LE cellulitis rt > left HX OM, s.p amputation - not needing IV abx in past Obesity BMI 41 Dry skin A fib on eliquis BPH sxs Urinary retention HTN -s table HYUN, hx CEA, hernia repair, bilateral knee ssx from OA hx kidneys tones bilateral leg pains History of Present Illness History of Present Illness NO change, ID has seen CREat 1,3 on NS 100cc REnal also on board Wound care did see, legs more moistened today LEGs still painful, minimal ambulation but he refused pT/OT yesterday that I ordered bec i wanted him to ambulate more - he claims he did not need them HE is a vasculopath, hx CEA< left carotid and stroke x 2 PLAN: CHeck arterial and venous dopplers legs CUrrent IVFt o consume? - creat better 1,3 from ,4 ENcourage ambulation Keep current wound acre, iv abx etc Vitals Vitals Vital Signs Date Time Temp Pulse Resp B/P (MAP) Pulse Ox O2 Delivery O2 Flow Rate FiO2 02/21/19 12:16 105 02/21/19 11:00 98.0 18 134/75 (94) 92 Room Air 98.0 Physical Exam Physical Exam GENERAL: Alert, oriented gentleman, not in distress. VITAL SIGNS: Stable, afebrile. HEENT: NAD. NECK: Supple, no JVP, no lymphadenopathy. LUNGS: Clear. HEART: S1, S2 regular. ABDOMEN: Benign. EXTREMITIES: Bilateral lower extremity venous insufficiency changes present. Does have erythema and warmth to it. There is flaky dry skin with cracks in the legs present. There is some yeast infection between the toes. NEUROLOGIC: The patient is neurologically alert, awake and appropriate. No focal neurologic deficit. General: Alert, Oriented X3, Cooperative, No acute distress Heart: Other (IRREGULAR) Lungs: Clear Abdomen: Normal bowel sounds, Soft Extremities: No cyanosis Skin: No breakdown, Other (LE ERYTHEMA AND DRY SKIN ) Labs LABS Laboratory Tests Test 02/21/19 08:00 Sodium Level 142 mmol/L (136-145) Potassium Level 4.3 mmol/L (3.5-5.1) Chloride Level 106 mmol/L (98-107) Carbon Dioxide Level 30 mmol/L (21-32) Anion Gap 6 (6-14) Blood Urea Nitrogen 16 mg/dL (8-26) Creatinine 1.3 mg/dL (0.7-1.3) Estimated GFR (Cockcroft-Gault) 54.7 Glucose Level 102 mg/dL (70-99) Calcium Level 8.9 mg/dL (8.5-10.1) Review of Systems Review of Systems legs hurt rest of 14 pt neg Assessment and Plan Assessmemt and Plan Problems Medical Problems: (1) HYUN (acute kidney injury) Status: Acute (2) Cellulitis of both lower extremities Status: Acute (3) Chronic renal insufficiency Status: Chronic Comment Review of Relevant I have reviewed the following items ashlyn (where applicable) has been applied. Labs Laboratory Tests Test 02/19/19 13:35 02/20/19 06:05 02/21/19 08:00 Urine Collection Type Unknown Urine Color Yellow Urine Clarity Clear Urine pH 5.0 Urine Specific [place] 1.015 Urine Protein Negative mg/dL (NEG-TRACE) Urine Glucose (UA) Negative mg/dL (NEG) Urine Ketones (Stick) Negative mg/dL (NEG) Urine Blood Negative (NEG) Urine Nitrite Negative (NEG) Urine Bilirubin Negative (NEG) Urine Urobilinogen Dipstick 1.0 mg/dL (0.2 mg/dL) Urine Leukocyte Esterase Negative (NEG) Urine RBC 3-5 /HPF (0-2) Urine WBC 1-4 /HPF (0-4) Urine Squamous Epithelial Cells Few /LPF Urine Bacteria 0 /HPF (0-FEW) Urine Mucus Slight /LPF Sodium Level 143 mmol/L (136-145) 142 mmol/L (136-145) Potassium Level 4.3 mmol/L (3.5-5.1) 4.3 mmol/L (3.5-5.1) Chloride Level 109 mmol/L (98-107) 106 mmol/L (98-107) Carbon Dioxide Level 30 mmol/L (21-32) 30 mmol/L (21-32) Anion Gap 4 (6-14) 6 (6-14) Blood Urea Nitrogen 20 mg/dL (8-26) 16 mg/dL (8-26) Creatinine 1.4 mg/dL (0.7-1.3) 1.3 mg/dL (0.7-1.3) Estimated GFR (Cockcroft-Gault) 50.2 54.7 Glucose Level 102 mg/dL (70-99) 102 mg/dL (70-99) Hemoglobin A1c 6.0 % (4.8-5.6) Calcium Level 8.6 mg/dL (8.5-10.1) 8.9 mg/dL (8.5-10.1) Laboratory Tests Test 02/21/19 08:00 Sodium Level 142 mmol/L (136-145) Potassium Level 4.3 mmol/L (3.5-5.1) Chloride Level 106 mmol/L (98-107) Carbon Dioxide Level 30 mmol/L (21-32) Anion Gap 6 (6-14) Blood Urea Nitrogen 16 mg/dL (8-26) Creatinine 1.3 mg/dL (0.7-1.3) Estimated GFR (Cockcroft-Gault) 54.7 Glucose Level 102 mg/dL (70-99) Calcium Level 8.9 mg/dL (8.5-10.1) Microbiology 02/18/19 Blood Culture - Preliminary, Resulted NO GROWTH AFTER 2 DAYS Medications Current Medications Piperacillin Sod/ Tazobactam Sod 4.5 gm/Sodium Chloride 100 ml @ 200 mls/hr 1X ONCE IV Last administered on 02/18/19at 10:01; Start 02/18/19 at 09:15; Stop 02/18/19 at 09:44; Status DC Vancomycin HCl (Vanco Per Pharmacy) 1 each 1X ONCE MC ; Start 02/18/19 at 09:15; Stop 02/18/19 at 09:17; Status DC Morphine Sulfate (Morphine Sulfate) 4 mg PRN Q15MIN PRN IV/SQ PAIN GREATER THAN 3/10; Start 02/18/19 at 09:15; Stop 02/19/19 at 09:14; Status DC Vancomycin HCl 2 gm/Sodium Chloride 500 ml @ 250 mls/hr 1X ONCE IV Last administered on 02/18/19at 12:09; Start 02/18/19 at 10:00; Stop 02/18/19 at 11:59; Status DC Morphine Sulfate (Morphine Sulfate) 2 mg PRN Q3HRS PRN IV PAIN Last administered on 02/18/19at 21:19; Start 02/18/19 at 13:15 Piperacillin Sod/ Tazobactam Sod 4.5 gm/Sodium Chloride 100 ml @ 200 mls/hr Q6HRS IV Last administered on 9/27/19at 12:13; Start 02/19/19 at 12:00 Vancomycin HCl (Vanco Per Pharmacy) 1 each PRN DAILY PRN MC SEE COMMENTS Last administered on 02/19/19at 07:43; Start 02/19/19 at 05:45; Stop 02/19/19 at 1 5:09; Status DC Piperacillin Sod/ Tazobactam Sod 4.5 gm/Sodium Chloride 100 ml @ 200 mls/hr 1X ONCE IV Last administered on 02/19/19at 06:22; Start 02/19/19 at 06:15; Stop 02/19/19 at 06:44; Status DC Vancomycin HCl 1.75 gm/Sodium Chloride 500 ml @ 250 mls/hr Q18H IV Last administered on 02/19/19at 08:32; Start 02/19/19 at 08:00; Stop 02/19/19 at 08:52; Status DC Vancomycin HCl (Vancomycin Trough Level) 1 each 1X ONCE MC ; Start 02/20/19 at 19:30; Stop 02/19/19 at 15:09; Status DC Oxycodone/ Acetaminophen (Percocet 5/325) 1 tab PRN Q4HRS PRN PO MODERATE TO SEVERE PAIN Last administered on 02/20/19 05:51; Start 02/19/19 at 09:00 Sodium Chloride 1,000 ml @ 100 mls/hr Q10H IV Last administered on 02/21/19 12:13; Start 02/19/19 at 09:00 Amiodarone HCl (Cordarone) 200 mg DAILY PO Last administered on 02/21/19 12:16; Start 02/19/19 at 10:00 Apixaban (Eliquis) 5 mg BID PO Last administered on 02/21/19 09:49; Start 02/19/19 at 10:00 Atorvastatin Calcium (Lipitor) 40 mg QHS PO Last administered on 02/20/19 21:39; Start 02/19/19 at 21:00 Acetaminophen/ Hydrocodone Bitart (Lortab 7.5/325) 2 tab PRN Q6HRS PRN PO SEVERE PAIN Last administered on 02/21/19 05:59; Start 02/19/19 at 09:00 Lactobacillus Rhamnosus (Culturelle) 1 cap BID PO Last administered on 02/21/19 09:49; Start 02/19/19 at 10:00 Multivitamins (Thera M Plus) 1 tab DAILY PO Last administered on 02/21/19 09:49; Start 02/19/19 at 10:00 Diltiazem HCl (Cardizem 24hr Cd) 120 mg DAILY PO Last administered on 02/21/19 12:15; Start 02/19/19 at 10:00 Multi-Ingred Cream/Lotion/Oil/ Oint (Hydrocerin Cream) 1 va PRN Q1HR PRN TP DRY SKIN / SCALING; Start 02/19/19 at 12:00; Stop 02/19/19 at 15:00; Status DC Multi-Ingred Cream/Lotion/Oil/ Oint (Hydrocerin Cream) 1 va PRN BID PRN TP DRY SKIN / SCALING; Start 02/19/19 at 15:00; Stop 02/19/19 at 19:18; Status DC Multi-Ingred Cream/Lotion/Oil/ Oint (Hydrocerin Cream) 1 va BID TP Last administered on 02/21/19 09:49; Start 02/19/19 at 21:00 Fluconazole (Diflucan) 200 mg DAILY PO Last administered on 02/21/19 09:49; Start 02/20/19 at 13:00 Info (Anti-Coagulation Monitoring By Pharmacy) 1 each PRN DAILY PRN MC SEE COMMENTS Last administered on 02/21/19at 10:58; Start 02/21/19 at 11:00 Active Scripts Active Thera-M Tablet (Multivits,Ca,Minerals/Iron/Fa) 1 Each Tablet 1 Tab PO DAILY 30 Days Culturelle (Lactobacillus Rhamnosus Gg) 1 Each Cap.sprink 1 Cap PO BID 14 Days Hydrocodone-Apap 7.5-325 (Hydrocodone Bit/Acetaminophen) 1 Tab Tablet 2 Tab PO PRN Q6HRS PRN 14 Days Diltiazem 24HR Cd (Diltiazem Hcl) 120 Mg Cap.er.24h 120 Mg PO DAILY 30 Days Amiodarone Hcl 200 Mg Tablet 200 Mg PO DAILY 30 Days Amox Tr-K Clv 875-125 Mg Tab (Amoxicillin/Potassium Clav) 1 Each Tablet 1 Tab PO BID 7 Days Reported Lipitor (Atorvastatin Calcium) 40 Mg Tablet 1 Tab PO QHS Eliquis (Apixaban) 5 Mg Tablet 5 Mg PO BID Vitals/I & O Vital Sign - Last 24 Hours 02/20/19 02/20/19 02/20/19 02/20/19 15:06 15:11 16:06 19:00 Temp 99.6 97.4 99.6 97.4 Pulse 92 107 Resp 20 18 B/P (MAP) 132/80 (97) 133/62 (85) Pulse Ox 95 94 O2 Delivery Room Air Room Air Room Air Room Air 02/20/19 02/20/19 02/20/19 02/20/19 20:20 21:39 23:00 23:00 Temp 97.5 97.5 Pulse 102 Resp 16 16 18 B/P (MAP) 114/76 (89) Pulse Ox 91 O2 Delivery Room Air Room Air Room Air Room Air 02/21/19 02/21/19 02/21/19 02/21/19 02:57 05:59 07:00 07:00 Temp 97.6 97.6 97.6 97.6 Pulse 105 52 Resp 18 18 16 18 B/P (MAP) 142/84 (103) 92/71 (78) Pulse Ox 92 92 O2 Delivery Room Air Room Air Room Air Room Air 02/21/19 02/21/19 02/21/19 02/21/19 08:08 11:00 12:15 12:16 Temp 98.0 98.0 Pulse 46 105 105 Resp 18 B/P (MAP) 134/75 (94) Pulse Ox 92 O2 Delivery Room Air Room Air Intake and Output 02/20/19 02/20/19 02/21/19 15:00 23:00 07:00 Intake Total 720 ml 480 ml 700 ml Output Total 1450 ml 1100 ml Balance 720 ml -970 ml -400 ml KODY EASON MD Feb 21, 2019 12:44
--- NOTE | 2019-02-21 14:32 | RAD ---
EXAM: Bilateral lower extremity venous Doppler sonogram. HISTORY: Pain and swelling. TECHNIQUE: Donohue scale and color Doppler sonographic evaluation of the bilateral lower extremity veins with spectral waveform analysis was performed. FINDINGS: There is normal color flow, normal compressibility and there are normal spectral waveforms in the common femoral, superficial femoral, popliteal, posterior tibial and greater saphenous veins. There are prominent bilateral inguinal lymph nodes, likely physiologic or reactive in etiology. IMPRESSION: No Doppler evidence of lower extremity deep venous thrombosis. Electronically signed by: Tameka Chirinos MD (02/21/2019 2:29 PM) [place] [id number]
[2019-02-21 15:00] VITALS: BP 142/76
--- NOTE | 2019-02-21 16:17 | RAD ---
Bilateral lower extremity arterial Doppler ultrasound HISTORY: Leg pain. Minimal ambulation. TECHNIQUE: Color Doppler, grayscale and duplex analysis performed of the right and left lower extremity arterial structures, from the common femoral artery through the runoff vessels. COMPARISON: None are available All velocity measurements are in centimeters per second. Right leg: Triphasic waveforms of the right femoropopliteal arteries. Biphasic waveform at the proximal posterior tibial artery. Monophasic waveforms involving the remainder of the runoff vessels. Note that the right peroneal artery waveform cannot be obtained. Elevation of the right distal posterior tibial artery at 131, as compared with 31 at the proximal posterior tibial artery could indicate a stenosis. Left leg: Combination of triphasic and biphasic waveforms in the femoropopliteal arteries. Mixture of monophasic and triphasic waveforms below the knee. Segmental elevation of the mid left superficial femoral artery velocity at 177, compared with 76 in the proximal superficial femoral artery, compatible with stenosis. Bilateral atherosclerotic plaque is identified, there also appears to be collateralization of flow. IMPRESSION: 1. Segmental velocity elevation at the mid left superficial femoral artery, suggesting a proximal stenosis. 2. Segmental elevation of the distal right posterior tibial artery, suggesting a stenosis. Electronically signed by: Curly De La Rosa MD (02/21/2019 4:14 PM) [id number]
[2019-02-21 19:00] VITALS: BP 104/61
[2019-02-21] MEDS: ATORVASTATIN CALCIUM 40 MG TABLET. PO SCH (20:55)
[2019-02-21] MEDS: POLYETHYLENE GLYCOL 3350 17 GM PACKET. PO SCH (20:55)
[2019-02-21 22:55] VITALS: BP 113/56
[2019-02-22] MEDS: PIPERACILLIN/TAZOBACTAM 4.5 GM in IV NORMAL SALINE 100ML 100 ML IV SCH ×5 (00:26→23:51)
[2019-02-22] MEDS: HYDROcodone/APAP 7.5/325MG 1 TAB TABLET PO PRN ×3 (00:26→20:55)
[2019-02-22 03:00] VITALS: BP 143/77
[2019-02-22 07:00] VITALS: BP 160/81
[2019-02-22 07:21] LABS: BASO # 0.1 x10^3/uL (0.0-0.2); BASO % 1 % (0-3); EOS # 0.3 x10^3/uL (0.0-0.7); EOS % 3 % (0-3); HEMATOCRIT 39.4 % (39.0-53.0); HEMOGLOBIN 12.9 g/dL (13.0-17.5); LYMPH # 1.3 x10^3/uL (1.0-4.8); LYMPH % 15 % (24-48); MEAN CORPUSCULAR HEMOGLOBIN 31 pg (25-35); MEAN CORPUSCULAR HGB CONC 33 g/dL (31-37); MEAN CORPUSCULAR VOLUME 94 fL (79-100); MONO % 12 % (0-9); NEUT % 69 % (31-73); PLATELET COUNT 313 x10^3/uL (140-400); RED BLOOD COUNT 4.18 x10^6/uL (4.30-5.70); WHITE BLOOD COUNT 8.7 x10^3/uL (4.0-11.0)
[2019-02-22 07:32] LABS: CALCIUM 8.8 mg/dL (8.5-10.1); CREATININE 1.4 mg/dL (0.7-1.3); GFR 50.2
[2019-02-22 07:38] LABS: POTASSIUM 4.8 mmol/L (3.5-5.1)
[2019-02-22] MEDS: FLUCONAZOLE 100 MG TABLET. PO SCH (08:16)
[2019-02-22] MEDS: MULTIVITAMIN with MINERAL TABLET. PO SCH (08:16)
[2019-02-22] MEDS: APIXABAN 5 MG TABLET. PO SCH ×2 (08:16→20:42)
[2019-02-22] MEDS: LACTOBACILLUS RHAMNOSUS GG 1 CAPSULE. PO SCH ×2 (08:16→20:42)
[2019-02-22] MEDS: MINERAL OIL/PETROLATUM TOPICAL CREAM 113GM JAR. TP SCH ×2 (08:17→20:43)
[2019-02-22] MEDS: POLYETHYLENE GLYCOL 3350 17 GM PACKET. PO SCH (08:19)
[2019-02-22] MEDS: AMIODARONE HCL 200 MG TABLET. PO SCH (08:19)
--- NOTE | 2019-02-22 09:59 | PDOC ---
PROGRESS NOTES Chief Complaint Chief Complaint bilateral LE cellulitis rt > left abN arterial Doppler suggestive of proximal stenosis Negative venous Dopplers HX OM, s.p amputation - not needing IV abx in past Obesity BMI 41 Dry skin A fib on eliquis BPH sxs Urinary retention HTN -s table HYUN, hx CEA, hernia repair, bilateral knee ssx from OA hx kidneys tones bilateral leg pains History of Present Illness History of Present Illness arterial dopplers: 1. Segmental velocity elevation at the mid left superficial femoral artery, suggesting a proximal stenosis. 2. Segmental elevation of the distal right posterior tibial artery, suggesting a stenosis. He does have pain when he walks, minimal ambulation - refused physical therapy though Venous Dopplers negative for DVT Legs look stable, on IV antibiotic per ID Wound care also following he keeps them elevated Plan: consult vasc surgery regarding that abnormal Dopplers Discussed with him his hgb` A1c is 6 Vitals Vitals Vital Signs Date Time Temp Pulse Resp B/P (MAP) Pulse Ox O2 Delivery O2 Flow Rate FiO2 02/22/19 08:19 104 160/81 02/22/19 08:00 Room Air 02/22/19 07:00 98.0 18 91 98.0 Physical Exam Physical Exam GENERAL: Alert, oriented gentleman, not in distress. VITAL SIGNS: Stable, afebrile. HEENT: NAD. NECK: Supple, no JVP, no lymphadenopathy. LUNGS: Clear. HEART: S1, S2 regular. ABDOMEN: Benign. EXTREMITIES: Bilateral lower extremity venous insufficiency changes present. Does have erythema and warmth to it. There is flaky dry skin with cracks in the legs present. There is some yeast infection between the toes. NEUROLOGIC: The patient is neurologically alert, awake and appropriate. No focal neurologic deficit. General: Alert, Oriented X3, Cooperative, No acute distress Heart: Other (IRREGULAR) Lungs: Clear Abdomen: Normal bowel sounds, Soft Extremities: No cyanosis Skin: No breakdown, Other (LE ERYTHEMA AND DRY SKIN ) Labs LABS Laboratory Tests Test 02/22/19 06:40 White Blood Count 8.7 x10^3/uL (4.0-11.0) Red Blood Count 4.18 x10^6/uL (4.30-5.70) Hemoglobin 12.9 g/dL (13.0-17.5) Hematocrit 39.4 % (39.0-53.0) Mean Corpuscular Volume 94 fL (79-100) Mean Corpuscular Hemoglobin 31 pg (25-35) Mean Corpuscular Hemoglobin Concent 33 g/dL (31-37) Red Cell Distribution Width 16.0 % (11.5-14.5) Platelet Count 313 x10^3/uL (140-400) Neutrophils (%) (Auto) 69 % (31-73) Lymphocytes (%) (Auto) 15 % (24-48) Monocytes (%) (Auto) 12 % (0-9) Eosinophils (%) (Auto) 3 % (0-3) Basophils (%) (Auto) 1 % (0-3) Neutrophils # (Auto) 6.0 x10^3/uL (1.8-7.7) Lymphocytes # (Auto) 1.3 x10^3/uL (1.0-4.8) Monocytes # (Auto) 1.0 x10^3/uL (0.0-1.1) Eosinophils # (Auto) 0.3 x10^3/uL (0.0-0.7) Basophils # (Auto) 0.1 x10^3/uL (0.0-0.2) Sodium Level 142 mmol/L (136-145) Potassium Level 4.8 mmol/L (3.5-5.1) Chloride Level 105 mmol/L (98-107) Carbon Dioxide Level 34 mmol/L (21-32) Anion Gap 3 (6-14) Blood Urea Nitrogen 18 mg/dL (8-26) Creatinine 1.4 mg/dL (0.7-1.3) Estimated GFR (Cockcroft-Gault) 50.2 Glucose Level 97 mg/dL (70-99) Calcium Level 8.8 mg/dL (8.5-10.1) Review of Systems Review of Systems claudication, the rest of ROS 14 point negative Assessment and Plan Assessmemt and Plan Problems Medical Problems: (1) HYUN (acute kidney injury) Status: Acute (2) Cellulitis of both lower extremities Status: Acute (3) Chronic renal insufficiency Status: Chronic Comment Review of Relevant I have reviewed the following items ashlyn (where applicable) has been applied. Labs Laboratory Tests Test 02/21/19 08:00 02/22/19 06:40 Sodium Level 142 mmol/L (136-145) 142 mmol/L (136-145) Potassium Level 4.3 mmol/L (3.5-5.1) 4.8 mmol/L (3.5-5.1) Chloride Level 106 mmol/L (98-107) 105 mmol/L (98-107) Carbon Dioxide Level 30 mmol/L (21-32) 34 mmol/L (21-32) Anion Gap 6 (6-14) 3 (6-14) Blood Urea Nitrogen 16 mg/dL (8-26) 18 mg/dL (8-26) Creatinine 1.3 mg/dL (0.7-1.3) 1.4 mg/dL (0.7-1.3) Estimated GFR (Cockcroft-Gault) 54.7 50.2 Glucose Level 102 mg/dL (70-99) 97 mg/dL (70-99) Calcium Level 8.9 mg/dL (8.5-10.1) 8.8 mg/dL (8.5-10.1) White Blood Count 8.7 x10^3/uL (4.0-11.0) Red Blood Count 4.18 x10^6/uL (4.30-5.70) Hemoglobin 12.9 g/dL (13.0-17.5) Hematocrit 39.4 % (39.0-53.0) Mean Corpuscular Volume 94 fL (79-100) Mean Corpuscular Hemoglobin 31 pg (25-35) Mean Corpuscular Hemoglobin Concent 33 g/dL (31-37) Red Cell Distribution Width 16.0 % (11.5-14.5) Platelet Count 313 x10^3/uL (140-400) Neutrophils (%) (Auto) 69 % (31-73) Lymphocytes (%) (Auto) 15 % (24-48) Monocytes (%) (Auto) 12 % (0-9) Eosinophils (%) (Auto) 3 % (0-3) Basophils (%) (Auto) 1 % (0-3) Neutrophils # (Auto) 6.0 x10^3/uL (1.8-7.7) Lymphocytes # (Auto) 1.3 x10^3/uL (1.0-4.8) Monocytes # (Auto) 1.0 x10^3/uL (0.0-1.1) Eosinophils # (Auto) 0.3 x10^3/uL (0.0-0.7) Basophils # (Auto) 0.1 x10^3/uL (0.0-0.2) Laboratory Tests Test 02/22/19 06:40 White Blood Count 8.7 x10^3/uL (4.0-11.0) Red Blood Count 4.18 x10^6/uL (4.30-5.70) Hemoglobin 12.9 g/dL (13.0-17.5) Hematocrit 39.4 % (39.0-53.0) Mean Corpuscular Volume 94 fL (79-100) Mean Corpuscular Hemoglobin 31 pg (25-35) Mean Corpuscular Hemoglobin Concent 33 g/dL (31-37) Red Cell Distribution Width 16.0 % (11.5-14.5) Platelet Count 313 x10^3/uL (140-400) Neutrophils (%) (Auto) 69 % (31-73) Lymphocytes (%) (Auto) 15 % (24-48) Monocytes (%) (Auto) 12 % (0-9) Eosinophils (%) (Auto) 3 % (0-3) Basophils (%) (Auto) 1 % (0-3) Neutrophils # (Auto) 6.0 x10^3/uL (1.8-7.7) Lymphocytes # (Auto) 1.3 x10^3/uL (1.0-4.8) Monocytes # (Auto) 1.0 x10^3/uL (0.0-1.1) Eosinophils # (Auto) 0.3 x10^3/uL (0.0-0.7) Basophils # (Auto) 0.1 x10^3/uL (0.0-0.2) Sodium Level 142 mmol/L (136-145) Potassium Level 4.8 mmol/L (3.5-5.1) Chloride Level 105 mmol/L (98-107) Carbon Dioxide Level 34 mmol/L (21-32) Anion Gap 3 (6-14) Blood Urea Nitrogen 18 mg/dL (8-26) Creatinine 1.4 mg/dL (0.7-1.3) Estimated GFR (Cockcroft-Gault) 50.2 Glucose Level 97 mg/dL (70-99) Calcium Level 8.8 mg/dL (8.5-10.1) Microbiology 02/18/19 Blood Culture - Preliminary, Resulted NO GROWTH AFTER 3 DAYS Medications Current Medications Piperacillin Sod/ Tazobactam Sod 4.5 gm/Sodium Chloride 100 ml @ 200 mls/hr 1X ONCE IV Last administered on 02/18/19at 10:01; Start 02/18/19 at 09:15; Stop 02/18/19 at 09:44; Status DC Vancomycin HCl (Vanco Per Pharmacy) 1 each 1X ONCE MC ; Start 02/18/19 at 09:15; Stop 02/18/19 at 09:17; Status DC Morphine Sulfate (Morphine Sulfate) 4 mg PRN Q15MIN PRN IV/SQ PAIN GREATER THAN 3/10; Start 02/18/19 at 09:15; Stop 02/19/19 at 09:14; Status DC Vancomycin HCl 2 gm/Sodium Chloride 500 ml @ 250 mls/hr 1X ONCE IV Last administered on 02/18/19at 12:09; Start 02/18/19 at 10:00; Stop 02/18/19 at 11:59; Status DC Morphine Sulfate (Morphine Sulfate) 2 mg PRN Q3HRS PRN IV PAIN Last admi nistered on 02/18/19at 21:19; Start 02/18/19 at 13:15 Piperacillin Sod/ Tazobactam Sod 4.5 gm/Sodium Chloride 100 ml @ 200 mls/hr Q6HRS IV Last administered on 02/22/19at 06:08; Start 02/19/19 at 12:00 Vancomycin HCl (Vanco Per Pharmacy) 1 each PRN DAILY PRN MC SEE COMMENTS Last administered on 02/19/19at 07:43; Start 02/19/19 at 05:45; Stop 02/19/19 at 15:09; Status DC Piperacillin Sod/ Tazobactam Sod 4.5 gm/Sodium Chloride 100 ml @ 200 mls/hr 1X ONCE IV Last administered on 02/19/19at 06:22; Start 02/19/19 at 06:15; Stop 02/19/19 at 06:44; Status DC Vancomycin HCl 1.75 gm/Sodium Chloride 500 ml @ 250 mls/hr Q18H IV Last admi nistered on 02/19/19at 08:32; Start 02/19/19 at 08:00; Stop 02/19/19 at 08:52; Status DC Vancomycin HCl (Vancomycin Trough Level) 1 each 1X ONCE MC ; Start 02/20/19 at 19:30; Stop 02/19/19 at 15:09; Status DC Oxycodone/ Acetaminophen (Percocet 5/325) 1 tab PRN Q4HRS PRN PO MODERATE PAIN Last administered on 02/20/19at 05:51; Start 02/19/19 at 09:00 Sodium Chloride 1,000 ml @ 100 mls/hr Q10H IV Last administered on 02/21/19at 12:13; Start 02/19/19 at 09:00; Stop 02/21/19 at 12:46; Status DC Amiodarone HCl (Cordarone) 200 mg DAILY PO Last administered on 02/22/19at 08:19; Start 02/19/19 at 10:00 Apixaban (Eliquis) 5 mg BID PO Last administered on 02/22/19 08:16; Start 02/19/19 at 10:00 Atorvastatin Calcium (Lipitor) 40 mg QHS PO Last administered on 02/21/19at 20:55; Start 02/19/19 at 21:00 Acetaminophen/ Hydrocodone Bitart (Lortab 7.5/325) 2 tab PRN Q6HRS PRN PO SEVERE PAIN Last administered on 02/22/19at 00:26; Start 02/19/19 at 09:00 Lactobacillus Rhamnosus (Culturelle) 1 cap BID PO Last administered on 02/22/19 08:16; Start 02/19/19 at 10:00 Multivitamins (Thera M Plus) 1 tab DAILY PO Last administered on 02/22/19at 08:16; Start 02/19/19 at 10:00 Diltiazem HCl (Cardizem 24hr Cd) 120 mg DAILY PO Last administered on 02/22/19 08:17; Start 02/19/19 at 10:00 Multi-Ingred Cream/Lotion/Oil/ Oint (Hydrocerin Cream) 1 va PRN Q1HR PRN TP DRY SKIN / SCALING; Start 02/19/19 at 12:00; Stop 02/19/19 at 15:00; Status DC Multi-Ingred Cream/Lotion/Oil/ Oint (Hydrocerin Cream) 1 va PRN BID PRN TP DRY SKIN / SCALING; Start 02/19/19 at 15:00; Stop 02/19/19 at 19:18; Status DC Multi-Ingred Cream/Lotion/Oil/ Oint (Hydrocerin Cream) 1 va BID TP Last administered on 02/22/19at 08:17; Start 02/19/19 at 21:00 Fluconazole (Diflucan) 200 mg DAILY PO Last administered on 02/22/19 08:16; Start 02/20/19 at 13:00 Info (Anti-Coagulation Monitoring By Pharmacy) 1 each PRN DAILY PRN MC SEE COMMENTS Last administered on 02/21/19at 10:58; Start 02/21/19 at 11:00 Polyethylene Glycol (miraLAX PACKET) 17 gm DAILY PO Last administered on 02/21/19at 20:55; Start 02/21/19 at 20:00 Active Scripts Active Thera-M Tablet (Multivits,Ca,Minerals/Iron/Fa) 1 Each Tablet 1 Tab PO DAILY 30 Days Culturelle (Lactobacillus Rhamnosus Gg) 1 Each Cap.sprink 1 Cap PO BID 14 Days Hydrocodone-Apap 7.5-325 (Hydrocodone Bit/Acetaminophen) 1 Tab Tablet 2 Tab PO PRN Q6HRS PRN 14 Days Diltiazem 24HR Cd (Diltiazem Hcl) 120 Mg Cap.er.24h 120 Mg PO DAILY 30 Days Amiodarone Hcl 200 Mg Tablet 200 Mg PO DAILY 30 Days Amox Tr-K Clv 875-125 Mg Tab (Amoxicillin/Potassium Clav) 1 Each Tablet 1 Tab PO BID 7 Days Reported Lipitor (Atorvastatin Calcium) 40 Mg Tablet 1 Tab PO QHS Eliquis (Apixaban) 5 Mg Tablet 5 Mg PO BID Vitals/I & O Vital Sign - Last 24 Hours 02/21/19 02/21/19 02/21/19 02/21/19 11:00 12:15 12:16 15:00 Temp 98.0 98.1 98.0 98.1 Pulse 46 105 105 105 Resp 18 18 B/P (MAP) 134/75 (94) 142/76 (98) Pulse Ox 92 93 O2 Delivery Room Air Room Air 02/21/19 02/21/19 02/21/19 02/21/19 18:19 19:00 20:15 20:15 Temp 98.3 98.3 Pulse 108 Resp 20 16 B/P (MAP) 104/61 (75) Pulse Ox 96 O2 Delivery Room Air Room Air Room Air Room Air 02/21/19 02/22/19 02/22/19 02/22/19 22:55 00:26 02:21 03:00 Temp 98.0 98.2 98.0 98.2 Pulse 104 71 Resp 20 18 18 18 B/P (MAP) 113/56 (75) 143/77 (99) Pulse Ox 94 93 O2 Delivery Room Air Room Air Room Air 02/22/19 02/22/19 02/22/19 02/22/19 07:00 08:00 08:17 08:19 Temp 98.0 98.0 Pulse 104 104 104 Resp 18 B/P (MAP) 160/81 (107) 160/81 160/81 Pulse Ox 91 O2 Delivery Room Air Intake and Output 02/21/19 02/21/19 02/22/19 15:00 23:00 07:00 Intake Total 240 ml 760 ml 120 ml Output Total 651 ml 725 ml Balance 240 ml 109 ml -605 ml KODY EASON MD Feb 22, 2019 09:59
[2019-02-22 11:00] VITALS: BP 103/65
[2019-02-22] MEDS: ANTI-COAG MONITOR BY PHARMACY. MC PRN (12:39)
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
--- NOTE | 2019-02-22 13:11 | PDOC ---
Infectious Disease Note Subjective Subjective c/o lower extremity pain with movement Feels legs are less red and swollen Denies F/C/S ROS ROS per HPI Vital Sign Vital Signs Vital Signs Date Time Temp Pulse Resp B/P (MAP) Pulse Ox O2 Delivery O2 Flow Rate FiO2 02/22/19 11:00 99.0 52 18 103/65 (78) 94 Nasal Cannula 2.0 99.0 Physical Exam PHYSICAL EXAM GENERAL: Sitting in the chair, alert, eating HEENT: Oral cavity clear NECK: Supple LUNGS: Clear. HEART: S1, S2 regular. ABDOMEN: Obese, soft, nontender EXTREMITIES: Bilateral lower extremity venous insufficiency changes present. Mild/moderate erythema, edema and warmth w/ flaky dry skin and cracks. + yeast between the toes. NEUROLOGIC: Alert, answers questions appropriately PIV Labs Lab Laboratory Tests Test 02/22/19 06:40 White Blood Count 8.7 x10^3/uL (4.0-11.0) Red Blood Count 4.18 x10^6/uL (4.30-5.70) Hemoglobin 12.9 g/dL (13.0-17.5) Hematocrit 39.4 % (39.0-53.0) Mean Corpuscular Volume 94 fL (79-100) Mean Corpuscular Hemoglobin 31 pg (25-35) Mean Corpuscular Hemoglobin Concent 33 g/dL (31-37) Red Cell Distribution Width 16.0 % (11.5-14.5) Platelet Count 313 x10^3/uL (140-400) Neutrophils (%) (Auto) 69 % (31-73) Lymphocytes (%) (Auto) 15 % (24-48) Monocytes (%) (Auto) 12 % (0-9) Eosinophils (%) (Auto) 3 % (0-3) Basophils (%) (Auto) 1 % (0-3) Neutrophils # (Auto) 6.0 x10^3/uL (1.8-7.7) Lymphocytes # (Auto) 1.3 x10^3/uL (1.0-4.8) Monocytes # (Auto) 1.0 x10^3/uL (0.0-1.1) Eosinophils # (Auto) 0.3 x10^3/uL (0.0-0.7) Basophils # (Auto) 0.1 x10^3/uL (0.0-0.2) Sodium Level 142 mmol/L (136-145) Potassium Level 4.8 mmol/L (3.5-5.1) Chloride Level 105 mmol/L (98-107) Carbon Dioxide Level 34 mmol/L (21-32) Anion Gap 3 (6-14) Blood Urea Nitrogen 18 mg/dL (8-26) Creatinine 1.4 mg/dL (0.7-1.3) Estimated GFR (Cockcroft-Gault) 50.2 Glucose Level 97 mg/dL (70-99) Calcium Level 8.8 mg/dL (8.5-10.1) MPRESSION: 1. Segmental velocity elevation at the mid left superficial femoral artery, suggesting a proximal stenosis. 2. Segmental elevation of the distal right posterior tibial artery, suggesting a stenosis. Micro Microbiology 02/18/19 Blood Culture - Preliminary, Resulted NO GROWTH AFTER 3 DAYS Objective Assessment Bilateral lower extremity cellulitis Tinea infection between the toes. Acute kidney injury. Hypertension. Hyperlipidemia. History of atrial fibrillation PAD, vascular following. No acute intervention at this time Plan Plan of Care continue Zosyn Change fluconazole to Micafungin d/t DDI w/ amiodorone Leg elevation Patient seen and examined. Chart reviewed in detail. Case discussed with MANAGER [employer]ATIONS. Agree with above plan. MARISOL ALLISON APRN Feb 22, 2019 13:11 MARTINE MAC MD Feb 22, 2019 19:35
[2019-02-22] MEDS: MICAFUNGIN 100 MG in IV DEXTROSE 5% 100ML 100 ML IV SCH (13:28)
[2019-02-22 15:00] VITALS: BP 139/115
[2019-02-22 19:00] VITALS: BP 102/60
[2019-02-22] MEDS: ATORVASTATIN CALCIUM 40 MG TABLET. PO SCH (20:43)
[2019-02-22 23:00] VITALS: BP 124/60
[2019-02-23 03:13] VITALS: BP 116/50
[2019-02-23 06:28] VITALS: BP 135/48
[2019-02-23] MEDS: PIPERACILLIN/TAZOBACTAM 4.5 GM in IV NORMAL SALINE 100ML 100 ML IV SCH ×3 (06:35→18:38)
[2019-02-23] MEDS: LACTOBACILLUS RHAMNOSUS GG 1 CAPSULE. PO SCH ×2 (07:58→22:06)
[2019-02-23] MEDS: APIXABAN 5 MG TABLET. PO SCH ×2 (07:58→22:06)
[2019-02-23] MEDS: HYDROcodone/APAP 7.5/325MG 1 TAB TABLET PO PRN (07:59)
[2019-02-23] MEDS: AMIODARONE HCL 200 MG TABLET. PO SCH (07:59)
[2019-02-23] MEDS: MULTIVITAMIN with MINERAL TABLET. PO SCH (07:59)
[2019-02-23 08:00] VITALS: BP 150/76
[2019-02-23] MEDS: POLYETHYLENE GLYCOL 3350 17 GM PACKET. PO SCH (08:00)
[2019-02-23] MEDS: MINERAL OIL/PETROLATUM TOPICAL CREAM 113GM JAR. TP SCH ×2 (08:00→22:07)
--- NOTE | 2019-02-23 10:18 | PDOC ---
Infectious Disease Note Subjective Subjective Comfortable for the moment Denies F/C/S/N/V/D ROS ROS per HPI Vital Sign Vital Signs Vital Signs Date Time Temp Pulse Resp B/P (MAP) Pulse Ox O2 Delivery O2 Flow Rate FiO2 02/23/19 08:59 Room Air 02/23/19 07:59 68 135/48 02/23/19 06:28 97.8 16 97 97.8 02/22/19 11:00 2.0 Physical Exam PHYSICAL EXAM GENERAL: Sitting in the chair, alert, NAD HEENT: Oral cavity clear NECK: Supple LUNGS: Clear. HEART: S1, S2 regular. ABDOMEN: Obese, soft, nontender EXTREMITIES: Bilateral lower extremity venous insufficiency changes present. Less erythema, edema. + flaky dry skin and cracks. + yeast between the toes. NEUROLOGIC: Alert, answers questions appropriately PIV Labs Micro Microbiology 02/18/19 Blood Culture - Preliminary, Resulted NO GROWTH AFTER 4 DAYS Objective Assessment Bilateral lower extremity cellulitis - improving Tinea infection between the toes. Acute kidney injury. Hypertension. Hyperlipidemia. History of atrial fibrillation PAD, vascular following. No acute intervention at this time Plan Plan of Care continue Zosyn Continue Micafungin d/t DDI w/ amiodorone Leg elevation Patient seen and examined. Chart reviewed in detail. Case discussed with FUR LINER. Agree with above plan. MARISOL ALLISON APRN Feb 23, 2019 10:18 MARTINE MAC MD Feb 23, 2019 20:33
[2019-02-23 11:00] VITALS: BP 145/51
--- NOTE | 2019-02-23 12:22 | PDOC ---
PROGRESS NOTES Chief Complaint Chief Complaint bilateral LE cellulitis rt > left abN arterial Doppler suggestive of proximal stenosis Negative venous Dopplers HX OM, s.p amputation - not needing IV abx in past Obesity BMI 41 Dry skin A fib on eliquis BPH sxs Urinary retention HTN -s table HYUN, hx CEA, hernia repair, bilateral knee ssx from OA hx kidneys tones bilateral leg pains History of Present Illness History of Present Illness arterial dopplers: 1. Segmental velocity elevation at the mid left superficial femoral artery, suggesting a proximal stenosis. 2. Segmental elevation of the distal right posterior tibial artery, suggesting a stenosis [facility]sc sx has seen, OP ff up IVETTE - pT aware of plan ID HAS ADDED MICAFUNGIN TO HIS ABX on SUNDAY. Pt otherwise just complains of claudication, nothing else LEGS aRE CLINICALLY IMPROVING PLAN: Hgba1b is only 6 so he is NOT DM COnt IV abx and micafungin OP ff up vasc sx for IVETTE Possible home tmer- legs getting better once on PO abx by ID BC neg so far, he is non toxic appearing Trial cilostazole?? defer to vasc Vitals Vitals Vital Signs Date Time Temp Pulse Resp B/P (MAP) Pulse Ox O2 Delivery O2 Flow Rate FiO2 02/23/19 08:59 Room Air 02/23/19 07:59 68 135/48 02/23/19 06:28 97.8 16 97 97.8 02/22/19 11:00 2.0 Physical Exam Physical Exam GENERAL: Sitting in the chair, alert, NAD HEENT: Oral cavity clear NECK: Supple LUNGS: Clear. HEART: S1, S2 regular. ABDOMEN: Obese, soft, nontender EXTREMITIES: Bilateral lower extremity venous insufficiency changes present. Less erythema, edema. + flaky dry skin and cracks. + yeast between the toes. NEUROLOGIC: Alert, answers questions appropriately PIV General: Alert, Oriented X3, Cooperative, No acute distress Heart: Regular rate, Normal S1, Normal S2 Lungs: Clear Abdomen: Soft, No tenderness, Other (morbidly obese) Extremities: No clubbing, No cyanosis, No edema, Other (intact bilateral lower extremity Doppler signals in the pedal location, palpable femoral pulses bilaterally) Skin: Other (cellulitis of both feet resolving with flaking of the superficial skin, small crack on the plantar surface of the right foot, no gangrenous changes, no ulceration) Review of Systems Review of Systems claudication, all esle is neg 14 pt Assessment and Plan Assessmemt and Plan Problems Medical Problems: (1) HYUN (acute kidney injury) Status: Acute (2) Cellulitis of both lower extremities Status: Acute (3) Chronic renal insufficiency Status: Chronic Comment Review of Relevant I have reviewed the following items ashlyn (where applicable) has been applied. Labs Laboratory Tests Test 02/22/19 06:40 White Blood Count 8.7 x10^3/uL (4.0-11.0) Red Blood Count 4.18 x10^6/uL (4.30-5.70) Hemoglobin 12.9 g/dL (13.0-17.5) Hematocrit 39.4 % (39.0-53.0) Mean Corpuscular Volume 94 fL (79-100) Mean Corpuscular Hemoglobin 31 pg (25-35) Mean Corpuscular Hemoglobin Concent 33 g/dL (31-37) Red Cell Distribution Width 16.0 % (11.5-14.5) Platelet Count 313 x10^3/uL (140-400) Neutrophils (%) (Auto) 69 % (31-73) Lymphocytes (%) (Auto) 15 % (24-48) Monocytes (%) (Auto) 12 % (0-9) Eosinophils (%) (Auto) 3 % (0-3) Basophils (%) (Auto) 1 % (0-3) Neutrophils # (Auto) 6.0 x10^3/uL (1.8-7.7) Lymphocytes # (Auto) 1.3 x10^3/uL (1.0-4.8) Monocytes # (Auto) 1.0 x10^3/uL (0.0-1.1) Eosinophils # (Auto) 0.3 x10^3/uL (0.0-0.7) Basophils # (Auto) 0.1 x10^3/uL (0.0-0.2) Sodium Level 142 mmol/L (136-145) Potassium Level 4.8 mmol/L (3.5-5.1) Chloride Level 105 mmol/L (98-107) Carbon Dioxide Level 34 mmol/L (21-32) Anion Gap 3 (6-14) Blood Urea Nitrogen 18 mg/dL (8-26) Creatinine 1.4 mg/dL (0.7-1.3) Estimated GFR (Cockcroft-Gault) 50.2 Glucose Level 97 mg/dL (70-99) Calcium Level 8.8 mg/dL (8.5-10.1) Microbiology 02/18/19 Blood Culture - Preliminary, Resulted NO GROWTH AFTER 4 DAYS Medications Current Medications Piperacillin Sod/ Tazobactam Sod 4.5 gm/Sodium Chloride 100 ml @ 200 mls/hr 1X ONCE IV Last administered on 02/18/19at 10:01; Start 02/18/19 at 09:15; Stop 02/18/19 at 09:44; Status DC Vancomycin HCl (Vanco Per Pharmacy) 1 each 1X ONCE MC ; Start 02/18/19 at 09:15; Stop 02/18/19 at 09:17; Status DC Morphine Sulfate (Morphine Sulfate) 4 mg PRN Q15MIN PRN IV/SQ PAIN GREATER THAN 3/10; Start 02/18/19 at 09:15; Stop 02/19/19 at 09:14; Status DC Vancomycin HCl 2 gm/Sodium Chloride 500 ml @ 250 mls/hr 1X ONCE IV Last administered on 02/18/19at 12:09; Start 02/18/19 at 10:00; Stop 02/18/19 at 11:59; Status DC Morphine Sulfate (Morphine Sulfate) 2 mg PRN Q3HRS PRN IV PAIN Last administered on 02/18/19at 21:19; Start 02/18/19 at 13:15 Piperacillin Sod/ Tazobactam Sod 4.5 gm/Sodium Chloride 100 ml @ 200 mls/hr Q6HRS IV Last administered on 02/23/19at 06:35; Start 02/19/19 at 12:00 Vancomycin HCl (Vanco Per Pharmacy) 1 each PRN DAILY PRN MC SEE COMMENTS Last administered on 02/19/19at 07:43; Start 02/19/19 at 05:45; Stop 02/19/19 at 15:09; Status DC Piperacillin Sod/ Tazobactam Sod 4.5 gm/Sodium Chloride 100 ml @ 200 mls/hr 1X ONCE IV Last administered on 02/19/19at 06:22; Start 02/19/19 at 06:15; Stop 02/19/19 at 06:44; Status DC Vancomycin HCl 1.75 gm/Sodium Chloride 500 ml @ 250 mls/hr Q18H IV Last administered on 02/19/19 08:32; Start 02/19/19 at 08:00; Stop 02/19/19 at 08:52; Status DC Vancomycin HCl (Vancomycin Trough Level) 1 each 1X ONCE MC ; Start 02/20/19 at 19:30; Stop 02/19/19 at 15:09; Status DC Oxycodone/ Acetaminophen (Percocet 5/325) 1 tab PRN Q4HRS PRN PO MODERATE PAIN Last administered on 02/20/19at 05:51; Start 02/19/19 at 09:00 Sodium Chloride 1,000 ml @ 100 mls/hr Q10H IV Last administered on 02/21/19at 12:13; Start 02/19/19 at 09:00; Stop 02/21/19 at 12:46; Status DC Amiodarone HCl (Cordarone) 200 mg DAILY PO Last administered on 02/23/19 07:59; Start 02/19/19 at 10:00 Apixaban (Eliquis) 5 mg BID PO Last administered on 02/23/19 07:58; Start 02/19/19 at 10:00 Atorvastatin Calcium (Lipitor) 40 mg QHS PO Last administered on 02/22/19at 20:43; Start 02/19/19 at 21:00 Acetaminophen/ Hydrocodone Bitart (Lortab 7.5/325) 2 tab PRN Q6HRS PRN PO SE MARIELA PAIN Last administered on 02/23/19 07:59; Start 02/19/19 at 09:00 Lactobacillus Rhamnosus (Culturelle) 1 cap BID PO Last administered on 02/23/19 07:58; Start 02/19/19 at 10:00 Multivitamins (Thera M Plus) 1 tab DAILY PO Last administered on 02/23/19 07:59; Start 02/19/19 at 10:00 Diltiazem HCl (Cardizem 24hr Cd) 120 mg DAILY PO Last administered on 02/23/19 07:59; Start 02/19/19 at 10:00 Multi-Ingred Cream/Lotion/Oil/ Oint (Hydrocerin Cream) 1 va PRN Q1HR PRN TP DRY SKIN / SCALING; Start 02/19/19 at 12:00; Stop 02/19/19 at 15:00; Status DC Multi-Ingred Cream/Lotion/Oil/ Oint (Hydrocerin Cream) 1 va PRN BID PRN TP DRY SKIN / SCALING; Start 02/19/19 at 15:00; Stop 02/19/19 at 19:18; Status DC Multi-Ingred Cream/Lotion/Oil/ Oint (Hydrocerin Cream) 1 va BID TP Last administered on 02/23/19at 08:00; Start 02/19/19 at 21:00 Fluconazole (Diflucan) 200 mg DAILY PO Last administered on 02/22/19at 08:16; Start 02/20/19 at 13:00; Stop 02/22/19 at 13:09; Status DC Info (Anti-Coagulation Monitoring By Pharmacy) 1 each PRN DAILY PRN MC SEE COMMENTS Last administered on 02/22/19at 12:39; Start 02/21/19 at 11:00 Polyethylene Glycol (miraLAX PACKET) 17 gm DAILY PO Last administered on 02/21/19at 20:55; Start 02/21/19 at 20:00 Micafungin Sodium 100 mg/Dextrose 100 ml @ 100 mls/hr Q24H IV Last administered on 02/22/19at 13:28; Start 02/22/19 at 14:00 Active Scripts Active Thera-M Tablet (Multivits,Ca,Minerals/Iron/Fa) 1 Each Tablet 1 Tab PO DAILY 30 Days Culturelle (Lactobacillus Rhamnosus Gg) 1 Each Cap.sprink 1 Cap PO BID 14 Days Hydrocodone-Apap 7.5-325 (Hydrocodone Bit/Acetaminophen) 1 Tab Tablet 2 Tab PO PRN Q6HRS PRN 14 Days Diltiazem 24HR Cd (Diltiazem Hcl) 120 Mg Cap.er.24h 120 Mg PO DAILY 30 Days Amiodarone Hcl 200 Mg Tablet 200 Mg PO DAILY 30 Days Amox Tr-K Clv 875-125 Mg Tab (Amoxicillin/Potassium Clav) 1 Each Tablet 1 Tab PO BID 7 Days Reported Lipitor (Atorvastatin Calcium) 40 Mg Tablet 1 Tab PO QHS Eliquis (Apixaban) 5 Mg Tablet 5 Mg PO BID Vitals/I & O Vital Sign - Last 24 Hours 02/22/19 02/22/19 02/22/19 02/22/19 13:45 15:00 19:00 20:05 Temp 98.0 98.9 98.0 98.9 Pulse 69 55 Resp 18 16 B/P (MAP) 139/115 (123) 102/60 (74) Pulse Ox 93 93 O2 Delivery Room Air Room Air Room Air Room Air 02/22/19 02/22/19 02/22/19 02/23/19 20:55 21:53 23:00 03:13 Temp 98.6 98.6 Pulse 59 57 Resp 20 16 16 16 B/P (MAP) 124/60 (81) 116/50 (72) Pulse Ox 93 96 95 O2 Delivery Room Air Room Air Room Air Room Air 02/23/19 02/23/19 02/23/19 02/23/19 06:28 07:59 07:59 07:59 Temp 97.8 97.8 Pulse 68 68 68 Resp 16 B/P (MAP) 135/48 (77) 135/48 135/48 Pulse Ox 97 O2 Delivery Room Air Room Air 02/23/19 02/23/19 08:00 08:59 O2 Delivery Room Air Room Air Intake and Output 02/22/19 02/22/19 02/23/19 15:00 23:00 07:00 Intake Total 200 ml 440 ml Output Total 500 ml 350 ml Balance -300 ml 90 ml KODY EASON MD Feb 23, 2019 12:21
[2019-02-23] MEDS: ANTI-COAG MONITOR BY PHARMACY. MC PRN (12:50)
[2019-02-23] MEDS: MICAFUNGIN 100 MG in IV DEXTROSE 5% 100ML 100 ML IV SCH (13:46)
[2019-02-23 15:12] VITALS: BP 127/65
[2019-02-23] MEDS: ATORVASTATIN CALCIUM 40 MG TABLET. PO SCH (22:06)
[2019-02-23] MEDS: CILOSTAZOL 50 MG TABLET. PO SCH (22:06)
[2019-02-23 23:00] VITALS: BP 161/50
[2019-02-24] MEDS: PIPERACILLIN/TAZOBACTAM 4.5 GM in IV NORMAL SALINE 100ML 100 ML IV SCH ×3 (00:15→12:47)
[2019-02-24] MEDS: HYDROcodone/APAP 7.5/325MG 1 TAB TABLET PO PRN (00:15)
[2019-02-24 03:30] VITALS: BP 99/57
[2019-02-24 07:00] VITALS: BP 137/60
--- NOTE | 2019-02-24 08:24 | PDOC ---
PROGRESS NOTES Chief Complaint Chief Complaint Bilateral LE cellulitis rt > left Peripheral arterial disease - Vascular following. No acute intervention at this time Negative venous Dopplers HX OM, s.p amputation - not needing IV abx in past Obesity BMI 41 Xerosis of skin A fib on eliquis BPH sxs Urinary retention HTN -stable HYUN, hx CEA, hernia repair, bilateral knee ssx from OA hx kidneys tones Tinea infection between the toes. History of Present Illness History of Present Illness arterial dopplers: 1. Segmental velocity elevation at the mid left superficial femoral artery, suggesting a proximal stenosis. 2. Segmental elevation of the distal right posterior tibial artery, suggesting a stenosis [facility]sc sx has seen, OP ff up IVETTE - pT aware of plan ID HAS ADDED MICAFUNGIN TO HIS ABX on 02/22/19 Pt otherwise just complains of claudication, nothing else Legs improved from yesterday. He is asking to leave the hospital soon. No CP or SOB. 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 HEART: S1, S2 regular. ABDOMEN: Obese, soft, nontender EXTREMITIES: Bilateral lower extremity venous insufficiency changes present. Less erythema, edema. + flaky dry skin and cracks. + yeast between the toes. NEUROLOGIC: Alert, answers questions appropriately PIV General: Alert, Oriented X3, Cooperative, No acute distress Heart: Regular rate, Normal S1, Normal S2 Lungs: Clear Abdomen: Soft, No tenderness, Other (morbidly obese) Extremities: No clubbing, No cyanosis, No edema, Other (intact bilateral lower extremity Doppler signals in the pedal location, palpable femoral pulses bilaterally) Skin: Other (cellulitis of both feet resolving with flaking of the superficial skin, small crack on the plantar surface of the right foot, no gangrenous changes, no ulceration) Assessment and Plan Assessmemt and Plan Problems Medical Problems: (1) HYUN (acute kidney injury) Status: Acute (2) Cellulitis of both lower extremities Status: Acute (3) Chronic renal insufficiency Status: Chronic Comment Review of Relevant I have reviewed the following items ashlyn (where applicable) has been applied. Labs Microbiology 02/18/19 Blood Culture - Final, Complete NO GROWTH AFTER 5 DAYS Medications Current Medications Piperacillin Sod/ Tazobactam Sod 4.5 gm/Sodium Chloride 100 ml @ 200 mls/hr 1X ONCE IV Last administered on 02/18/19at 10:01; Start 02/18/19 at 09:15; Stop 02/18/19 at 09:44; Status DC Vancomycin HCl (Vanco Per Pharmacy) 1 each 1X ONCE MC ; Start 02/18/19 at 09:15; Stop 02/18/19 at 09:17; Status DC Morphine Sulfate (Morphine Sulfate) 4 mg PRN Q15MIN PRN IV/SQ PAIN GREATER THAN 3/10; Start 02/18/19 at 09:15; Stop 02/19/19 at 09:14; Status DC Vancomycin HCl 2 gm/Sodium Chloride 500 ml @ 250 mls/hr 1X ONCE IV Last administered on 02/18/19at 12:09; Start 02/18/19 at 10:00; Stop 02/18/19 at 11:59; Status DC Morphine Sulfate (Morphine Sulfate) 2 mg PRN Q3HRS PRN IV PAIN Last administered on 02/18/19at 21:19; Start 02/18/19 at 13:15 Piperacillin Sod/ Tazobactam Sod 4.5 gm/Sodium Chloride 100 ml @ 200 mls/hr Q6HRS IV Last administered on 02/24/19at 06:12; Start 02/19/19 at 12:00 Vancomycin HCl (Vanco Per Pharmacy) 1 each PRN DAILY PRN MC SEE COMMENTS Last administered on 02/19/19at 07:43; Start 02/19/19 at 05:45; Stop 02/19/19 at 15:09; Status DC Piperacillin Sod/ Tazobactam Sod 4.5 gm/Sodium Chloride 100 ml @ 200 mls/hr 1X ONCE IV Last administered on 02/19/19at 06:22; Start 02/19/19 at 06:15; Stop 02/19/19 at 06:44; Status DC Vancomycin HCl 1.75 gm/Sodium Chloride 500 ml @ 250 mls/hr Q18H IV Last administered on 02/19/19at 08:32; Start 02/19/19 at 08:00; Stop 02/19/19 at 08:52; Status DC Vancomycin HCl (Vancomycin Trough Level) 1 each 1X ONCE MC ; Start 02/20/19 at 19:30; Stop 02/19/19 at 15:09; Status DC Oxycodone/ Acetaminophen (Percocet 5/325) 1 tab PRN Q4HRS PRN PO MODERATE PAIN Last administered on 02/20/19at 05:51; Start 02/19/19 at 09:00 Sodium Chloride 1,000 ml @ 100 mls/hr Q10H IV Last administered on 02/21/19at 12:13; Start 02/19/19 at 09:00; Stop 02/21/19 at 12:46; Status DC Amiodarone HCl (Cordarone) 200 mg DAILY PO Last administered on 02/23/19at 07:59; Start 02/19/19 at 10:00 Apixaban (Eliquis) 5 mg BID PO Last administered on 02/23/19 22:06; Start 02/19/19 at 10:00 Atorvastatin Calcium (Lipitor) 40 mg QHS PO Last administered on 02/23/19 22:06; Start 02/19/19 at 21:00 Acetaminophen/ Hydrocodone Bitart (Lortab 7.5/325) 2 tab PRN Q6HRS PRN PO SEVERE PAIN Last administered on 02/24/19at 00:15; Start 02/19/19 at 09:00 Lactobacillus Rhamnosus (Culturelle) 1 cap BID PO Last administered on 02/23/19 22:06; Start 02/19/19 at 10:00 Multivitamins (Thera M Plus) 1 tab DAILY PO Last administered on 02/23/19at 07:59; Start 02/19/19 at 10:00 Diltiazem HCl (Cardizem 24hr Cd) 120 mg DAILY PO Last administered on 02/23/19at 07:59; Start 02/19/19 at 10:00 Multi-Ingred Cream/Lotion/Oil/ Oint (Hydrocerin Cream) 1 va PRN Q1HR PRN TP DRY SKIN / SCALING; Start 02/19/19 at 12:00; Stop 02/19/19 at 15:00; Status DC Multi-Ingred Cream/Lotion/Oil/ Oint (Hydrocerin Cream) 1 va PRN BID PRN TP DRY SKIN / SCALING; Start 02/19/19 at 15:00; Stop 02/19/19 at 19:18; Status DC Multi-Ingred Cream/Lotion/Oil/ Oint (Hydrocerin Cream) 1 va BID TP Last administered on 02/23/19at 22:07; Start 02/19/19 at 21:00 Fluconazole (Diflucan) 200 mg DAILY PO Last administered on 02/22/19at 08:16; Start 02/20/19 at 13:00; Stop 02/22/19 at 13:09; Status DC Info (Anti-Coagulation Monitoring By Pharmacy) 1 each PRN DAILY PRN MC SEE COMMENTS Last administered on 02/23/19at 12:50; Start 02/21/19 at 11:00 Polyethylene Glycol (miraLAX PACKET) 17 gm DAILY PO Last administered on 02/21/19at 20:55; Start 02/21/19 at 20:00 Micafungin Sodium 100 mg/Dextrose 100 ml @ 100 mls/hr Q24H IV Last administered on 02/23/19at 13:46; Start 02/22/19 at 14:00 Cilostazol (Pletal) 50 mg BID PO Last administered on 02/23/19at 22:06; Start 02/23/19 at 21:00 Active Scripts Active Thera-M Tablet (Multivits,Ca,Minerals/Iron/Fa) 1 Each Tablet 1 Tab PO DAILY 30 Days Culturelle (Lactobacillus Rhamnosus Gg) 1 Each Cap.sprink 1 Cap PO BID 14 Days Hydrocodone-Apap 7.5-325 (Hydrocodone Bit/Acetaminophen) 1 Tab Tablet 2 Tab PO PRN Q6HRS PRN 14 Days Diltiazem 24HR Cd (Diltiazem Hcl) 120 Mg Cap.er.24h 120 Mg PO DAILY 30 Days Amiodarone Hcl 200 Mg Tablet 200 Mg PO DAILY 30 Days Amox Tr-K Clv 875-125 Mg Tab (Amoxicillin/Potassium Clav) 1 Each Tablet 1 Tab PO BID 7 Days Reported Lipitor (Atorvastatin Calcium) 40 Mg Tablet 1 Tab PO QHS Eliquis (Apixaban) 5 Mg Tablet 5 Mg PO BID Vitals/I & O Vital Sign - Last 24 Hours 02/23/19 02/23/19 02/23/19 02/23/19 08:59 11:00 15:12 20:00 Temp 97.6 97.5 97.6 97.5 Pulse 46 68 Resp 16 16 B/P (MAP) 145/51 (82) 127/65 (85) Pulse Ox 98 95 O2 Delivery Room Air Room Air Room Air Room Air 02/23/19 02/24/19 23:00 03:30 Temp 98.0 98.2 98.0 98.2 Pulse 50 102 Resp 18 18 B/P (MAP) 161/50 (87) 99/57 (71) Pulse Ox 98 99 O2 Delivery Room Air Room Air Intake and Output 02/23/19 02/23/19 02/24/19 15:00 23:00 07:00 Intake Total 180 ml 200 ml 300 ml Output Total 450 ml 850 ml 500 ml Balance -270 ml -650 ml -200 ml JONY BERGER MD Feb 24, 2019 08:23
[2019-02-24] MEDS: POLYETHYLENE GLYCOL 3350 17 GM PACKET. PO SCH (09:00)
[2019-02-24] MEDS: CILOSTAZOL 50 MG TABLET. PO SCH ×2 (09:18→21:34)
[2019-02-24] MEDS: APIXABAN 5 MG TABLET. PO SCH ×2 (09:18→21:34)
[2019-02-24] MEDS: LACTOBACILLUS RHAMNOSUS GG 1 CAPSULE. PO SCH ×2 (09:18→21:34)
[2019-02-24] MEDS: MINERAL OIL/PETROLATUM TOPICAL CREAM 113GM JAR. TP SCH ×2 (09:18→21:35)
[2019-02-24] MEDS: MULTIVITAMIN with MINERAL TABLET. PO SCH (09:18)
[2019-02-24] MEDS: AMIODARONE HCL 200 MG TABLET. PO SCH (09:18)
[2019-02-24 11:00] VITALS: BP 126/71
--- NOTE | 2019-02-24 12:30 | PDOC ---
Infectious Disease Note Subjective Subjective Hoping to go home today Some mild leg pain w/ walking swelling down No F/C/N/V/D ROS ROS per HPI Vital Sign Vital Signs Vital Signs Date Time Temp Pulse Resp B/P (MAP) Pulse Ox O2 Delivery O2 Flow Rate FiO2 02/24/19 09:18 62 137/60 02/24/19 08:00 Room Air 02/24/19 07:00 97.4 18 95 97.4 Physical Exam PHYSICAL EXAM GENERAL: Propped up in bed, alert, watching TV HEENT: Oral cavity clear NECK: Supple LUNGS: Clear. HEART: S1, S2 regular. ABDOMEN: Obese, soft, nontender EXTREMITIES: Bilateral lower extremity venous insufficiency changes present. Less erythema and edema. + flaky dry skin and cracks. + yeast between the toes. NEUROLOGIC: Alert, answers questions appropriately PIV Labs Micro Microbiology 02/18/19 Blood Culture - Preliminary, Resulted NO GROWTH AFTER 5 DAYS Objective Assessment Bilateral lower extremity cellulitis - improving Tinea infection between the toes. Acute kidney injury. Hypertension. Hyperlipidemia. History of atrial fibrillation PAD, vascular following. No acute intervention at this time Plan Plan of Care Discontinue Zosyn - wean to po Augmentin Continue Micafungin d/t DDI w/ amiodorone can d/c at discharge Leg elevation Attending Co-Sign Attending Co-Sign The patient was seen and interviewed as well as examined at the bedside. The chart was reviewed. The case was discussed. Agree with the plan of care. MARISOL ALLISON APRN Feb 24, 2019 12:30 AVELINA GR MD Feb 24, 2019 16:55
[2019-02-24 15:00] VITALS: BP 87/59
[2019-02-24] MEDS: MICAFUNGIN 100 MG in IV DEXTROSE 5% 100ML 100 ML IV SCH (15:21)
--- NOTE | 2019-02-24 16:33 | NUR ---
SS following up with discharge planning. No discharge needs at this time. SS will continue to follow for discharge planning.
[2019-02-24 19:25] VITALS: BP 114/52
[2019-02-24] MEDS: ATORVASTATIN CALCIUM 40 MG TABLET. PO SCH (21:34)
[2019-02-24] MEDS: AMOXICILLIN/K CLAV 875/125MG TABLET. PO SCH (21:34)
[2019-02-24 23:25] VITALS: BP 106/66
[2019-02-25 03:25] VITALS: BP 119/65
[2019-02-25 07:00] VITALS: BP 156/78
[2019-02-25] MEDS: AMOXICILLIN/K CLAV 875/125MG TABLET. PO SCH (07:56)
[2019-02-25] MEDS: MULTIVITAMIN with MINERAL TABLET. PO SCH (07:56)
[2019-02-25] MEDS: APIXABAN 5 MG TABLET. PO SCH (07:56)
[2019-02-25] MEDS: LACTOBACILLUS RHAMNOSUS GG 1 CAPSULE. PO SCH (07:56)
[2019-02-25] MEDS: AMIODARONE HCL 200 MG TABLET. PO SCH (07:57)
[2019-02-25] MEDS: POLYETHYLENE GLYCOL 3350 17 GM PACKET. PO SCH (07:57)
--- NOTE | 2019-02-25 08:47 | PDOC ---
PROGRESS NOTES Chief Complaint Chief Complaint Bilateral LE cellulitis rt > left Peripheral arterial disease - Vascular following. No acute intervention at this time Negative venous Dopplers HX OM, s.p amputation - not needing IV abx in past Obesity BMI 41 Xerosis of skin A fib on eliquis BPH sxs Urinary retention HTN -stable HYUN, hx CEA, hernia repair, bilateral knee ssx from OA hx kidneys tones Tinea infection between the toes. History of Present Illness History of Present Illness arterial dopplers: 1. Segmental velocity elevation at the mid left superficial femoral artery, suggesting a proximal stenosis. 2. Segmental elevation of the distal right posterior tibial artery, suggesting a stenosis VAsc sx has seen, OP ff up IVETTE - pT aware of plan ID HAS ADDED MICAFUNGIN TO HIS ABX on 02/22/19, last dose today Pt otherwise just complains of claudication, nothing else Legs improved from yesterday. He is asking to leave the hospital soon. No CP or SOB. 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 Augmentin 7 days on d/c. He needs refills on his cardiac meds. PLAN: Hgba1b is only 6 so he is NOT DM COnt IV abx and micafungin OP ff up vasc sx for IVETTE Possible home on PO abx by ID BC neg so far, he is non toxic appearing Vitals Vitals Vital Signs Date Time Temp Pulse Resp B/P (MAP) Pulse Ox O2 Delivery O2 Flow Rate FiO2 02/25/19 07:57 63 156/78 02/25/19 07:00 98.1 18 99 Room Air 98.1 Physical Exam Physical Exam GENERAL: Propped up in bed, alert, watching TV HEENT: Oral cavity clear NECK: Supple LUNGS: Clear. HEART: S1, S2 regular. ABDOMEN: Obese, soft, nontender EXTREMITIES: Bilateral lower extremity venous insufficiency changes present. Less erythema and edema. + flaky dry skin and cracks. + yeast between the toes. NEUROLOGIC: Alert, answers questions appropriately PIV General: Alert, Oriented X3, Cooperative, No acute distress Heart: Regular rate, Normal S1, Normal S2 Lungs: Clear Abdomen: Soft, No tenderness, Other (morbidly obese) Extremities: No clubbing, No cyanosis, No edema, Other (intact bilateral lower extremity Doppler signals in the pedal location, palpable femoral pulses bilaterally) Skin: Other (cellulitis of both feet resolving with flaking of the superficial skin, small crack on the plantar surface of the right foot, no gangrenous changes, no ulceration) Assessment and Plan Assessmemt and Plan Problems Medical Problems: (1) HYUN (acute kidney injury) Status: Acute (2) Cellulitis of both lower extremities Status: Acute (3) Chronic renal insufficiency Status: Chronic Comment Review of Relevant I have reviewed the following items ashlyn (where applicable) has been applied. Labs Microbiology 02/18/19 Blood Culture - Final, Complete NO GROWTH AFTER 5 DAYS Medications Current Medications Piperacillin Sod/ Tazobactam Sod 4.5 gm/Sodium Chloride 100 ml @ 200 mls/hr 1X ONCE IV Last administered on 02/18/19at 10:01; Start 02/18/19 at 09:15; Stop 02/18/19 at 09:44; Status DC Vancomycin HCl (Vanco Per Pharmacy) 1 each 1X ONCE MC ; Start 02/18/19 at 09:15; Stop 02/18/19 at 09:17; Status DC Morphine Sulfate (Morphine Sulfate) 4 mg PRN Q15MIN PRN IV/SQ PAIN GREATER THAN 3/10; Start 02/18/19 at 09:15; Stop 02/19/19 at 09:14; Status DC Vancomycin HCl 2 gm/Sodium Chloride 500 ml @ 250 mls/hr 1X ONCE IV Last administered on 02/18/19at 12:09; Start 02/18/19 at 10:00; Stop 02/18/19 at 11:59; Status DC Morphine Sulfate (Morphine Sulfate) 2 mg PRN Q3HRS PRN IV PAIN Last administered on 02/18/19at 21:19; Start 02/18/19 at 13:15 Piperacillin Sod/ Tazobactam Sod 4.5 gm/Sodium Chloride 100 ml @ 200 mls/hr Q6HRS IV Last administered on 02/24/19at 12:47; Start 02/19/19 at 12:00; Stop 02/24/19 at 16:55; Status DC Vancomycin HCl (Vanco Per Pharmacy) 1 each PRN DAILY PRN MC SEE COMMENTS Last administered on 02/19/19at 07:43; Start 02/19/19 at 05:45; Stop 02/19/19 at 15:09; Status DC Piperacillin Sod/ Tazobactam Sod 4.5 gm/Sodium Chloride 100 ml @ 200 mls/hr 1X ONCE IV Last administered on 02/19/19at 06:22; Start 02/19/19 at 06:15; Stop 02/19/19 at 06:44; Status DC Vancomycin HCl 1.75 gm/Sodium Chloride 500 ml @ 250 mls/hr Q18H IV Last administered on 02/19/19at 08:32; Start 02/19/19 at 08:00; Stop 02/19/19 at 08:52; Status DC Vancomycin HCl (Vancomycin Trough Level) 1 each 1X ONCE MC ; Start 02/20/19 at 19:30; Stop 02/19/19 at 15:09; Status DC Oxycodone/ Acetaminophen (Percocet 5/325) 1 tab PRN Q4HRS PRN PO MODERATE PAIN Last administered on 02/20/19at 05:51; Start 02/19/19 at 09:00 Sodium Chloride 1,000 ml @ 100 mls/hr Q10H IV Last administered on 02/21/19at 12:13; Start 02/19/19 at 09:00; Stop 02/21/19 at 12:46; Status DC Amiodarone HCl (Cordarone) 200 mg DAILY PO Last administered on 02/25/19 07:57; Start 02/19/19 at 10:00 Apixaban (Eliquis) 5 mg BID PO Last administered on 02/25/19at 07:56; Start 02/19/19 at 10:00 Atorvastatin Calcium (Lipitor) 40 mg QHS PO Last administered on 02/24/19at 21:34; Start 02/19/19 at 21:00 Acetaminophen/ Hydrocodone Bitart (Lortab 7.5/325) 2 tab PRN Q6HRS PRN PO SEVERE PAIN Last administered on 02/24/19at 00:15; Start 02/19/19 at 09:00 Lactobacillus Rhamnosus (Culturelle) 1 cap BID PO Last administered on 02/25/19at 07:56; Start 02/19/19 at 10:00 Multivitamins (Thera M Plus) 1 tab DAILY PO Last administered on 02/25/19at 07:56; Start 02/19/19 at 10:00 Diltiazem HCl (Cardizem 24hr Cd) 120 mg DAILY PO Last administered on 02/25/19 07:56; Start 02/19/19 at 10:00 Multi-Ingred Cream/Lotion/Oil/ Oint (Hydrocerin Cream) 1 va PRN Q1HR PRN TP DRY SKIN / SCALING; Start 02/19/19 at 12:00; Stop 02/19/19 at 15:00; Status DC Multi-Ingred Cream/Lotion/Oil/ Oint (Hydrocerin Cream) 1 va PRN BID PRN TP DRY SKIN / SCALING; Start 02/19/19 at 15:00; Stop 02/19/19 at 19:18; Status DC Multi-Ingred Cream/Lotion/Oil/ Oint (Hydrocerin Cream) 1 va BID TP Last administered on 02/24/19 21:35; Start 02/19/19 at 21:00 Fluconazole (Diflucan) 200 mg DAILY PO Last administered on 02/22/19 08:16; Start 02/20/19 at 13:00; Stop 02/22/19 at 13:09; Status DC Info (Anti-Coagulation Monitoring By Pharmacy) 1 each PRN DAILY PRN MC SEE COMMENTS Last administered on 02/23/19at 12:50; Start 02/21/19 at 11:00 Polyethylene Glycol (miraLAX PACKET) 17 gm DAILY PO Last administered on 02/25/19 07:57; Start 02/21/19 at 20:00 Micafungin Sodium 100 mg/Dextrose 100 ml @ 100 mls/hr Q24H IV Last administered on 02/24/19at 15:21; Start 02/22/19 at 14:00 Cilostazol (Pletal) 50 mg BID PO Last administered on 02/24/19at 21:34; Start 02/23/19 at 21:00 Amoxicillin/ Clavulanate Potassium (Augmentin 875/ 125mg) 1 tab BID PO Last administered on 02/25/19 07:56; Start 02/24/19 at 21:00 Active Scripts Active Thera-M Tablet (Multivits,Ca,Minerals/Iron/Fa) 1 Each Tablet 1 Tab PO DAILY 30 Days Culturelle (Lactobacillus Rhamnosus Gg) 1 Each Cap.sprink 1 Cap PO BID 14 Days Hydrocodone-Apap 7.5-325 (Hydrocodone Bit/Acetaminophen) 1 Tab Tablet 2 Tab PO PRN Q6HRS PRN 14 Days Diltiazem 24HR Cd (Diltiazem Hcl) 120 Mg Cap.er.24h 120 Mg PO DAILY 30 Days Amiodarone Hcl 200 Mg Tablet 200 Mg PO DAILY 30 Days Amox Tr-K Clv 875-125 Mg Tab (Amoxicillin/Potassium Clav) 1 Each Tablet 1 Tab PO BID 7 Days Reported Lipitor (Atorvastatin Calcium) 40 Mg Tablet 1 Tab PO QHS Eliquis (Apixaban) 5 Mg Tablet 5 Mg PO BID Vitals/I & O Vital Sign - Last 24 Hours 02/24/19 02/24/19 02/24/19 02/24/19 09:18 09:18 11:00 15:00 Temp 97.3 97.9 97.3 97.9 Pulse 62 62 59 77 Resp 18 18 B/P (MAP) 137/60 137/60 126/71 (89) 87/59 (68) Pulse Ox 97 94 O2 Delivery Room Air Room Air 02/24/19 02/24/19 02/24/19 02/25/19 19:25 19:45 23:25 03:25 Temp 97.8 97.8 97.8 97.8 97.8 97.8 Pulse 99 101 107 Resp 18 18 18 B/P (MAP) 114/52 (72) 106/66 (79) 119/65 (83) Pulse Ox 96 94 94 O2 Delivery Room Air Room Air Room Air Room Air 02/25/19 02/25/19 02/25/19 07:00 07:56 07:57 Temp 98.1 98.1 Pulse 63 63 63 Resp 18 B/P (MAP) 156/78 (104) 156/78 156/78 Pulse Ox 99 O2 Delivery Room Air Intake and Output 02/24/19 02/24/19 02/25/19 15:00 23:00 07:00 Intake Total 1000 ml Balance 1000 ml JONY BERGER MD Feb 25, 2019 08:47
[2019-02-25] MEDS: MINERAL OIL/PETROLATUM TOPICAL CREAM 113GM JAR. TP SCH (09:56)
[2019-02-25] MEDS: CILOSTAZOL 50 MG TABLET. PO SCH (09:56)
[2019-02-25 11:00] VITALS: BP 159/68
[2019-02-25] MEDS: MICAFUNGIN 100 MG in IV DEXTROSE 5% 100ML 100 ML IV SCH (13:50)
[2019-02-25] MEDS ORDERED: AMOX1TAB11 PO (14:58)
[2019-02-25] MEDS ORDERED: DILT120C85 PO (14:58)
[2019-02-25] MEDS ORDERED: LACT1CAP19 PO (14:58)
[2019-02-25] MEDS ORDERED: HYDR-2765 PO (14:58)
[2019-02-25] MEDS ORDERED: ATOR40TA PO (14:58)
[2019-02-25] MEDS ORDERED: POLY17PO28 PO (14:58)
--- NOTE | 2019-02-25 15:10 | PDOC3 ---
Discharge Summary Visit Information Date of Admission: Feb 18, 2019 Date of Discharge: Feb 25, 2019 Admitting Diagnosis: Bilateral lower extremity cellulitis Final Diagnosis Problems Medical Problems: (1) HYUN (acute kidney injury) Status: Acute (2) Cellulitis of both lower extremities Status: Acute (3) Chronic renal insufficiency Status: Chronic Brief Hospital Course Allergies Allergies Coded Allergies Type Severity Reaction Last Updated Verified hydroxyzine Allergy Intermediate Blisters on fingers and feet. 04/24/18 Yes Vital Signs Vital Signs Date Time Temp Pulse Resp B/P (MAP) Pulse Ox O2 Delivery O2 Flow Rate FiO2 02/25/19 11:00 97.9 101 16 159/68 (98) 97 Room Air 97.9 Brief Hospital Course Mr Manuel is a 68-year-old gentleman w/ PMHx hypertension, atrial fibrillation, CVA, hyperlipidemia who came in with lower extremity redness, swelling, and pain. The patient had a crack on the bottom of the right foot that happened few days before admission. The patient was also noted to have elevated Cr 1.5. The patient was given vancomycin and Zosyn and consult to infectious diseases was made. He was seen by nephrology for his elevated Cr which has been noted previously. Had A1c 6 noted, likely his renal disease is CKD3 2/2 long-standing hypertension. 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 Segmental velocity elevation at the mid left superficial femoral artery, suggesting a proximal stenosis. 2. Segmental elevation of the distal right posterior tibial artery, suggesting a stenosis Subsequently was seen by vascular surgery and has f/u outpatient appointment scheduled for treatment. Due to his likely fungal intertrigo was given micafungin and transitioned to augmentin oral by ID. Will have f/u outpatient with his PCP. A/P: Bilateral LE cellulitis rt > left Peripheral arterial disease - Vascular following. No acute intervention at this time Negative venous Dopplers HX OM, s.p amputation - not needing IV abx in past Obesity BMI 41 Xerosis of skin A fib on eliquis BPH sxs Urinary retention HTN -stable HYUN, hx CEA, hernia repair, bilateral knee ssx from OA hx kidneys tones Tinea infection between the toes. Legs improved from yesterday. He is asking to leave the hospital soon. No CP or SOB. 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 Augmentin 7 days on d/c. He needs refills on his cardiac meds. Greater than 30 minutes spent on discharge. Discharge Information Condition at Discharge: Improved Follow Up: Weeks (1) Disposition/Orders: D/C to Home Scheduled Amiodarone Hcl (Amiodarone Hcl) 200 Mg Tablet, 200 MG PO DAILY for HEART RHYTHM for 30 Days, #30 Prescribed by: BALA BAIG MD on 11/21/181316 Last Action: Continued on 02/19/19851 by KODY EASON Amoxicillin/Potassium Clav (Amox Tr-K Clv 875-125 Mg Tab) 1 Each Tablet, 1 TAB PO BID for INFECTION for 7 Days, #14 Ref 0 Prescribed by: JONY BERGER MD on 02/25/19 1458 Apixaban (Eliquis) 5 Mg Tablet, 5 MG PO BID for pro, (Reported) Entered as Reported by: KATELYN MEREDITH on 04/22/18 1619 Last Action: Continued on 02/19/19851 by KODY EASON Atorvastatin Calcium (Lipitor) 40 Mg Tablet, 1 TAB PO QHS for HLD for 90 Days, #90 Ref 1 Prescribed by: JONY BERGER MD on 02/25/19 1458 Diltiazem Hcl (Diltiazem 24HR Cd) 120 Mg Cap.er.24h, 120 MG PO DAILY for HEART for 90 Days, #90 Ref 1 Prescribed by: JONY BERGER MD on 02/25/19 1458 Lactobacillus Rhamnosus Gg (Culturelle) 1 Each Cap.sprink, 1 CAP PO BID for SUPPLEMENT for 14 Days, #28 Prescribed by: JONY BERGER MD on 02/25/19 1458 Multivits,Ca,Minerals/Iron/Fa (Thera-M Tablet) 1 Each Tablet, 1 TAB PO DAILY for SUPPLEMENT for 30 Days, #30 Prescribed by: BALA BAIG MD on 11/21/181316 Last Action: Continued on 02/19/19851 by KODY EASON Polyethylene Glycol 3350 (Polyethylene Glycol 3350) 17 Gm Powd.pack, 17 GM PO DAILY for CONSTIPATION for 30 Days, #30 Ref 5 Prescribed by: JONY BERGER MD on 02/25/19 1458 Scheduled PRN Hydrocodone Bit/Acetaminophen (Hydrocodone-Apap 7.5-325 ) 1 Tab Tablet, 1 TAB PO PRN Q6HRS PRN for SEVERE PAIN for 6 Days, #20 Prescribed by: JONY BERGER MD on 02/25/19 1458 JONY BERGER MD Feb 25, 2019 15:10
--- NOTE | 2019-02-25 15:46 | PDOC ---
Infectious Disease Note Subjective Subjective Tolerating augmentin well Says legs look back to normal, swelling down No F/C/N/V/D ROS ROS per HPI Vital Sign Vital Signs Vital Signs Date Time Temp Pulse Resp B/P (MAP) Pulse Ox O2 Delivery O2 Flow Rate FiO2 02/25/19 11:00 97.9 101 16 159/68 (98) 97 Room Air 97.9 Physical Exam PHYSICAL EXAM GENERAL: Propped up in bed, alert, watching TV, dressed HEENT: Oral cavity clear NECK: Supple LUNGS: Clear. HEART: S1, S2 regular. ABDOMEN: Obese, soft, nontender EXTREMITIES: Bilateral lower extremity venous insufficiency changes present. Swelling down. NEUROLOGIC: Alert, answers questions appropriately Labs Micro Microbiology 02/18/19 Blood Culture - Preliminary, Resulted NO GROWTH AFTER 5 DAYS Objective Assessment Bilateral lower extremity cellulitis - improving Tinea infection between the toes. Acute kidney injury. Hypertension. Hyperlipidemia. History of atrial fibrillation PAD, vascular following. No acute intervention at this time Plan Plan of Care May be discharged home on po Augmentin for 5 days, Rx written f/u Dr. Chowdhury as directed D/w Attending Co-Sign Attending Co-Sign The patient was seen and interviewed as well as examined at the bedside. The chart was reviewed. The case was discussed. Agree with the plan of care. MARISOL ALLISON APRN Feb 25, 2019 15:46 AVELINA GR MD Feb 25, 2019 15:49
--- NOTE | 2019-02-25 16:26 | NUR ---
Discharge Note: ELE MCCRACKEN Discharge instructions and discharge home medications reviewed with Patient and a copy given. All questions have been answered and understanding verbalized. The following instructions and handouts were given: discharge instructions, new prescriptions, education and follow up recommendations. Discontinued lines and drains: Peripheral IV discontinued intact. Patient discharged to Home or Self Care with Spouse via Wheelchair off unit by RN.
== END 2019-02-25 16:28 | disposition home or self-care (01) | DRG 602 ==
LOC: ER 08:03 → 4 NORTH 09:52
PROVIDERS: ADMIT Internal Medicine; ATTEND Internal Medicine
DX: L03.115 Cellulitis of right lower limb (principal); N17.0 Acute kidney failure with tubular necrosis; Z68.41 Body mass index [BMI] 40.0-44.9, adult; L03.116 Cellulitis of left lower limb; N18.3 Chronic kidney disease, stage 3 (moderate); I12.9 Hypertensive chronic kidney disease with stage 1 through stage 4 chronic kidney disease, or unspecified chronic kidney disease; E78.00 Pure hypercholesterolemia, unspecified; E78.5 Hyperlipidemia, unspecified; F12.90 Cannabis use, unspecified, uncomplicated; B35.3 Tinea pedis; B35.9 Dermatophytosis, unspecified; N40.1 Benign prostatic hyperplasia with lower urinary tract symptoms; R33.8 Other retention of urine; M19.90 Unspecified osteoarthritis, unspecified site; I73.9 Peripheral vascular disease, unspecified; L85.3 Xerosis cutis; B36.9 Superficial mycosis, unspecified; E66.9 Obesity, unspecified; Z79.01 Long term (current) use of anticoagulants; Y92.89 Other specified places as the place of occurrence of the external cause; Z87.442 Personal history of urinary calculi; Z88.8 Allergy status to other drugs, medicaments and biological substances; Z86.73 Personal history of transient ischemic attack (TIA), and cerebral infarction without residual deficits; Z82.49 Family history of ischemic heart disease and other diseases of the circulatory system
CPT/HCPCS: 36415; 76770; 80048; 80053; 81001; 83036; 83605; 84145; 85025; 85651; 87040; 93925; 93970; 96365; 96375; G0103; J2248; J2270; J2543; J3370; J7030; J7040; 99285-25; G0378

== ENCOUNTER 2019-05-21 22:29 | Inpatient (IN) | payer OTHER, MEDICARE ==
[~2019-05-21] VITALS: Ht 177.8 cm; Wt 137.4 kg
[~2019-05-21 22:29] MED LIST changes: -DILT120C85 PO; +DILT120C99 PO; +POLY17PO28 PO
[2019-05-21 23:11] LABS: BASO % 0 % (0-3); EOS % 0 % (0-3); HEMATOCRIT 44.9 % (39.0-53.0); HEMOGLOBIN 14.4 g/dL (13.0-17.5); LYMPH # 0.9 x10^3/uL (1.0-4.8); LYMPH % 7 % (24-48); MEAN CORPUSCULAR HEMOGLOBIN 30 pg (25-35); MEAN CORPUSCULAR HGB CONC 32 g/dL (31-37); MEAN CORPUSCULAR VOLUME 93 fL (79-100); MONO # 0.5 x10^3/uL (0.0-1.1); MONO % 4 % (0-9); NEUT # 11.4 x10^3/uL (1.8-7.7); NEUT % 89 % (31-73); PLATELET COUNT 418 x10^3/uL (140-400); RED BLOOD COUNT 4.84 x10^6/uL (4.30-5.70); RED CELL DISTRIBUTION WIDTH 15.2 % (11.5-14.5); WHITE BLOOD COUNT 12.8 x10^3/uL (4.0-11.0)
[2019-05-21] MEDS ORDERED: ASPIRIN CHEWABLE 81 MG TABLET. PO ONE (23:15)
[2019-05-21] MEDS ORDERED: IPRATRPIUM/ALBUTEROL 0.5/2.5MG 3 ML NEBU. NEB ONE (23:15)
[2019-05-21 23:24] LABS: CALCIUM 9.2 mg/dL (8.5-10.1); CREATININE 1.7 mg/dL (0.7-1.3); GFR 40.2; POTASSIUM 4.5 mmol/L (3.5-5.1)
[2019-05-21 23:30] LABS: ALBUMIN/GLOBULIN RATIO 0.6 (1.0-1.7); MAGNESIUM 1.6 mg/dL (1.8-2.4); TOTAL BILIRUBIN 0.5 mg/dL (0.2-1.0); TOTAL PROTEIN 7.9 g/dL (6.4-8.2)
[2019-05-21] MEDS ORDERED: methylPREDNISolone SOD SUCC PF 125 MG/2 ML VIAL. IV ONE (23:30)
[2019-05-21 23:45] LABS: % BANDS 2 % (0-9); % LYMPHS 13 % (24-48); % MONOS 1 % (0-10); % SEGS 84 % (35-66); PLT ESTIMATE INCREASED (ADEQUATE)
[2019-05-22] VITALS (16 sets, daily range): BP systolic 108–152; BP diastolic 50–101
[2019-05-22] MEDS ORDERED: MAGNESIUM SULFATE 2GM 50 ML IV ONE
[2019-05-22] MEDS ORDERED: FUROSEMIDE 40 MG/4 ML VIAL. IVP ONE
[2019-05-22] MEDS ORDERED: NITROGLYCERIN SUBLINGUAL 0.4 MG BOTTLE OF 25. SL PRN ×2 (00:30→13:15)
[2019-05-22] MEDS ORDERED: MORPHINE SULFATE 2 MG/ML VIAL. IV PRN (00:30)
[2019-05-22] MEDS ORDERED: ONDANSETRON PF 4 MG/2 ML VIAL. IV PRN (00:30)
[2019-05-22] MEDS: HEPARIN 25,000UTS/250ML PREMIX 250 ML IV PRN ×3 (00:37→23:55)
--- NOTE | 2019-05-22 01:40 | RAD ---
Exam: Chest one view INDICATION: Chest pain TECHNIQUE: Frontal view of the chest Comparisons: None FINDINGS: Heart is enlarged. Pulmonary vessels are within normal limits. The lung and pleural spaces are clear. IMPRESSION: Mild cardiomegaly without acute pulmonary process. Electronically signed by: Alli rIvin MD (05/22/2019 1:37 AM) [facility]
[2019-05-22 01:54] LABS: HEMATOCRIT 44.8 % (39.0-53.0); HEMOGLOBIN 14.6 g/dL (13.0-17.5); RED BLOOD COUNT 4.9 x10^6/uL (4.30-5.70); WHITE BLOOD COUNT 14.2 x10^3/uL (4.0-11.0)
[2019-05-22] MEDS ORDERED: ASPIRIN 325 MG TABLET PO ONE (05:15)
--- NOTE | 2019-05-22 05:42 | PHYS DOC ---
Past Medical History Past Medical History: A-Fib, CVA, High Cholesterol, Other Additional Past Medical Histor: Kidney stones Past Surgical History: Other Additional Past Surgical Histo: L)Carotidendarectomy,R)rotator cuff,Bilateral knee surgery,Hiatel hernia. Alcohol Use: Occasionally Drug Use: Marijuana Attending Signature I have participated in the care of this patient and I have reviewed and agree with all pertinent clinical information above including history, exam, and recommendations. Adult General Chief Complaint Chief Complaint: CHEST PAIN HPI HPI 68-year-old male with underlying history of atrial fibrillation, coronary artery disease, congestive heart failure, COPD presents to the emergency department via EMS. EMS was called for shortness of breath and chest pain described times one week. Patient's heart rate upon arrival was 185, adenosine 6 mg, 12 mg initiated without change. Patient arrived to the emergency Department without complaints of chest pain, heart rate 117. Further evaluation with patient revealed concern for tachyarrhythmia. He denied any nausea, vomiting, abdominal pain. He did complain of shortness of breath, cough wheezing initial evaluation of EKG from EMS was concerning for V. tach however upon arrival, patient was in sinus tach with paroxysmal atrial fibrillation. Review of Systems Review of Systems Constitutional: Denies fever or chills [] Respiratory: + cough/shortness of breath [] Cardiovascular:No chest pain on arrival to ER, patient states chest pain prior to his arrival GI: Denies abdominal pain, nausea, vomiting, bloody stools or diarrhea [] Musculoskeletal: Denies back pain or joint pain [] Integument: Denies rash or skin lesions [] Neurologic: Denies headache, focal weakness or sensory changes [] All other systems were reviewed and found to be within normal limits, except as documented in this note. Current Medications Current Medications Current Medications Medications (Trade) Dose Ordered Sig/Taylor Start Time Stop Time Status Last Admin Dose Admin Albuterol/ Ipratropium (Duoneb) 3 ml 1X ONCE 05/21/19 23:15 05/21/19 23:16 DC 05/21/19 23:17 3 ML Aspirin (Children'S Aspirin) 324 mg 1X ONCE 05/21/19 23:15 05/21/19 23:16 DC Furosemide (Lasix) 40 mg 1X ONCE 05/22/19 00:00 05/22/19 00:01 DC 05/22/19 00:26 40 MG Heparin Sodium/ Dextrose 250 ml @ 0 mls/hr CONT PRN 05/22/19 00:00 05/23/19 04:48 22.9 MLS/HR Magnesium Sulfate 50 ml @ 25 mls/hr 1X ONCE 05/22/19 00:00 05/22/19 01:59 DC 05/22/19 00:31 25 MLS/HR Methylprednisolone Sodium Succinate (SOLU-Medrol 125MG VIAL) 125 mg 1X ONCE 05/21/19 23:30 05/21/19 23:31 DC 05/21/19 23:51 125 MG Morphine Sulfate (Morphine Sulfate) 2 mg PRN Q2HR PRN 05/22/19 00:30 05/23/19 00:29 DC Nitroglycerin (Nitrostat) 0.4 mg PRN Q5MIN PRN 05/22/19 00:30 05/22/19 13:30 DC Ondansetron HCl (Zofran) 4 mg PRN Q8HRS PRN 05/22/19 00:30 05/23/19 00:29 DC Allergies Allergies Allergies Coded Allergies Type Severity Reaction Last Updated Verified hydroxyzine Allergy Intermediate Blisters on fingers and feet. 04/24/18 Yes Physical Exam Physical Exam Constitutional: Well developed, well nourished, mild resp distress, non-toxic appearance. [] HENT: Normocephalic, atraumatic, bilateral external ears normal, oropharynx moist, no oral exudates, nose normal. [] Eyes: PERRLA, EOMI, conjunctiva normal, no discharge. [] Neck: Normal range of motion, no tenderness, supple, no stridor. [] Cardiovascular: tachycardia Lungs & Thorax: wheeze bilaterally both exp and inspiratory Abdomen: Bowel sounds normal, soft, no tenderness, no masses, no pulsatile masses. [] Skin: Warm, dry, no erythema, no rash. [] Extremities: No tenderness, trace edema. [] Neurologic: Alert and oriented X 3, no focal deficits noted. [] Psychologic: Affect normal, judgement normal, mood normal. [] Current Patient Data Vital Signs Vital Signs Date Time Temp Pulse Resp B/P (MAP) Pulse Ox O2 Delivery O2 Flow Rate FiO2 05/22/19 00:51 114 20 133/89 (104) 98 Room Air 05/21/19 22:30 98.5 98.5 Lab Values Laboratory Tests Test 05/21/19 22:34 White Blood Count 12.8 x10^3/uL (4.0-11.0) H Red Blood Count 4.84 x10^6/uL (4.30-5.70) Hemoglobin 14.4 g/dL (13.0-17.5) Hematocrit 44.9 % (39.0-53.0) Mean Corpuscular Volume 93 fL (79-100) Mean Corpuscular Hemoglobin 30 pg (25-35) Mean Corpuscular Hemoglobin Concent 32 g/dL (31-37) Red Cell Distribution Width 15.2 % (11.5-14.5) H Platelet Count 418 x10^3/uL (140-400) H Neutrophils (%) (Auto) 89 % (31-73) H Lymphocytes (%) (Auto) 7 % (24-48) L Monocytes (%) (Auto) 4 % (0-9) Eosinophils (%) (Auto) 0 % (0-3) Basophils (%) (Auto) 0 % (0-3) Neutrophils # (Auto) 11.4 x10^3/uL (1.8-7.7) H Lymphocytes # (Auto) 0.9 x10^3/uL (1.0-4.8) L Monocytes # (Auto) 0.5 x10^3/uL (0.0-1.1) Eosinophils # (Auto) 0.0 x10^3/uL (0.0-0.7) Basophils # (Auto) 0.0 x10^3/uL (0.0-0.2) Segmented Neutrophils % 84 % (35-66) H Band Neutrophils % 2 % (0-9) Lymphocytes % 13 % (24-48) L Monocytes % 1 % (0-10) Platelet Estimate Increased (ADEQUATE) D-Dimer (Reema) 1.08 ug/mlFEU (0.00-0.50) H Sodium Level 142 mmol/L (136-145) Potassium Level 4.5 mmol/L (3.5-5.1) Chloride Level 106 mmol/L (98-107) Carbon Dioxide Level 25 mmol/L (21-32) Anion Gap 11 (6-14) Blood Urea Nitrogen 46 mg/dL (8-26) H Creatinine 1.7 mg/dL (0.7-1.3) H Estimated GFR (Cockcroft-Gault) 40.2 BUN/Creatinine Ratio 27 (6-20) H Glucose Level 237 mg/dL (70-99) H Calcium Level 9.2 mg/dL (8.5-10.1) Magnesium Level 1.6 mg/dL (1.8-2.4) L Total Bilirubin 0.5 mg/dL (0.2-1.0) Aspartate Amino Transferase (AST) 35 U/L (15-37) Alanine Aminotransferase (ALT) 56 U/L (16-63) Alkaline Phosphatase 68 U/L (46-116) Troponin I Quantitative 0.339 ng/mL (0.000-0.055) PF-Wle-G-Type Natriuretic Peptide 8382 pg/mL (0-124) H Total Protein 7.9 g/dL (6.4-8.2) Albumin 3.0 g/dL (3.4-5.0) L Albumin/Globulin Ratio 0.6 (1.0-1.7) L Laboratory Tests 05/21/19 22:34 Laboratory Tests 05/21/19 22:34 EKG EKG [] Radiology/Procedures Radiology/Procedures [] Course & Med Decision Making Course & Med Decision Making Pertinent Labs and Imaging studies reviewed. (See chart for details) []68-year-old male with underlying history of atrial fibrillation, coronary artery disease, congestive heart failure, COPD presents to the emergency department via EMS. EMS was called for shortness of breath and chest pain described times one week. Patient's heart rate upon arrival was 185, adenosine 6 mg, 12 mg initiated without change. Patient arrived to the emergency Department without complaints of chest pain, heart rate 117. Further evaluation with patient revealed concern for tachyarrhythmia. He denied any nausea, vomiting, abdominal pain. He did complain of shortness of breath, cough wheezing initial evaluation of EKG from EMS was concerning for V. tach however upon arrival, patient was in sinus tach with paroxysmal atrial fibrillation. Patient arrived via EMS, EKG reveals sinus tachycardia. Review of EKG from EMS was concerning for V. tach however that had subsequently resolved upon his arrival. He did not have chest pain on initial evaluation, aspirin was not provided. He takes Eliquis last dose 2 days ago. Patient provided with DuoNeb upon arrival, Solu-Medrol 125 mg IV Laboratory values were obtained, creatinine 1.7, magnesium 1.6, BNP 8382, troponin 0.339. She was given Lasix 40 mg IV, replacement of magnesium IV 2 g, heparin drip initiated in the ER Aspirin was not initiated given no chest pain on presentation Patient admitted to the hospital with further cardiology consultation Abbe Disclaimer Dragon Disclaimer This electronic medical record was generated, in whole or in part, using a voice recognition dictation system. Departure Departure Impression: Primary Impression: Tachyarrhythmia Additional Impressions: Hypomagnesemia Elevated troponin Chronic renal insufficiency Disposition: ADMITTED INPATIENT Admitting Physician: HENRY Condition: IMPROVED Referrals: MARY ROGERS ANP (PCP) The HEART Score for CP Pts HEART Score for Chest Pain: HEART Score for Chest Pain Response (Comments) Value History Slighlty/Non-Suspicious 0 ECG Nonspecific Repolarizatio 1 Age > 65 2 Risk Factors >3 Risk Factors or Hx CAD 2 Troponin >1-<3x Normal Limit 1 Total 6 Risk Factors: Risk Factors: DM, Current or recent (<one month) smoker, HTN, HLP, family history of CAD, obesity. Risk Scores: Score 0 - 3: 2.5% MACE over next 6 weeks - Discharge Home Score 4 - 6: 20.3% MACE over next 6 weeks - Admit for Clinical Observation Score 7 - 10: 72.7% MACE over next 6 weeks - Early Invasive Strategies Critical Care Time Critical care time was 40 minutes exclusive of procedures. Problem Qualifiers Additional Impressions: Chronic renal insufficiency Chronic kidney disease stage: stage 2 (mild) Qualified Codes: N18.2 - Chronic kidney disease, stage 2 (mild) JADA PORTILLO MD May 22, 2019 05:42
[2019-05-22] MEDS ORDERED: PRED20TA PO (06:22)
[2019-05-22] MEDS ORDERED: DOXY100C2 PO (06:25)
[2019-05-22] MEDS ORDERED: ALBU2.5V14 NEB (06:26)
--- NOTE | 2019-05-22 06:26 | EKG ---
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
[2019-05-22] MEDS: IPRATRPIUM/ALBUTEROL 0.5/2.5MG 3 ML NEBU. NEB SCH ×5 (07:48→19:04)
[2019-05-22] MEDS: HEPARIN for IV BOLUS 10,000 UNIT/10 ML VIAL. IV PRN (08:22)
[2019-05-22 08:47] LABS: CALCIUM 8.9 mg/dL (8.5-10.1); CREATININE 1.5 mg/dL (0.7-1.3); GFR 46.4; POTASSIUM 4.4 mmol/L (3.5-5.1)
[2019-05-22 08:56] LABS: MAGNESIUM 2.1 mg/dL (1.8-2.4)
[2019-05-22 08:57] LABS: CHOLESTEROL/HDL RATIO 4.9
[2019-05-22] MEDS ORDERED: IV NORMAL SALINE 1000ML BAG 1,000 ML IV ONE (09:00)
--- NOTE | 2019-05-22 09:26 | EKG ---
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
[2019-05-22] MEDS ORDERED: dilTIAZem HCL 30 MG TABLET PO SCH (09:30)
--- NOTE | 2019-05-22 09:45 | PDOC2 ---
NATHAN CHOU BEHAVIORAL HEALTH SPECIALIST 05/22/19 0945: CARDIAC CONSULT DATE OF CONSULT Date of Consult DATE: 05/22/19 TIME: 09:04 REASON FOR CONSULT Reason for Consult: Chest pain, [place] REFERRING PHYSICIAN Referring Physician: FRAN SOURCE Source: Chart review, Patient HISTORY OF PRESENT ILLNESS HISTORY OF PRESENT ILLNESS This is a pleasant 68 yo male admitted for complains of chest pain. Reports that he does have chest pain every now and then but in the last 2 weeks his symptoms have progressed. Complains of intermittent stabbing chest pain midsternal associated with jaw tightness and numbness to both arms with FLORES and exertional CP. No prior hx of CAD but significant for PAFIB, FRITZ without CPAP. He takes eliquis with last dose 2 days ago and stopped taking amiodarone with last dose at least 2 months ago when he ran out. He failed to show up on his outpt follow up due to transport issue. He has been having urinary frequency but no fever or chills. No prior hx of VTE but significant for multiple TIAs in the past. No falls, recent injuries or palpitations nor frequent dizziness. He was wheezing over a week ago and went to urgent care and was not told of any significant diagnosis such as asthma or CHF but was given albuterol and prednisone. He still has some wheeze and no peripheral edema. Positive for ins omnia, PND and orthopnea. He does have PAD and has been having some pain with ambulation but no wounds. PAST MEDICAL HISTORY Cardiovascular: HTN, Other (venous insufficiency; PAD) Pulmonary: Other (FRITZ has not been on CPAP for 6 yrs, no O2 coverage at home) CENTRAL NERVOUS SYSTEM: TIA GI: No pertinent hx Heme/Onc: No pertinent hx Hepatobiliary: No pertinent hx Psych: No pertinent hx Musculoskeletal: Osteoarthritis Infectious disease: No pertinent hx, Other (leg cellulitis a month ago) ENT: No pertinent hx Renal/: UTI, Benign prostatic enlarg., Other (renal stones) Endocrine: No pertinent hx Dermatology: Other (venous dermatitis) PAST SURGICAL HISTORY Past Surgical History: Arthroscopy (bilateral knees), Hernia Repair (ventral), Other (right carotid endarterectomy) SOCIAL HISTORY Smoke: No ALCOHOL: occassional Drugs: Marijuana (past) Lives: with Family CURRENT MEDICATIONS CURRENT MEDICATIONS Current Medications Medications (Trade) Dose Ordered Sig/Taylor Route PRN Reason Start Time Stop Time Status Last Admin Dose Admin Albuterol/ Ipratropium (Duoneb) 3 ml 1X ONCE NEB 05/21/19 23:15 05/21/19 23:16 DC 05/21/19 23:17 Methylprednisolone Sodium Succinate (SOLU-Medrol 125MG VIAL) 125 mg 1X ONCE IV 05/21/19 23:30 05/21/19 23:31 DC 05/21/19 23:51 Furosemide (Lasix) 40 mg 1X ONCE IVP 05/22/19 00:00 05/22/19 00:01 DC 05/22/19 00:26 Magnesium Sulfate 50 ml @ 25 mls/hr 1X ONCE IV 05/22/19 00:00 05/22/19 01:59 DC 05/22/19 00:31 Heparin Sodium/ Dextrose 250 ml @ 0 mls/hr CONT PRN IV SEE COMMENTS 05/22/19 00:00 05/22/19 00:37 Albuterol/ Ipratropium (Duoneb) 3 ml RTQID NEB 05/22/19 08:00 05/23/19 07:59 05/22/19 07:48 Aspirin (Zoey Aspirin) 325 mg 1X ONCE PO 05/22/19 05:15 05/22/19 05:16 DC 05/22/19 08:14 Heparin Sodium (Porcine) (Heparin Sodium) 3,250 unit PRN Q6HRS PRN IV FOR UFH LEVEL LESS THAN 0.2 05/22/19 08:00 05/22/19 08:22 ALLERGIES ALLERGIES: Coded Allergies: hydroxyzine (Verified Allergy, Intermediate, Blisters on fingers and feet. , 04/24/18) ROS Review of System 14 point ROS evaluated with pertinent positives noted per HPI PHYSICAL EXAM General: Alert, Oriented X3, Cooperative, No acute distress HEENT: Atraumatic, Mucous membr. moist/pink Lungs: Other (basilar wheeze) Heart: Regular rate (Sinus tach with RBBB) Abdomen: Soft, Other (obese) Extremities: No cyanosis, No edema Skin: No significant lesion, Other (venous dermatitis) Neuro: Normal speech, Sensation intact Psych/Mental Status: Mental status NL, Mood NL MUSCULOSKELETAL: Osteoarthritic changes both hands VITALS/I&O VITALS/I&O: Vital Signs Date Time Temp Pulse Resp B/P (MAP) Pulse Ox O2 Delivery O2 Flow Rate FiO2 05/22/19 07:51 96 Room Air 05/22/19 07:00 98.5 115 20 123/84 (97) 98.5 I & O 05/21/19 05/21/19 05/22/19 15:00 23:00 07:00 Intake Total 100 ml Output Total 900 ml Balance -800 ml LABS Lab: Laboratory Tests Test 05/21/19 22:34 05/22/19 01:28 05/22/19 01:40 05/22/19 05:15 White Blood Count 12.8 x10^3/uL (4.0-11.0) H 14.2 x10^3/uL (4.0-11.0) H Red Blood Count 4.84 x10^6/uL (4.30-5.70) 4.90 x10^6/uL (4.30-5.70) Hemoglobin 14.4 g/dL (13.0-17.5) 14.6 g/dL (13.0-17.5) Hematocrit 44.9 % (39.0-53.0) 44.8 % (39.0-53.0) Mean Corpuscular Volume 93 fL (79-100) 91 fL (79-100) Mean Corpuscular Hemoglobin 30 pg (25-35) 30 pg (25-35) Mean Corpuscular Hemoglobin Concent 32 g/dL (31-37) 33 g/dL (31-37) Red Cell Distribution Width 15.2 % (11.5-14.5) H 15.0 % (11.5-14.5) H Platelet Count 418 x10^3/uL (140-400) H 403 x10^3/uL (140-400) H Neutrophils (%) (Auto) 89 % (31-73) H Lymphocytes (%) (Auto) 7 % (24-48) L Monocytes (%) (Auto) 4 % (0-9) Eosinophils (%) (Auto) 0 % (0-3) Basophils (%) (Auto) 0 % (0-3) Neutrophils # (Auto) 11.4 x10^3/uL (1.8-7.7) H Lymphocytes # (Auto) 0.9 x10^3/uL (1.0-4.8) L Monocytes # (Auto) 0.5 x10^3/uL (0.0-1.1) Eosinophils # (Auto) 0.0 x10^3/uL (0.0-0.7) Basophils # (Auto) 0.0 x10^3/uL (0.0-0.2) Segmented Neutrophils % 84 % (35-66) H Band Neutrophils % 2 % (0-9) Lymphocytes % 13 % (24-48) L Monocytes % 1 % (0-10) Platelet Estimate Increased (ADEQUATE) D-Dimer (Reema) 1.08 ug/mlFEU (0.00-0.50) H Sodium Level 142 mmol/L (136-145) 143 mmol/L (136-145) Potassium Level 4.5 mmol/L (3.5-5.1) 4.4 mmol/L (3.5-5.1) Chloride Level 106 mmol/L (98-107) 106 mmol/L (98-107) Carbon Dioxide Level 25 mmol/L (21-32) 25 mmol/L (21-32) Anion Gap 11 (6-14) 12 (6-14) Blood Urea Nitrogen 46 mg/dL (8-26) H 43 mg/dL (8-26) H Creatinine 1.7 mg/dL (0.7-1.3) H 1.5 mg/dL (0.7-1.3) H Estimated GFR (Cockcroft-Gault) 40.2 46.4 BUN/Creatinine Ratio 27 (6-20) H Glucose Level 237 mg/dL (70-99) H 166 mg/dL (70-99) H Calcium Level 9.2 mg/dL (8.5-10.1) 8.9 mg/dL (8.5-10.1) Magnesium Level 1.6 mg/dL (1.8-2.4) L 2.1 mg/dL (1.8-2.4) Total Bilirubin 0.5 mg/dL (0.2-1.0) Aspartate Amino Transferase (AST) 35 U/L (15-37) Alanine Aminotransferase (ALT) 56 U/L (16-63) Alkaline Phosphatase 68 U/L (46-116) Troponin I Quantitative 0.339 ng/mL (0.000-0.055) 5.935 ng/mL (0.000-0.055) 12.485 ng/mL (0.000-0.055) GC-Ffb-J-Type Natriuretic Peptide 8382 pg/mL (0-124) H Total Protein 7.9 g/dL (6.4-8.2) Albumin 3.0 g/dL (3.4-5.0) L Albumin/Globulin Ratio 0.6 (1.0-1.7) L Triglycerides Level 60 mg/dL (0-150) Cholesterol Level 192 mg/dL (0-200) LDL Cholesterol, Calculated 141 mg/dL (0-100) H VLDL Cholesterol, Calculated 12 mg/dL (0-40) Non-HDL Cholesterol Calculated 153 mg/dL (0-129) H HDL Cholesterol 39 mg/dL (40-60) L Cholesterol/HDL Ratio 4.9 Test 05/22/19 06:25 Heparin Anti-Xa Act, Unfractionated < 0.10 IU/mL (0.30-0.70) L Laboratory Tests 05/21/19 22:34 05/22/19 01:40 Laboratory Tests 05/21/19 22:34 05/22/19 05:15 ECHOCARDIOGRAM ECHOCARDIOGRAM <Conclusion> The left ventricular systolic function is normal. The Ejection Fraction is 55-60%. Trace tricuspid regurgitation. The PA pressure was estimated at 48 mmHg. There is no evidence of significant pericardial effusion. DATE: 11/19/18 1034 STRESS TEST STRESS TEST Conclusion 1. Regadenoson cardioisotope stress test showed diaphragmatic attenuation artifact without any evidence for ischemia or infarct. 2. Mild left ventricle systolic dysfunction with ejection fraction calculated at 43%. 3. Low to intermediate risk for cardiac events. DATE: 12/05/18 1132 ASSESSMENT/PLAN ASSESSMENT/PLAN 1. NSTEMI: ACS features Trop at 12.4 2. HYUN on CKD: up to 1.7 better at 1.5. prerenal. Cr baseline per review is 1.3 3. HTN: controlled 4. Chronic RBBB with indeterminate axis. EKG reviewed same by comparison 5. Chronic diastolic CHF: compensated: received lasix last night 6. Chronic NOAC: last eliquis 2 days ago 7. PAFIB: appears with paroxysms otherwise reactive sinus tach 8. Known LE PAD but with claudications: was seen by vascular as an inpt but no intervention. failed outpt follow up 9. FRITZ: last CPAP use 6 yrs ago, did not tolerate the last time 10. Morbid obesity 11. Noncompliance: stopped amiodarone at least 2 months agowhen he ran out. fa iled follow ups 12. Hyperglycemia: steroid indueced vs DM2. per PCP 13. HLP: unmedicated 14. Dyspnea with wheeze: CHF vs adult onset asthma Recommendations 1. LHC today, risks and benefits discussed and agreeable to proceed 2. TTE, CT chest noncontrast and note any signs of amiodarone toxicity. 3. TSH, A1C. 4. Heparin drip, ASA, cardizem PO x1. Start on statin 5. No BB for now with his wheeze,. Will reeval cardiac regimen post LHC findings 6. Will start on IV hydration prep for renal insufficiency 7. Will address PAD as an outpt. 8. Lifestyle modification including wt loss and outpt w/u for FRITZ. Discussed treatment adherence. Will start back on amiodarone pending CT ALLI ROMERO MD 05/22/19 1307: CARDIAC CONSULT ASSESSMENT/PLAN ASSESSMENT/PLAN Patient seen and examined. Agree with ORDNANCE ARTIFICER HELPER's assessment and plan. Plan to proceed with cardiac catheterization today to further evaluate his non- STEMI Continue heparin infusion per protocol Acute on chronic systolic heart failure better compensated with diuresis 2-D echo showed LVEF 35-40% We will address his PAD as an outpatient Thank you for your consultation NATHAN CHOU APRN May 22, 2019 09:45 ALLI ROMERO MD May 22, 2019 13:07
[2019-05-22] MEDS ORDERED: dilTIAZem HCL 30 MG TABLET PO ONE (10:00)
[2019-05-22 10:15] LABS: BILIRUBIN,URINE NEGATIVE (NEG); CLARITY,URINE CLEAR; COLOR,URINE YELLOW; NITRITE,URINE NEGATIVE (NEG); PROTEIN,URINE NEGATIVE (NEG-TRACE); UROBILINOGEN,URINE 0.2 mg/dL (0.2 mg/dL)
--- NOTE | 2019-05-22 10:30 | RAD ---
Examination: CT chest without contrast HISTORY: History of dyspnea COMPARISON: None available TECHNIQUE: Axial CT images of chest were performed without contrast. Coronal and sagittal reformats are performed. Exposure: One or more of the following individualized dose reduction techniques were utilized for this examination: 1. Automated exposure control 2. Adjustment of the mA and/or kV according to patient size 3. Use of iterative reconstruction technique FINDINGS: The visualized thyroid gland grossly appears unremarkable. Central airways are patent. Diffuse coronary artery calcifications. Mild cardiomegaly The lungs are clear. The visualized noncontrasted liver, spleen, adrenals grossly appears unremarkable. Moderate degenerative changes thoracic spine. Partially visualized air anterior to the liver probably air in the bowel partially visualized. IMPRESSION: 1. Coronary artery calcifications. 2. The lungs are clear. Electronically signed by: Fuad Carrasco MD (05/22/2019 10:27 AM) [id number]
[2019-05-22 10:40] LABS: RBC,URINE RARE /HPF (0-2); WBC,URINE RARE /HPF (0-4)
[2019-05-22 10:41] LABS: BACTERIA,URINE 0 /HPF (0-FEW); HYALINE CASTS, URINE MANY /HPF
--- NOTE | 2019-05-22 11:50 | CARD ---
MR#: [id number] Date of Study: 05/22/2019 Ordering Physician: NATHAN CHOU, Referring Physician: NATHAN CHOU, Tech: Carolina Zamarripa APPROVED REPORT EXAM: Two-dimensional and M-mode echocardiogram with Doppler and color Doppler. Other Information Quality : FairHR: 112bpm Technically limited study due to body habitus. INDICATION Atrial Fibrillation Chest Pain Non STEMI 2D DIMENSIONS RVDd3.9 (2.9-3.5cm)Left Atrium(2D)4.7 (1.6-4.0cm) IVSd1.9 (0.7-1.1cm)Aortic Root(2D)2.9 (2.0-3.7cm) LVDd5.7 (3.9-5.9cm)LVOT Diameter2.1 (1.8-2.4cm) PWd1.3 (0.7-1.1cm)LVDs3.2 (2.5-4.0cm) FS (%) 43.3 %SV118.8 ml LVEF(%)73.7 (>50%) Aortic Valve AoV Peak Israel.195.9cm/sAoV VTI41.1cm AO Peak GR.15.4mmHgAO Mean GR.12mmHg TDI Lateral E' P. V14.80cm/sMedial E' P. V7.27cm/s Tricuspid Valve TR P. Ofhefyme559sf/sTR Peak Gr.40mmHg LEFT VENTRICLE The left ventricle is normal size. There is moderate concentric left ventricular hypertrophy. The lef t ventricular systolic function is mild to moderately decreased. EF 35-40% Wall motion consistent wit h conduction abnormality. Otherwise, moderate global hypokinesis. Transmitral Doppler flow pattern is Grade II-pseudonormal filling dynamics. RIGHT VENTRICLE The right ventricle is borderline dilated. There is normal right ventricular wall thickness. The righ t ventricular systolic function is normal. ATRIA The left atrium is mildly dilated. The right atrium is borderline dilated. The interatrial septum is intact with no evidence for an atrial septal defect or patent foramen ovale as noted on 2-D or Dopple r imaging. AORTIC VALVE The aortic valve is mildly to moderately calcified. Doppler and Color Flow revealed no significant ao rtic regurgitation. There is no significant aortic valvular stenosis. Calculated aortic valve area is 1.12 cm2 with maximum pressure gradient of 20 mmHg and mean pressure gradient of 12 mmHg. MITRAL VALVE The mitral valve is normal in structure and function. There is no evidence of mitral valve prolapse. There is no mitral valve stenosis. Doppler and Color Flow revealed no mitral valve regurgitation note d. TRICUSPID VALVE The tricuspid valve is normal in structure and function. Doppler and Color Flow revealed trace tricus pid regurgitation with an estimated PAP of 51 mmHg. There is no tricuspid valve stenosis. PULMONIC VALVE The pulmonic valve is not well visualized. Doppler and Color Flow revealed no pulmonic valvular regur gitation. There is no pulmonic valvular stenosis. GREAT VESSELS The aortic root is normal in size. The IVC is dilated and collapses >50% with inspiration. PERICARDIAL EFFUSION There is no evidence of significant pericardial effusion. Critical Notification Critical Value: No <Conclusion> The left ventricular systolic function is mild to moderately decreased. EF 35-40% Wall motion consistent with conduction abnormality. Otherwise, moderate global hypokinesis. Doppler and Color Flow revealed trace tricuspid regurgitation with an estimated PAP of 51 mmHg. Signed by : Gurpreet Jarrell, Electronically Approved : 05/22/2019 11:49:40
[2019-05-22] MEDS ORDERED: IODIXANOL 320 MG/ML 100 ML VIAL. ONE ×2 (12:05→12:34)
[2019-05-22] MEDS ORDERED: LIDOCAINE 1% PF 2 ML VIAL. ONE (12:05)
--- NOTE | 2019-05-22 12:20 | CONS ---
DATE OF CONSULTATION: PULMONARY CONSULTATION ATTENDING PHYSICIAN: Corrie Richardson DO. REASON FOR CONSULTATION: Wheezing. HISTORY OF PRESENT ILLNESS: The patient is a 68-year-old morbidly obese male with a BMI of 41. The patient has no significant tobacco history, but has been tested for sleep apnea and has been diagnosed with FRITZ, but has not been on CPAP as he could not tolerate the mask. The patient was brought into the hospital with chest pain, which has been going on for a while. He says he has this pain before as well. He went to urgent care, was coughing, cough was productive of yellow sputum. He was wheezing. They gave him oral doxycycline and also put him on prednisone. He denies any headaches, no nausea or vomiting, no diarrhea, no dysuria. He underwent CT chest, which was done without contrast. There are no definite lung infiltrate seen. I have been asked to see him for further evaluation. PAST MEDICAL HISTORY: Significant for history of hypertension, history of FRITZ and has been on CPAP. Last study was more than 8 years ago. History of cellulitis a month ago, BPH, UTI, and venous stasis. PAST SURGICAL HISTORY: Bilateral knees, hernia repair, and right carotid endarterectomy. SOCIAL HISTORY: No tobacco history. He did marijuana, meth and cocaine in the past, but has quit at least 10-15 years ago. REVIEW OF SYSTEMS: Twelve-point system obtained. Pertinent positives discussed in my history of present illness, otherwise noncontributory. All systems that were negative were reviewed as well. ALLERGIES: HYDROXYZINE. CURRENT MEDICATIONS: Reviewed as listed in the MRAD. PHYSICAL EXAMINATION: VITAL SIGNS: Reviewed. Blood pressure 147/91, afebrile, pulse ox 96% on room air. NECK: Supple. LUNGS: With diffuse bilateral expiratory wheezes. CARDIOVASCULAR: Regular rate. ABDOMEN: Soft, obese. EXTREMITIES: With venous stasis. LABORATORY DATA: Reviewed. BUN 43, creatinine 1.5. His troponin is 12.4. D-dimer 1.08. White cell count 14.2, hemoglobin 14.6, and platelets of 403. IMPRESSION: 1. Chest pain with markedly increased troponin, likely related to non-ST segment myocardial infarction. Cardiology is following and catheterization has been planned for today. 2. Diffuse bronchospasm, likely adult-onset asthma. The patient has no significant tobacco history and the CT chest does not show any evidence of congestive heart failure. He needs maximum bronchodilation along with steroids. 3. Acute bronchitis, could have triggered asthma exacerbation. No definite consolidation seen on the CT chest. 4. History of obstructive sleep apnea. The patient states that he could not tolerate higher pressure and also mask. I did discuss with him regarding the cardiovascular effects of untreated sleep apnea. He is agreeable to do a sleep study as an outpatient and will try nasal pillows. 5. Remote history of methamphetamine use, cocaine use, and marijuana use, but has quit for over 10 years. RECOMMENDATIONS: 1. Discussed with RN and family. 2. We will maximize bronchodilator treatment. I will increase DuoNebs to q.4 hours and add Pulmicort nebs. 3. IV steroids 4. Cardiac catheterization per Cardiology. 5. Outpatient PFTs. 6. Sleep study as an outpatient. 7. Heparin per protocol per Cardiology. 8. We will follow along with you. NATY HERNÁNDEZ MD DR: BRONSON/jn JOB#: [id number] / [id number] BARNEY
--- NOTE | 2019-05-22 12:21 | PDOC1 ---
History and Physical Date of Admission: Date of Admission DATE: 05/22/19 TIME: 12:20 Chief Complaint: Problems: (1) Chest pain (2) Hypomagnesemia (3) Elevated troponin (4) Tachyarrhythmia (5) Renal stone (6) Kidney stone (7) HYUN (acute kidney injury) (8) Onychomycosis of toenail (9) Morbid obesity (10) Atrial fibrillation with RVR (11) Osteomyelitis of second toe of right foot (12) Bilateral ankle pain (13) Chronic renal insufficiency (14) Cellulitis of both lower extremities Chief Complain: Chest pain and shortness of breath weakness History of Present Illness: HPI: This is a pleasant 68 yo male admitted for complains of chest pain. Reports that he does have chest pain every now and then but in the last 2 weeks his symptoms have progressed. Complains of intermittent stabbing chest pain midsternal associated with jaw tightness and numbness to both arms with FLORES and exertional CP. No prior hx of CAD but significant for PAFIB, FRITZ without CPAP. He takes eliquis with last dose 2 days ago and stopped taking amiodarone with last dose at least 2 months ago when he ran out. He failed to show up on his outpt follow up due to transport issue. He has been having urinary frequency but no fever or chills. No prior hx of VTE but significant for multiple TIAs in the past. No falls, recent injuries or palpitations nor frequent dizziness. He was wheezing over a week ago and went to urgent care and was not told of any significant diagnosis such as asthma or CHF but was given albuterol and prednisone. He still has some wheeze and no peripheral edema. Positive for insomnia, PND and orthopnea. He does have PAD and has been having some pain with ambulation but no wounds. Past Medical/Surgical History: PMH/PSH: Past Medical History: A-Fib, CVA, High Cholesterol, Other Additional Past Medical Histor: Kidney stones Past Surgical History: Other Additional Past Surgical Histo: L)Carotidendarectomy,R)rotator cuff,Bilateral knee surgery,Hiatel hernia. Alcohol Use: Occasionally Drug Use: Marijuana Allergies: Allergies: Coded Allergies: hydroxyzine (Verified Allergy, Intermediate, Blisters on fingers and feet. , 04/24/18) Family History: Family History: Coronary disease Social History: Social Hisoty: He does not drink smoke or take drugs Current Medications: Current Medications Current Medications Aspirin (Children'S Aspirin) 324 mg 1X ONCE PO ; Start 05/21/19 at 23:15; Stop 05/21/19 at 23:16; Status DC Albuterol/ Ipratropium (Duoneb) 3 ml 1X ONCE NEB Last administered on 05/21/19at 23:17; Start 05/21/19 at 23:15; Stop 05/21/19 at 23:16; Status DC Methylprednisolone Sodium Succinate (SOLU-Medrol 125MG VIAL) 125 mg 1X ONCE IV Last administered on 05/21/19at 23:51; Start 05/21/19 at 23:30; Stop 05/21/19 at 23:31; Status DC Furosemide (Lasix) 40 mg 1X ONCE IVP Last administered on 05/22/19at 00:26; Start 05/22/19 at 00:00; Stop 05/22/19 at 00:01; Status DC Magnesium Sulfate 50 ml @ 25 mls/hr 1X ONCE IV Last administered on 05/22/19at 00:31; Start 05/22/19 at 00:00; Stop 05/22/19 at 01:59; Status DC Heparin Sodium/ Dextrose 250 ml @ 0 mls/hr CONT PRN IV SEE COMMENTS Last ad ministered on 05/22/19at 00:37; Start 05/22/19 at 00:00 Ondansetron HCl (Zofran) 4 mg PRN Q8HRS PRN IV NAUSEA/VOMITING; Start 05/22/19 at 00:30; Stop 05/23/19 at 00:29 Morphine Sulfate (Morphine Sulfate) 2 mg PRN Q2HR PRN IV PAIN; Start 05/22/19 at 00:30; Stop 05/23/19 at 00:29 Nitroglycerin (Nitrostat) 0.4 mg PRN Q5MIN PRN SL CHEST PAIN; Start 05/22/19 at 00:30; Stop 05/23/19 at 00:29 Albuterol/ Ipratropium (Duoneb) 3 ml RTQID NEB Last administered on 05/22/19at 11:21; Start 05/22/19 at 08:00; Stop 05/22/19 at 11:36; Status DC Aspirin (Zoey Aspirin) 325 mg 1X ONCE PO Last administered on 05/22/19at 08:14; Start 05/22/19 at 05:15; Stop 05/22/19 at 05:16; Status DC Heparin Sodium (Porcine) (Heparin Sodium) 3,250 unit PRN Q6HRS PRN IV FOR UFH LEVEL LESS THAN 0.2 Last administered on 05/22/19at 08:22; Start 05/22/19 at 08:00 Sodium Chloride 1,000 ml @ 100 mls/hr 1X ONCE IV Last administered on 05/22/19at 09:38; Start 05/22/19 at 09:00; Stop 05/22/19 at 18:59 Diltiazem HCl (Cardizem) 30 mg 1X ONCE PO Last administered on 05/22/19at 09:38; Start 05/22/19 at 10:00; Stop 05/22/19 at 10:01; Status DC Diltiazem HCl (Cardizem) 30 mg 1X PO ; Start 05/22/19 at 09:30; Stop 05/22/19 at 09:29; Status DC Albuterol/ Ipratropium (Duoneb) 3 ml RTQID NEB ; Start 05/22/19 at 12:00 Budesonide (Pulmicort) 0.5 mg RTBID NEB ; Start 05/22/19 at 13:00 Methylprednisolone Sodium Succinate (SOLU-Medrol 125MG VIAL) 80 mg Q6HRS IV ; Start 05/22/19 at 13:00 Ceftriaxone Sodium (Rocephin) 1 gm Q24H IVP ; Start 05/22/19 at 13:00 Iodixanol (Visipaque 320) 100 ml STK-MED ONCE .ROUTE ; Start 05/22/19 at 12:05; Stop 05/22/19 at 12:05; Status DC Lidocaine HCl (Xylocaine-Mpf 1% 2ml Vial) 2 ml STK-MED ONCE .ROUTE ; Start 05/22/19 at 12:05; Stop 05/22/19 at 12:05; Status DC Heparin Sodium/ Sodium Chloride 500 ml @ As Directed STK-MED ONCE .ROUTE ; Start 05/22/19 at 12:05; Stop 05/22/19 at 12:05; Status DC Active Scripts Active Lipitor (Atorvastatin Calcium) 40 Mg Tablet 1 Tab PO QHS 90 Days Reported Albuterol Sulfate Conc Neb Soln (Albuterol Sulfate) 2.5 Mg/0.5 Ml Vial.neb 2.5 M g NEB Q4-6HRS PRN Doxycycline Hyclate 100 Mg Capsule 1 Cap PO BID Prednisone 20 Mg Tablet 1 Tab PO BID 9 Days Eliquis (Apixaban) 5 Mg Tablet 5 Mg PO BID ROS: Review of Systems Review of System REVIEW OF SYSTEMS: GENERAL: Denies weakness SKIN: No bruising, hair changes or rashes. EYES: No blurred, double or loss of vision. NOSE AND THROAT: No history of nosebleeds, hoarseness or sore throat. HEART: Complains of chest pain LUNGS: Complains of shortness of breath GASTROINTESTINAL: Denies changes in appetite, nausea, vomiting, diarrhea or constipation. GENITOURINARY: No history of frequency, urgency, hesitancy or nocturia. NEUROLOGIC: Denies history of numbness, tingling, tremor or weakness. PSYCHIATRIC: No history of panic, anxiety or depression. ENDOCRINE: No history of heat or cold intolerance, polyuria or polydipsia. EXTREMITIES: Denies muscle weakness, joint pain, pain on walking or stiffness. Physical Exam: Vital Signs: Vital Signs Date Time Temp Pulse Resp B/P (MAP) Pulse Ox O2 Delivery O2 Flow Rate FiO2 05/22/19 11:21 96 Room Air 05/22/19 10:56 98.4 112 20 147/91 (109) 98.4 Physcial Exam: GEN: Sleeping difficult to open his eyes and difficult to awaken I suspect he might have obstructive sleep apnea HEENT: His face is somewhat swollen this appears to be chronic EYES: Extraocular muscles are intact, pupil are equally round and reactive to light and accommodation MUSCULOSKELETAL: Upper developed overnourished ENDOCRINE: Ny thyromegaly was palpated LYMPHATICS: No cervical chain or axillary nodes were noted HEMATOPOIETIC: No bruising NECK: Supple, no JVD, no thyromegaly was noted LUNGS: MS breath sounds HEART: RRR, S!, S2 present. Peripheral pulses intact, no obvious murmurs noted ABDOMEN: Soft, nontender. Positive bowel sounds, no organomegaly, normal bowel sounds EXTREMITIES: Without clubbing, cyanosis, or edema. Pedal pulses intact. Negative Homans sign NEUROLOGIC: Normal speech and tone. A&O x 3, moves all extremities, no obvious focal deficits PSYCHIATRIC: Normal affect, normal mood. Stable SKIN: No ulcerations or rashes, good skin turgor, no jaundice VASCULAR: Good capillary refill, neurovascular bundle appears to be intact Labs: Labs: Laboratory Tests Test 05/21/19 22:34 05/22/19 01:28 05/22/19 01:40 05/22/19 05:15 White Blood Count 12.8 x10^3/uL (4.0-11.0) 14.2 x10^3/uL (4.0-11.0) Red Blood Count 4.84 x10^6/uL (4.30-5.70) 4.90 x10^6/uL (4.30-5.70) Hemoglobin 14.4 g/dL (13.0-17.5) 14.6 g/dL (13.0-17.5) Hematocrit 44.9 % (39.0-53.0) 44.8 % (39.0-53.0) Mean Corpuscular Volume 93 fL (79-100) 91 fL (79-100) Mean Corpuscular Hemoglobin 30 pg (25-35) 30 pg (25-35) Mean Corpuscular Hemoglobin Concent 32 g/dL (31-37) 33 g/dL (31-37) Red Cell Distribution Width 15.2 % (11.5-14.5) 15.0 % (11.5-14.5) Platelet Count 418 x10^3/uL (140-400) 403 x10^3/uL (140-400) Neutrophils (%) (Auto) 89 % (31-73) Lymphocytes (%) (Auto) 7 % (24-48) Monocytes (%) (Auto) 4 % (0-9) Eosinophils (%) (Auto) 0 % (0-3) Basophils (%) (Auto) 0 % (0-3) Neutrophils # (Auto) 11.4 x10^3/uL (1.8-7.7) Lymphocytes # (Auto) 0.9 x10^3/uL (1.0-4.8) Monocytes # (Auto) 0.5 x10^3/uL (0.0-1.1) Eosinophils # (Auto) 0.0 x10^3/uL (0.0-0.7) Basophils # (Auto) 0.0 x10^3/uL (0.0-0.2) Segmented Neutrophils % 84 % (35-66) Band Neutrophils % 2 % (0-9) Lymphocytes % 13 % (24-48) Monocytes % 1 % (0-10) Platelet Estimate Increased (ADEQUATE) D-Dimer (Reema) 1.08 ug/mlFEU (0.00-0.50) Sodium Level 142 mmol/L (136-145) 143 mmol/L (136-145) Potassium Level 4.5 mmol/L (3.5-5.1) 4.4 mmol/L (3.5-5.1) Chloride Level 106 mmol/L (98-107) 106 mmol/L (98-107) Carbon Dioxide Level 25 mmol/L (21-32) 25 mmol/L (21-32) Anion Gap 11 (6-14) 12 (6-14) Blood Urea Nitrogen 46 mg/dL (8-26) 43 mg/dL (8-26) Creatinine 1.7 mg/dL (0.7-1.3) 1.5 mg/dL (0.7-1.3) Estimated GFR (Cockcroft-Gault) 40.2 46.4 BUN/Creatinine Ratio 27 (6-20) Glucose Level 237 mg/dL (70-99) 166 mg/dL (70-99) Calcium Level 9.2 mg/dL (8.5-10.1) 8.9 mg/dL (8.5-10.1) Magnesium Level 1.6 mg/dL (1.8-2.4) 2.1 mg/dL (1.8-2.4) Total Bilirubin 0.5 mg/dL (0.2-1.0) Aspartate Amino Transf (AST/SGOT) 35 U/L (15-37) Alanine Aminotransferase (ALT/SGPT) 56 U/L (16-63) Alkaline Phosphatase 68 U/L (46-116) Troponin I Quantitative 0.339 ng/mL (0.000-0.055) 5.935 ng/mL (0.000-0.055) 12.485 ng/mL (0.000-0.055) PK-Epe-S-Type Natriuretic Peptide 8382 pg/mL (0-124) Total Protein 7.9 g/dL (6.4-8.2) Albumin 3.0 g/dL (3.4-5.0) Albumin/Globulin Ratio 0.6 (1.0-1.7) Creatine Kinase 239 U/L (39-308) Triglycerides Level 60 mg/dL (0-150) Cholesterol Level 192 mg/dL (0-200) LDL Cholesterol, Calculated 141 mg/dL (0-100) VLDL Cholesterol, Calculated 12 mg/dL (0-40) Non-HDL Cholesterol Calculated 153 mg/dL (0-129) HDL Cholesterol 39 mg/dL (40-60) Cholesterol/HDL Ratio 4.9 Thyroid Stimulating Hormone (TSH) 0.566 uIU/mL (0.358-3.74) Test 05/22/19 06:25 05/22/19 09:45 Heparin Anti-Xa Act, Unfractionated < 0.10 IU/mL (0.30-0.70) Urine Collection Type Unknown Urine Color Yellow Urine Clarity Clear Urine pH 5.0 Urine Specific [place] 1.020 Urine Protein Negative mg/dL (NEG-TRACE) Urine Glucose (UA) Negative mg/dL (NEG) Urine Ketones (Stick) Negative mg/dL (NEG) Urine Blood Negative (NEG) Urine Nitrite Negative (NEG) Urine Bilirubin Negative (NEG) Urine Urobilinogen Dipstick 0.2 mg/dL (0.2 mg/dL) Urine Leukocyte Esterase Negative (NEG) Urine RBC Rare /HPF (0-2) Urine WBC Rare /HPF (0-4) Urine Squamous Epithelial Cells None /LPF Urine Bacteria 0 /HPF (0-FEW) Urine Hyaline Casts Many /HPF Urine Mucus Mod /LPF Laboratory Tests Test 05/21/19 22:34 05/22/19 01:28 05/22/19 01:40 05/22/19 05:15 White Blood Count 12.8 x10^3/uL (4.0-11.0) 14.2 x10^3/uL (4.0-11.0) Red Blood Count 4.84 x10^6/uL (4.30-5.70) 4.90 x10^6/uL (4.30-5.70) Hemoglobin 14.4 g/dL (13.0-17.5) 14.6 g/dL (13.0-17.5) Hematocrit 44.9 % (39.0-53.0) 44.8 % (39.0-53.0) Mean Corpuscular Volume 93 fL (79-100) 91 fL (79-100) Mean Corpuscular Hemoglobin 30 pg (25-35) 30 pg (25-35) Mean Corpuscular Hemoglobin Concent 32 g/dL (31-37) 33 g/dL (31-37) Red Cell Distribution Width 15.2 % (11.5-14.5) 15.0 % (11.5-14.5) Platelet Count 418 x10^3/uL (140-400) 403 x10^3/uL (140-400) Neutrophils (%) (Auto) 89 % (31-73) Lymphocytes (%) (Auto) 7 % (24-48) Monocytes (%) (Auto) 4 % (0-9) Eosinophils (%) (Auto) 0 % (0-3) Basophils (%) (Auto) 0 % (0-3) Neutrophils # (Auto) 11.4 x10^3/uL (1.8-7.7) Lymphocytes # (Auto) 0.9 x10^3/uL (1.0-4.8) Monocytes # (Auto) 0.5 x10^3/uL (0.0-1.1) Eosinophils # (Auto) 0.0 x10^3/uL (0.0-0.7) Basophils # (Auto) 0.0 x10^3/uL (0.0-0.2) Segmented Neutrophils % 84 % (35-66) Band Neutrophils % 2 % (0-9) Lymphocytes % 13 % (24-48) Monocytes % 1 % (0-10) Platelet Estimate Increased (ADEQUATE) D-Dimer (Reema) 1.08 ug/mlFEU (0.00-0.50) Sodium Level 142 mmol/L (136-145) 143 mmol/L (136-145) Potassium Level 4.5 mmol/L (3.5-5.1) 4.4 mmol/L (3.5-5.1) Chloride Level 106 mmol/L (98-107) 106 mmol/L (98-107) Carbon Dioxide Level 25 mmol/L (21-32) 25 mmol/L (21-32) Anion Gap 11 (6-14) 12 (6-14) Blood Urea Nitrogen 46 mg/dL (8-26) 43 mg/dL (8-26) Creatinine 1.7 mg/dL (0.7-1.3) 1.5 mg/dL (0.7-1.3) Estimated GFR (Cockcroft-Gault) 40.2 46.4 BUN/Creatinine Ratio 27 (6-20) Glucose Level 237 mg/dL (70-99) 166 mg/dL (70-99) Calcium Level 9.2 mg/dL (8.5-10.1) 8.9 mg/dL (8.5-10.1) Magnesium Level 1.6 mg/dL (1.8-2.4) 2.1 mg/dL (1.8-2.4) Total Bilirubin 0.5 mg/dL (0.2-1.0) Aspartate Amino Transf (AST/SGOT) 35 U/L (15-37) Alanine Aminotransferase (ALT/SGPT) 56 U/L (16-63) Alkaline Phosphatase 68 U/L (46-116) Troponin I Quantitative 0.339 ng/mL (0.000-0.055) 5.935 ng/mL (0.000-0.055) 12.485 ng/mL (0.000-0.055) KF-Fev-T-Type Natriuretic Peptide 8382 pg/mL (0-124) Total Protein 7.9 g/dL (6.4-8.2) Albumin 3.0 g/dL (3.4-5.0) Albumin/Globulin Ratio 0.6 (1.0-1.7) Creatine Kinase 239 U/L (39-308) Triglycerides Level 60 mg/dL (0-150) Cholesterol Level 192 mg/dL (0-200) LDL Cholesterol, Calculated 141 mg/dL (0-100) VLDL Cholesterol, Calculated 12 mg/dL (0-40) Non-HDL Cholesterol Calculated 153 mg/dL (0-129) HDL Cholesterol 39 mg/dL (40-60) Cholesterol/HDL Ratio 4.9 Thyroid Stimulating Hormone (TSH) 0.566 uIU/mL (0.358-3.74) Test 05/22/19 06:25 05/22/19 09:45 Heparin Anti-Xa Act, Unfractionated < 0.10 IU/mL (0.30-0.70) Urine Collection Type Unknown Urine Color Yellow Urine Clarity Clear Urine pH 5.0 Urine Specific [place] 1.020 Urine Protein Negative mg/dL (NEG-TRACE) Urine Glucose (UA) Negative mg/dL (NEG) Urine Ketones (Stick) Negative mg/dL (NEG) Urine Blood Negative (NEG) Urine Nitrite Negative (NEG) Urine Bilirubin Negative (NEG) Urine Urobilinogen Dipstick 0.2 mg/dL (0.2 mg/dL) Urine Leukocyte Esterase Negative (NEG) Urine RBC Rare /HPF (0-2) Urine WBC Rare /HPF (0-4) Urine Squamous Epithelial Cells None /LPF Urine Bacteria 0 /HPF (0-FEW) Urine Hyaline Casts Many /HPF Urine Mucus Mod /LPF Images: Images Examination: CT chest without contrast HISTORY: History of dyspnea COMPARISON: None available TECHNIQUE: Axial CT images of chest were performed without contrast. Coronal and sagittal reformats are performed. Exposure: One or more of the following individualized dose reduction techniques were utilized for this examination: 1. Automated exposure control 2. Adjustment of the mA and/or kV according to patient size 3. Use of iterative reconstruction technique FINDINGS: The visualized thyroid gland grossly appears unremarkable. Central airways are patent. Diffuse coronary artery calcifications. Mild cardiomegaly The lungs are clear. The visualized noncontrasted liver, spleen, adrenals grossly appears unremarkable. Moderate degenerative changes thoracic spine. Partially visualized air anterior to the liver probably air in the bowel partially visualized. IMPRESSION: 1. Coronary artery calcifications. 2. The lungs are clear. Assessment/Plan Assessment/Plan Acute myocardial infarction with elevated troponin of 12 Plan Patient is going to the Par[facility] today suspect he will need stents I'm also concerned about his weight and difficulty with waking up I suspect he has obstructive sleep apnea We'll consult pulmonary Home meds DVT prophylaxis Full code Cardiac monitoring Serial enzymes Serial EKGs Prognosis guarded Total time 32 minutes ALMA MISTRY III DO May 22, 2019 12:21
[2019-05-22] MEDS ORDERED: fentaNYL PF VIAL 100 MCG/2 ML VIAL ONE (12:28)
[2019-05-22] MEDS ORDERED: MIDAZOLAM HCL/PF 5 MG/5 ML VIAL. ONE (12:28)
[2019-05-22] MEDS ORDERED: VERAPAMIL 5 MG/2 ML VIAL. ONE (12:28)
[2019-05-22] MEDS ORDERED: NITROGLYCERIN 200 MCG/2 ML SYRINGE FOR CATH/VASC LAB. ONE (12:28)
[2019-05-22] MEDS ORDERED: HEPARIN for IV BOLUS 10,000 UNIT/10 ML VIAL. ONE (12:28)
[2019-05-22] MEDS ORDERED: fentaNYL PF VIAL 100 MCG/2 ML VIAL IV ONE (12:45)
[2019-05-22] MEDS ORDERED: IODIXANOL 320 MG/ML 100 ML VIAL. IART ONE (12:45)
[2019-05-22] MEDS ORDERED: MIDAZOLAM HCL/PF 5 MG/5 ML VIAL. IV ONE (12:45)
[2019-05-22] MEDS ORDERED: VERAPAMIL 5 MG/2 ML VIAL. IART ONE (12:45)
[2019-05-22] MEDS ORDERED: HEPARIN for IV BOLUS 10,000 UNIT/10 ML VIAL. IART ONE (12:45)
[2019-05-22] MEDS ORDERED: LIDOCAINE 1% PF 2 ML VIAL. INJ ONE (12:45)
[2019-05-22] MEDS ORDERED: NITROGLYCERIN 200 MCG/2 ML SYRINGE FOR CATH/VASC LAB. IART ONE (12:45)
--- NOTE | 2019-05-22 13:08 | PDOC ---
MODERATE SEDATION ASSESSMENT RISKS/ALTERNATIVES Risks/Alternatives Risks and alternatives of this type of sedation and procedure discussed with: RISK/ALTERNATIVES: Patient H & P ON CHART H & P H & P on chart and reviewed for co-morbid conditions and appropriate labs. H&P ON CHART: Yes STATUS PREG STATUS ASSESSED: N/A MEDS/ALLERGIES REVIEWED Meds/Allergies Reviewed Medications and Allergies including time and route of recently administered narcotics and sedatives. MEDS/ALLERGIES REVIEWED: Yes ASA RATING ASA RATING: III AIRWAY ASSESSMENT Airway Assessment Airway patency, oral function limitations, presence of caps, crowns, dentures, partials, and ability to extend neck assessed. AIRWAY ASSESSMENT: Yes MALLAMPATI SCORE MALLAMPATI SCORE: II PRE-SEDATION ASSESSMENT PRE-SEDATION ASSESSMENT: Yes ALLI ROMERO MD May 22, 2019 13:08
--- NOTE | 2019-05-22 13:14 | NUR ---
Duoneb given at 1130 with previous order.
[2019-05-22] MEDS ORDERED: 0.9 % SODIUM CHLORIDE 10 ML DISP.SYRIN. IV PRN (13:15)
[2019-05-22] MEDS: cefTRIAXone IV Push 1 GM VIAL. IVP SCH (13:35)
[2019-05-22] MEDS: methylPREDNISolone SOD SUCC PF 125 MG/2 ML VIAL. IV SCH ×3 (13:36→23:42)
--- NOTE | 2019-05-22 13:40 | CARD ---
MR#: [id number] Date of Study: 05/22/2019 Ordering Physician: ALLI ROMERO, Referring Physician: ALLI ROMERO Tech: Nicolasa Ward APPROVED REPORT Technologist: Nicolasa Ward Nurse: Shaila Quinones R.N. Procedure(s) performed: Left heart catheterization, selective coronary angiography via right transrad ial approach fl time: 3.9 mins dose: 85 gy/cm2 contrast: 127 ml moderate sedation: 31 mins INDICATION The indication(s) include : non-STEMI . CS Clinical Frailty Scale [facility] Clinical Frailty Scale: Moderately Frail Heart Failure Heart Failure: Yes If Yes, Newly Diagnosed: No If Yes, HF Type: Diastolic If Yes, NYHA Class: Class III PROCEDURE NARRATIVE After explaining the risks, benefits and alternative options, informed consent was obtained from irene ent. Patient was brought to the cardiac Bulb Inspector and right wrist was prepped and draped in the usual fashion after confirming a positive modified Domenic's test. Arterial access was obtained in the righ t radial artery and a 6 Irish sheath was inserted. 6 Irish Deshawn catheter was used to perform gina ective angiography of the left and right coronary arteries. LVEDP and transaortic gradients remeasure d. Left ventriculography was not performed due to elevated creatinine and since 2-D echo showed LVEF 35-40%. Patient tolerated the procedure well. Hemostasis was achieved using TR band. There were no immediate complications. The following findings were noted. FINDINGS 1. Hemodynamics: Left ventricular end-diastolic pressure of 22 mmHg. No pullback gradient across th e aortic valve. 2. Coronary angiography: a. The left main coronary artery arose from the left sinus of Valsalva, gave rise to the left anteri or descending and left circumflex arteries and showed 50% midsegment stenosis and 70-80% distal segme nt stenosis. b. The left anterior descending artery showed minimal luminal irregularities without any critical le sions. c. The left circumflex artery showed 60% involving the proximal segment of the first obtuse marginal branch. d. The right coronary artery arose from the right sinus of Valsalva and showed 70% stenosis in the m idsegment. Conclusion Three-vessel coronary artery disease including significant left main coronary artery stenosis Recommendations Cardiothoracic surgical team referral for possible coronary artery bypass surgery Signed by : Alli Romero, Electronically Approved : 05/22/2019 13:40:24
[2019-05-22] MEDS: BUDESONIDE 0.5 MG/2 ML NEBU. NEB SCH ×2 (15:31→19:04)
--- NOTE | 2019-05-22 16:20 | NUR ---
SW following for discharge planning. Chart reviewed, discussed with RN. Pt lives at home with significant other. Cardio and Pulmonary following pt. SW will be available as needed.
[2019-05-22] MEDS: dilTIAZem HCL 30 MG TABLET PO SCH ×2 (18:03→23:41)
[2019-05-22] MEDS: ATORVASTATIN CALCIUM 40 MG TABLET. PO SCH (20:19)
[2019-05-22] MEDS: AMIODARONE HCL 200 MG TABLET. PO SCH (20:20)
[2019-05-23] VITALS (9 sets, daily range): BP systolic 128–158; BP diastolic 57–81
[2019-05-23] MEDS ORDERED: ZOLPIDEM 5 MG TABLET. PO PRN (00:15)
[2019-05-23] MEDS: HEPARIN 25,000UTS/250ML PREMIX 250 ML IV PRN ×3 (00:52→15:22)
[2019-05-23 01:07] LABS: HEMOGLOBIN A1C 6.7 % (4.8-5.6)
[2019-05-23 04:16] LABS: BASO % 0 % (0-3); EOS % 0 % (0-3); HEMOGLOBIN 13.8 g/dL (13.0-17.5); LYMPH # 0.6 x10^3/uL (1.0-4.8); LYMPH % 3 % (24-48); MEAN CORPUSCULAR HEMOGLOBIN 30 pg (25-35); MEAN CORPUSCULAR HGB CONC 32 g/dL (31-37); MEAN CORPUSCULAR VOLUME 92 fL (79-100); MONO # 0.5 x10^3/uL (0.0-1.1); MONO % 3 % (0-9); NEUT # 18.2 x10^3/uL (1.8-7.7); NEUT % 94 % (31-73); PLATELET COUNT 393 x10^3/uL (140-400); RED BLOOD COUNT 4.65 x10^6/uL (4.30-5.70); WHITE BLOOD COUNT 19.4 x10^3/uL (4.0-11.0)
[2019-05-23 04:33] LABS: ALBUMIN 2.7 g/dL (3.4-5.0); ALBUMIN/GLOBULIN RATIO 0.6 (1.0-1.7); CALCIUM 8.5 mg/dL (8.5-10.1); CREATININE 1.7 mg/dL (0.7-1.3); GFR 40.2; POTASSIUM 4.1 mmol/L (3.5-5.1); TOTAL BILIRUBIN 0.5 mg/dL (0.2-1.0); TOTAL PROTEIN 7.2 g/dL (6.4-8.2)
[2019-05-23] MEDS: methylPREDNISolone SOD SUCC PF 125 MG/2 ML VIAL. IV SCH (06:00)
[2019-05-23] MEDS: dilTIAZem HCL 30 MG TABLET PO SCH (06:00)
[2019-05-23] MEDS: IPRATRPIUM/ALBUTEROL 0.5/2.5MG 3 ML NEBU. NEB SCH ×4 (08:20→21:32)
[2019-05-23] MEDS: BUDESONIDE 0.5 MG/2 ML NEBU. NEB SCH ×2 (08:21→21:32)
[2019-05-23] MEDS: AMIODARONE HCL 200 MG TABLET. PO SCH ×2 (08:23→18:31)
--- NOTE | 2019-05-23 09:32 | PDOC ---
PULMONARY PROGRESS NOTES Subjective Pt. is resting on room air, reports decreased in wheezing today. Pt. is being evaluated by CTS for CABG Vitals Vital Signs Date Time Temp Pulse Resp B/P (MAP) Pulse Ox O2 Delivery O2 Flow Rate FiO2 05/23/19 08:25 94 Room Air 05/23/19 08:23 120 05/23/19 07:07 97.9 20 128/71 (90) 97.9 05/22/19 20:00 2.0 ROS: No Nausea, No Chest Pain, No Abdominal Pain General: Alert, Oriented X4 Lungs: Clear Cardiovascular: S1, S2 Abdomen: Soft, Non-tender, Other (obese ) Neuro Exam: Alert, Oriented Extremities: No Edema Skin: Warm, Dry Labs Laboratory Tests Test 05/21/19 22:34 05/22/19 01:28 05/22/19 01:40 05/22/19 05:15 White Blood Count 12.8 x10^3/uL (4.0-11.0) 14.2 x10^3/uL (4.0-11.0) Red Blood Count 4.84 x10^6/uL (4.30-5.70) 4.90 x10^6/uL (4.30-5.70) Hemoglobin 14.4 g/dL (13.0-17.5) 14.6 g/dL (13.0-17.5) Hematocrit 44.9 % (39.0-53.0) 44.8 % (39.0-53.0) Mean Corpuscular Volume 93 fL (79-100) 91 fL (79-100) Mean Corpuscular Hemoglobin 30 pg (25-35) 30 pg (25-35) Mean Corpuscular Hemoglobin Concent 32 g/dL (31-37) 33 g/dL (31-37) Red Cell Distribution Width 15.2 % (11.5-14.5) 15.0 % (11.5-14.5) Platelet Count 418 x10^3/uL (140-400) 403 x10^3/uL (140-400) Neutrophils (%) (Auto) 89 % (31-73) Lymphocytes (%) (Auto) 7 % (24-48) Monocytes (%) (Auto) 4 % (0-9) Eosinophils (%) (Auto) 0 % (0-3) Basophils (%) (Auto) 0 % (0-3) Neutrophils # (Auto) 11.4 x10^3/uL (1.8-7.7) Lymphocytes # (Auto) 0.9 x10^3/uL (1.0-4.8) Monocytes # (Auto) 0.5 x10^3/uL (0.0-1.1) Eosinophils # (Auto) 0.0 x10^3/uL (0.0-0.7) Basophils # (Auto) 0.0 x10^3/uL (0.0-0.2) Segmented Neutrophils % 84 % (35-66) Band Neutrophils % 2 % (0-9) Lymphocytes % 13 % (24-48) Monocytes % 1 % (0-10) Platelet Estimate Increased (ADEQUATE) D-Dimer (Reema) 1.08 ug/mlFEU (0.00-0.50) Sodium Level 142 mmol/L (136-145) 143 mmol/L (136-145) Potassium Level 4.5 mmol/L (3.5-5.1) 4.4 mmol/L (3.5-5.1) Chloride Level 106 mmol/L (98-107) 106 mmol/L (98-107) Carbon Dioxide Level 25 mmol/L (21-32) 25 mmol/L (21-32) Anion Gap 11 (6-14) 12 (6-14) Blood Urea Nitrogen 46 mg/dL (8-26) 43 mg/dL (8-26) Creatinine 1.7 mg/dL (0.7-1.3) 1.5 mg/dL (0.7-1.3) Estimated GFR (Cockcroft-Gault) 40.2 46.4 BUN/Creatinine Ratio 27 (6-20) Glucose Level 237 mg/dL (70-99) 166 mg/dL (70-99) Calcium Level 9.2 mg/dL (8.5-10.1) 8.9 mg/dL (8.5-10.1) Magnesium Level 1.6 mg/dL (1.8-2.4) 2.1 mg/dL (1.8-2.4) Total Bilirubin 0.5 mg/dL (0.2-1.0) Aspartate Amino Transf (AST/SGOT) 35 U/L (15-37) Alanine Aminotransferase (ALT/SGPT) 56 U/L (16-63) Alkaline Phosphatase 68 U/L (46-116) Troponin I Quantitative 0.339 ng/mL (0.000-0.055) 5.935 ng/mL (0.000-0.055) 12.485 ng/mL (0.000-0.055) AQ-Rxj-J-Type Natriuretic Peptide 8382 pg/mL (0-124) Total Protein 7.9 g/dL (6.4-8.2) Albumin 3.0 g/dL (3.4-5.0) Albumin/Globulin Ratio 0.6 (1.0-1.7) Hemoglobin A1c 6.7 % (4.8-5.6) Creatine Kinase 239 U/L (39-308) Triglycerides Level 60 mg/dL (0-150) Cholesterol Level 192 mg/dL (0-200) LDL Cholesterol, Calculated 141 mg/dL (0-100) VLDL Cholesterol, Calculated 12 mg/dL (0-40) Non-HDL Cholesterol Calculated 153 mg/dL (0-129) HDL Cholesterol 39 mg/dL (40-60) Cholesterol/HDL Ratio 4.9 Thyroid Stimulating Hormone (TSH) 0.566 uIU/mL (0.358-3.74) Test 05/22/19 06:25 05/22/19 09:45 05/22/19 16:35 05/22/19 23:20 Heparin Anti-Xa Act, Unfractionated < 0.10 IU/mL (0.30-0.70) 0.44 IU/mL (0.30-0.70) 0.43 IU/mL (0.30-0.70) Urine Collection Type Unknown Urine Color Yellow Urine Clarity Clear Urine pH 5.0 Urine Specific [place] 1.020 Urine Protein Negative mg/dL (NEG-TRACE) Urine Glucose (UA) Negative mg/dL (NEG) Urine Ketones (Stick) Negative mg/dL (NEG) Urine Blood Negative (NEG) Urine Nitrite Negative (NEG) Urine Bilirubin Negative (NEG) Urine Urobilinogen Dipstick 0.2 mg/dL (0.2 mg/dL) Urine Leukocyte Esterase Negative (NEG) Urine RBC Rare /HPF (0-2) Urine WBC Rare /HPF (0-4) Urine Squamous Epithelial Cells None /LPF Urine Bacteria 0 /HPF (0-FEW) Urine Hyaline Casts Many /HPF Urine Mucus Mod /LPF Test 05/23/19 04:00 White Blood Count 19.4 x10^3/uL (4.0-11.0) Red Blood Count 4.65 x10^6/uL (4.30-5.70) Hemoglobin 13.8 g/dL (13.0-17.5) Hematocrit 43.0 % (39.0-53.0) Mean Corpuscular Volume 92 fL (79-100) Mean Corpuscular Hemoglobin 30 pg (25-35) Mean Corpuscular Hemoglobin Concent 32 g/dL (31-37) Red Cell Distribution Width 15.0 % (11.5-14.5) Platelet Count 393 x10^3/uL (140-400) Neutrophils (%) (Auto) 94 % (31-73) Lymphocytes (%) (Auto) 3 % (24-48) Monocytes (%) (Auto) 3 % (0-9) Eosinophils (%) (Auto) 0 % (0-3) Basophils (%) (Auto) 0 % (0-3) Neutrophils # (Auto) 18.2 x10^3/uL (1.8-7.7) Lymphocytes # (Auto) 0.6 x10^3/uL (1.0-4.8) Monocytes # (Auto) 0.5 x10^3/uL (0.0-1.1) Eosinophils # (Auto) 0.0 x10^3/uL (0.0-0.7) Basophils # (Auto) 0.0 x10^3/uL (0.0-0.2) Heparin Anti-Xa Act, Unfractionated 0.26 IU/mL (0.30-0.70) Sodium Level 142 mmol/L (136-145) Potassium Level 4.1 mmol/L (3.5-5.1) Chloride Level 106 mmol/L (98-107) Carbon Dioxide Level 27 mmol/L (21-32) Anion Gap 9 (6-14) Blood Urea Nitrogen 43 mg/dL (8-26) Creatinine 1.7 mg/dL (0.7-1.3) Estimated GFR (Cockcroft-Gault) 40.2 BUN/Creatinine Ratio 25 (6-20) Glucose Level 337 mg/dL (70-99) Calcium Level 8.5 mg/dL (8.5-10.1) Total Bilirubin 0.5 mg/dL (0.2-1.0) Aspartate Amino Transf (AST/SGOT) 33 U/L (15-37) Alanine Aminotransferase (ALT/SGPT) 43 U/L (16-63) Alkaline Phosphatase 70 U/L (46-116) Total Protein 7.2 g/dL (6.4-8.2) Albumin 2.7 g/dL (3.4-5.0) Albumin/Globulin Ratio 0.6 (1.0-1.7) Laboratory Tests Test 05/22/19 09:45 05/22/19 16:35 05/22/19 23:20 05/23/19 04:00 Urine Collection Type Unknown Urine Color Yellow Urine Clarity Clear Urine pH 5.0 Urine Specific [place] 1.020 Urine Protein Negative mg/dL (NEG-TRACE) Urine Glucose (UA) Negative mg/dL (NEG) Urine Ketones (Stick) Negative mg/dL (NEG) Urine Blood Negative (NEG) Urine Nitrite Negative (NEG) Urine Bilirubin Negative (NEG) Urine Urobilinogen Dipstick 0.2 mg/dL (0.2 mg/dL) Urine Leukocyte Esterase Negative (NEG) Urine RBC Rare /HPF (0-2) Urine WBC Rare /HPF (0-4) Urine Squamous Epithelial Cells None /LPF Urine Bacteria 0 /HPF (0-FEW) Urine Hyaline Casts Many /HPF Urine Mucus Mod /LPF Heparin Anti-Xa Act, Unfractionated 0.44 IU/mL (0.30-0.70) 0.43 IU/mL (0.30-0.70) 0.26 IU/mL (0.30-0.70) White Blood Count 19.4 x10^3/uL (4.0-11.0) Red Blood Count 4.65 x10^6/uL (4.30-5.70) Hemoglobin 13.8 g/dL (13.0-17.5) Hematocrit 43.0 % (39.0-53.0) Mean Corpuscular Volume 92 fL (79-100) Mean Corpuscular Hemoglobin 30 pg (25-35) Mean Corpuscular Hemoglobin Concent 32 g/dL (31-37) Red Cell Distribution Width 15.0 % (11.5-14.5) Platelet Count 393 x10^3/uL (140-400) Neutrophils (%) (Auto) 94 % (31-73) Lymphocytes (%) (Auto) 3 % (24-48) Monocytes (%) (Auto) 3 % (0-9) Eosinophils (%) (Auto) 0 % (0-3) Basophils (%) (Auto) 0 % (0-3) Neutrophils # (Auto) 18.2 x10^3/uL (1.8-7.7) Lymphocytes # (Auto) 0.6 x10^3/uL (1.0-4.8) Monocytes # (Auto) 0.5 x10^3/uL (0.0-1.1) Eosinophils # (Auto) 0.0 x10^3/uL (0.0-0.7) Basophils # (Auto) 0.0 x10^3/uL (0.0-0.2) Sodium Level 142 mmol/L (136-145) Potassium Level 4.1 mmol/L (3.5-5.1) Chloride Level 106 mmol/L (98-107) Carbon Dioxide Level 27 mmol/L (21-32) Anion Gap 9 (6-14) Blood Urea Nitrogen 43 mg/dL (8-26) Creatinine 1.7 mg/dL (0.7-1.3) Estimated GFR (Cockcroft-Gault) 40.2 BUN/Creatinine Ratio 25 (6-20) Glucose Level 337 mg/dL (70-99) Calcium Level 8.5 mg/dL (8.5-10.1) Total Bilirubin 0.5 mg/dL (0.2-1.0) Aspartate Amino Transf (AST/SGOT) 33 U/L (15-37) Alanine Aminotransferase (ALT/SGPT) 43 U/L (16-63) Alkaline Phosphatase 70 U/L (46-116) Total Protein 7.2 g/dL (6.4-8.2) Albumin 2.7 g/dL (3.4-5.0) Albumin/Globulin Ratio 0.6 (1.0-1.7) Medications Active Scripts Medications Dose Route/Sig Max Daily Dose Days Date Category Albuterol Sulfate Conc Neb Soln (Albuterol Sulfate) 2.5 Mg/0.5 Ml Vial.neb 2.5 Mg NEB Q4-6HRS PRN 05/22/19 Reported Doxycycline Hyclate 100 Mg Capsule 1 Cap PO BID 05/22/19 Reported Prednisone 20 Mg Tablet 1 Tab PO BID 9 05/22/19 Reported Lipitor (Atorvastatin Calcium) 40 Mg Tablet 1 Tab PO QHS 90 02/25/19 Rx Eliquis (Apixaban) 5 Mg Tablet 5 Mg PO BID 04/22/18 Reported Impression . IMPRESSION: 1. Chest pain with markedly increased troponin, likely related to non-ST segment myocardial infarction. Cardiology following S/P cath 2. Diffuse bronchospasm, likely adult-onset asthma. The patient has no significant tobacco history and the CT chest does not show any evidence of congestive heart failure. wheezing resolved with steroids 3. Acute bronchitis, could have triggered asthma exacerbation. No definite consolidation seen on the CT chest. 4. History of obstructive sleep apnea. The patient states that he could not tolerate higher pressure and also mask. I did discuss with him regarding the cardiovascular effects of untreated sleep apnea. He is agreeable to do a sleep study as an outpatient and will try nasal pillows. 5. Remote history of methamphetamine use, cocaine use, and marijuana use, but has quit for over 10 years. ECHOCARDIOGRAM <Conclusion> The left ventricular systolic function is normal. The Ejection Fraction is 55-60%. Trace tricuspid regurgitation. The PA pressure was estimated at 48 mmHg. There is no evidence of significant pericardial effusion. Cardiac Cath FINDINGS 1. Hemodynamics: Left ventricular end-diastolic pressure of 22 mmHg. No pullback gradient across the aortic valve. 2. Coronary angiography: a. The left main coronary artery arose from the left sinus of Valsalva, gave rise to the left anterior descending and left circumflex arteries and showed 50% midsegment stenosis and 70-80% distal segment stenosis. b. The left anterior descending artery showed minimal luminal irregularities without any critical lesions. c. The left circumflex artery showed 60% involving the proximal segment of the first obtuse marginal branch. d. The right coronary artery arose from the right sinus of Valsalva and showed 70% stenosis in the midsegment. Conclusion Three-vessel coronary artery disease including significant left main coronary artery stenosis Plan . RECOMMENDATIONS: Follow CTS and Cardiology recs , needs CABG cont. nebs and plumicort IV steroids with titration S/P cath 12/26/19-- CAD 3 vessel disease and left main coronary artery stenosis, EF 55-60% PA 48mmHg Outpatient PFTs. Will need follow up for outpatient sleep study D/W NATY GORDON MD May 23, 2019 09:32
[2019-05-23] MEDS ORDERED: AMIODARONE 150 MG in IV DEXTROSE 5% 100ML 100 ML IV ONE (10:30)
--- NOTE | 2019-05-23 10:36 | RAD ---
Bilateral lower extremity venous ultrasound (vein mapping) 05/23/2019 10:32 AM Indication: Preoperative. Comparison study: None available. Discussion: Ultrasound evaluation of bilateral great saphenous and lesser saphenous veins was performed. Images were submitted to PACS. The visualized bilateral great saphenous saphenous veins are patent. These veins are compressible. Measurements are given below in millimeters. Right lower extremity: GSV Proximal GSV: 7.6 GSV Mid thigh from proximal to distal: 9, 3.4, 3.6 GSV Knee: 2.4 GSV Mid Calf: 2.9 GSV Ankle: 2.1 LSV Proximal: LSV Knee: 1.6 LSV Mid Calf: 0.9 LSV above ankle: 0.1 Left Lower Extremity: GSV Proximal GSV: 4.7 GSV Mid thigh from proximal to distal: 4.5, 2.4, 2.5 GSV Knee: 1.5 GSV Mid Calf: 1.9 GSV Ankle: 1.9 LSV Proximal: LSV Knee: 1.7 LSV Mid Calf: 1.6 LSV above ankle: 2.1 Impression : [Patent bilateral great saphenous and lesser saphenous veins.] Electronically signed by: Holland Hayes MD (05/23/2019 10:34 AM) [id number]
--- NOTE | 2019-05-23 11:38 | PDOC ---
[employer] PROGRESS NOTE Chief Complaint Chief Complaint Acute myocardial infarction with elevated troponin of 12 Multidisciplinary vessel disease noted on cardiac catheter awaiting CABG History of Present Illness History of Present Illness 05/23/19 Patient seen and examined I called Dr. Loza who is the cardiothoracic surgeon He plans on doing surgery next Sunday at [facility] Chart reviewed Discussed with nurse several times Vitals/I&O Vitals/I&O: Vital Signs Date Time Temp Pulse Resp B/P (MAP) Pulse Ox O2 Delivery O2 Flow Rate FiO2 05/23/19 11:25 115 05/23/19 10:27 98.1 20 128/65 (86) 94 98.1 05/23/19 08:25 Room Air 05/22/19 20:00 2.0 I & O 05/22/19 05/22/19 05/23/19 15:00 23:00 07:00 Intake Total 0 ml 950 ml 480 ml Output Total 400 ml 0 ml 2000 ml Balance -400 ml 950 ml -1520 ml Physical Exam General: Alert, Oriented X3, Cooperative, No acute distress Heart: Regular rate (Sinus tach with RBBB) Lungs: Clear Abdomen: Soft, Other (obese) Extremities: No cyanosis, No edema Skin: No significant lesion, Other (venous dermatitis) Labs Labs: Laboratory Tests Test 05/22/19 16:35 05/22/19 23:20 05/23/19 04:00 05/23/19 11:00 Heparin Anti-Xa Act, Unfractionated 0.44 IU/mL (0.30-0.70) 0.43 IU/mL (0.30-0.70) 0.26 IU/mL (0.30-0.70) 0.38 IU/mL (0.30-0.70) White Blood Count 19.4 x10^3/uL (4.0-11.0) Red Blood Count 4.65 x10^6/uL (4.30-5.70) Hemoglobin 13.8 g/dL (13.0-17.5) Hematocrit 43.0 % (39.0-53.0) Mean Corpuscular Volume 92 fL (79-100) Mean Corpuscular Hemoglobin 30 pg (25-35) Mean Corpuscular Hemoglobin Concent 32 g/dL (31-37) Red Cell Distribution Width 15.0 % (11.5-14.5) Platelet Count 393 x10^3/uL (140-400) Neutrophils (%) (Auto) 94 % (31-73) Lymphocytes (%) (Auto) 3 % (24-48) Monocytes (%) (Auto) 3 % (0-9) Eosinophils (%) (Auto) 0 % (0-3) Basophils (%) (Auto) 0 % (0-3) Neutrophils # (Auto) 18.2 x10^3/uL (1.8-7.7) Lymphocytes # (Auto) 0.6 x10^3/uL (1.0-4.8) Monocytes # (Auto) 0.5 x10^3/uL (0.0-1.1) Eosinophils # (Auto) 0.0 x10^3/uL (0.0-0.7) Basophils # (Auto) 0.0 x10^3/uL (0.0-0.2) Sodium Level 142 mmol/L (136-145) Potassium Level 4.1 mmol/L (3.5-5.1) Chloride Level 106 mmol/L (98-107) Carbon Dioxide Level 27 mmol/L (21-32) Anion Gap 9 (6-14) Blood Urea Nitrogen 43 mg/dL (8-26) Creatinine 1.7 mg/dL (0.7-1.3) Estimated GFR (Cockcroft-Gault) 40.2 BUN/Creatinine Ratio 25 (6-20) Glucose Level 337 mg/dL (70-99) Calcium Level 8.5 mg/dL (8.5-10.1) Total Bilirubin 0.5 mg/dL (0.2-1.0) Aspartate Amino Transf (AST/SGOT) 33 U/L (15-37) Alanine Aminotransferase (ALT/SGPT) 43 U/L (16-63) Alkaline Phosphatase 70 U/L (46-116) Total Protein 7.2 g/dL (6.4-8.2) Albumin 2.7 g/dL (3.4-5.0) Albumin/Globulin Ratio 0.6 (1.0-1.7) Assessment and Plan Assessmemt and Plan Problems Medical Problems: (1) Chronic renal insufficiency Status: Chronic (2) Tachyarrhythmia Status: Acute Acute myocardial infarction with elevated troponin of 12 Multivessel coronary disease awaiting bypass surgery Plan CABG next Sunday at [facility] For now were going to continue his heparin and DC that Sunday when he is transferred to [place] Cardiac monitoring Home meds except for anticoagulants because we are giving heparin Prognosis guarded Comment Review of Relevant I have reviewed the following items ashlyn (where applicable) has been applied. Medications: Current Medications Medications (Trade) Dose Ordered Sig/Taylor Route PRN Reason Start Time Stop Time Status Last Admin Dose Admin Albuterol/ Ipratropium (Duoneb) 3 ml RTQID NEB 05/22/19 12:00 05/23/19 08:20 Budesonide (Pulmicort) 0.5 mg RTBID NEB 05/22/19 13:00 05/23/19 08:21 Methylprednisolone Sodium Succinate (SOLU-Medrol 125MG VIAL) 80 mg Q6HRS IV 05/22/19 13:00 05/23/19 10:27 DC 05/23/19 06:00 Ceftriaxone Sodium (Rocephin) 1 gm Q24H IVP 05/22/19 13:00 05/22/19 13:35 Atorvastatin Calcium (Lipitor) 40 mg QHS PO 05/22/19 21:00 05/22/19 20:19 Nitroglycerin (Nitroglycerin) 200 mcg 1X ONCE IART 05/22/19 12:45 05/22/19 12:46 DC 05/22/19 12:54 Verapamil HCl (Verapamil) 2.5 mg 1X ONCE IART 05/22/19 12:45 05/22/19 12:46 DC 05/22/19 12:55 Heparin Sodium (Porcine) (Heparin Sodium) 2,500 unit 1X ONCE IART 05/22/19 12:45 05/22/19 12:46 DC 05/22/19 12:56 Heparin Sodium/ Sodium Chloride (HEPARIN for ARTERIAL LINE FLUSH) 1,000 unit 1X ONCE IART 05/22/19 12:45 05/22/19 12:46 DC 05/22/19 12:53 Midazolam HCl (Versed) 5 mg 1X ONCE IV 05/22/19 12:45 05/22/19 12:46 DC 05/22/19 12:54 Fentanyl Citrate (Fentanyl 2ml Vial) 100 mcg 1X ONCE IV 05/22/19 12:45 05/22/19 12:46 DC 05/22/19 12:45 Iodixanol (Visipaque 320) 100 ml 1X ONCE IART 05/22/19 12:45 05/22/19 12:46 DC 05/22/19 12:54 Lidocaine HCl (Xylocaine-Mpf 1% 2ml Vial) 2 ml 1X ONCE INJ 05/22/19 12:45 05/22/19 12:46 DC 05/22/19 12:55 Diltiazem HCl (Cardizem) 30 mg Q6HRS PO 05/22/19 18:00 05/23/19 10:24 DC 05/23/19 06:00 Amiodarone HCl (Cordarone) 200 mg BID PO 05/22/19 21:00 05/23/19 08:23 Zolpidem Tartrate (Ambien) 5 mg PRN QHS PRN PO INSOMNIA, MAY REPEAT IN 1HR 05/23/19 00:15 05/23/19 00:27 Diltiazem HCl (Cardizem 24hr Cd) 240 mg DAILY PO 05/23/19 10:30 05/23/19 11:25 Amiodarone HCl 150 mg/Dextrose 103 ml @ 600 mls/hr 1X ONCE IV 05/23/19 10:30 05/23/19 10:40 DC 05/23/19 11:25 ALMA MISTRY III DO May 23, 2019 11:38
--- NOTE | 2019-05-23 11:49 | PDOC ---
PROGRESS NOTES Subjective Subjective Patient denied any chest pain today Objective Objective Vital Signs Date Time Temp Pulse Resp B/P (MAP) Pulse Ox O2 Delivery O2 Flow Rate FiO2 05/23/19 11:25 115 05/23/19 10:27 98.1 20 128/65 (86) 94 98.1 05/23/19 08:25 Room Air 05/22/19 20:00 2.0 Intake and Output 05/23/19 07:00 Intake Total 1430 ml Output Total 2400 ml Balance -970 ml Intake Oral 1190 ml Other 240 ml Output Urine Total 2400 ml # Voids 2 Physical Exam Abdomen: Soft, Other (obese) Heart: Other (tachycardic and irregular) Extremities: Other (trace edema) General: Alert, Cooperative, No acute distress HEENT: Atraumatic, Mucous membr. moist/pink Lungs: Other (basilar wheeze) Neuro: Normal speech, Sensation intact Psych/Mental Status: Mental status NL Skin: No significant lesion, Other (venous dermatitis) Assessment Assessment 1. Acute non-STEMI: Cardiac catheterization showed three-vessel coronary artery disease including significant left main coronary artery stenosis. Patient is presently chest pain-free. CT surgery consulted - plan for coronary artery bypass surgery possibly on Sunday at [facility]. Continue heparin infusion for a total of 48 hours. 2. Ischemic cardiomyopathy with EF 40-45%, clinically well compensated. We will initiate beta blockers once blood pressure more stable 3. Atrial fibrillation with RVR: Heart rate continues to be elevated. We will initiate Cardizem drip for rate control and amiodarone infusion per protocol for antiarrhythmic therapy. We will consider outpatient cardioversion at a later date. 4. PAD: Clinically stable 5. Hyperlipidemia: Continue statin therapy Plan Plan of Care Problems Medical Problems: (1) Chronic renal insufficiency Status: Chronic (2) Tachyarrhythmia Status: Acute Comment Review of Relevant I have reviewed the following items ashlyn (where applicable) has been applied. Labs Laboratory Tests Test 05/22/19 16:35 05/22/19 23:20 05/23/19 04:00 05/23/19 11:00 Heparin Anti-Xa Act, Unfractionated 0.44 IU/mL (0.30-0.70) 0.43 IU/mL (0.30-0.70) 0.26 IU/mL (0.30-0.70) 0.38 IU/mL (0.30-0.70) White Blood Count 19.4 x10^3/uL (4.0-11.0) Red Blood Count 4.65 x10^6/uL (4.30-5.70) Hemoglobin 13.8 g/dL (13.0-17.5) Hematocrit 43.0 % (39.0-53.0) Mean Corpuscular Volume 92 fL (79-100) Mean Corpuscular Hemoglobin 30 pg (25-35) Mean Corpuscular Hemoglobin Concent 32 g/dL (31-37) Red Cell Distribution Width 15.0 % (11.5-14.5) Platelet Count 393 x10^3/uL (140-400) Neutrophils (%) (Auto) 94 % (31-73) Lymphocytes (%) (Auto) 3 % (24-48) Monocytes (%) (Auto) 3 % (0-9) Eosinophils (%) (Auto) 0 % (0-3) Basophils (%) (Auto) 0 % (0-3) Neutrophils # (Auto) 18.2 x10^3/uL (1.8-7.7) Lymphocytes # (Auto) 0.6 x10^3/uL (1.0-4.8) Monocytes # (Auto) 0.5 x10^3/uL (0.0-1.1) Eosinophils # (Auto) 0.0 x10^3/uL (0.0-0.7) Basophils # (Auto) 0.0 x10^3/uL (0.0-0.2) Sodium Level 142 mmol/L (136-145) Potassium Level 4.1 mmol/L (3.5-5.1) Chloride Level 106 mmol/L (98-107) Carbon Dioxide Level 27 mmol/L (21-32) Anion Gap 9 (6-14) Blood Urea Nitrogen 43 mg/dL (8-26) Creatinine 1.7 mg/dL (0.7-1.3) Estimated GFR (Cockcroft-Gault) 40.2 BUN/Creatinine Ratio 25 (6-20) Glucose Level 337 mg/dL (70-99) Calcium Level 8.5 mg/dL (8.5-10.1) Total Bilirubin 0.5 mg/dL (0.2-1.0) Aspartate Amino Transf (AST/SGOT) 33 U/L (15-37) Alanine Aminotransferase (ALT/SGPT) 43 U/L (16-63) Alkaline Phosphatase 70 U/L (46-116) Total Protein 7.2 g/dL (6.4-8.2) Albumin 2.7 g/dL (3.4-5.0) Albumin/Globulin Ratio 0.6 (1.0-1.7) Medications Current Medications Albuterol/ Ipratropium (Duoneb) 3 ml RTQID NEB Last administered on 05/23/19at 08:20; Start 05/22/19 at 12:00 Amiodarone HCl (Cordarone) 200 mg BID PO Last administered on 05/23/19at 08:23; Start 05/22/19 at 21:00 Amiodarone HCl 150 mg/Dextrose 103 ml @ 600 mls/hr 1X ONCE IV Last administered on 05/23/19at 11:25; Start 05/23/19 at 10:30; Stop 05/23/19 at 10:40; Status DC Amiodarone HCl 450 mg/Dextrose 259 ml @ 33 mls/hr CONT PRN IV SEE I/O RECORD; Start 05/23/19 at 11:45 Atorvastatin Calcium (Lipitor) 40 mg QHS PO Last administered on 05/22/19at 20:19; Start 05/22/19 at 21:00 Budesonide (Pulmicort) 0.5 mg RTBID NEB Last administered on 05/23/19at 08:21; Start 05/22/19 at 13:00 Ceftriaxone Sodium (Rocephin) 1 gm Q24H IVP Last administered on 05/22/19at 13:35; Start 05/22/19 at 13:00 Diltiazem HCl (Cardizem 24hr Cd) 240 mg DAILY PO Last administered on 05/23/19 at 11:25; Start 05/23/19 at 10:30 Diltiazem HCl (Cardizem) 30 mg Q6HRS PO Last administered on 05/23/19at 06:00; Start 05/22/19 at 18:00; Stop 05/23/19 at 10:24; Status DC Fentanyl Citrate (Fentanyl 2ml Vial) 100 mcg 1X ONCE IV Last administered on 05/22/19at 12:45; Start 05/22/19 at 12:45; Stop 05/22/19 at 12:46; Status DC Fentanyl Citrate (Fentanyl 2ml Vial) 100 mcg STK-MED ONCE .ROUTE ; Start 05/22/19 at 12:28; Stop 05/22/19 at 12:28; Status DC Heparin Sodium (Porcine) (Heparin Sodium) 2,500 unit 1X ONCE IART Last administered on 05/22/19at 12:56; Start 05/22/19 at 12:45; Stop 05/22/19 at 12:46; Status DC Heparin Sodium (Porcine) (Heparin Sodium) 10,000 unit STK-MED ONCE .ROUTE ; Start 05/22/19 at 12:28; Stop 05/22/19 at 12:28; Status DC Heparin Sodium/ Sodium Chloride 500 ml @ As Directed STK-MED ONCE .ROUTE ; Start 05/22/19 at 12:05; Stop 05/22/19 at 12:05; Status DC Heparin Sodium/ Sodium Chloride (HEPARIN for ARTERIAL LINE FLUSH) 1,000 unit 1X ONCE IART Last administered on 05/22/19at 12:53; Start 05/22/19 at 12:45; Stop 05/22/19 at 12:46; Status DC Iodixanol (Visipaque 320) 100 ml 1X ONCE IART Last administered on 05/22/19at 12:54; Start 05/22/19 at 12:45; Stop 05/22/19 at 12:46; Status DC Iodixanol (Visipaque 320) 100 ml STK-MED ONCE .ROUTE ; Start 05/22/19 at 12:05; Stop 05/22/19 at 12:05; Status DC Iodixanol (Visipaque 320) 100 ml STK-MED ONCE .ROUTE ; Start 05/22/19 at 12:34; Stop 05/22/19 at 12:35; Status DC Lidocaine HCl (Xylocaine-Mpf 1% 2ml Vial) 2 ml 1X ONCE INJ Last administered on 05/22/19at 12:55; Start 05/22/19 at 12:45; Stop 05/22/19 at 12:46; Status DC Lidocaine HCl (Xylocaine-Mpf 1% 2ml Vial) 2 ml STK-MED ONCE .ROUTE ; Start 05/22/19 at 12:05; Stop 05/22/19 at 12:05; Status DC Methylprednisolone Sodium Succinate (SOLU-Medrol 40MG VIAL) 40 mg Q8HRS IV ; Start 05/23/19 at 14:00 Methylprednisolone Sodium Succinate (SOLU-Medrol 125MG VIAL) 80 mg Q6HRS IV Last administered on 05/23/19at 06:00; Start 05/22/19 at 13:00; Stop 05/23/19 at 10:27; Status DC Midazolam HCl (Versed) 5 mg 1X ONCE IV Last administered on 05/22/19at 12:54; Start 05/22/19 at 12:45; Stop 05/22/19 at 12:46; Status DC Midazolam HCl (Versed) 5 mg STK-MED ONCE .ROUTE ; Start 05/22/19 at 12:28; Stop 05/22/19 at 12:28; Status DC Nitroglycerin (Nitroglycerin) 200 mcg 1X ONCE IART Last administered on 05/22/19at 12:54; Start 05/22/19 at 12:45; Stop 05/22/19 at 12:46; Status DC Nitroglycerin (Nitroglycerin) 200 mcg STK-MED ONCE .ROUTE ; Start 05/22/19 at 12:28; Stop 05/22/19 at 12:29; Status DC Nitroglycerin (Nitrostat) 0.4 mg PRN Q5MIN PRN SL CHEST PAIN; Start 05/22/19 at 13:15 Sodium Chloride (Normal Saline Flush) 3 ml QSHIFT PRN IV AFTER MEDS AND BLOOD DRAWS; Start 05/22/19 at 13:15 Verapamil HCl (Verapamil) 2.5 mg 1X ONCE IART Last administered on 05/22/19at 12:55; Start 05/22/19 at 12:45; Stop 05/22/19 at 12:46; Status DC Verapamil HCl (Verapamil) 5 mg STK-MED ONCE .ROUTE ; Start 05/22/19 at 12:28; Stop 05/22/19 at 12:29; Status DC Zolpidem Tartrate (Ambien) 5 mg PRN QHS PRN PO INSOMNIA, MAY REPEAT IN 1HR Last administered on 05/23/19at 00:27; Start 05/23/19 at 00:15 Vitals/I & O Vital Sign - Last 24 Hours 05/22/19 05/22/19 05/22/19 05/22/19 12:45 12:55 12:59 13:00 Pulse 113 113 58 Resp 16 16 B/P (MAP) 119/86 120/50 (73) Pulse Ox 93 93 O2 Delivery Nasal Cannula Nasal Cannula O2 Flow Rate 2.0 2.0 05/22/19 05/22/19 05/22/19 05/22/19 13:15 13:30 13:45 14:15 Pulse 112 118 118 58 B/P (MAP) 150/96 (114) 135/77 (96) 149/84 (105) 108/58 (75) 05/22/19 05/22/19 05/22/19 05/22/19 14:45 15:00 15:15 15:31 Temp 98.2 98.2 Pulse 116 116 58 Resp 20 B/P (MAP) 127/69 (88) 108/58 (75) 137/57 (83) Pulse Ox 95 O2 Delivery Room Air Room Air 05/22/19 05/22/19 05/22/19 05/22/19 15:45 16:15 18:03 19:00 Temp 97.9 97.9 Pulse 59 58 118 122 Resp 20 B/P (MAP) 150/72 (98) 144/66 (92) 116/59 (78) Pulse Ox 92 05/22/19 05/22/19 05/22/19 05/22/19 19:04 20:00 20:20 23:00 Temp 97.4 97.4 Pulse 118 119 Resp 20 B/P (MAP) 144/66 133/71 (91) Pulse Ox 97 94 O2 Delivery Room Air Room Air O2 Flow Rate 2.0 05/22/19 05/23/19 05/23/19 05/23/19 23:41 03:00 06:00 07:07 Temp 98.7 97.9 98.7 97.9 Pulse 118 117 117 110 Resp 20 20 B/P (MAP) 144/66 133/67 (89) 133/67 128/71 (90) Pulse Ox 96 91 05/23/19 05/23/19 05/23/19 05/23/19 08:00 08:23 08:23 08:25 Pulse 120 Pulse Ox 94 94 O2 Delivery Room Air Room Air Room Air 12/05/23/19 05/23/19 10:27 11:25 11:25 Temp 98.1 98.1 Pulse 119 115 115 Resp 20 B/P (MAP) 128/65 (86) Pulse Ox 94 Intake and Output 05/22/19 05/22/19 05/23/19 15:00 23:00 07:00 Intake Total 0 ml 950 ml 480 ml Output Total 400 ml 0 ml 2000 ml Balance -400 ml 950 ml -1520 ml ALLI ROMERO MD May 23, 2019 11:49
--- NOTE | 2019-05-23 12:12 | CONS ---
DATE OF CONSULTATION: 05/23/2019 We were asked by Dr. Arzate to see the patient. HISTORY OF PRESENT ILLNESS: The patient is a 68-year-old admitted on night with shortness of breath. The patient states that he has had progressive shortness of breath over the week leading up to admission and ultimately culminating with chest pain leading to admission. The patient was found to have a troponin of approximately 12. Cardiac catheterization shows severe 3-vessel coronary artery disease including a 70-80% distal left main stenosis. No LV-gram was done, but cardiac echo revealed an ejection fraction in the 40-45% range. Past history significant for atrial fibrillation. The patient is on Eliquis. The patient has had strokes and this may be related to atrial fibrillation, but he has also had left carotid endarterectomy. We note that the patient's heart rate on arrival to the Admission Department was 185. MEDICATIONS AT HOME: Includes Eliquis and Lipitor. Since admission, the patient has had DuoNeb, aspirin, Lasix, heparin, methylprednisolone, morphine, nitroglycerin, Zofran. ALLERGIES: THE PATIENT STATES HE IS ALLERGIC TO HYDROXYZINE. THIS CAUSES BLISTERS ON HANDS AND FEET. FAMILY HISTORY: Significant for obesity according to the patient. SOCIAL HISTORY: The patient denies tobacco use. 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 REVIEW OF SYSTEMS: CONSTITUTIONAL: Denies fever or chills. EYES: Denies vision change. HEENT: Denies headache, nasal discharge, sore throat. RESPIRATORY: As mentioned progressive shortness of breath. CARDIAC: Chest pain on day of admission. Denies having sensation of palpitations when his heart rate is fast. GASTROINTESTINAL: Abdominal bloating, but no pain, nausea, vomiting, blood in stools. MUSCULOSKELETAL: Some low back pain. No other bone or joint discomfort. SKIN: No rash or infection. NEUROLOGIC: No motor or sensory dysfunction. EXTREMITIES: Chronic leg swelling from venous insufficiency, right lower extremity. PHYSICAL EXAMINATION: VITAL SIGNS: Today, temperature 97.9, heart rate 110, respiratory rate 20, blood pressure 128/71, pulse ox 91. HEENT: No scleral icterus. No arcus. Extraocular movements full. NECK: No mass, no bruit. The patient has an obese neck with in general has centripetal obesity. LUNGS: Clear to auscultation. HEART: Rhythm is irregular. I do not hear murmurs. ABDOMEN: Soft, but distended. No mass. EXTREMITIES: A 2+ femoral pulses bilaterally. I do not feel popliteal, dorsalis pedis or posterior tibial pulses. SKIN: No rash or infection. NEUROLOGIC: No motor or sensory dysfunction. MUSCULOSKELETAL: No obvious bone or joint asymmetry or deformity. I discussed the cardiologic findings with the patient. There is important left main and severe 3-vessel disease with reduced ventricular function. I have recommended bypass surgery, but there is increased risk related to poor LV function. Risks and details were discussed. These include but are not limited to bleeding, infection, anesthesia risks, heart and lung problems, stroke, and . The patient understands all of this and he wishes to proceed. I will discuss timing of surgery with Dr. Arzate. The patient is on heparin now and we will need to stop Eliquis prior to surgery whether the patient stays here or goes home and comes in electively will be determined. Thank you for the consult. RADHA KAUR MD DR: NIDIA/jn JOB#: [id number] / [id number]
[2019-05-23] MEDS: ASPIRIN ENTERIC COATED 325 MG TABLET.DR. PO SCH (12:29)
[2019-05-23] MEDS: AMIODARONE 450 MG in IV DEXTROSE 5% 250 ML IV PRN ×2 (12:36→20:22)
[2019-05-23] MEDS: METOPROLOL TART IMMED RELEASE 25 MG TABLET. PO SCH ×3 (13:00→21:13)
[2019-05-23] MEDS: cefTRIAXone IV Push 1 GM VIAL. IVP SCH (13:49)
[2019-05-23] MEDS: methylPREDNISolone SOD SUCC PF 40 MG/ML VIAL. IV SCH ×2 (13:50→22:50)
[2019-05-23] MEDS ORDERED: CARVEDILOL 3.125 MG TABLET. PO SCH (17:00)
[2019-05-23] MEDS ORDERED: DEXTROSE 50% 25 GM / 50ML DISP.SYRIN. IV PRN (17:00)
[2019-05-23] MEDS ORDERED: IV DEXTROSE 5% 250 ML BAG. IV PRN (17:00)
[2019-05-23] MEDS: INSULIN LISPRO 300 UNITS/3 ML VIAL. SQ SCH (17:46)
[2019-05-23] MEDS: ATORVASTATIN CALCIUM 40 MG TABLET. PO SCH (21:13)
[2019-05-23] MEDS: LACTOBACILLUS RHAMNOSUS GG 1 CAPSULE. PO SCH (21:13)
[2019-05-24 02:50] VITALS: BP 144/65
[2019-05-24] MEDS: HEPARIN 25,000UTS/250ML PREMIX 250 ML IV PRN ×2 (03:04→14:40)
[2019-05-24] MEDS: methylPREDNISolone SOD SUCC PF 40 MG/ML VIAL. IV SCH ×3 (05:37→21:35)
[2019-05-24 06:18] LABS: HEMATOCRIT 43.7 % (39.0-53.0); HEMOGLOBIN 13.7 g/dL (13.0-17.5); RED BLOOD COUNT 4.7 x10^6/uL (4.30-5.70); RED CELL DISTRIBUTION WIDTH 15.6 % (11.5-14.5); WHITE BLOOD COUNT 24.9 x10^3/uL (4.0-11.0)
[2019-05-24 07:00] VITALS: BP 141/77
[2019-05-24] MEDS: BUDESONIDE 0.5 MG/2 ML NEBU. NEB SCH ×2 (07:32→19:36)
[2019-05-24] MEDS: IPRATRPIUM/ALBUTEROL 0.5/2.5MG 3 ML NEBU. NEB SCH ×4 (07:32→19:36)
[2019-05-24] MEDS: ANTI-COAG MONITOR BY PHARMACY. MC PRN (08:12)
[2019-05-24] MEDS: ASPIRIN ENTERIC COATED 325 MG TABLET.DR. PO SCH (08:20)
[2019-05-24] MEDS: AMIODARONE HCL 200 MG TABLET. PO SCH ×2 (08:21→20:51)
[2019-05-24] MEDS: LACTOBACILLUS RHAMNOSUS GG 1 CAPSULE. PO SCH ×2 (08:21→20:51)
[2019-05-24] MEDS: INSULIN LISPRO 300 UNITS/3 ML VIAL. SQ SCH ×4 (08:25→21:37)
--- NOTE | 2019-05-24 10:09 | PDOC ---
PULMONARY PROGRESS NOTES Subjective Pt. is resting on room air, denies cough or increased SOB Vitals Vital Signs Date Time Temp Pulse Resp B/P (MAP) Pulse Ox O2 Delivery O2 Flow Rate FiO2 05/24/19 08:21 84 144/65 05/24/19 08:00 Room Air 05/24/19 07:32 94 05/24/19 07:00 98.3 16 98.3 05/23/19 22:50 4.0 ROS: No Nausea, No Chest Pain, No Abdominal Pain General: Alert, Oriented X4 Lungs: Wheezing Cardiovascular: S1, S2 Abdomen: Soft, Non-tender, Other (obese ) Neuro Exam: Alert, Oriented Extremities: No Edema Skin: Warm, Dry Labs Laboratory Tests Test 05/22/19 16:35 05/22/19 23:20 05/23/19 04:00 05/23/19 11:00 Heparin Anti-Xa Act, Unfractionated 0.44 IU/mL (0.30-0.70) 0.43 IU/mL (0.30-0.70) 0.26 IU/mL (0.30-0.70) 0.38 IU/mL (0.30-0.70) White Blood Count 19.4 x10^3/uL (4.0-11.0) Red Blood Count 4.65 x10^6/uL (4.30-5.70) Hemoglobin 13.8 g/dL (13.0-17.5) Hematocrit 43.0 % (39.0-53.0) Mean Corpuscular Volume 92 fL (79-100) Mean Corpuscular Hemoglobin 30 pg (25-35) Mean Corpuscular Hemoglobin Concent 32 g/dL (31-37) Red Cell Distribution Width 15.0 % (11.5-14.5) Platelet Count 393 x10^3/uL (140-400) Neutrophils (%) (Auto) 94 % (31-73) Lymphocytes (%) (Auto) 3 % (24-48) Monocytes (%) (Auto) 3 % (0-9) Eosinophils (%) (Auto) 0 % (0-3) Basophils (%) (Auto) 0 % (0-3) Neutrophils # (Auto) 18.2 x10^3/uL (1.8-7.7) Lymphocytes # (Auto) 0.6 x10^3/uL (1.0-4.8) Monocytes # (Auto) 0.5 x10^3/uL (0.0-1.1) Eosinophils # (Auto) 0.0 x10^3/uL (0.0-0.7) Basophils # (Auto) 0.0 x10^3/uL (0.0-0.2) Sodium Level 142 mmol/L (136-145) Potassium Level 4.1 mmol/L (3.5-5.1) Chloride Level 106 mmol/L (98-107) Carbon Dioxide Level 27 mmol/L (21-32) Anion Gap 9 (6-14) Blood Urea Nitrogen 43 mg/dL (8-26) Creatinine 1.7 mg/dL (0.7-1.3) Estimated GFR (Cockcroft-Gault) 40.2 BUN/Creatinine Ratio 25 (6-20) Glucose Level 337 mg/dL (70-99) Calcium Level 8.5 mg/dL (8.5-10.1) Total Bilirubin 0.5 mg/dL (0.2-1.0) Aspartate Amino Transf (AST/SGOT) 33 U/L (15-37) Alanine Aminotransferase (ALT/SGPT) 43 U/L (16-63) Alkaline Phosphatase 70 U/L (46-116) Total Protein 7.2 g/dL (6.4-8.2) Albumin 2.7 g/dL (3.4-5.0) Albumin/Globulin Ratio 0.6 (1.0-1.7) Test 05/23/19 16:50 05/23/19 18:15 05/23/19 20:19 05/24/19 05:05 Glucose (Fingerstick) 395 mg/dL (70-99) 171 mg/dL (70-99) Heparin Anti-Xa Act, Unfractionated 0.41 IU/mL (0.30-0.70) 0.56 IU/mL (0.30-0.70) White Blood Count 24.9 x10^3/uL (4.0-11.0) Red Blood Count 4.70 x10^6/uL (4.30-5.70) Hemoglobin 13.7 g/dL (13.0-17.5) Hematocrit 43.7 % (39.0-53.0) Mean Corpuscular Volume 93 fL (79-100) Mean Corpuscular Hemoglobin 29 pg (25-35) Mean Corpuscular Hemoglobin Concent 31 g/dL (31-37) Red Cell Distribution Width 15.6 % (11.5-14.5) Platelet Count 457 x10^3/uL (140-400) Test 05/24/19 07:30 Glucose (Fingerstick) 169 mg/dL (70-99) Laboratory Tests Test 05/23/19 11:00 05/23/19 16:50 05/23/19 18:15 05/23/19 20:19 Heparin Anti-Xa Act, Unfractionated 0.38 IU/mL (0.30-0.70) 0.41 IU/mL (0.30-0.70) Glucose (Fingerstick) 395 mg/dL (70-99) 171 mg/dL (70-99) Test 05/24/19 05:05 05/24/19 07:30 White Blood Count 24.9 x10^3/uL (4.0-11.0) Red Blood Count 4.70 x10^6/uL (4.30-5.70) Hemoglobin 13.7 g/dL (13.0-17.5) Hematocrit 43.7 % (39.0-53.0) Mean Corpuscular Volume 93 fL (79-100) Mean Corpuscular Hemoglobin 29 pg (25-35) Mean Corpuscular Hemoglobin Concent 31 g/dL (31-37) Red Cell Distribution Width 15.6 % (11.5-14.5) Platelet Count 457 x10^3/uL (140-400) Heparin Anti-Xa Act, Unfractionated 0.56 IU/mL (0.30-0.70) Glucose (Fingerstick) 169 mg/dL (70-99) Medications Active Scripts Medications Dose Route/Sig Max Daily Dose Days Date Category Albuterol Sulfate Conc Neb Soln (Albuterol Sulfate) 2.5 Mg/0.5 Ml Vial.neb 2.5 Mg NEB Q4-6HRS PRN 05/22/19 Reported Doxycycline Hyclate 100 Mg Capsule 1 Cap PO BID 05/22/19 Reported Prednisone 20 Mg Tablet 1 Tab PO BID 9 05/22/19 Reported Lipitor (Atorvastatin Calcium) 40 Mg Tablet 1 Tab PO QHS 90 02/25/19 Rx Eliquis (Apixaban) 5 Mg Tablet 5 Mg PO BID 04/22/18 Reported Impression . IMPRESSION: 1. Chest pain with markedly increased troponin, likely related to non-ST segment myocardial infarction. Cardiology following S/P cath 2. Diffuse bronchospasm, likely adult-onset asthma. The patient has no significant tobacco history and the CT chest does not show any evidence of congestive heart failure. wheezing resolved with steroids 3. Acute bronchitis, could have triggered asthma exacerbation. No definite consolidation seen on the CT chest. 4. History of obstructive sleep apnea. The patient states that he could not tolerate higher pressure and also mask. I did discuss with him regarding the cardiovascular effects of untreated sleep apnea. He is agreeable to do a sleep study as an outpatient and will try nasal pillows. 5. Remote history of methamphetamine use, cocaine use, and marijuana use, but has quit for over 10 years. ECHOCARDIOGRAM <Conclusion> The left ventricular systolic function is normal. The Ejection Fraction is 55-60%. Trace tricuspid regurgitation. The PA pressure was estimated at 48 mmHg. There is no evidence of significant pericardial effusion. Cardiac Cath FINDINGS 1. Hemodynamics: Left ventricular end-diastolic pressure of 22 mmHg. No pullback gradient across the aortic valve. 2. Coronary angiography: a. The left main coronary artery arose from the left sinus of Valsalva, gave rise to the left anterior descending and left circumflex arteries and showed 50% midsegment stenosis and 70-80% distal segment stenosis. b. The left anterior descending artery showed minimal luminal irregularities without any critical lesions. c. The left circumflex artery showed 60% involving the proximal segment of the first obtuse marginal branch. d. The right coronary artery arose from the right sinus of Valsalva and showed 70% stenosis in the midsegment. Conclusion Three-vessel coronary artery disease including significant left main coronary artery stenosis Plan . RECOMMENDATIONS: Follow CTS and Cardiology recs , needs CABG, will transfer to [facility] on Sunday for CABG cont. nebs and plumicort IV steroids, cont. same dose as pt. remains with wheezing today S/P cath 05/22/19-- CAD 3 vessel disease and left main coronary artery stenosis, EF 55-60% PA 48mmHg Outpatient PFTs. Will need follow up for outpatient sleep study D/W NATY GORDON MD May 24, 2019 10:09
[2019-05-24] MEDS: METOPROLOL TART IMMED RELEASE 25 MG TABLET. PO SCH ×2 (10:59→20:51)
[2019-05-24 11:00] VITALS: BP 100/57
--- NOTE | 2019-05-24 11:18 | RAD ---
Clinical Indications: Pre-CABG. Exam : Carotid Duplex with Grayscale Ultrasound and Spectral and Color Doppler Analysis: PQRS Compliance Statement - Stenosis calculations for CT, MR and conventional angiography are based upon measurement of the distal ICA diameter in accordance with the NASCET methodology. Stenosis calculations for carotid ultrasound studies are derived from validated velocity criteria which are known to correlate with the NASCET methodology. Comparison study: None available. Findings: The common, internal and external carotid arteries were examined by grayscale, color and spectral Doppler ultrasound. Mild atherosclerotic calcifications identified in the bilateral carotid bulbs and proximal internal carotid arteries. Flow in both vertebral arteries was antegrade and normal. The following are the velocities and ratios in the carotid arteries on both sides: RIGHT ICA PV: 83cm/sec RIGHT CCA PV: 56cm/sec RIGHT ICA ED: 25cm/sec RIGHT IC/CCPV: 1.6 RIGHT VERTEBRAL: antegrade flow RIGHT % STENOSIS: Less than 50 percent LEFT ICA PV: 62cm/sec LEFT CCA PV: 64cm/sec LEFT ICA ED: 17cm/sec LEFT IC/CCPV: 0.9 LEFT VERTEBRAL: antegrade flow LEFT % STENOSIS: Less than 50 percent <50% ICA Stenosis: PSV < 125cm/s (EDV < 40cm/s; SVR < 2.0) 50-69% ICA Stenosis: PSV < 125-229cm/s (EDV 40-99cm/s; SVR 2.0-3.9) >70% ICA Stenosis: PSV > 230cm/s (EDV >100cm/s; SVR >4.0) Impression: No evidence of hemodynamically significant stenosis. Electronically signed by: Fuad Carrasco MD (05/24/2019 11:15 AM) [facility]
[2019-05-24] MEDS ORDERED: CALCIUM CARBONATE 500 MG TAB.CHEW PO PRN (11:45)
[2019-05-24] MEDS ORDERED: ONDANSETRON PF 4 MG/2 ML VIAL. IVP PRN (11:45)
[2019-05-24] MEDS ORDERED: DEXTROSE 50% 25 GM / 50ML DISP.SYRIN. IV PRN (11:45)
[2019-05-24] MEDS ORDERED: IV DEXTROSE 5% 250 ML BAG. IV PRN (11:45)
[2019-05-24] MEDS ORDERED: ACETAMINOPHEN 500 MG TABLET PO PRN (11:45)
[2019-05-24] MEDS ORDERED: ACETAMINOPHEN/CODEINE 300/30MG TABLET. PO PRN (11:45)
--- NOTE | 2019-05-24 12:17 | PDOC ---
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 - transfer SUNDAY to [facility] for CABG LEukocytosis on steroids History of Present Illness History of Present Illness CARds note reviewed plus pulmo TRansfer to another facility sunday for CABG LOts of visitors today sunday, on heparin gtt - chest pain free, no complaints WBC 21, clean CXR And UA, on empiric rocephin ON solu 40 IV q8, started to taper by pulmo PLAN:" CPM Sunday transfer for CABG FULL CODE heparin gtt Vitals Vitals Vital Signs Date Time Temp Pulse Resp B/P (MAP) Pulse Ox O2 Delivery O2 Flow Rate FiO2 05/24/19 11:08 95 Room Air 05/24/19 10:59 84 144/65 05/24/19 07:00 98.3 16 98.3 05/23/19 22:50 4.0 Physical Exam General: Alert, Cooperative, No acute distress Heart: Regular rate, Normal S1, Normal S2, No murmurs, Other (tachycardic and irregular) Lungs: Wheezing Abdomen: Normal bowel sounds, Soft, No tenderness, Other (obese) Extremities: No clubbing, No cyanosis, No edema, Other (trace edema) Skin: No rashes, No breakdown, No significant lesion, Other (venous dermatitis) Labs LABS Laboratory Tests Test 05/23/19 16:50 05/23/19 18:15 05/23/19 20:19 05/24/19 05:05 Glucose (Fingerstick) 395 mg/dL (70-99) 171 mg/dL (70-99) Heparin Anti-Xa Act, Unfractionated 0.41 IU/mL (0.30-0.70) 0.56 IU/mL (0.30-0.70) White Blood Count 24.9 x10^3/uL (4.0-11.0) Red Blood Count 4.70 x10^6/uL (4.30-5.70) Hemoglobin 13.7 g/dL (13.0-17.5) Hematocrit 43.7 % (39.0-53.0) Mean Corpuscular Volume 93 fL (79-100) Mean Corpuscular Hemoglobin 29 pg (25-35) Mean Corpuscular Hemoglobin Concent 31 g/dL (31-37) Red Cell Distribution Width 15.6 % (11.5-14.5) Platelet Count 457 x10^3/uL (140-400) Test 05/24/19 07:30 Glucose (Fingerstick) 169 mg/dL (70-99) Review of Systems Review of Systems neg 14 pt reviewed with him Assessment and Plan Assessmemt and Plan Problems Medical Problems: (1) Chronic renal insufficiency Status: Chronic (2) Tachyarrhythmia Status: Acute Comment Review of Relevant I have reviewed the following items ashlyn (where applicable) has been applied. Labs Laboratory Tests Test 05/22/19 16:35 05/22/19 23:20 05/23/19 04:00 05/23/19 11:00 Heparin Anti-Xa Act, Unfractionated 0.44 IU/mL (0.30-0.70) 0.43 IU/mL (0.30-0.70) 0.26 IU/mL (0.30-0.70) 0.38 IU/mL (0.30-0.70) White Blood Count 19.4 x10^3/uL (4.0-11.0) Red Blood Count 4.65 x10^6/uL (4.30-5.70) Hemoglobin 13.8 g/dL (13.0-17.5) Hematocrit 43.0 % (39.0-53.0) Mean Corpuscular Volume 92 fL (79-100) Mean Corpuscular Hemoglobin 30 pg (25-35) Mean Corpuscular Hemoglobin Concent 32 g/dL (31-37) Red Cell Distribution Width 15.0 % (11.5-14.5) Platelet Count 393 x10^3/uL (140-400) Neutrophils (%) (Auto) 94 % (31-73) Lymphocytes (%) (Auto) 3 % (24-48) Monocytes (%) (Auto) 3 % (0-9) Eosinophils (%) (Auto) 0 % (0-3) Basophils (%) (Auto) 0 % (0-3) Neutrophils # (Auto) 18.2 x10^3/uL (1.8-7.7) Lymphocytes # (Auto) 0.6 x10^3/uL (1.0-4.8) Monocytes # (Auto) 0.5 x10^3/uL (0.0-1.1) Eosinophils # (Auto) 0.0 x10^3/uL (0.0-0.7) Basophils # (Auto) 0.0 x10^3/uL (0.0-0.2) Sodium Level 142 mmol/L (136-145) Potassium Level 4.1 mmol/L (3.5-5.1) Chloride Level 106 mmol/L (98-107) Carbon Dioxide Level 27 mmol/L (21-32) Anion Gap 9 (6-14) Blood Urea Nitrogen 43 mg/dL (8-26) Creatinine 1.7 mg/dL (0.7-1.3) Estimated GFR (Cockcroft-Gault) 40.2 BUN/Creatinine Ratio 25 (6-20) Glucose Level 337 mg/dL (70-99) Calcium Level 8.5 mg/dL (8.5-10.1) Total Bilirubin 0.5 mg/dL (0.2-1.0) Aspartate Amino Transf (AST/SGOT) 33 U/L (15-37) Alanine Aminotransferase (ALT/SGPT) 43 U/L (16-63) Alkaline Phosphatase 70 U/L (46-116) Total Protein 7.2 g/dL (6.4-8.2) Albumin 2.7 g/dL (3.4-5.0) Albumin/Globulin Ratio 0.6 (1.0-1.7) Test 05/23/19 16:50 05/23/19 18:15 05/23/19 20:19 05/24/19 05:05 Glucose (Fingerstick) 395 mg/dL (70-99) 171 mg/dL (70-99) Heparin Anti-Xa Act, Unfractionated 0.41 IU/mL (0.30-0.70) 0.56 IU/mL (0.30-0.70) White Blood Count 24.9 x10^3/uL (4.0-11.0) Red Blood Count 4.70 x10^6/uL (4.30-5.70) Hemoglobin 13.7 g/dL (13.0-17.5) Hematocrit 43.7 % (39.0-53.0) Mean Corpuscular Volume 93 fL (79-100) Mean Corpuscular Hemoglobin 29 pg (25-35) Mean Corpuscular Hemoglobin Concent 31 g/dL (31-37) Red Cell Distribution Width 15.6 % (11.5-14.5) Platelet Count 457 x10^3/uL (140-400) Test 05/24/19 07:30 Glucose (Fingerstick) 169 mg/dL (70-99) Laboratory Tests Test 05/23/19 16:50 05/23/19 18:15 05/23/19 20:19 05/24/19 05:05 Glucose (Fingerstick) 395 mg/dL (70-99) 171 mg/dL (70-99) Heparin Anti-Xa Act, Unfractionated 0.41 IU/mL (0.30-0.70) 0.56 IU/mL (0.30-0.70) White Blood Count 24.9 x10^3/uL (4.0-11.0) Red Blood Count 4.70 x10^6/uL (4.30-5.70) Hemoglobin 13.7 g/dL (13.0-17.5) Hematocrit 43.7 % (39.0-53.0) Mean Corpuscular Volume 93 fL (79-100) Mean Corpuscular Hemoglobin 29 pg (25-35) Mean Corpuscular Hemoglobin Concent 31 g/dL (31-37) Red Cell Distribution Width 15.6 % (11.5-14.5) Platelet Count 457 x10^3/uL (140-400) Test 05/24/19 07:30 Glucose (Fingerstick) 169 mg/dL (70-99) Medications Current Medications Aspirin (Children'S Aspirin) 324 mg 1X ONCE PO ; Start 05/21/19 at 23:15; Stop 05/21/19 at 23:16; Status DC Albuterol/ Ipratropium (Duoneb) 3 ml 1X ONCE NEB Last administered on 05/21/19at 23:17; Start 05/21/19 at 23:15; Stop 05/21/19 at 23:16; Status DC Methylprednisolone Sodium Succinate (SOLU-Medrol 125MG VIAL) 125 mg 1X ONCE IV Last administered on 05/21/19at 23:51; Start 05/21/19 at 23:30; Stop 05/21/19 at 23:31; Status DC Furosemide (Lasix) 40 mg 1X ONCE IVP Last administered on 05/22/19at 00:26; Start 05/22/19 at 00:00; Stop 05/22/19 at 00:01; Status DC Magnesium Sulfate 50 ml @ 25 mls/hr 1X ONCE IV Last administered on 05/22/19at 00:31; Start 05/22/19 at 00:00; Stop 05/22/19 at 01:59; Status DC Heparin Sodium/ Dextrose 250 ml @ 0 mls/hr CONT PRN IV SEE COMMENTS Last administered on 05/24/19at 03:04; Start 05/22/19 at 00:00 Ondansetron HCl (Zofran) 4 mg PRN Q8HRS PRN IV NAUSEA/VOMITING; Start 05/22/19 at 00:30; Stop 05/23/19 at 00:29; Status DC Morphine Sulfate (Morphine Sulfate) 2 mg PRN Q2HR PRN IV PAIN; Start 05/22/19 at 00:30; Stop 05/23/19 at 00:29; Status DC Nitroglycerin (Nitrostat) 0.4 mg PRN Q5MIN PRN SL CHEST PAIN; Start 05/22/19 at 00:30; Stop 05/22/19 at 13:30; Status DC Albuterol/ Ipratropium (Duoneb) 3 ml RTQID NEB Last administered on 05/22/19at 11:21; Start 05/22/19 at 08:00; Stop 05/22/19 at 11:36; Status DC Aspirin (Zoey Aspirin) 325 mg 1X ONCE PO Last administered on 05/22/19at 08:14; Start 05/22/19 at 05:15; Stop 05/22/19 at 05:16; Status DC Heparin Sodium (Porcine) (Heparin Sodium) 3,250 unit PRN Q6HRS PRN IV FOR UFH LEVEL LESS THAN 0.2 Last administered on 05/22/19at 08:22; Start 05/22/19 at 08:00 Sodium Chloride 1,000 ml @ 100 mls/hr 1X ONCE IV Last administered on 05/22/19at 09:38; Start 05/22/19 at 09:00; Stop 05/22/19 at 18:59; Status DC Diltiazem HCl (Cardizem) 30 mg 1X ONCE PO Last administered on 05/22/19at 09:38; Start 05/22/19 at 10:00; Stop 05/22/19 at 10:01; Status DC Diltiazem HCl (Cardizem) 30 mg 1X PO ; Start 05/22/19 at 09:30; Stop 05/22/19 at 09:29; Status DC Albuterol/ Ipratropium (Duoneb) 3 ml RTQID NEB Last administered on 05/24/19at 11:07; Start 05/22/19 at 12:00 Budesonide (Pulmicort) 0.5 mg RTBID NEB Last administered on 05/24/19at 07:32; Start 05/22/19 at 13:00 Methylprednisolone Sodium Succinate (SOLU-Medrol 125MG VIAL) 80 mg Q6HRS IV Last administered on 05/23/19at 06:00; Start 05/22/19 at 13:00; Stop 05/23/19 at 10:27; Status DC Ceftriaxone Sodium (Rocephin) 1 gm Q24H IVP Last administered on 05/23/19at 13:49; Start 05/22/19 at 13:00 Iodixanol (Visipaque 320) 100 ml STK-MED ONCE .ROUTE ; Start 05/22/19 at 12:05; Stop 05/22/19 at 12:05; Status DC Lidocaine HCl (Xylocaine-Mpf 1% 2ml Vial) 2 ml STK-MED ONCE .ROUTE ; Start 05/22/19 at 12:05; Stop 05/22/19 at 12:05; Status DC Heparin Sodium/ Sodium Chloride 500 ml @ As Directed STK-MED ONCE .ROUTE ; Start 05/22/19 at 12:05; Stop 05/22/19 at 12:05; Status DC Fentanyl Citrate (Fentanyl 2ml Vial) 100 mcg STK-MED ONCE .ROUTE ; Start 05/22/19 at 12:28; Stop 05/22/19 at 12:28; Status DC Midazolam HCl (Versed) 5 mg STK-MED ONCE .ROUTE ; Start 05/22/19 at 12:28; Stop 05/22/19 at 12:28; Status DC Heparin Sodium (Porcine) (Heparin Sodium) 10,000 unit STK-MED ONCE .ROUTE ; Start 05/22/19 at 12:28; Stop 05/22/19 at 12:28; Status DC Verapamil HCl (Verapamil) 5 mg STK-MED ONCE .ROUTE ; Start 05/22/19 at 12:28; Stop 05/22/19 at 12:29; Status DC Nitroglycerin (Nitroglycerin) 200 mcg STK-MED ONCE .ROUTE ; Start 05/22/19 at 12:28; Stop 05/22/19 at 12:29; Status DC Iodixanol (Visipaque 320) 100 ml STK-MED ONCE .ROUTE ; Start 05/22/19 at 12:34; Stop 05/22/19 at 12:35; Status DC Atorvastatin Calcium (Lipitor) 40 mg QHS PO Last administered on 05/23/19at 21:13; Start 05/22/19 at 21:00 Nitroglycerin (Nitroglycerin) 200 mcg 1X ONCE IART Last administered on 05/22/19at 12:54; Start 05/22/19 at 12:45; Stop 05/22/19 at 12:46; Status DC Verapamil HCl (Verapamil) 2.5 mg 1X ONCE IART Last administered on 05/22/19at 12:55; Start 05/22/19 at 12:45; Stop 05/22/19 at 12:46; Status DC Heparin Sodium (Porcine) (Heparin Sodium) 2,500 unit 1X ONCE IART Last administered on 05/22/19at 12:56; Start 05/22/19 at 12:45; Stop 05/22/19 at 12:46; Status DC Heparin Sodium/ Sodium Chloride (HEPARIN for ARTERIAL LINE FLUSH) 1,000 unit 1X ONCE IART Last administered on 05/22/19at 12:53; Start 05/22/19 at 12:45; Stop 05/22/19 at 12:46; Status DC Midazolam HCl (Versed) 5 mg 1X ONCE IV Last administered on 05/22/19at 12:54; Start 05/22/19 at 12:45; Stop 05/22/19 at 12:46; Status DC Fentanyl Citrate (Fentanyl 2ml Vial) 100 mcg 1X ONCE IV Last administered on 05/22/19at 12:45; Start 05/22/19 at 12:45; Stop 05/22/19 at 12:46; Status DC Iodixanol (Visipaque 320) 100 ml 1X ONCE IART Last administered on 05/22/19at 12:54; Start 05/22/19 at 12:45; Stop 05/22/19 at 12:46; Status DC Lidocaine HCl (Xylocaine-Mpf 1% 2ml Vial) 2 ml 1X ONCE INJ Last administered on 05/22/19at 12:55; Start 05/22/19 at 12:45; Stop 05/22/19 at 12:46; Status DC Sodium Chloride (Normal Saline Flush) 3 ml QSHIFT PRN IV AFTER MEDS AND BLOOD DRAWS; Start 05/22/19 at 13:15 Nitroglycerin (Nitrostat) 0.4 mg PRN Q5MIN PRN SL CHEST PAIN; Start 05/22/19 at 13:15 Diltiazem HCl (Cardizem) 30 mg Q6HRS PO Last administered on 05/23/19at 06:00; Start 05/22/19 at 18:00; Stop 05/23/19 at 10:24; Status DC Amiodarone HCl (Cordarone) 200 mg BID PO Last administered on 05/24/19at 08:21; Start 05/22/19 at 21:00 Zolpidem Tartrate (Ambien) 5 mg PRN QHS PRN PO INSOMNIA, MAY REPEAT IN 1HR Last administered on 05/23/19at 00:27; Start 05/23/19 at 00:15 Diltiazem HCl (Cardizem 24hr Cd) 240 mg DAILY PO Last administered on 05/24/19at 08:20; Start 05/23/19 at 10:30 Amiodarone HCl 150 mg/Dextrose 103 ml @ 600 mls/hr 1X ONCE IV Last administered on 05/23/19at 11:25; Start 05/23/19 at 10:30; Stop 05/23/19 at 10:40; Status DC Methylprednisolone Sodium Succinate (SOLU-Medrol 40MG VIAL) 40 mg Q8HRS IV Last administered on 05/24/19at 05:37; Start 05/23/19 at 14:00 Amiodarone HCl 450 mg/Dextrose 259 ml @ 33 mls/hr CONT PRN IV SEE I/O RECORD Last administered on 05/23/19at 20:22; Start 05/23/19 at 11:45; Stop 05/23/19 at 20:22; Status DC Aspirin (Ecotrin) 325 mg DAILYWBKFT PO Last administered on 05/24/19at 08:20; Start 05/23/19 at 12:00 Carvedilol (Coreg) 3.125 mg BIDWMEALS PO ; Start 05/23/19 at 17:00; Stop 05/23/19 at 12:45; Status DC Metoprolol Tartrate (Lopressor) 12.5 mg BID PO Last administered on 05/24/19at 10:59; Start 05/23/19 at 13:00 Lactobacillus Rhamnosus (Culturelle) 1 cap BID PO Last administered on 05/24/19at 08:21; Start 05/23/19 at 21:00 Insulin Human Lispro (HumaLOG) 0-7 UNITS TIDWMEALS SQ Last administered on 05/24/19at 08:25; Start 05/23/19 at 17:00; Stop 05/24/19 at 11:34; Status DC Dextrose (Dextrose 50%-Water Syringe) 12.5 gm PRN Q15MIN PRN IV SEE COMMENTS; Start 05/23/19 at 17:00; Status Cancel Dextrose (Iv Dextrose 5%) 250 ml PRN Q15MIN PRN IV SEE COMMENTS; Start 05/23/19 at 17:00 Info (Anti-Coagulation Monitoring By Pharmacy) 1 each PRN DAILY PRN MC SEE COMMENTS Last administered on 05/24/19at 08:12; Start 05/24/19 at 08:15 Insulin Human Lispro (HumaLOG) 0-9 UNITS TIDWMEALS SQ ; Start 05/24/19 at 12:00 Dextrose (Dextrose 50%-Water Syringe) 12.5 gm PRN Q15MIN PRN IV SEE COMMENTS; Start 05/24/19 at 11:45 Dextrose (Iv Dextrose 5%) 250 ml PRN Q15MIN PRN IV SEE COMMENTS; Start 05/24/19 at 11:45 Ondansetron HCl (Zofran) 4 mg PRN Q6HRS PRN IVP NAUSEA/VOMITING; Start 05/24/19 at 11:45 Acetaminophen (Tylenol) 500 mg PRN Q6HRS PRN PO MILD PAIN / TEMP; Start 05/24/19 at 11:45 Acetaminophen/ Codeine Phosphate (Tylenol #3) 1 tab PRN Q6HRS PRN PO PAIN; Start 05/24/19 at 11:45 Calcium Carbonate/ Glycine (Tums) 500 mg PRN AFTMEALHC PRN PO INDIGESTION; Start 05/24/19 at 11:45 Active Scripts Active Lipitor (Atorvastatin Calcium) 40 Mg Tablet 1 Tab PO QHS 90 Days Reported Albuterol Sulfate Conc Neb Soln (Albuterol Sulfate) 2.5 Mg/0.5 Ml Vial.neb 2.5 Mg NEB Q4-6HRS PRN Doxycycline Hyclate 100 Mg Capsule 1 Cap PO BID Prednisone 20 Mg Tablet 1 Tab PO BID 9 Days Eliquis (Apixaban) 5 Mg Tablet 5 Mg PO BID Vitals/I & O Vital Sign - Last 24 Hours 05/23/19 05/23/19 05/23/19 05/23/19 12:23 14:09 15:15 15:18 Temp 97.9 97.9 Pulse 112 85 115 Resp 20 B/P (MAP) 140/76 (97) 131/66 (87) Pulse Ox 92 O2 Delivery Room Air 05/23/19 05/23/19 05/23/19 05/23/19 16:10 16:30 18:11 19:38 Pulse 85 87 B/P (MAP) 158/81 (106) 132/67 (88) O2 Delivery Room Air Room Air 05/23/19 05/23/19 05/23/19 05/23/19 19:46 21:13 21:34 22:50 Temp 98.5 98.1 98.5 98.1 Pulse 102 115 92 Resp 16 16 B/P (MAP) 142/77 (98) 142/77 134/57 (82) Pulse Ox 96 93 97 O2 Delivery Room Air Room Air Nasal Cannula O2 Flow Rate 4.0 05/24/19 05/24/19 05/24/19 05/24/19 02:50 07:00 07:32 08:00 Temp 97.6 98.3 97.6 98.3 Pulse 84 99 Resp 16 16 B/P (MAP) 144/65 (91) 141/77 (98) Pulse Ox 95 94 94 O2 Delivery Room Air Room Air Room Air Room Air 05/24/19 05/24/19 05/24/19 05/24/19 08:20 08:21 10:59 11:08 Pulse 84 84 84 B/P (MAP) 144/65 144/65 144/65 Pulse Ox 95 O2 Delivery Room Air Intake and Output 05/23/19 05/23/19 05/24/19 15:00 23:00 07:00 Intake Total 480 ml 800 ml 511 ml Output Total 950 ml 450 ml Balance 480 ml -150 ml 61 ml KODY EASON MD May 24, 2019 12:16
--- NOTE | 2019-05-24 14:26 | PDOC ---
PROGRESS NOTES Subjective Subjective Patient seen and examined Objective Objective Vital Signs Date Time Temp Pulse Resp B/P (MAP) Pulse Ox O2 Delivery O2 Flow Rate FiO2 05/24/19 11:08 95 Room Air 05/24/19 11:00 98.1 102 16 100/57 (71) 98.1 05/23/19 22:50 4.0 Intake and Output 05/24/19 07:00 Intake Total 1791 ml Output Total 1400 ml Balance 391 ml Intake Oral 1520 ml IV Total 271 ml Output Urine Total 1400 ml Physical Exam Abdomen: Normal bowel sounds Heart: Regular rate General: No acute distress Lungs: Other (slightly decreased breath sounds) Assessment Assessment Problems Medical Problems: (1) Chronic renal insufficiency Status: Chronic (2) Tachyarrhythmia Status: Acute 1. Acute non-STEMI: Cardiac catheterization showed three-vessel coronary artery disease including significant left main coronary artery stenosis. Patient is presently chest pain-free. CT surgery consulted - plan for coronary artery bypass surgery possibly on Sunday at [facility]. Continue heparin infusion. The patient is feeling well and denies chest pain. 2. Ischemic cardiomyopathy with EF 40-45%, clinically well compensated. We will initiate beta blockers probably tomorrow once blood pressure more stable 3. Atrial fibrillation with RVR: Heart rate improved. We continue on Cardizem and amiodarone. We will consider outpatient cardioversion at a later date. 4. PAD: Clinically stable 5. Hyperlipidemia: Continue statin therapy Comment Review of Relevant I have reviewed the following items ashlyn (where applicable) has been applied. Labs Laboratory Tests Test 05/22/19 16:35 05/22/19 23:20 05/23/19 04:00 05/23/19 11:00 Heparin Anti-Xa Act, Unfractionated 0.44 IU/mL (0.30-0.70) 0.43 IU/mL (0.30-0.70) 0.26 IU/mL (0.30-0.70) 0.38 IU/mL (0.30-0.70) White Blood Count 19.4 x10^3/uL (4.0-11.0) Red Blood Count 4.65 x10^6/uL (4.30-5.70) Hemoglobin 13.8 g/dL (13.0-17.5) Hematocrit 43.0 % (39.0-53.0) Mean Corpuscular Volume 92 fL (79-100) Mean Corpuscular Hemoglobin 30 pg (25-35) Mean Corpuscular Hemoglobin Concent 32 g/dL (31-37) Red Cell Distribution Width 15.0 % (11.5-14.5) Platelet Count 393 x10^3/uL (140-400) Neutrophils (%) (Auto) 94 % (31-73) Lymphocytes (%) (Auto) 3 % (24-48) Monocytes (%) (Auto) 3 % (0-9) Eosinophils (%) (Auto) 0 % (0-3) Basophils (%) (Auto) 0 % (0-3) Neutrophils # (Auto) 18.2 x10^3/uL (1.8-7.7) Lymphocytes # (Auto) 0.6 x10^3/uL (1.0-4.8) Monocytes # (Auto) 0.5 x10^3/uL (0.0-1.1) Eosinophils # (Auto) 0.0 x10^3/uL (0.0-0.7) Basophils # (Auto) 0.0 x10^3/uL (0.0-0.2) Sodium Level 142 mmol/L (136-145) Potassium Level 4.1 mmol/L (3.5-5.1) Chloride Level 106 mmol/L (98-107) Carbon Dioxide Level 27 mmol/L (21-32) Anion Gap 9 (6-14) Blood Urea Nitrogen 43 mg/dL (8-26) Creatinine 1.7 mg/dL (0.7-1.3) Estimated GFR (Cockcroft-Gault) 40.2 BUN/Creatinine Ratio 25 (6-20) Glucose Level 337 mg/dL (70-99) Calcium Level 8.5 mg/dL (8.5-10.1) Total Bilirubin 0.5 mg/dL (0.2-1.0) Aspartate Amino Transf (AST/SGOT) 33 U/L (15-37) Alanine Aminotransferase (ALT/SGPT) 43 U/L (16-63) Alkaline Phosphatase 70 U/L (46-116) Total Protein 7.2 g/dL (6.4-8.2) Albumin 2.7 g/dL (3.4-5.0) Albumin/Globulin Ratio 0.6 (1.0-1.7) Test 05/23/19 16:50 05/23/19 18:15 05/23/19 20:19 05/24/19 05:05 Glucose (Fingerstick) 395 mg/dL (70-99) 171 mg/dL (70-99) Heparin Anti-Xa Act, Unfractionated 0.41 IU/mL (0.30-0.70) 0.56 IU/mL (0.30-0.70) White Blood Count 24.9 x10^3/uL (4.0-11.0) Red Blood Count 4.70 x10^6/uL (4.30-5.70) Hemoglobin 13.7 g/dL (13.0-17.5) Hematocrit 43.7 % (39.0-53.0) Mean Corpuscular Volume 93 fL (79-100) Mean Corpuscular Hemoglobin 29 pg (25-35) Mean Corpuscular Hemoglobin Concent 31 g/dL (31-37) Red Cell Distribution Width 15.6 % (11.5-14.5) Platelet Count 457 x10^3/uL (140-400) Test 05/24/19 07:30 05/24/19 11:20 Glucose (Fingerstick) 169 mg/dL (70-99) 221 mg/dL (70-99) Laboratory Tests Test 05/23/19 16:50 05/23/19 18:15 05/23/19 20:19 05/24/19 05:05 Glucose (Fingerstick) 395 mg/dL (70-99) 171 mg/dL (70-99) Heparin Anti-Xa Act, Unfractionated 0.41 IU/mL (0.30-0.70) 0.56 IU/mL (0.30-0.70) White Blood Count 24.9 x10^3/uL (4.0-11.0) Red Blood Count 4.70 x10^6/uL (4.30-5.70) Hemoglobin 13.7 g/dL (13.0-17.5) Hematocrit 43.7 % (39.0-53.0) Mean Corpuscular Volume 93 fL (79-100) Mean Corpuscular Hemoglobin 29 pg (25-35) Mean Corpuscular Hemoglobin Concent 31 g/dL (31-37) Red Cell Distribution Width 15.6 % (11.5-14.5) Platelet Count 457 x10^3/uL (140-400) Test 05/24/19 07:30 05/24/19 11:20 Glucose (Fingerstick) 169 mg/dL (70-99) 221 mg/dL (70-99) Medications Current Medications Aspirin (Children'S Aspirin) 324 mg 1X ONCE PO ; Start 05/21/19 at 23:15; Stop 05/21/19 at 23:16; Status DC Albuterol/ Ipratropium (Duoneb) 3 ml 1X ONCE NEB Last administered on 05/21/19at 23:17; Start 05/21/19 at 23:15; Stop 05/21/19 at 23:16; Status DC Methylprednisolone Sodium Succinate (SOLU-Medrol 125MG VIAL) 125 mg 1X ONCE IV Last administered on 05/21/19at 23:51; Start 05/21/19 at 23:30; Stop 05/21/19 at 23:31; Status DC Furosemide (Lasix) 40 mg 1X ONCE IVP Last administered on 05/22/19at 00:26; Start 05/22/19 at 00:00; Stop 05/22/19 at 00:01; Status DC Magnesium Sulfate 50 ml @ 25 mls/hr 1X ONCE IV Last administered on 05/22/19at 00:31; Start 05/22/19 at 00:00; Stop 05/22/19 at 01:59; Status DC Heparin Sodium/ Dextrose 250 ml @ 0 mls/hr CONT PRN IV SEE COMMENTS Last administered on 05/24/19at 03:04; Start 05/22/19 at 00:00 Ondansetron HCl (Zofran) 4 mg PRN Q8HRS PRN IV NAUSEA/VOMITING; Start 05/22/19 at 00:30; Stop 05/23/19 at 00:29; Status DC Morphine Sulfate (Morphine Sulfate) 2 mg PRN Q2HR PRN IV PAIN; Start 05/22/19 at 00:30; Stop 05/23/19 at 00:29; Status DC Nitroglycerin (Nitrostat) 0.4 mg PRN Q5MIN PRN SL CHEST PAIN; Start 05/22/19 at 00:30; Stop 05/22/19 at 13:30; Status DC Albuterol/ Ipratropium (Duoneb) 3 ml RTQID NEB Last administered on 05/22/19at 11:21; Start 05/22/19 at 08:00; Stop 05/22/19 at 11:36; Status DC Aspirin (Zoey Aspirin) 325 mg 1X ONCE PO Last administered on 05/22/19at 08:14; Start 05/22/19 at 05:15; Stop 05/22/19 at 05:16; Status DC Heparin Sodium (Porcine) (Heparin Sodium) 3,250 unit PRN Q6HRS PRN IV FOR UFH LEVEL LESS THAN 0.2 Last administered on 05/22/19at 08:22; Start 05/22/19 at 08:00 Sodium Chloride 1,000 ml @ 100 mls/hr 1X ONCE IV Last administered on 05/22/19at 09:38; Start 05/22/19 at 09:00; Stop 05/22/19 at 18:59; Status DC Diltiazem HCl (Cardizem) 30 mg 1X ONCE PO Last administered on 05/22/19at 09:38; Start 05/22/19 at 10:00; Stop 05/22/19 at 10:01; Status DC Diltiazem HCl (Cardizem) 30 mg 1X PO ; Start 05/22/19 at 09:30; Stop 05/22/19 at 09:29; Status DC Albuterol/ Ipratropium (Duoneb) 3 ml RTQID NEB Last administered on 05/24/19at 11:07; Start 05/22/19 at 12:00 Budesonide (Pulmicort) 0.5 mg RTBID NEB Last administered on 05/24/19at 07:32; Start 05/22/19 at 13:00 Methylprednisolone Sodium Succinate (SOLU-Medrol 125MG VIAL) 80 mg Q6HRS IV Last administered on 05/23/19at 06:00; Start 05/22/19 at 13:00; Stop 05/23/19 at 10:27; Status DC Ceftriaxone Sodium (Rocephin) 1 gm Q24H IVP Last administered on 05/23/19at 13:49; Start 05/22/19 at 13:00 Iodixanol (Visipaque 320) 100 ml STK-MED ONCE .ROUTE ; Start 05/22/19 at 12:05; Stop 05/22/19 at 12:05; Status DC Lidocaine HCl (Xylocaine-Mpf 1% 2ml Vial) 2 ml STK-MED ONCE .ROUTE ; Start 05/22/19 at 12:05; Stop 05/22/19 at 12:05; Status DC Heparin Sodium/ Sodium Chloride 500 ml @ As Directed STK-MED ONCE .ROUTE ; Start 05/22/19 at 12:05; Stop 05/22/19 at 12:05; Status DC Fentanyl Citrate (Fentanyl 2ml Vial) 100 mcg STK-MED ONCE .ROUTE ; Start 05/22/19 at 12:28; Stop 05/22/19 at 12:28; Status DC Midazolam HCl (Versed) 5 mg STK-MED ONCE .ROUTE ; Start 05/22/19 at 12:28; Stop 05/22/19 at 12:28; Status DC Heparin Sodium (Porcine) (Heparin Sodium) 10,000 unit STK-MED ONCE .ROUTE ; Start 05/22/19 at 12:28; Stop 05/22/19 at 12:28; Status DC Verapamil HCl (Verapamil) 5 mg STK-MED ONCE .ROUTE ; Start 05/22/19 at 12:28; Stop 05/22/19 at 12:29; Status DC Nitroglycerin (Nitroglycerin) 200 mcg STK-MED ONCE .ROUTE ; Start 05/22/19 at 12:28; Stop 05/22/19 at 12:29; Status DC Iodixanol (Visipaque 320) 100 ml STK-MED ONCE .ROUTE ; Start 05/22/19 at 12:34; Stop 05/22/19 at 12:35; Status DC Atorvastatin Calcium (Lipitor) 40 mg QHS PO Last administered on 05/23/19at 21:13; Start 05/22/19 at 21:00 Nitroglycerin (Nitroglycerin) 200 mcg 1X ONCE IART Last administered on 05/22/19at 12:54; Start 05/22/19 at 12:45; Stop 05/22/19 at 12:46; Status DC Verapamil HCl (Verapamil) 2.5 mg 1X ONCE IART Last administered on 05/22/19at 12:55; Start 05/22/19 at 12:45; Stop 05/22/19 at 12:46; Status DC Heparin Sodium (Porcine) (Heparin Sodium) 2,500 unit 1X ONCE IART Last administered on 05/22/19at 12:56; Start 05/22/19 at 12:45; Stop 05/22/19 at 12:46; Status DC Heparin Sodium/ Sodium Chloride (HEPARIN for ARTERIAL LINE FLUSH) 1,000 unit 1X ONCE IART Last administered on 05/22/19at 12:53; Start 05/22/19 at 12:45; Stop 05/22/19 at 12:46; Status DC Midazolam HCl (Versed) 5 mg 1X ONCE IV Last administered on 05/22/19at 12:54; Start 05/22/19 at 12:45; Stop 05/22/19 at 12:46; Status DC Fentanyl Citrate (Fentanyl 2ml Vial) 100 mcg 1X ONCE IV Last administered on 05/22/19at 12:45; Start 05/22/19 at 12:45; Stop 05/22/19 at 12:46; Status DC Iodixanol (Visipaque 320) 100 ml 1X ONCE IART Last administered on 05/22/19at 12:54; Start 05/22/19 at 12:45; Stop 05/22/19 at 12:46; Status DC Lidocaine HCl (Xylocaine-Mpf 1% 2ml Vial) 2 ml 1X ONCE INJ Last administered on 05/22/19at 12:55; Start 05/22/19 at 12:45; Stop 05/22/19 at 12:46; Status DC Sodium Chloride (Normal Saline Flush) 3 ml QSHIFT PRN IV AFTER MEDS AND BLOOD DRAWS; Start 05/22/19 at 13:15 Nitroglycerin (Nitrostat) 0.4 mg PRN Q5MIN PRN SL CHEST PAIN; Start 05/22/19 at 13:15 Diltiazem HCl (Cardizem) 30 mg Q6HRS PO Last administered on 05/23/19at 06:00; Start 05/22/19 at 18:00; Stop 05/23/19 at 10:24; Status DC Amiodarone HCl (Cordarone) 200 mg BID PO Last administered on 05/24/19at 08:21; Start 05/22/19 at 21:00 Zolpidem Tartrate (Ambien) 5 mg PRN QHS PRN PO INSOMNIA, MAY REPEAT IN 1HR Last administered on 05/23/19at 00:27; Start 05/23/19 at 00:15 Diltiazem HCl (Cardizem 24hr Cd) 240 mg DAILY PO Last administered on 05/24/19at 08:20; Start 05/23/19 at 10:30 Amiodarone HCl 150 mg/Dextrose 103 ml @ 600 mls/hr 1X ONCE IV Last administered on 05/23/19at 11:25; Start 05/23/19 at 10:30; Stop 05/23/19 at 10:40; Status DC Methylprednisolone Sodium Succinate (SOLU-Medrol 40MG VIAL) 40 mg Q8HRS IV Last administered on 05/24/19at 05:37; Start 05/23/19 at 14:00 Amiodarone HCl 450 mg/Dextrose 259 ml @ 33 mls/hr CONT PRN IV SEE I/O RECORD Last administered on 05/23/19at 20:22; Start 05/23/19 at 11:45; Stop 05/23/19 at 20:22; Status DC Aspirin (Ecotrin) 325 mg DAILYWBKFT PO Last administered on 05/24/19at 08:20; Start 05/23/19 at 12:00 Carvedilol (Coreg) 3.125 mg BIDWMEALS PO ; Start 05/23/19 at 17:00; Stop 05/23/19 at 12:45; Status DC Metoprolol Tartrate (Lopressor) 12.5 mg BID PO Last administered on 05/24/19at 10:59; Start 05/23/19 at 13:00 Lactobacillus Rhamnosus (Culturelle) 1 cap BID PO Last administered on 05/24/19at 08:21; Start 05/23/19 at 21:00 Insulin Human Lispro (HumaLOG) 0-7 UNITS TIDWMEALS SQ Last administered on 05/24/19at 08:25; Start 05/23/19 at 17:00; Stop 05/24/19 at 11:34; Status DC Dextrose (Dextrose 50%-Water Syringe) 12.5 gm PRN Q15MIN PRN IV SEE COMMENTS; Start 05/23/19 at 17:00; Status Cancel Dextrose (Iv Dextrose 5%) 250 ml PRN Q15MIN PRN IV SEE COMMENTS; Start 05/23/19 at 17:00 Info (Anti-Coagulation Monitoring By Pharmacy) 1 each PRN DAILY PRN MC SEE COMMENTS Last administered on 05/24/19at 08:12; Start 05/24/19 at 08:15 Insulin Human Lispro (HumaLOG) 0-9 UNITS TIDWMEALS SQ Last administered on 05/24/19at 12:23; Start 05/24/19 at 12:00 Dextrose (Dextrose 50%-Water Syringe) 12.5 gm PRN Q15MIN PRN IV SEE COMMENTS; Start 05/24/19 at 11:45 Dextrose (Iv Dextrose 5%) 250 ml PRN Q15MIN PRN IV SEE COMMENTS; Start 05/24/19 at 11:45 Ondansetron HCl (Zofran) 4 mg PRN Q6HRS PRN IVP NAUSEA/VOMITING; Start 05/24/19 at 11:45 Acetaminophen (Tylenol) 500 mg PRN Q6HRS PRN PO MILD PAIN / TEMP; Start 04/28 01/13 at 11:45 Acetaminophen/ Codeine Phosphate (Tylenol #3) 1 tab PRN Q6HRS PRN PO PAIN; Start 05/24/19 at 11:45 Calcium Carbonate/ Glycine (Tums) 500 mg PRN AFTMEALHC PRN PO INDIGESTION; Start 05/24/19 at 11:45 Active Scripts Active Lipitor (Atorvastatin Calcium) 40 Mg Tablet 1 Tab PO QHS 90 Days Reported Albuterol Sulfate Conc Neb Soln (Albuterol Sulfate) 2.5 Mg/0.5 Ml Vial.neb 2.5 Mg NEB Q4-6HRS PRN Doxycycline Hyclate 100 Mg Capsule 1 Cap PO BID Prednisone 20 Mg Tablet 1 Tab PO BID 9 Days Eliquis (Apixaban) 5 Mg Tablet 5 Mg PO BID Vitals/I & O Vital Sign - Last 24 Hours 05/23/19 05/23/19 05/23/19 05/23/19 15:15 15:18 16:10 16:30 Pulse 85 115 85 B/P (MAP) 131/66 (87) 158/81 (106) O2 Delivery Room Air 05/23/19 05/23/19 05/23/19 05/23/19 18:11 19:38 19:46 21:13 Temp 98.5 98.5 Pulse 87 102 115 Resp 16 B/P (MAP) 132/67 (88) 142/77 (98) 142/77 Pulse Ox 96 O2 Delivery Room Air Room Air 05/23/19 05/23/19 05/24/19 05/24/19 21:34 22:50 02:50 07:00 Temp 98.1 97.6 98.3 98.1 97.6 98.3 Pulse 92 84 99 Resp 16 16 16 B/P (MAP) 134/57 (82) 144/65 (91) 141/77 (98) Pulse Ox 93 97 95 94 O2 Delivery Room Air Nasal Cannula Room Air Room Air O2 Flow Rate 4.0 05/24/19 05/24/19 05/24/19 05/24/19 07:32 08:00 08:20 08:21 Pulse 84 84 B/P (MAP) 144/65 144/65 Pulse Ox 94 O2 Delivery Room Air Room Air 05/24/19 05/24/19 05/24/19 10:59 11:00 11:08 Temp 98.1 98.1 Pulse 84 102 Resp 16 B/P (MAP) 144/65 100/57 (71) Pulse Ox 95 95 O2 Delivery Room Air Room Air Intake and Output 05/23/19 05/23/19 05/24/19 15:00 23:00 07:00 Intake Total 480 ml 800 ml 511 ml Output Total 950 ml 450 ml Balance 480 ml -150 ml 61 ml KWADWO LAWSON MD May 24, 2019 14:26
[2019-05-24] MEDS: cefTRIAXone IV Push 1 GM VIAL. IVP SCH (14:42)
[2019-05-24 15:00] VITALS: BP 129/66
[2019-05-24 19:05] VITALS: BP 168/60
[2019-05-24] MEDS: ATORVASTATIN CALCIUM 40 MG TABLET. PO SCH (20:51)
[2019-05-24 23:57] VITALS: BP 145/73
[2019-05-25 03:30] VITALS: BP 144/56
[2019-05-25] MEDS: methylPREDNISolone SOD SUCC PF 40 MG/ML VIAL. IV SCH ×3 (05:38→20:17)
[2019-05-25] MEDS: HEPARIN 25,000UTS/250ML PREMIX 250 ML IV PRN ×2 (06:33→20:25)
[2019-05-25] MEDS: ANTI-COAG MONITOR BY PHARMACY. MC PRN (07:55)
[2019-05-25 07:59] VITALS: BP 127/44
[2019-05-25] MEDS: AMIODARONE HCL 200 MG TABLET. PO SCH ×2 (08:34→20:19)
[2019-05-25] MEDS: LACTOBACILLUS RHAMNOSUS GG 1 CAPSULE. PO SCH ×2 (08:34→20:17)
[2019-05-25] MEDS: ASPIRIN ENTERIC COATED 325 MG TABLET.DR. PO SCH (08:34)
[2019-05-25] MEDS: METOPROLOL TART IMMED RELEASE 25 MG TABLET. PO SCH ×2 (08:35→20:18)
[2019-05-25] MEDS: glyBURIDE 5 MG TABLET PO SCH ×2 (08:38→17:00)
[2019-05-25] MEDS: INSULIN LISPRO 300 UNITS/3 ML VIAL. SQ SCH ×3 (08:43→17:00)
[2019-05-25] MEDS: BUDESONIDE 0.5 MG/2 ML NEBU. NEB SCH ×2 (08:47→19:27)
[2019-05-25] MEDS: IPRATRPIUM/ALBUTEROL 0.5/2.5MG 3 ML NEBU. NEB SCH ×4 (08:47→19:28)
[2019-05-25] MEDS ORDERED: INSULIN GLARGINE SYRINGE. SQ SCH (09:00)
--- NOTE | 2019-05-25 09:36 | PDOC ---
PULMONARY PROGRESS NOTES Subjective Pt. remains on room air, reports episode of SOB and wheezing this am with exertion Resting comfortably at this time Vitals Vital Signs Date Time Temp Pulse Resp B/P (MAP) Pulse Ox O2 Delivery O2 Flow Rate FiO2 05/25/19 08:49 94 Room Air 05/25/19 08:35 93 144/56 05/25/19 07:59 97.9 20 2.0 97.9 ROS: No Nausea, No Chest Pain, No Abdominal Pain General: Alert, Oriented X4 Lungs: Wheezing (ex) Cardiovascular: S1, S2 Abdomen: Soft, Non-tender, Other (obese ) Neuro Exam: Alert, Oriented Extremities: No Edema Skin: Warm, Dry Labs Laboratory Tests Test 05/23/19 11:00 05/23/19 16:50 05/23/19 18:15 05/23/19 20:19 Heparin Anti-Xa Act, Unfractionated 0.38 IU/mL (0.30-0.70) 0.41 IU/mL (0.30-0.70) Glucose (Fingerstick) 395 mg/dL (70-99) 171 mg/dL (70-99) Test 05/24/19 05:05 05/24/19 07:30 05/24/19 11:20 05/24/19 13:45 White Blood Count 24.9 x10^3/uL (4.0-11.0) Red Blood Count 4.70 x10^6/uL (4.30-5.70) Hemoglobin 13.7 g/dL (13.0-17.5) Hematocrit 43.7 % (39.0-53.0) Mean Corpuscular Volume 93 fL (79-100) Mean Corpuscular Hemoglobin 29 pg (25-35) Mean Corpuscular Hemoglobin Concent 31 g/dL (31-37) Red Cell Distribution Width 15.6 % (11.5-14.5) Platelet Count 457 x10^3/uL (140-400) Heparin Anti-Xa Act, Unfractionated 0.56 IU/mL (0.30-0.70) 0.64 IU/mL (0.30-0.70) Glucose (Fingerstick) 169 mg/dL (70-99) 221 mg/dL (70-99) Test 05/24/19 17:13 05/24/19 20:55 05/24/19 21:30 05/25/19 06:05 Glucose (Fingerstick) 136 mg/dL (70-99) 240 mg/dL (70-99) Heparin Anti-Xa Act, Unfractionated 0.59 IU/mL (0.30-0.70) 0.37 IU/mL (0.30-0.70) Test 05/25/19 08:17 Glucose (Fingerstick) 220 mg/dL (70-99) Laboratory Tests Test 05/24/19 11:20 05/24/19 13:45 05/24/19 17:13 05/24/19 20:55 Glucose (Fingerstick) 221 mg/dL (70-99) 136 mg/dL (70-99) 240 mg/dL (70-99) Heparin Anti-Xa Act, Unfractionated 0.64 IU/mL (0.30-0.70) Test 05/24/19 21:30 05/25/19 06:05 05/25/19 08:17 Heparin Anti-Xa Act, Unfractionated 0.59 IU/mL (0.30-0.70) 0.37 IU/mL (0.30-0.70) Glucose (Fingerstick) 220 mg/dL (70-99) Medications Active Scripts Medications Dose Route/Sig Max Daily Dose Days Date Category Albuterol Sulfate Conc Neb Soln (Albuterol Sulfate) 2.5 Mg/0.5 Ml Vial.neb 2.5 Mg NEB Q4-6HRS PRN 05/22/19 Reported Doxycycline Hyclate 100 Mg Capsule 1 Cap PO BID 05/22/19 Reported Prednisone 20 Mg Tablet 1 Tab PO BID 9 05/22/19 Reported Lipitor (Atorvastatin Calcium) 40 Mg Tablet 1 Tab PO QHS 90 02/25/19 Rx Eliquis (Apixaban) 5 Mg Tablet 5 Mg PO BID 04/22/18 Reported Impression . IMPRESSION: 1. Chest pain with markedly increased troponin, related to non-ST segment myocardial infarction. Cardiology following S/P cath , 3 vessel CAD, awaiting CABG 2. Diffuse bronchospasm, likely adult-onset asthma. The patient has no significant tobacco history and the CT chest does not show any evidence of congestive heart failure. wheezing resolved with steroids 3. Acute bronchitis, could have triggered asthma exacerbation. No definite consolidation seen on the CT chest. 4. History of obstructive sleep apnea. The patient states that he could not tolerate higher pressure and also mask. I did discuss with him regarding the cardiovascular effects of untreated sleep apnea. He is agreeable to do a sleep study as an outpatient and will try nasal pillows. 5. Remote history of methamphetamine use, cocaine use, and marijuana use, but has quit for over 10 years. ECHOCARDIOGRAM <Conclusion> The left ventricular systolic function is normal. The Ejection Fraction is 55-60%. Trace tricuspid regurgitation. The PA pressure was estimated at 48 mmHg. There is no evidence of significant pericardial effusion. Cardiac Cath FINDINGS 1. Hemodynamics: Left ventricular end-diastolic pressure of 22 mmHg. No pullback gradient across the aortic valve. 2. Coronary angiography: a. The left main coronary artery arose from the left sinus of Valsalva, gave rise to the left anterior descending and left circumflex arteries and showed 50% midsegment stenosis and 70-80% distal segment stenosis. b. The left anterior descending artery showed minimal luminal irregularities without any critical lesions. c. The left circumflex artery showed 60% involving the proximal segment of the first obtuse marginal branch. d. The right coronary artery arose from the right sinus of Valsalva and showed 70% stenosis in the midsegment. Conclusion Three-vessel coronary artery disease including significant left main coronary artery stenosis Plan . RECOMMENDATIONS: Follow CTS and Cardiology recs , needs CABG, will transfer to [facility] on Sunday for CABG cont. nebs and plumicort cont. Rocephin IV steroids, will taper to BID dosing S/P cath 05/22/19-- CAD 3 vessel disease and left main coronary artery stenosis, EF 55-60% PA 48mmHg Outpatient PFTs. Will need follow up for outpatient sleep study Leukocytosis due to steroids D/W NATY GORDON MD May 25, 2019 09:36
--- NOTE | 2019-05-25 10:48 | PDOC ---
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 undiagnosed, hgba1c 6,7 History of Present Illness History of Present Illness Asleep i did еленаa waken [facility]ansfer to [facility] sunday for CABG LOts of visitors today sunday, on heparin gtt - chest pain free, no complaints WBC 21, clean CXR And UA, on empiric rocephin ON solu 40 IV q8, started to taper by pulmo sunday BS HIGH!, hgba1c 6,7 NOt on any DM meds at home, new dx? PLAN:" Start lantus 15 units qD first dose now I held off metformin since NPO CABG sunday Start glyburide 5 PO BID Shift to [facility]SI high dose Sunday transfer for CABG FULL CODE heparin gtt per cards Vitals Vitals Vital Signs Date Time Temp Pulse Resp B/P (MAP) Pulse Ox O2 Delivery O2 Flow Rate FiO2 05/25/19 08:49 94 Room Air 05/25/19 08:35 93 144/56 05/25/19 07:59 97.9 20 2.0 97.9 Physical Exam General: Alert, Oriented X3, Cooperative, No acute distress Heart: Regular rate, Normal S1, Normal S2 Lungs: Wheezing (ex) Abdomen: Normal bowel sounds Extremities: No clubbing, No cyanosis, No edema, Other (trace edema) Skin: No rashes, No breakdown, No significant lesion, Other (venous dermatitis) Labs LABS Laboratory Tests Test 05/24/19 11:20 05/24/19 13:45 05/24/19 17:13 05/24/19 20:55 Glucose (Fingerstick) 221 mg/dL (70-99) 136 mg/dL (70-99) 240 mg/dL (70-99) Heparin Anti-Xa Act, Unfractionated 0.64 IU/mL (0.30-0.70) Test 05/24/19 21:30 05/25/19 06:05 05/25/19 08:17 Heparin Anti-Xa Act, Unfractionated 0.59 IU/mL (0.30-0.70) 0.37 IU/mL (0.30-0.70) Glucose (Fingerstick) 220 mg/dL (70-99) Review of Systems Review of Systems asleep i did not awaken Assessment and Plan Assessmemt and Plan Problems Medical Problems: (1) Chronic renal insufficiency Status: Chronic (2) Tachyarrhythmia Status: Acute Comment Review of Relevant I have reviewed the following items ashlyn (where applicable) has been applied. Labs Laboratory Tests Test 05/23/19 11:00 05/23/19 16:50 05/23/19 18:15 05/23/19 20:19 Heparin Anti-Xa Act, Unfractionated 0.38 IU/mL (0.30-0.70) 0.41 IU/mL (0.30-0.70) Glucose (Fingerstick) 395 mg/dL (70-99) 171 mg/dL (70-99) Test 05/24/19 05:05 05/24/19 07:30 05/24/19 11:20 05/24/19 13:45 White Blood Count 24.9 x10^3/uL (4.0-11.0) Red Blood Count 4.70 x10^6/uL (4.30-5.70) Hemoglobin 13.7 g/dL (13.0-17.5) Hematocrit 43.7 % (39.0-53.0) Mean Corpuscular Volume 93 fL (79-100) Mean Corpuscular Hemoglobin 29 pg (25-35) Mean Corpuscular Hemoglobin Concent 31 g/dL (31-37) Red Cell Distribution Width 15.6 % (11.5-14.5) Platelet Count 457 x10^3/uL (140-400) Heparin Anti-Xa Act, Unfractionated 0.56 IU/mL (0.30-0.70) 0.64 IU/mL (0.30-0.70) Glucose (Fingerstick) 169 mg/dL (70-99) 221 mg/dL (70-99) Test 05/24/19 17:13 05/24/19 20:55 05/24/19 21:30 05/25/19 06:05 Glucose (Fingerstick) 136 mg/dL (70-99) 240 mg/dL (70-99) Heparin Anti-Xa Act, Unfractionated 0.59 IU/mL (0.30-0.70) 0.37 IU/mL (0.30-0.70) Test 05/25/19 08:17 Glucose (Fingerstick) 220 mg/dL (70-99) Laboratory Tests Test 05/24/19 11:20 05/24/19 13:45 05/24/19 17:13 05/24/19 20:55 Glucose (Fingerstick) 221 mg/dL (70-99) 136 mg/dL (70-99) 240 mg/dL (70-99) Heparin Anti-Xa Act, Unfractionated 0.64 IU/mL (0.30-0.70) Test 05/24/19 21:30 05/25/19 06:05 05/25/19 08:17 Heparin Anti-Xa Act, Unfractionated 0.59 IU/mL (0.30-0.70) 0.37 IU/mL (0.30-0.70) Glucose (Fingerstick) 220 mg/dL (70-99) Medications Current Medications Aspirin (Children'S Aspirin) 324 mg 1X ONCE PO ; Start 05/21/19 at 23:15; Stop 05/21/19 at 23:16; Status DC Albuterol/ Ipratropium (Duoneb) 3 ml 1X ONCE NEB Last administered on 05/21/19at 23:17; Start 05/21/19 at 23:15; Stop 05/21/19 at 23:16; Status DC Methylprednisolone Sodium Succinate (SOLU-Medrol 125MG VIAL) 125 mg 1X ONCE IV Last administered on 05/21/19at 23:51; Start 05/21/19 at 23:30; Stop 05/21/19 at 23:31; Status DC Furosemide (Lasix) 40 mg 1X ONCE IVP Last administered on 05/22/19at 00:26; Start 05/22/19 at 00:00; Stop 05/22/19 at 00:01; Status DC Magnesium Sulfate 50 ml @ 25 mls/hr 1X ONCE IV Last administered on 05/22/19at 00:31; Start 05/22/19 at 00:00; Stop 05/22/19 at 01:59; Status DC Heparin Sodium/ Dextrose 250 ml @ 0 mls/hr CONT PRN IV SEE COMMENTS Last administered on 05/25/19at 06:33; Start 05/22/19 at 00:00 Ondansetron HCl (Zofran) 4 mg PRN Q8HRS PRN IV NAUSEA/VOMITING; Start 05/22/19 at 00:30; Stop 05/23/19 at 00:29; Status DC Morphine Sulfate (Morphine Sulfate) 2 mg PRN Q2HR PRN IV PAIN; Start 05/22/19 at 00:30; Stop 05/23/19 at 00:29; Status DC Nitroglycerin (Nitrostat) 0.4 mg PRN Q5MIN PRN SL CHEST PAIN; Start 05/22/19 at 00:30; Stop 05/22/19 at 13:30; Status DC Albuterol/ Ipratropium (Duoneb) 3 ml RTQID NEB Last administered on 05/22/19at 11:21; Start 05/22/19 at 08:00; Stop 05/22/19 at 11:36; Status DC Aspirin (Zoey Aspirin) 325 mg 1X ONCE PO Last administered on 05/22/19at 08:14; Start 05/22/19 at 05:15; Stop 05/22/19 at 05:16; Status DC Heparin Sodium (Porcine) (Heparin Sodium) 3,250 unit PRN Q6HRS PRN IV FOR UFH LEVEL LESS THAN 0.2 Last administered on 05/22/19at 08:22; Start 05/22/19 at 08:00 Sodium Chloride 1,000 ml @ 100 mls/hr 1X ONCE IV Last administered on 05/22/19at 09:38; Start 05/22/19 at 09:00; Stop 05/22/19 at 18:59; Status DC Diltiazem HCl (Cardizem) 30 mg 1X ONCE PO Last administered on 05/22/19at 09:38; Start 05/22/19 at 10:00; Stop 05/22/19 at 10:01; Status DC Diltiazem HCl (Cardizem) 30 mg 1X PO ; Start 05/22/19 at 09:30; Stop 05/22/19 at 09:29; Status DC Albuterol/ Ipratropium (Duoneb) 3 ml RTQID NEB Last administered on 05/25/19at 08:47; Start 05/22/19 at 12:00 Budesonide (Pulmicort) 0.5 mg RTBID NEB Last administered on 05/25/19at 08:47; Start 05/22/19 at 13:00 Methylprednisolone Sodium Succinate (SOLU-Medrol 125MG VIAL) 80 mg Q6HRS IV Last administered on 05/23/19at 06:00; Start 05/22/19 at 13:00; Stop 05/23/19 at 10:27; Status DC Ceftriaxone Sodium (Rocephin) 1 gm Q24H IVP Last administered on 05/24/19at 14:42; Start 05/22/19 at 13:00 Iodixanol (Visipaque 320) 100 ml STK-MED ONCE .ROUTE ; Start 05/22/19 at 12:05; Stop 05/22/19 at 12:05; Status DC Lidocaine HCl (Xylocaine-Mpf 1% 2ml Vial) 2 ml STK-MED ONCE .ROUTE ; Start 05/22/19 at 12:05; Stop 05/22/19 at 12:05; Status DC Heparin Sodium/ Sodium Chloride 500 ml @ As Directed STK-MED ONCE .ROUTE ; Start 05/22/19 at 12:05; Stop 05/22/19 at 12:05; Status DC Fentanyl Citrate (Fentanyl 2ml Vial) 100 mcg STK-MED ONCE .ROUTE ; Start 05/22/19 at 12:28; Stop 05/22/19 at 12:28; Status DC Midazolam HCl (Versed) 5 mg STK-MED ONCE .ROUTE ; Start 05/22/19 at 12:28; Stop 05/22/19 at 12:28; Status DC Heparin Sodium (Porcine) (Heparin Sodium) 10,000 unit STK-MED ONCE .ROUTE ; Start 05/22/19 at 12:28; Stop 05/22/19 at 12:28; Status DC Verapamil HCl (Verapamil) 5 mg STK-MED ONCE .ROUTE ; Start 05/22/19 at 12:28; Stop 05/22/19 at 12:29; Status DC Nitroglycerin (Nitroglycerin) 200 mcg STK-MED ONCE .ROUTE ; Start 05/22/19 at 12:28; Stop 05/22/19 at 12:29; Status DC Iodixanol (Visipaque 320) 100 ml STK-MED ONCE .ROUTE ; Start 05/22/19 at 12:34; Stop 05/22/19 at 12:35; Status DC Atorvastatin Calcium (Lipitor) 40 mg QHS PO Last administered on 05/24/19at 20:51; Start 05/22/19 at 21:00 Nitroglycerin (Nitroglycerin) 200 mcg 1X ONCE IART Last administered on 05/22/19at 12:54; Start 05/22/19 at 12:45; Stop 05/22/19 at 12:46; Status DC Verapamil HCl (Verapamil) 2.5 mg 1X ONCE IART Last administered on 05/22/19at 12:55; Start 05/22/19 at 12:45; Stop 05/22/19 at 12:46; Status DC Heparin Sodium (Porcine) (Heparin Sodium) 2,500 unit 1X ONCE IART Last administered on 05/22/19at 12:56; Start 05/22/19 at 12:45; Stop 05/22/19 at 12:46; Status DC Heparin Sodium/ Sodium Chloride (HEPARIN for ARTERIAL LINE FLUSH) 1,000 unit 1X ONCE IART Last administered on 05/22/19at 12:53; Start 05/22/19 at 12:45; Stop 05/22/19 at 12:46; Status DC Midazolam HCl (Versed) 5 mg 1X ONCE IV Last administered on 05/22/19at 12:54; Start 05/22/19 at 12:45; Stop 05/22/19 at 12:46; Status DC Fentanyl Citrate (Fentanyl 2ml Vial) 100 mcg 1X ONCE IV Last administered on 05/22/19at 12:45; Start 05/22/19 at 12:45; Stop 05/22/19 at 12:46; Status DC Iodixanol (Visipaque 320) 100 ml 1X ONCE IART Last administered on 05/22/19at 12:54; Start 05/22/19 at 12:45; Stop 05/22/19 at 12:46; Status DC Lidocaine HCl (Xylocaine-Mpf 1% 2ml Vial) 2 ml 1X ONCE INJ Last administered on 05/22/19at 12:55; Start 05/22/19 at 12:45; Stop 05/22/19 at 12:46; Status DC Sodium Chloride (Normal Saline Flush) 3 ml QSHIFT PRN IV AFTER MEDS AND BLOOD DRAWS; Start 05/22/19 at 13:15 Nitroglycerin (Nitrostat) 0.4 mg PRN Q5MIN PRN SL CHEST PAIN; Start 05/22/19 at 13:15 Diltiazem HCl (Cardizem) 30 mg Q6HRS PO Last administered on 05/23/19at 06:00; Start 05/22/19 at 18:00; Stop 05/23/19 at 10:24; Status DC Amiodarone HCl (Cordarone) 200 mg BID PO Last administered on 05/25/19at 08:34; Start 05/22/19 at 21:00 Zolpidem Tartrate (Ambien) 5 mg PRN QHS PRN PO INSOMNIA, MAY REPEAT IN 1HR Last administered on 05/23/19at 00:27; Start 05/23/19 at 00:15 Diltiazem HCl (Cardizem 24hr Cd) 240 mg DAILY PO Last administered on 05/25/19at 08:35; Start 05/23/19 at 10:30 Amiodarone HCl 150 mg/Dextrose 103 ml @ 600 mls/hr 1X ONCE IV Last administered on 05/23/19at 11:25; Start 05/23/19 at 10:30; Stop 05/23/19 at 10:40; Status DC Methylprednisolone Sodium Succinate (SOLU-Medrol 40MG VIAL) 40 mg Q8HRS IV Last administered on 05/25/19at 05:38; Start 05/23/19 at 14:00; Stop 05/25/19 at 09:56; Status DC Amiodarone HCl 450 mg/Dextrose 259 ml @ 33 mls/hr CONT PRN IV SEE I/O RECORD Last administered on 05/23/19at 20:22; Start 05/23/19 at 11:45; Stop 05/23/19 at 20:22; Status DC Aspirin (Ecotrin) 325 mg DAILYWBKFT PO Last administered on 05/25/19at 08:34; Start 05/23/19 at 12:00 Carvedilol (Coreg) 3.125 mg BIDWMEALS PO ; Start 05/23/19 at 17:00; Stop 05/23/19 at 12:45; Status DC Metoprolol Tartrate (Lopressor) 12.5 mg BID PO Last administered on 05/25/19at 08:35; Start 05/23/19 at 13:00 Lactobacillus Rhamnosus (Culturelle) 1 cap BID PO Last administered on 05/25/19at 08:34; Start 05/23/19 at 21:00 Insulin Human Lispro (HumaLOG) 0-7 UNITS TIDWMEALS SQ Last administered on 05/24/19at 08:25; Start 05/23/19 at 17:00; Stop 05/24/19 at 11:34; Status DC Dextrose (Dextrose 50%-Water Syringe) 12.5 gm PRN Q15MIN PRN IV SEE COMMENTS; Start 05/23/19 at 17:00; Status Cancel Dextrose (Iv Dextrose 5%) 250 ml PRN Q15MIN PRN IV SEE COMMENTS; Start 05/23/19 at 17:00 Info (Anti-Coagulation Monitoring By Pharmacy) 1 each PRN DAILY PRN MC SEE COMMENTS Last administered on 05/25/19at 07:55; Start 05/24/19 at 08:15 Insulin Human Lispro (HumaLOG) 0-9 UNITS TIDWMEALS SQ Last administered on 05/25/19at 08:43; Start 05/24/19 at 12:00 Dextrose (Dextrose 50%-Water Syringe) 12.5 gm PRN Q15MIN PRN IV SEE COMMENTS; Start 05/24/19 at 11:45 Dextrose (Iv Dextrose 5%) 250 ml PRN Q15MIN PRN IV SEE COMMENTS; Start 05/24/19 at 11:45; Stop 05/25/19 at 07:54; Status DC Ondansetron HCl (Zofran) 4 mg PRN Q6HRS PRN IVP NAUSEA/VOMITING; Start 05/24/19 at 11:45 Acetaminophen (Tylenol) 500 mg PRN Q6HRS PRN PO MILD PAIN / TEMP; Start 05/24/19 at 11:45 Acetaminophen/ Codeine Phosphate (Tylenol #3) 1 tab PRN Q6HRS PRN PO MODERATE- SEVERE PAIN; Start 05/24/19 at 11:45 Calcium Carbonate/ Glycine (Tums) 500 mg PRN AFTMEALHC PRN PO INDIGESTION; Start 05/24/19 at 11:45 Insulin Glargine (Lantus Syringe) 15 unit DAILY SQ Last administered on 05/25/19at 08:43; Start 05/25/19 at 09:00 Glyburide (Diabeta) 5 mg BIDWMEALS PO Last administered on 05/25/19at 08:38; Start 05/25/19 at 09:00 Methylprednisolone Sodium Succinate (SOLU-Medrol 40MG VIAL) 40 mg BID IV ; Start 05/25/19 at 10:00 Active Scripts Active Lipitor (Atorvastatin Calcium) 40 Mg Tablet 1 Tab PO QHS 90 Days Reported Albuterol Sulfate Conc Neb Soln (Albuterol Sulfate) 2.5 Mg/0.5 Ml Vial.neb 2.5 Mg NEB Q4-6HRS PRN Doxycycline Hyclate 100 Mg Capsule 1 Cap PO BID Prednisone 20 Mg Tablet 1 Tab PO BID 9 Days Eliquis (Apixaban) 5 Mg Tablet 5 Mg PO BID Vitals/I & O Vital Sign - Last 24 Hours 05/24/19 05/24/19 05/24/19 05/24/19 10:59 11:00 11:08 15:00 Temp 98.1 98.3 98.1 98.3 Pulse 84 102 92 Resp 16 16 B/P (MAP) 144/65 100/57 (71) 129/66 (87) Pulse Ox 95 95 95 O2 Delivery Room Air Room Air Room Air 05/24/19 05/24/19 05/24/19 05/24/19 15:41 19:05 19:19 19:36 Temp 97.5 97.5 Pulse 87 Resp 20 B/P (MAP) 168/60 (96) Pulse Ox 95 100 95 O2 Delivery Room Air Room Air Room Air Room Air 05/24/19 05/24/19 05/24/19 05/24/19 19:37 20:51 20:51 23:57 Temp 97.9 97.9 Pulse 87 87 91 Resp 20 B/P (MAP) 168/60 168/60 145/73 (97) Pulse Ox 95 93 O2 Delivery Room Air Room Air 05/25/19 05/25/19 05/25/19 05/25/19 03:30 07:50 07:59 08:34 Temp 97.9 97.9 97.9 97.9 Pulse 93 44 93 Resp 20 20 B/P (MAP) 144/56 (85) 127/44 (71) 144/56 Pulse Ox 94 93 O2 Delivery Room Air Room Air Nasal Cannula O2 Flow Rate 2.0 05/25/19 05/25/19 05/25/19 08:35 08:35 08:49 Pulse 93 93 B/P (MAP) 144/56 144/56 Pulse Ox 94 O2 Delivery Room Air Intake and Output 05/24/19 05/24/19 05/25/19 15:00 23:00 07:00 Intake Total 360 ml 400 ml 1062 ml Output Total 1250 ml 700 ml Balance 360 ml -850 ml 362 ml KODY EASON MD May 25, 2019 10:48
[2019-05-25 11:05] VITALS: BP 127/51
[2019-05-25] MEDS: cefTRIAXone IV Push 1 GM VIAL. IVP SCH (13:28)
--- NOTE | 2019-05-25 13:30 | PDOC ---
PROGRESS NOTES Subjective Subjective Patient seen and examined Objective Objective Vital Signs Date Time Temp Pulse Resp B/P (MAP) Pulse Ox O2 Delivery O2 Flow Rate FiO2 05/25/19 11:10 Room Air 05/25/19 11:05 97.4 65 20 127/51 (76) 93 97.4 05/25/19 07:59 2.0 Intake and Output 05/25/19 07:00 Intake Total 1822 ml Output Total 1950 ml Balance -128 ml Intake Oral 1600 ml IV Total 222 ml Output Urine Total 1950 ml # Bowel Movements 1 Physical Exam Abdomen: Normal bowel sounds Heart: Regular rate General: No acute distress Lungs: Other (slightly decreased breath sounds) Assessment Assessment Problems Medical Problems: (1) Chronic renal insufficiency Status: Chronic (2) Tachyarrhythmia Status: Acute 1. Acute non-STEMI: Cardiac catheterization showed three-vessel coronary artery disease including significant left main coronary artery stenosis. Patient is presently chest pain-free. CT surgery consulted - plan for coronary artery bypass surgery possibly on Sunday at [facility]. Continue heparin infusion. The patient is feeling well and denies chest pain. 2. Ischemic cardiomyopathy with EF 40-45%, clinically well compensated. Continue present treatment. 3. Atrial fibrillation with RVR: Heart rate improved. We continue on Cardizem and amiodarone. We will consider outpatient cardioversion at a later date. 4. PAD: Clinically stable 5. Hyperlipidemia: Continue statin therapy Comment Review of Relevant I have reviewed the following items ashlyn (where applicable) has been applied. Labs Laboratory Tests Test 05/23/19 16:50 05/23/19 18:15 05/23/19 20:19 05/24/19 05:05 Glucose (Fingerstick) 395 mg/dL (70-99) 171 mg/dL (70-99) Heparin Anti-Xa Act, Unfractionated 0.41 IU/mL (0.30-0.70) 0.56 IU/mL (0.30-0.70) White Blood Count 24.9 x10^3/uL (4.0-11.0) Red Blood Count 4.70 x10^6/uL (4.30-5.70) Hemoglobin 13.7 g/dL (13.0-17.5) Hematocrit 43.7 % (39.0-53.0) Mean Corpuscular Volume 93 fL (79-100) Mean Corpuscular Hemoglobin 29 pg (25-35) Mean Corpuscular Hemoglobin Concent 31 g/dL (31-37) Red Cell Distribution Width 15.6 % (11.5-14.5) Platelet Count 457 x10^3/uL (140-400) Test 05/24/19 07:30 05/24/19 11:20 05/24/19 13:45 05/24/19 17:13 Glucose (Fingerstick) 169 mg/dL (70-99) 221 mg/dL (70-99) 136 mg/dL (70-99) Heparin Anti-Xa Act, Unfractionated 0.64 IU/mL (0.30-0.70) Test 05/24/19 20:55 05/24/19 21:30 05/25/19 06:05 05/25/19 08:17 Glucose (Fingerstick) 240 mg/dL (70-99) 220 mg/dL (70-99) Heparin Anti-Xa Act, Unfractionated 0.59 IU/mL (0.30-0.70) 0.37 IU/mL (0.30-0.70) Test 05/25/19 11:42 05/25/19 12:50 Glucose (Fingerstick) 271 mg/dL (70-99) Heparin Anti-Xa Act, Unfractionated 0.39 IU/mL (0.30-0.70) Laboratory Tests Test 05/24/19 13:45 05/24/19 17:13 05/24/19 20:55 05/24/19 21:30 Heparin Anti-Xa Act, Unfractionated 0.64 IU/mL (0.30-0.70) 0.59 IU/mL (0.30-0.70) Glucose (Fingerstick) 136 mg/dL (70-99) 240 mg/dL (70-99) Test 05/25/19 06:05 05/25/19 08:17 05/25/19 11:42 05/25/19 12:50 Heparin Anti-Xa Act, Unfractionated 0.37 IU/mL (0.30-0.70) 0.39 IU/mL (0.30-0.70) Glucose (Fingerstick) 220 mg/dL (70-99) 271 mg/dL (70-99) Medications Current Medications Aspirin (Children'S Aspirin) 324 mg 1X ONCE PO ; Start 05/21/19 at 23:15; Stop 05/21/19 at 23:16; Status DC Albuterol/ Ipratropium (Duoneb) 3 ml 1X ONCE NEB Last administered on 05/21/19at 23:17; Start 05/21/19 at 23:15; Stop 05/21/19 at 23:16; Status DC Methylprednisolone Sodium Succinate (SOLU-Medrol 125MG VIAL) 125 mg 1X ONCE IV Last administered on 05/21/19at 23:51; Start 05/21/19 at 23:30; Stop 05/21/19 at 23:31; Status DC Furosemide (Lasix) 40 mg 1X ONCE IVP Last administered on 05/22/19at 00:26; Start 05/22/19 at 00:00; Stop 05/22/19 at 00:01; Status DC Magnesium Sulfate 50 ml @ 25 mls/hr 1X ONCE IV Last administered on 05/22/19at 00:31; Start 05/22/19 at 00:00; Stop 05/22/19 at 01:59; Status DC Heparin Sodium/ Dextrose 250 ml @ 0 mls/hr CONT PRN IV SEE COMMENTS Last administered on 05/25/19at 06:33; Start 05/22/19 at 00:00 Ondansetron HCl (Zofran) 4 mg PRN Q8HRS PRN IV NAUSEA/VOMITING; Start 05/22/19 at 00:30; Stop 05/23/19 at 00:29; Status DC Morphine Sulfate (Morphine Sulfate) 2 mg PRN Q2HR PRN IV PAIN; Start 05/22/19 at 00:30; Stop 05/23/19 at 00:29; Status DC Nitroglycerin (Nitrostat) 0.4 mg PRN Q5MIN PRN SL CHEST PAIN; Start 05/22/19 at 00:30; Stop 05/22/19 at 13:30; Status DC Albuterol/ Ipratropium (Duoneb) 3 ml RTQID NEB Last administered on 05/22/19at 11:21; Start 05/22/19 at 08:00; Stop 05/22/19 at 11:36; Status DC Aspirin (Zoey Aspirin) 325 mg 1X ONCE PO Last administered on 05/22/19at 08:14; Start 05/22/19 at 05:15; Stop 05/22/19 at 05:16; Status DC Heparin Sodium (Porcine) (Heparin Sodium) 3,250 unit PRN Q6HRS PRN IV FOR UFH LEVEL LESS THAN 0.2 Last administered on 05/22/19at 08:22; Start 05/22/19 at 08:00 Sodium Chloride 1,000 ml @ 100 mls/hr 1X ONCE IV Last administered on 05/22/19at 09:38; Start 05/22/19 at 09:00; Stop 05/22/19 at 18:59; Status DC Diltiazem HCl (Cardizem) 30 mg 1X ONCE PO Last administered on 05/22/19at 09:38; Start 05/22/19 at 10:00; Stop 05/22/19 at 10:01; Status DC Diltiazem HCl (Cardizem) 30 mg 1X PO ; Start 05/22/19 at 09:30; Stop 05/22/19 at 09:29; Status DC Albuterol/ Ipratropium (Duoneb) 3 ml RTQID NEB Last administered on 05/25/19at 11:10; Start 05/22/19 at 12:00 Budesonide (Pulmicort) 0.5 mg RTBID NEB Last administered on 05/25/19at 08:47; Start 05/22/19 at 13:00 Methylprednisolone Sodium Succinate (SOLU-Medrol 125MG VIAL) 80 mg Q6HRS IV Last administered on 05/23/19at 06:00; Start 05/22/19 at 13:00; Stop 05/23/19 at 10:27; Status DC Ceftriaxone Sodium (Rocephin) 1 gm Q24H IVP Last administered on 05/24/19at 14: 42; Start 05/22/19 at 13:00 Iodixanol (Visipaque 320) 100 ml STK-MED ONCE .ROUTE ; Start 05/22/19 at 12:05; Stop 05/22/19 at 12:05; Status DC Lidocaine HCl (Xylocaine-Mpf 1% 2ml Vial) 2 ml STK-MED ONCE .ROUTE ; Start 05/22/19 at 12:05; Stop 05/22/19 at 12:05; Status DC Heparin Sodium/ Sodium Chloride 500 ml @ As Directed STK-MED ONCE .ROUTE ; Start 05/22/19 at 12:05; Stop 05/22/19 at 12:05; Status DC Fentanyl Citrate (Fentanyl 2ml Vial) 100 mcg STK-MED ONCE .ROUTE ; Start 05/22/19 at 12:28; Stop 05/22/19 at 12:28; Status DC Midazolam HCl (Versed) 5 mg STK-MED ONCE .ROUTE ; Start 05/22/19 at 12:28; Stop 05/22/19 at 12:28; Status DC Heparin Sodium (Porcine) (Heparin Sodium) 10,000 unit STK-MED ONCE .ROUTE ; Start 05/22/19 at 12:28; Stop 05/22/19 at 12:28; Status DC Verapamil HCl (Verapamil) 5 mg STK-MED ONCE .ROUTE ; Start 05/22/19 at 12:28; Stop 05/22/19 at 12:29; Status DC Nitroglycerin (Nitroglycerin) 200 mcg STK-MED ONCE .ROUTE ; Start 05/22/19 at 12:28; Stop 05/22/19 at 12:29; Status DC Iodixanol (Visipaque 320) 100 ml STK-MED ONCE .ROUTE ; Start 05/22/19 at 12:34; Stop 05/22/19 at 12:35; Status DC Atorvastatin Calcium (Lipitor) 40 mg QHS PO Last administered on 05/24/19at 20:51; Start 05/22/19 at 21:00 Nitroglycerin (Nitroglycerin) 200 mcg 1X ONCE IART Last administered on 05/22/19at 12:54; Start 05/22/19 at 12:45; Stop 05/22/19 at 12:46; Status DC Verapamil HCl (Verapamil) 2.5 mg 1X ONCE IART Last administered on 05/22/19at 12:55; Start 05/22/19 at 12:45; Stop 05/22/19 at 12:46; Status DC Heparin Sodium (Porcine) (Heparin Sodium) 2,500 unit 1X ONCE IART Last administered on 05/22/19at 12:56; Start 05/22/19 at 12:45; Stop 05/22/19 at 12:46; Status DC Heparin Sodium/ Sodium Chloride (HEPARIN for ARTERIAL LINE FLUSH) 1,000 unit 1X ONCE IART Last administered on 05/22/19at 12:53; Start 05/22/19 at 12:45; Stop 05/22/19 at 12:46; Status DC Midazolam HCl (Versed) 5 mg 1X ONCE IV Last administered on 05/22/19at 12:54; Start 05/22/19 at 12:45; Stop 05/22/19 at 12:46; Status DC Fentanyl Citrate (Fentanyl 2ml Vial) 100 mcg 1X ONCE IV Last administered on 05/22/19at 12:45; Start 05/22/19 at 12:45; Stop 05/22/19 at 12:46; Status DC Iodixanol (Visipaque 320) 100 ml 1X ONCE IART Last administered on 05/22/19at 12:54; Start 05/22/19 at 12:45; Stop 05/22/19 at 12:46; Status DC Lidocaine HCl (Xylocaine-Mpf 1% 2ml Vial) 2 ml 1X ONCE INJ Last administered on 05/22/19at 12:55; Start 05/22/19 at 12:45; Stop 05/22/19 at 12:46; Status DC Sodium Chloride (Normal Saline Flush) 3 ml QSHIFT PRN IV AFTER MEDS AND BLOOD DRAWS; Start 05/22/19 at 13:15 Nitroglycerin (Nitrostat) 0.4 mg PRN Q5MIN PRN SL CHEST PAIN; Start 05/22/19 at 13:15 Diltiazem HCl (Cardizem) 30 mg Q6HRS PO Last administered on 05/23/19at 06:00; Start 05/22/19 at 18:00; Stop 05/23/19 at 10:24; Status DC Amiodarone HCl (Cordarone) 200 mg BID PO Last administered on 05/25/19at 08:34; Start 05/22/19 at 21:00 Zolpidem Tartrate (Ambien) 5 mg PRN QHS PRN PO INSOMNIA, MAY REPEAT IN 1HR Last administered on 05/23/19at 00:27; Start 05/23/19 at 00:15 Diltiazem HCl (Cardizem 24hr Cd) 240 mg DAILY PO Last administered on 05/25/19 at 08:35; Start 05/23/19 at 10:30 Amiodarone HCl 150 mg/Dextrose 103 ml @ 600 mls/hr 1X ONCE IV Last administered on 05/23/19at 11:25; Start 05/23/19 at 10:30; Stop 05/23/19 at 10:40; Status DC Methylprednisolone Sodium Succinate (SOLU-Medrol 40MG VIAL) 40 mg Q8HRS IV Last administered on 05/25/19at 05:38; Start 05/23/19 at 14:00; Stop 05/25/19 at 09:56; Status DC Amiodarone HCl 450 mg/Dextrose 259 ml @ 33 mls/hr CONT PRN IV SEE I/O RECORD Last administered on 05/23/19at 20:22; Start 05/23/19 at 11:45; Stop 05/23/19 at 20:22; Status DC Aspirin (Ecotrin) 325 mg DAILYWBKFT PO Last administered on 05/25/19at 08:34; Start 05/23/19 at 12:00 Carvedilol (Coreg) 3.125 mg BIDWMEALS PO ; Start 05/23/19 at 17:00; Stop 05/23/19 at 12:45; Status DC Metoprolol Tartrate (Lopressor) 12.5 mg BID PO Last administered on 05/25/19at 08:35; Start 05/23/19 at 13:00 Lactobacillus Rhamnosus (Culturelle) 1 cap BID PO Last administered on 05/25/19at 08:34; Start 05/23/19 at 21:00 Insulin Human Lispro (HumaLOG) 0-7 UNITS TIDWMEALS SQ Last administered on 05/24/19at 08:25; Start 05/23/19 at 17:00; Stop 05/24/19 at 11:34; Status DC Dextrose (Dextrose 50%-Water Syringe) 12.5 gm PRN Q15MIN PRN IV SEE COMMENTS; Start 05/23/19 at 17:00; Status Cancel Dextrose (Iv Dextrose 5%) 250 ml PRN Q15MIN PRN IV SEE COMMENTS; Start 05/23/19 at 17:00 Info (Anti-Coagulation Monitoring By Pharmacy) 1 each PRN DAILY PRN MC SEE COMMENTS Last administered on 05/25/19at 07:55; Start 05/24/19 at 08:15 Insulin Human Lispro (HumaLOG) 0-9 UNITS TIDWMEALS SQ Last administered on 12/29/19at 08:43; Start 05/24/19 at 12:00; Stop 05/25/19 at 12:26; Status DC Dextrose (Dextrose 50%-Water Syringe) 12.5 gm PRN Q15MIN PRN IV SEE COMMENTS; Start 05/24/19 at 11:45 Dextrose (Iv Dextrose 5%) 250 ml PRN Q15MIN PRN IV SEE COMMENTS; Start 05/24/19 at 11:45; Stop 05/25/19 at 07:54; Status DC Ondansetron HCl (Zofran) 4 mg PRN Q6HRS PRN IVP NAUSEA/VOMITING; Start 05/24/19 at 11:45 Acetaminophen (Tylenol) 500 mg PRN Q6HRS PRN PO MILD PAIN / TEMP; Start 05/24/19 at 11:45 Acetaminophen/ Codeine Phosphate (Tylenol #3) 1 tab PRN Q6HRS PRN PO MODERATE- SEVERE PAIN; Start 05/24/19 at 11:45 Calcium Carbonate/ Glycine (Tums) 500 mg PRN AFTMEALHC PRN PO INDIGESTION; Start 05/24/19 at 11:45 Insulin Glargine (Lantus Syringe) 15 unit DAILY SQ Last administered on 05/25/19at 08:43; Start 05/25/19 at 09:00 Glyburide (Diabeta) 5 mg BIDWMEALS PO Last administered on 05/25/19at 08:38; Start 05/25/19 at 09:00 Methylprednisolone Sodium Succinate (SOLU-Medrol 40MG VIAL) 40 mg BID IV ; Start 05/25/19 at 10:00 Insulin Human Lispro (HumaLOG) 0-9 UNITS TIDWMEALS SQ Last administered on 05/25/19at 12:32; Start 05/25/19 at 12:30 Active Scripts Active Lipitor (Atorvastatin Calcium) 40 Mg Tablet 1 Tab PO QHS 90 Days Reported Albuterol Sulfate Conc Neb Soln (Albuterol Sulfate) 2.5 Mg/0.5 Ml Vial.neb 2.5 Mg NEB Q4-6HRS PRN Doxycycline Hyclate 100 Mg Capsule 1 Cap PO BID Prednisone 20 Mg Tablet 1 Tab PO BID 9 Days Eliquis (Apixaban) 5 Mg Tablet 5 Mg PO BID Vitals/I & O Vital Sign - Last 24 Hours 05/24/19 05/24/19 05/24/19 05/24/19 15:00 15:41 19:05 19:19 Temp 98.3 97.5 98.3 97.5 Pulse 92 87 Resp 16 20 B/P (MAP) 129/66 (87) 168/60 (96) Pulse Ox 95 95 100 O2 Delivery Room Air Room Air Room Air Room Air 05/24/19 05/24/19 05/24/19 05/24/19 19:36 19:37 20:51 20:51 Pulse 87 87 B/P (MAP) 168/60 168/60 Pulse Ox 95 95 O2 Delivery Room Air Room Air 05/24/19 05/25/19 05/25/19 05/25/19 23:57 03:30 07:50 07:59 Temp 97.9 97.9 97.9 97.9 97.9 97.9 Pulse 91 93 44 Resp 20 20 20 B/P (MAP) 145/73 (97) 144/56 (85) 127/44 (71) Pulse Ox 93 94 93 O2 Delivery Room Air Room Air Room Air Nasal Cannula O2 Flow Rate 2.0 05/25/19 05/25/19 05/25/19 05/25/19 08:34 08:35 08:35 08:49 Pulse 93 93 93 B/P (MAP) 144/56 144/56 144/56 Pulse Ox 94 O2 Delivery Room Air 05/25/19 05/25/19 11:05 11:10 Temp 97.4 97.4 Pulse 65 Resp 20 B/P (MAP) 127/51 (76) Pulse Ox 93 O2 Delivery Room Air Room Air Intake and Output 05/24/19 05/24/19 05/25/19 15:00 23:00 07:00 Intake Total 360 ml 400 ml 1062 ml Output Total 1250 ml 700 ml Balance 360 ml -850 ml 362 ml KWADWO LAWSON MD May 25, 2019 13:30
[2019-05-25 15:59] VITALS: BP 133/46
[2019-05-25 19:00] VITALS: BP 110/50
[2019-05-25] MEDS: ATORVASTATIN CALCIUM 40 MG TABLET. PO SCH (20:18)
[2019-05-25 23:00] VITALS: BP 138/78
[2019-05-26 03:00] VITALS: BP 148/65
[2019-05-26 05:22] LABS: HEMATOCRIT 44.5 % (39.0-53.0); HEMOGLOBIN 14.3 g/dL (13.0-17.5); RED BLOOD COUNT 4.78 x10^6/uL (4.30-5.70); RED CELL DISTRIBUTION WIDTH 15.9 % (11.5-14.5); WHITE BLOOD COUNT 21.3 x10^3/uL (4.0-11.0)
[2019-05-26] MEDS: HEPARIN for IV BOLUS 10,000 UNIT/10 ML VIAL. IV PRN (06:14)
[2019-05-26 06:52] VITALS: BP 177/75
[2019-05-26] MEDS: IPRATRPIUM/ALBUTEROL 0.5/2.5MG 3 ML NEBU. NEB SCH ×2 (07:32→11:30)
[2019-05-26] MEDS: BUDESONIDE 0.5 MG/2 ML NEBU. NEB SCH (07:32)
[2019-05-26] MEDS: ASPIRIN ENTERIC COATED 325 MG TABLET.DR. PO SCH (08:39)
[2019-05-26] MEDS: LACTOBACILLUS RHAMNOSUS GG 1 CAPSULE. PO SCH (08:39)
[2019-05-26] MEDS: AMIODARONE HCL 200 MG TABLET. PO SCH (08:39)
[2019-05-26] MEDS: METOPROLOL TART IMMED RELEASE 25 MG TABLET. PO SCH (08:39)
[2019-05-26] MEDS: methylPREDNISolone SOD SUCC PF 40 MG/ML VIAL. IV SCH (08:40)
[2019-05-26] MEDS ORDERED: DILT240C33 PO (08:41)
[2019-05-26] MEDS ORDERED: CEFTRIAXONE SODIUM IVP (08:41)
[2019-05-26] MEDS ORDERED: METO25TA4 PO (08:41)
[2019-05-26] MEDS ORDERED: AMIO200T4 PO (08:41)
--- NOTE | 2019-05-26 09:23 | NUR ---
TACOS following pt. TACOS spoke with record press supervisor at [facility] and they are awaiting on insurance clearance and beds to open. record press supervisor will call TACOS back once insurance is good and there is a bed opening.
--- NOTE | 2019-05-26 09:29 | PDOC ---
PULMONARY PROGRESS NOTES Subjective NOT MORE SOA Vitals Vital Signs Date Time Temp Pulse Resp B/P (MAP) Pulse Ox O2 Delivery O2 Flow Rate FiO2 05/26/19 08:42 90 05/26/19 07:32 97 Room Air 05/26/19 06:52 97.4 18 177/75 (109) 97.4 05/25/19 07:59 2.0 ROS: No Nausea, No Chest Pain, No Abdominal Pain General: Alert, Oriented X4 Lungs: Wheezing (ex) Cardiovascular: S1, S2 Abdomen: Soft, Non-tender, Other (obese ) Neuro Exam: Alert, Oriented Extremities: No Edema Skin: Warm, Dry Labs Laboratory Tests Test 05/24/19 11:20 05/24/19 12:55 05/24/19 13:45 05/24/19 17:13 Glucose (Fingerstick) 221 mg/dL (70-99) 136 mg/dL (70-99) Nasal Screen MRSA (PCR) Negative (Negative) Heparin Anti-Xa Act, Unfractionated 0.64 IU/mL (0.30-0.70) Test 05/24/19 20:55 05/24/19 21:30 05/25/19 06:05 05/25/19 08:17 Glucose (Fingerstick) 240 mg/dL (70-99) 220 mg/dL (70-99) Heparin Anti-Xa Act, Unfractionated 0.59 IU/mL (0.30-0.70) 0.37 IU/mL (0.30-0.70) Test 05/25/19 11:42 05/25/19 12:50 05/25/19 16:58 05/25/19 17:07 Glucose (Fingerstick) 271 mg/dL (70-99) 36 mg/dL (70-99) 127 mg/dL (70-99) Heparin Anti-Xa Act, Unfractionated 0.39 IU/mL (0.30-0.70) Test 05/25/19 21:02 05/26/19 04:55 05/26/19 06:56 Glucose (Fingerstick) 148 mg/dL (70-99) 194 mg/dL (70-99) White Blood Count 21.3 x10^3/uL (4.0-11.0) Red Blood Count 4.78 x10^6/uL (4.30-5.70) Hemoglobin 14.3 g/dL (13.0-17.5) Hematocrit 44.5 % (39.0-53.0) Mean Corpuscular Volume 93 fL (79-100) Mean Corpuscular Hemoglobin 30 pg (25-35) Mean Corpuscular Hemoglobin Concent 32 g/dL (31-37) Red Cell Distribution Width 15.9 % (11.5-14.5) Platelet Count 363 x10^3/uL (140-400) Heparin Anti-Xa Act, Unfractionated 0.18 IU/mL (0.30-0.70) Laboratory Tests Test 05/25/19 11:42 05/25/19 12:50 05/25/19 16:58 05/25/19 17:07 Glucose (Fingerstick) 271 mg/dL (70-99) 36 mg/dL (70-99) 127 mg/dL (70-99) Heparin Anti-Xa Act, Unfractionated 0.39 IU/mL (0.30-0.70) Test 05/25/19 21:02 05/26/19 04:55 05/26/19 06:56 Glucose (Fingerstick) 148 mg/dL (70-99) 194 mg/dL (70-99) White Blood Count 21.3 x10^3/uL (4.0-11.0) Red Blood Count 4.78 x10^6/uL (4.30-5.70) Hemoglobin 14.3 g/dL (13.0-17.5) Hematocrit 44.5 % (39.0-53.0) Mean Corpuscular Volume 93 fL (79-100) Mean Corpuscular Hemoglobin 30 pg (25-35) Mean Corpuscular Hemoglobin Concent 32 g/dL (31-37) Red Cell Distribution Width 15.9 % (11.5-14.5) Platelet Count 363 x10^3/uL (140-400) Heparin Anti-Xa Act, Unfractionated 0.18 IU/mL (0.30-0.70) Medications Active Scripts Medications Dose Route/Sig Max Daily Dose Days Date Category Albuterol Sulfate Conc Neb Soln (Albuterol Sulfate) 2.5 Mg/0.5 Ml Vial.neb 2.5 Mg NEB Q4-6HRS PRN 05/22/19 Reported Doxycycline Hyclate 100 Mg Capsule 1 Cap PO BID 05/22/19 Reported Prednisone 20 Mg Tablet 1 Tab PO BID 9 05/22/19 Reported Lipitor (Atorvastatin Calcium) 40 Mg Tablet 1 Tab PO QHS 90 02/25/19 Rx Eliquis (Apixaban) 5 Mg Tablet 5 Mg PO BID 04/22/18 Reported Impression . IMPRESSION: 1. Chest pain with markedly increased troponin, related to non-ST segment myocardial infarction. Cardiology following S/P cath , 3 vessel CAD, awaiting CABG 2. Diffuse bronchospasm, likely adult-onset asthma. The patient has no significant tobacco history and the CT chest does not show any evidence of congestive heart failure. wheezing resolved with steroids 3. Acute bronchitis, could have triggered asthma exacerbation. No definite consolidation seen on the CT chest. 4. History of obstructive sleep apnea. The patient states that he could not tolerate higher pressure and also mask. I did discuss with him regarding the cardiovascular effects of untreated sleep apnea. He is agreeable to do a sleep study as an outpatient and will try nasal pillows. 5. Remote history of methamphetamine use, cocaine use, and marijuana use, but has quit for over 10 years. ECHOCARDIOGRAM <Conclusion> The left ventricular systolic function is normal. The Ejection Fraction is 55-60%. Trace tricuspid regurgitation. The PA pressure was estimated at 48 mmHg. There is no evidence of significant pericardial effusion. Cardiac Cath FINDINGS 1. Hemodynamics: Left ventricular end-diastolic pressure of 22 mmHg. No pullback gradient across the aortic valve. 2. Coronary angiography: a. The left main coronary artery arose from the left sinus of Valsalva, gave rise to the left anterior descending and left circumflex arteries and showed 50% midsegment stenosis and 70-80% distal segment stenosis. b. The left anterior descending artery showed minimal luminal irregularities without any critical lesions. c. The left circumflex artery showed 60% involving the proximal segment of the first obtuse marginal branch. d. The right coronary artery arose from the right sinus of Valsalva and showed 70% stenosis in the midsegment. Conclusion Three-vessel coronary artery disease including significant left main coronary artery stenosis Plan . TRANSFER TO [facility] FOR CABG Follow CTS and Cardiology recs , needs CABG, will transfer to [facility] on Sunday for CABG cont. nebs and plumicort cont. Rocephin IV steroids, will taper to BID dosing S/P cath 05/22/19-- CAD 3 vessel disease and left main coronary artery stenosis, EF 55-60% PA 48mmHg Outpatient PFTs. Will need follow up for outpatient sleep study Leukocytosis due to steroids D/W MARIA FERNANDA MEZA MD May 26, 2019 09:29
[2019-05-26] MEDS: HEPARIN 25,000UTS/250ML PREMIX 250 ML IV PRN (09:52)
[2019-05-26 10:22] VITALS: BP 152/60
--- NOTE | 2019-05-26 10:44 | PDOC3 ---
Discharge Summary Visit Information Date of Admission: May 22, 2019 Date of Discharge: May 26, 2019 Admitting Diagnosis Comment: Acute myocardial infarction with elevated troponin of 12 Multidisciplinary vessel disease noted on cardiac catheter awaiting CABG - transfer SUNDAY to [facility] for CABG LEukocytosis on steroids DM 2 ? undiagnosed, hgba1c 6,7 Obesity Final Diagnosis Problems Medical Problems: (1) Chronic renal insufficiency Status: Chronic (2) Tachyarrhythmia Status: Acute Brief Hospital Course Allergies Allergies Coded Allergies Type Severity Reaction Last Updated Verified hydroxyzine Allergy Intermediate Blisters on fingers and feet. 04/24/18 Yes Vital Signs Vital Signs Date Time Temp Pulse Resp B/P (MAP) Pulse Ox O2 Delivery O2 Flow Rate FiO2 05/26/19 10:22 98.2 73 18 152/60 (90) 98 Room Air 98.2 05/25/19 07:59 2.0 Lab Results Laboratory Tests Test 05/24/19 11:20 05/24/19 12:55 05/24/19 13:45 05/24/19 17:13 Glucose (Fingerstick) 221 mg/dL (70-99) 136 mg/dL (70-99) Nasal Screen MRSA (PCR) Negative (Negative) Heparin Anti-Xa Act, Unfractionated 0.64 IU/mL (0.30-0.70) Test 05/24/19 20:55 05/24/19 21:30 05/25/19 06:05 05/25/19 08:17 Glucose (Fingerstick) 240 mg/dL (70-99) 220 mg/dL (70-99) Heparin Anti-Xa Act, Unfractionated 0.59 IU/mL (0.30-0.70) 0.37 IU/mL (0.30-0.70) Test 05/25/19 11:42 05/25/19 12:50 05/25/19 16:58 05/25/19 17:07 Glucose (Fingerstick) 271 mg/dL (70-99) 36 mg/dL (70-99) 127 mg/dL (70-99) Heparin Anti-Xa Act, Unfractionated 0.39 IU/mL (0.30-0.70) Test 05/25/19 21:02 05/26/19 04:55 05/26/19 06:56 Glucose (Fingerstick) 148 mg/dL (70-99) 194 mg/dL (70-99) White Blood Count 21.3 x10^3/uL (4.0-11.0) Red Blood Count 4.78 x10^6/uL (4.30-5.70) Hemoglobin 14.3 g/dL (13.0-17.5) Hematocrit 44.5 % (39.0-53.0) Mean Corpuscular Volume 93 fL (79-100) Mean Corpuscular Hemoglobin 30 pg (25-35) Mean Corpuscular Hemoglobin Concent 32 g/dL (31-37) Red Cell Distribution Width 15.9 % (11.5-14.5) Platelet Count 363 x10^3/uL (140-400) Heparin Anti-Xa Act, Unfractionated 0.18 IU/mL (0.30-0.70) Laboratory Tests Test 05/25/19 11:42 05/25/19 12:50 05/25/19 16:58 05/25/19 17:07 Glucose (Fingerstick) 271 mg/dL (70-99) 36 mg/dL (70-99) 127 mg/dL (70-99) Heparin Anti-Xa Act, Unfractionated 0.39 IU/mL (0.30-0.70) Test 05/25/19 21:02 05/26/19 04:55 05/26/19 06:56 Glucose (Fingerstick) 148 mg/dL (70-99) 194 mg/dL (70-99) White Blood Count 21.3 x10^3/uL (4.0-11.0) Red Blood Count 4.78 x10^6/uL (4.30-5.70) Hemoglobin 14.3 g/dL (13.0-17.5) Hematocrit 44.5 % (39.0-53.0) Mean Corpuscular Volume 93 fL (79-100) Mean Corpuscular Hemoglobin 30 pg (25-35) Mean Corpuscular Hemoglobin Concent 32 g/dL (31-37) Red Cell Distribution Width 15.9 % (11.5-14.5) Platelet Count 363 x10^3/uL (140-400) Heparin Anti-Xa Act, Unfractionated 0.18 IU/mL (0.30-0.70) Brief Hospital Course Mr. Manuel is a 68 old morbidly obese male,admitted for PA and needs CABG which we dont have here so transferring to another facility ([facility]), Course, BS 250s to 350s, news to him, hgba1c 6.7 so i started 15 units lantus, but he went hypogly- so now i just started glyburide 1,25 BID with meals, I told him my plan, and he understands, In the meantime, cont all cardiac meds per cards, HE HAS been on heparin gtt, no bleeding and will transport with the heparin gtt Pt seen and examined dc 32 mins in coordnating transport etc Pt seen and examined COnsults: cards Discharge Information Condition at Discharge: Stable Disposition/Orders: Other ([facility]) Scheduled Amiodarone Hcl (Amiodarone Hcl) 200 Mg Tablet, 200 MG PO BID for a fib, #30 Prescribed by: KODY EASON on 05/26/19 0841 Atorvastatin Calcium (Lipitor) 40 Mg Tablet, 1 TAB PO QHS for HLD for 90 Days, #90 Ref 1 Prescribed by: JONY BERGER MD on 02/25/19 7957 Last Action: Reviewed on 05/22/19621 by CRUZ BRUMFIELD RN Diltiazem HCl (Diltiazem 24Hr Cd) 240 Mg Cap.er.24h, 240 MG PO DAILY for a fb, #60 Prescribed by: KODY EASON on 05/26/19 0841 Metoprolol Tartrate (Metoprolol Tartrate) 25 Mg Tablet, 12.5 MG PO BID for cad, #60 Prescribed by: KODY EASON on 05/26/19 0841 Prednisone (Prednisone) 20 Mg Tablet, 1 TAB PO BID for prednisone for 9 Days, #18 (Reported) Entered as Reported by: CRUZ BRUMFIELD RN on 05/22/19621 Last Action: HELD on 05/25/19823 by KODY EASON [Ceftriaxone Sodium] 1 GM VIAL, 1 GM IVP Q24H for infilatrates cxr for 7 Days, #7 Prescribed by: KODY EASON on 05/26/19 0841 Scheduled PRN Albuterol Sulfate (Albuterol Sulfate Conc Neb Soln) 2.5 Mg/0.5 Ml Vial.neb, 2.5 MG NEB Q4-6HRS PRN for SHORTNESS OF BREATH, Ref 0 (Reported) Entered as Reported by: CRUZ BRUMFIELD RN on 05/22/19625 Last Action: Reviewed on 05/25/19823 by KODY EASON Discontinued Medications Apixaban (Eliquis) 5 Mg Tablet, 5 MG PO BID for pro, (Reported) Entered as Reported by: KATELYN MEREDITH on 04/22/18 1619 Last Action: Reviewed on 05/22/19621 by CRUZ BRUMFIELD RN Doxycycline Hyclate (Doxycycline Hyclate) 100 Mg Capsule, 1 CAP PO BID for cellulitis, #10 (Reported) Entered as Reported by: CRUZ BRUMFIELD RN on 05/22/19624 Last Action: HELD on 05/25/19823 by KODY HANSON MD May 26, 2019 10:44
--- NOTE | 2019-05-26 12:35 | NUR ---
Discharge: Report called to YAJAIRA Sanders at [facility]. Copy of medications, chart, ect. 5 written prescriptions in packet. Waiting an [facility] transport. 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 Girlfriend at bedside. IV in place. Heparin infusion at 21.6ml/hr.
--- NOTE | 2019-05-26 12:51 | NUR ---
SW arranged transport via [facility] [place] to go to [facility] room 216 after confirming with house supervisior. RN notified.
[2019-05-26] MEDS ORDERED: glyBURIDE 1.25 MG TABLET PO SCH (17:00)
== END 2019-05-26 13:00 | disposition short-term general hospital (02) | DRG 871 ==
LOC: ER 22:29 → 2 NORTH 05-22 00:56
PROVIDERS: ADMIT Internal Medicine; ATTEND Internal Medicine
PROC: 4A023N7 Measurement of Cardiac Sampling and Pressure, Left Heart, Percutaneous Approach (ICD-10-PCS; principal; 2019-05-22)
PROC: B2111ZZ Fluoroscopy of Multiple Coronary Arteries using Low Osmolar Contrast (ICD-10-PCS; 2019-05-22)
DX: A41.9 Sepsis, unspecified organism (principal); I21.4 Non-ST elevation (NSTEMI) myocardial infarction; I50.43 Acute on chronic combined systolic (congestive) and diastolic (congestive) heart failure; N17.9 Acute kidney failure, unspecified; I13.0 Hypertensive heart and chronic kidney disease with heart failure and stage 1 through stage 4 chronic kidney disease, or unspecified chronic kidney disease; J44.0 Chronic obstructive pulmonary disease with (acute) lower respiratory infection; Z68.41 Body mass index [BMI] 40.0-44.9, adult; B35.1 Tinea unguium; E66.01 Morbid (severe) obesity due to excess calories; E78.00 Pure hypercholesterolemia, unspecified; E78.5 Hyperlipidemia, unspecified; E83.42 Hypomagnesemia; G47.00 Insomnia, unspecified; I25.10 Atherosclerotic heart disease of native coronary artery without angina pectoris; I25.5 Ischemic cardiomyopathy; I45.10 Unspecified right bundle-branch block; I48.0 Paroxysmal atrial fibrillation; M19.90 Unspecified osteoarthritis, unspecified site; I87.8 Other specified disorders of veins; J20.9 Acute bronchitis, unspecified; N20.0 Calculus of kidney; N40.0 Benign prostatic hyperplasia without lower urinary tract symptoms; Z79.01 Long term (current) use of anticoagulants; Z86.73 Personal history of transient ischemic attack (TIA), and cerebral infarction without residual deficits; Z87.442 Personal history of urinary calculi; Z91.19 Patient's noncompliance with other medical treatment and regimen; N18.9 Chronic kidney disease, unspecified
CPT/HCPCS: 36415; 71045; 71250; 80048; 80053; 80061; 81001; 82550; 82962; 83036; 83735; 83880; 84443; 84484; 85007; 85025; 85027; 85379; 85520; 87641; 93005; 93306; 93458; 93880; 93970; 94640; 94760; 96365; 96375; 99152; 99153; C1769; C1892; J0282; J0696; J1644; J1815; J1940; J2250; J2920; J2930; J3010; J3475; J3490; J7030; J7042; J7620; J7626; Q9967; 99291-25; G0378